=== PATIENT | male | born 1970 | race African-American/Black ===

== ENCOUNTER 2016-10-01 12:32 | Inpatient (IN) | payer OTHER ==
[~2016-10-01] VITALS: Ht 182.9 cm; Wt 88.8 kg
[~2016-10-01 12:32] MED LIST: ASPI81TA11 PO; ATOR10 PO; CLIN150 PO; EXTR500C PO; LANTUS2P SC; METO25 PO; NOVOLOGSS SQ; PRED1TAB PO; RIVA20 PO
[2016-10-01 12:34] VITALS: BP 122/84; PULSE 139; RESP 15; TEMP 99.1; O2SAT 99
--- NOTE | 2016-10-01 12:53 | PD ---
Physical Exam Time Seen by Provider: 12:51 Narrative 45 y/o male here with a painful "hole" in his L thigh for one week. Vital signs reviewed. Tachycardic. Hx Afib per chart review. Denies palpitations/cp/sob/dizziness. Seen at triage desk. Awaiting bed placement. Data Data Last Documented VS Vital Signs Date Time Temp Pulse Resp B/P Pulse Ox O2 Delivery O2 Flow Rate FiO2 10/01/16 12:34 99.1 139 15 122/84 99 MDM Medical Record Reviewed: Yes Supervised Visit with AMENA: Bolivar Mcdowell Oct 01, 2016 12:53
[2016-10-01] MEDS ORDERED: SODIUM CHLOR 0.9% 1000 ML INJ 1,000 ML IV SCH (13:40)
[2016-10-01 13:43] VITALS: O2SAT 98
[2016-10-01] MEDS ORDERED: ONDANSETRON HCL 4 MG/2 ML VIAL IVP ONE (13:45)
[2016-10-01] MEDS ORDERED: KETOROLAC TROMETHAMINE 30 MG/ML (IVP) VIAL IVP ONE (13:45)
[2016-10-01] MEDS ORDERED: VANCOMYCIN INJ 1,000 MG in SODIUM CHLOR 0.9% 250 ML INJ 250 ML IV ONE (13:45)
[2016-10-01] MEDS ORDERED: MORPHINE SULFATE 4 MG/ML INJ IV PUSH ONE (13:45)
[2016-10-01] MEDS ORDERED: DILTIAZEM HCL 25 MG/5 ML VIAL IV ONE (14:15)
--- NOTE | 2016-10-01 14:41 | PD ---
HPI Chief Complaint: Skin Problem Time Seen by Provider: 14:34 Travel History International Travel<30 days: No Contact w/Intl Traveler<30days: No Traveled to known affect area: No History of Present Illness HPI 45-year-old male that presents to the ED for evaluation of left inner tight skin lesions. Patient has a history of Hidradenitis suppurutiva, rheumatoid arthritis, diabetes. Per patient his lesions have been ongoing for some time before the past 2 weeks of progressively getting worse. Per patient he is also having pain in his knees especially his right knee. He also states having fevers and chills. Patient also states that he has a history of possible A. fib but when I ask him specifically if he takes anything for a history that he doesn't. Patient per medical records takes metoprolol but he states that he does not take it. He does take insulin for his diabetes. I examination patient is tachycardic. Per patient his pain is 10 out of 10 more on the right knee which has no lesions but also noted on the left inner tight. Per patient he has had purulence coming out of the wounds on the left inner tight for about 2-3 days that is worsening. Patient has foul smell noted. History of MRSA. Denies any IV drug abuse. No history of HIV. Patient has not seen his PCP for this. PFSH Past Medical History Arthritis: Yes (RA) Atrial Fibrillation: Yes Blood Disorders: No Heart Rhythm Problems: Yes (A FIB) Cancer: No Cardiac Catheterization: No Cardiovascular Problems: Yes High Cholesterol: Yes Congestive Heart Failure: No Coronary Artery Disease: Yes Diabetes: Yes Patient Takes Glucophage: No Diminished Hearing: No Endocrine: Yes Genitourinary: No Heparin Induced Thrombocytopen: No Hypertension: Yes Immune Disorder: Yes (RA) Implanted Vascular Access Dvce: No Musculoskeletal: Yes (RA) Neurologic: No Psychiatric: No Reproductive: No Respiratory: No Immunizations Current: Yes Thyroid Disease: Yes Past Surgical History Coronary Artery Bypass Graft: No Other Surgery: Yes (Nikos under arm r/t Boils ) Family History Family Myocardial Infarction: Yes (BROTHER) Social History Alcohol Use: Yes (rarely) Tobacco Use: No Substance Use: No (marijuana) Allergies-Medications (Allergen,Severity, Reaction): Coded Allergies: *MDRO Multi-Drug Resistant Organism (Verified Adverse Reaction, Unknown, ) 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/2015 Reported Meds & Prescriptions Reported Meds & Active Scripts Active Prednisone 1 Mg Tab 10 Mg PO DAILY Lantus (Insulin Glargine) 100 Units/Ml Inj 20 Unit SC HS 30 Days Xarelto 20 Mg Tab (Rivaroxaban) 20 Mg Tab 20 Mg PO DAILY 30 Days Metoprolol Tartrate 25 mg (Metoprolol Tartrate) 25 Mg Tab 25 Mg PO Q12HR 30 Days Lipitor 10 mg tab (Atorvastatin) 10 Mg Tab 10 Mg PO HS 30 Days Novolog Insulin Supplemental Scale (Insulin Aspart) 100 /Ml Inj 1 Units SQ ACHS SLIDING SCALE 30 Days Do not cover Fasting Sugar less than 200 while fasting Maximum Dose at Bedtime: 2 units Maximum Dose at 3am: 0 units Blood Sugar less than 70--No Insulin 150 - 199 --------- 1 Unit 200 - 249 --------- 3 Units 250 - 299 5 Units 300 - 349 7 Units Greater than 349 --9 Units Cleocin (Clindamycin HCl) 150 Mg Cap 450 Mg PO Q8H 28 Days Aspirin EC 81 mg (Aspirin) 81 Mg Tab 81 Mg PO DAILY 30 Days Reported Extra Strength Acetaminop (Acetaminophen) 500 Mg Cap 1,000 Mg PO BID PRN Review of Systems Except as stated in HPI: all other systems reviewed are Neg Physical Exam Narrative GENERAL: SKIN: Warm and dry. HEAD: Atraumatic. Normocephalic. Patient has old scars on his buttocks as well as his groin from old abscesses as well as in his axilla. EYES: Pupils equal and round. No scleral icterus. No injection or drainage. ENT: No nasal bleeding or discharge. Mucous membranes pink and moist. Tongue is midline. No uvula deviation. NECK: Trachea midline. No JVD. CARDIOVASCULAR: Regular rate and rhythm. No murmurs, S3, S4. RESPIRATORY: No accessory muscle use. Clear to auscultation. Breath sounds equal bilaterally. GASTROINTESTINAL: Abdomen soft, non-tender, nondistended. Hepatic and splenic margins not palpable. MUSCULOSKELETAL: Extremities without clubbing, cyanosis, or edema. No obvious deformities. Full range of motion of the upper and lower extremities bilaterally. Pupils pulses bilaterally. Patient has 2 open wounds on the left inner thigh. Largest one is about 2 cm in diameter with open purulence coming out of it. Smaller one is about 1 cm with some purulence coming out of it. Tender to touch especially the smaller one. Patient also has another pustule- like lesion on the left lower leg about 1 cm in diameter with erythema but no obvious purulence noted however. Tender to touch. Patient has pain with touch in the right knee but no obvious swelling or deformity. No erythema. Able to move it fully but has pain with flexion. Improves with extension. NEUROLOGICAL: Awake and alert. No obvious cranial nerve deficits. Motor grossly within normal limits. Five out of 5 muscle strength in the arms and legs. Normal speech. PSYCHIATRIC: Appropriate mood and affect; insight and judgment normal. Data Data Last Documented VS Vital Signs Date Time Temp Pulse Resp B/P Pulse Ox O2 Delivery O2 Flow Rate FiO2 10/01/16 13:43 98 Room Air 10/01/16 12:34 99.1 139 15 122/84 Orders Electrocardiogram (10/01/16 ) Electrocardiogram (10/01/16 13:31) Complete Blood Count With Diff (10/01/16 13:31) Basic Metabolic Panel (Bmp) (10/01/16 13:31) Prothrombin Time / Inr (Pt) (10/01/16 13:31) Act Partial Throm Time (Ptt) (10/01/16 13:31) Blood Culture (10/01/16 13:31) Magnesium (Mg) (10/01/16 13:31) Wound Culture And Gram Stain (10/01/16 13:31) Iv Access Insert/Monitor (10/01/16 13:31) Ecg Monitoring (10/01/16 13:31) Oximetry (10/01/16 13:31) Lactic Acid (10/01/16 13:31) C-Reactive Protein (Crp) (10/01/16 13:31) Vancomycin Inj (Vancomycin Inj) (10/01/16 13:45) Morphine Inj (Morphine Inj) (10/01/16 13:45) Ondansetron Inj (Zofran Inj) (10/01/16 13:45) Sodium Chlor 0.9% 1000 Ml Inj (Ns 1000 M (10/01/16 13:40) Ketorolac Inj (Toradol Inj) (10/01/16 13:45) Diltiazem Inj (Cardizem Inj) (10/01/16 14:15) Admit Order (Ed Use Only) (10/01/16 16:04) Labs Laboratory Tests Test 10/01/16 14:15 White Blood Count 16.3 TH/MM3 Red Blood Count 4.01 MIL/MM3 Hemoglobin 10.1 GM/DL Hematocrit 32.3 % Mean Corpuscular Volume 80.6 FL Mean Corpuscular Hemoglobin 25.3 PG Mean Corpuscular Hemoglobin 31.3 % Concent Red Cell Distribution Width 19.9 % Platelet Count 545 TH/MM3 Mean Platelet Volume 8.5 FL Neutrophils (%) (Auto) 79.3 % Lymphocytes (%) (Auto) 14.6 % Monocytes (%) (Auto) 4.6 % Eosinophils (%) (Auto) 1.0 % Basophils (%) (Auto) 0.5 % Neutrophils # (Auto) 12.9 TH/MM3 Lymphocytes # (Auto) 2.4 TH/MM3 Monocytes # (Auto) 0.8 TH/MM3 Eosinophils # (Auto) 0.2 TH/MM3 Basophils # (Auto) 0.1 TH/MM3 CBC Comment DIFF FINAL Differential Comment Prothrombin Time 12.7 SEC Prothromb Time International 1.1 RATIO Ratio Activated Partial 29.9 SEC Thromboplast Time Sodium Level 130 MEQ/L Potassium Level 4.4 MEQ/L Chloride Level 97 MEQ/L Carbon Dioxide Level 26.6 MEQ/L Anion Gap 6 MEQ/L Blood Urea Nitrogen 24 MG/DL Creatinine 1.25 MG/DL Estimat Glomerular Filtration 75 ML/MIN Rate Random Glucose 411 MG/DL Lactic Acid Level 1.8 mmol/L Calcium Level 9.9 MG/DL Magnesium Level 1.9 MG/DL C-Reactive Protein 15.50 MG/DL MDM Medical Decision Making Medical Screen Exam Complete: Yes Emergency Medical Condition: Yes Medical Record Reviewed: Yes Interpretation(s) CBC Diagram 10/01/16 14:15 lactic of 1.8 BMP Diagram 10/01/16 14:15 Differential Diagnosis Abscesses versus hidradenitis suppurativa versus diabetes mellitus versus rheumatoid arthritis versus leukocytosis versus cellulitis versus sepsis Narrative Course 45-year-old male that presents to the ED for evaluation of infection as well as knee pain. Patient was properly examined and was found to have signs and symptoms very consistent appears to be significant infection. Patient's wound appeared to be old but they're draining purulent material. Patient does appear to have severe tachycardia in the 120s 130s. EKG shows atrial flutter but not really atrial fibrillation. Questionable compliance. Patient is diabetic. Concern for sepsis. Labs ordered. Patient was started on IV medications as well as IV fluids. Patient was started on vancomycin as he has a history of MRSA. Labs showed leukocytosis with left shift. At this time I spoke with my attending Dr Myers who evaluated the patient with me and agrees to admission. Patient still tachycardic but improved at 108 from 130. SHON christensen and Dr. Castle agrees to admission. Sepsis Criteria SIRS Criteria (2 or more): Heart rate over 90, WBC > 44638, < 4000 or > 10% bands Sepsis Criteria (SIRS+source): Infect source susp/known Criteria Outcome: Meets sepsis criteria Diagnosis Primary Impression: Hidradenitis suppurativa Additional Impressions: Cellulitis Qualified Code: L03.116 - Cellulitis of left lower extremity Atrial flutter Qualified Code: I48.3 - Typical atrial flutter Sepsis Qualified Code: A41.9 - Sepsis, due to unspecified organism Admitting Information Admitting Physician Requests: Observation Zion Garrison Oct 01, 2016 14:41
[2016-10-01 15:00] LABS: AUTOMATED NEUTROPHIL # 12.9 TH/MM3 (1.8-7.7); BASOPHIL # 0.1 TH/MM3 (0-0.2); BASOPHIL % 0.5 % (0.0-2.0); EOSINOPHIL # 0.2 TH/MM3 (0-0.4); HEMATOCRIT 32.3 % (39.0-51.0); HEMO FLAGS DIFF FINAL; LYMPH % 14.6 % (9.0-44.0); LYMPHOCYTE # 2.4 TH/MM3 (1.0-4.8); MEAN CELL VOLUME 80.6 FL (80.0-100.0); MEAN CORPUSCULAR HEMOGLOBIN 25.3 PG (27.0-34.0); MEAN CORPUSCULAR HGB CONC 31.3 % (32.0-36.0); MONO % 4.6 % (0.0-8.0); NEUT % 79.3 % (16.0-70.0); PLATELET COUNT 545 TH/MM3 (150-450); RED BLOOD COUNT 4.01 MIL/MM3 (4.50-5.90); RED CELL DISTRIBUTION WIDTH 19.9 % (11.6-17.2); WHITE BLOOD COUNT 16.3 TH/MM3 (4.0-11.0)
[2016-10-01 15:12] LABS: APTT (PATIENT) 29.9 SEC (24.3-30.1); INTERNATIONAL NORMALIZED RATIO 1.1 RATIO; PROTHROMBIN TIME - PATIENT 12.7 SEC (9.8-11.6)
[2016-10-01 15:19] LABS: BICARBONATE 26.6 MEQ/L (21.0-32.0); MAGNESIUM 1.9 MG/DL (1.5-2.5); POTASSIUM 4.4 MEQ/L (3.5-5.1)
--- NOTE | 2016-10-01 16:12 | PD ---
Data Data Last Documented VS Vital Signs Date Time Temp Pulse Resp B/P Pulse Ox O2 Delivery O2 Flow Rate FiO2 10/01/16 13:43 98 Room Air 10/01/16 12:34 99.1 139 15 122/84 Orders Electrocardiogram (10/01/16 ) Electrocardiogram (10/01/16 13:31) Complete Blood Count With Diff (10/01/16 13:31) Basic Metabolic Panel (Bmp) (10/01/16 13:31) Prothrombin Time / Inr (Pt) (10/01/16 13:31) Act Partial Throm Time (Ptt) (10/01/16 13:31) Blood Culture (10/01/16 13:31) Magnesium (Mg) (10/01/16 13:31) Wound Culture And Gram Stain (10/01/16 13:31) Iv Access Insert/Monitor (10/01/16 13:31) Ecg Monitoring (10/01/16 13:31) Oximetry (10/01/16 13:31) Lactic Acid (10/01/16 13:31) C-Reactive Protein (Crp) (10/01/16 13:31) Vancomycin Inj (Vancomycin Inj) (10/01/16 13:45) Morphine Inj (Morphine Inj) (10/01/16 13:45) Ondansetron Inj (Zofran Inj) (10/01/16 13:45) Sodium Chlor 0.9% 1000 Ml Inj (Ns 1000 M (10/01/16 13:40) Ketorolac Inj (Toradol Inj) (10/01/16 13:45) Diltiazem Inj (Cardizem Inj) (10/01/16 14:15) Admit Order (Ed Use Only) (10/01/16 16:04) Labs Laboratory Tests Test 10/01/16 14:15 White Blood Count 16.3 TH/MM3 Red Blood Count 4.01 MIL/MM3 Hemoglobin 10.1 GM/DL Hematocrit 32.3 % Mean Corpuscular Volume 80.6 FL Mean Corpuscular Hemoglobin 25.3 PG Mean Corpuscular Hemoglobin 31.3 % Concent Red Cell Distribution Width 19.9 % Platelet Count 545 TH/MM3 Mean Platelet Volume 8.5 FL Neutrophils (%) (Auto) 79.3 % Lymphocytes (%) (Auto) 14.6 % Monocytes (%) (Auto) 4.6 % Eosinophils (%) (Auto) 1.0 % Basophils (%) (Auto) 0.5 % Neutrophils # (Auto) 12.9 TH/MM3 Lymphocytes # (Auto) 2.4 TH/MM3 Monocytes # (Auto) 0.8 TH/MM3 Eosinophils # (Auto) 0.2 TH/MM3 Basophils # (Auto) 0.1 TH/MM3 CBC Comment DIFF FINAL Differential Comment Prothrombin Time 12.7 SEC Prothromb Time International 1.1 RATIO Ratio Activated Partial 29.9 SEC Thromboplast Time Sodium Level 130 MEQ/L Potassium Level 4.4 MEQ/L Chloride Level 97 MEQ/L Carbon Dioxide Level 26.6 MEQ/L Anion Gap 6 MEQ/L Blood Urea Nitrogen 24 MG/DL Creatinine 1.25 MG/DL Estimat Glomerular Filtration 75 ML/MIN Rate Random Glucose 411 MG/DL Lactic Acid Level 1.8 mmol/L Calcium Level 9.9 MG/DL Magnesium Level 1.9 MG/DL C-Reactive Protein 15.50 MG/DL MDM Supervised Visit with AMENA: Yes Narrative Course The history, exam, and medical decision-making in the associated midlevel provider note were completed with my assistance. I reviewed and agree with the findings presented. I attest that I had a [id number] encounter with the patient on the same day, and personally performed and documented my assessment and findings in the medical record. *My assessment and Findings: This is a 45-year-old male who presents to the emergency department with increasing discharge from wounds on his left lower extremity. He has a history of hidradenitis suppurotiva and has grown MRSA in the past. He was tachycardic on arrival. He was given IV fluids and diltiazem in the setting of atrial fibrillation with rapid ventricular response. He is also given a dose of IV vancomycin. He has leukocytosis and his exam is fairly impressive. Think he requires admission for IV antibiotics and wound care. Diagnosis Primary Impression: Hidradenitis suppurativa Additional Impressions: Atrial flutter Qualified Code: I48.3 - Typical atrial flutter Cellulitis Qualified Code: L03.116 - Cellulitis of left lower extremity Taylor Myers MD Oct 01, 2016 16:12
[2016-10-01] MEDS ORDERED: INSULIN HUMAN REGULAR 1,000 UNITS/10 ML VIAL SQ ONE (16:30)
[2016-10-01] MEDS ORDERED: NALOXONE HCL 0.4 MG/ML AMP IV PRN (16:45)
[2016-10-01] MEDS ORDERED: ENALAPRILAT 1.25 MG/ML VIAL IV PUSH PRN (16:45)
[2016-10-01] MEDS ORDERED: MAGNESIUM HYDROXIDE SUSP 30 ML CUP PO PRN (16:45)
[2016-10-01] MEDS ORDERED: DEXTROSE 50% IN WATER 50 ML VIAL(D50) IV PRN (16:45)
[2016-10-01] MEDS ORDERED: RESP: ALBUTEROL 2.5 MG/IPRATROPIUM 0.5 MG NEB (PRN) NEB (16:45)
[2016-10-01] MEDS ORDERED: ACETAMINOPHEN 325 MG TAB PO PRN ×2 (16:45)
[2016-10-01] MEDS ORDERED: TEMAZEPAM 15 MG CAP PO PRN (16:45)
[2016-10-01] MEDS ORDERED: ONDANSETRON HCL 4 MG/2 ML VIAL IVP PRN (16:45)
[2016-10-01] MEDS ORDERED: ACETAMINOPHEN/HYDROcodone 325 MG/5 MG TAB PO PRN (16:45)
[2016-10-01] MEDS ORDERED: GLUCAGON 1 MG/ML VIAL OTHER PRN (16:45)
[2016-10-01 17:18] LABS: CREATINE KINASE 39 U/L (39-308)
--- NOTE | 2016-10-01 18:17 | HHI.HP ---
HPI Service [facility] Hospitalists Primary Care Physician No Primary Care Physician Admission Diagnosis cellulitis, hydradenitis suppurutiva, a. flutter, leukocytosis Diagnoses: Chief Complaint: Draining wounds left lower extremity elevated blood sugar bilateral knee pain Travel History International Travel<30 Days: No Contact w/Intl Traveler <30 Da: No Traveled to Known Affected Are: No Sepsis Criteria SIRS Criteria (2 or more): Heart rate over 90, WBC > 20602, < 4000 or > 10% bands Sepsis Criteria (SIRS+source): Infect source susp/known Criteria Outcome: Meets sepsis criteria History of Present Illness Written by Janice Stanford PA-C acting as scribe for Dr. Castle on 10/01/16 at 17:32. This is a 45-year-old male with past medical history significant for hypertension, diabetes mellitus, hidradenitis, rheumatoid arthritis, COPD and previous history of atrial fibrillation who presents to [facility] ED with complaints of two-week history of worsening lesions left inner thigh that have been increasing in size and starting to drain pus over the last 2-3 days. He reports 10 out of 10 pain that was unrelieved with Aleve taken at home. Patient denies any fever or chills at home. Also denies any nausea or vomiting. He has a history of MRSA infection. Patient was at [facility] a few weeks ago with similar complaints and was treated with oral clindamycin and steroids which the patient reports did not help. He admits to history of rheumatoid arthritis but states he's never seen a music arranger. He is having bilateral knee pain but worse on the right than the left. In regards to his diabetes, patient reports that he is compliant with his insulin medication and is unsure why his blood sugar is 441 in the ED today. When asked why he doesn' t take any medications for atrial fibrillation, patient states he was told by physician he no longer has it. He was last seen by his primary care physician one month ago. Presently, patient complains of 10 out of 10 pain. He denies any chest pain, palpitations, dizziness or shortness of breath. Review of Systems Except as stated in HPI: all other systems reviewed are Neg Past Family Social History Past Medical History Rheumatoid arthritis Diabetes mellitus Hidradenitis suppurative History of MRSA infection Hypertension COPD Dyslipidemia Past Surgical History History of surgery Luli the left axilla for hidradenitis History of skin graft left thigh Reported Medications Lantus NovoLog Aleve 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 Ordered Medications Current Medications Medications (Trade) Dose Ordered Sig/Mitzi Route Start Time Stop Time Status Last Admin (NS Flush) 2 ml UNSCH PRN IV FLUSH 10/01/16 16:45 (NS Flush) 2 ml BID IV FLUSH 10/01/16 21:00 (Tylenol) 650 mg Q4H PRN PO 10/01/16 16:45 (Zofran Inj) 4 mg Q6H PRN IVP 10/01/16 16:45 (Restoril) 15 mg HS PRN PO 10/01/16 16:45 (Tylenol) 650 mg Q6H PRN PO 10/01/16 16:45 ([place] 5-325 Mg) 1 tab Q4H PRN PO 10/01/16 16:45 (Narcan Inj) 0.4 mg UNSCH PRN IV 10/01/16 16:45 (Milk Of Magnesia Liq) 30 ml Q12H PRN PO 10/01/16 16:45 (D50w (Vial) Inj) 50 ml UNSCH PRN IV 10/01/16 16:45 (Glucagon Inj) 1 mg UNSCH PRN OTHER 10/01/16 16:45 (Vasotec Inj) 1.25 mg Q6H PRN IV PUSH 10/01/16 16:45 (Lactinex) 1 tab Q12HR PO 10/01/16 21:00 Family History Brother, coronary artery disease Mother, hypertension Social History Patient has a history of tobacco use of a pack per day but quit 6 months ago. He reports occasional alcohol use of 1 beer/week. He reports occasional marijuana use. Physical Exam Vital Signs Vital Signs Date Time Temp Pulse Resp B/P Pulse Ox O2 Delivery O2 Flow Rate FiO2 10/01/16 13:43 98 Room Air 10/01/16 12:34 99.1 139 15 122/84 99 Physical Exam GENERAL: This is a well-nourished, well-developed patient, in no apparent distress. Awake and alert. Cooperative and pleasant. SKIN: Left axilla has well-healed surgical scars from prior surgery. (+)Open wounds on the left inner thigh with active purulent drainage, the largest approximately 2x2cm. (+)tender to palpation. Healed shallow craters from sites of previous infection. HEAD: Atraumatic. Normocephalic. No temporal or scalp tenderness. EYES: Pupils equal round and reactive. Extraocular motions intact. No scleral icterus. No injection or drainage. ENT: Nose without bleeding, purulent drainage or septal hematoma. Throat without erythema, tonsillar hypertrophy or exudate. Uvula midline. Airway patent. NECK: Trachea midline. Supple, nontender, no meningeal signs. CARDIOVASCULAR: Regular rate and rhythm without murmurs, gallops, or rubs. RESPIRATORY: Clear to auscultation. Breath sounds equal bilaterally. No wheezes , rales, or rhonchi. GASTROINTESTINAL: Abdomen soft, non-tender, nondistended. No hepato-splenomegaly , or palpable masses. No guarding. MUSCULOSKELETAL: Extremities without clubbing, cyanosis, or edema. No joint tenderness, effusion, or edema noted. No calf tenderness. NEUROLOGICAL: Awake and alert. Able to move all extremes. No focal neurologic findings appreciated. Normal speech. Laboratory Laboratory Tests Test 10/01/16 14:15 White Blood Count 16.3 Red Blood Count 4.01 Hemoglobin 10.1 Hematocrit 32.3 Mean Corpuscular Volume 80.6 Mean Corpuscular Hemoglobin 25.3 Mean Corpuscular Hemoglobin 31.3 Concent Red Cell Distribution Width 19.9 Platelet Count 545 Mean Platelet Volume 8.5 Neutrophils (%) (Auto) 79.3 Lymphocytes (%) (Auto) 14.6 Monocytes (%) (Auto) 4.6 Eosinophils (%) (Auto) 1.0 Basophils (%) (Auto) 0.5 Neutrophils # (Auto) 12.9 Lymphocytes # (Auto) 2.4 Monocytes # (Auto) 0.8 Eosinophils # (Auto) 0.2 Basophils # (Auto) 0.1 CBC Comment DIFF FINAL Differential Comment Prothrombin Time 12.7 Prothromb Time International 1.1 Ratio Activated Partial 29.9 Thromboplast Time Sodium Level 130 Potassium Level 4.4 Chloride Level 97 Carbon Dioxide Level 26.6 Anion Gap 6 Blood Urea Nitrogen 24 Creatinine 1.25 Estimat Glomerular Filtration 75 Rate Random Glucose 411 Lactic Acid Level 1.8 Calcium Level 9.9 Magnesium Level 1.9 Total Creatine Kinase 39 Troponin I LESS THAN 0.02 C-Reactive Protein 15.50 Date/Time Procedure Status Source Growth 10/01/16 14:25 Aerobic Blood Culture Received Blood Peripheral Pending 10/01/16 14:25 Anaerobic Blood Culture Received Blood Peripheral Pending 10/01/16 14:05 Gram Stain - Final Resulted Wound Thigh 10/01/16 14:05 Wound Culture Resulted Wound Thigh Pending Result Diagram: 10/01/16 1415 10/01/16 1415 Assessment and Plan Assessment and Plan 45-year-old male with past medical history significant for hypertension, diabetes mellitus, hidradenitis, rheumatoid arthritis, COPD and previous history of atrial fibrillation who presents with enlarging open sores on the left thigh with pustulant drainage and uncontrolled hyperglycemia. Sepsis criteria met with tachycardia, leukocytosis with known source of infection - cellulitis with possible abscess left inner thigh Hidradenitis suppurativa with open lesions draining purulent fluid left inner thigh in patient with h/o MRSA infection Patient will be admitted CRP 15.50 Consult general surgery - appreciate their assistance IV antibiotic coverage with IV Vancomycin and Flagyl Follow up on wound culture and blood culture results and will adjust antibiotic treatment pending identification and susceptibility. Pain management Probiotics by mouth while on antibiotics Diabetes mellitus, uncontrolled Glucose level 411 Diabetic diet Insulin sliding scale Accu-Cheks Resume home long-acting insulin Obtain A1c Hypertension Blood pressure well controlled without medications Vasotec 1.25 mg when necessary SBP greater than 160 Continue to monitor BP and adjust treatment as indicated Dyslipidemia Not on any medications at home Obtain fasting lipid profile History of atrial fibrillation/tachycardia Patient not on any home medication Denies any complaints of chest pain, palpitations, shortness of breath or dizziness HR in the 130s, now improved to the 90s after receiving IV fluids and diltiazem EKG in the ED showed atrial flutter Repeat 12 lead EKG Initial troponin negative Continue to cycle cardiac enzymes Monitor History of COPD Not in exacerbation Monitor respiratory status Duonebs as needed Pseudohypernatremia Sodium level 130 Suspect secondary to uncontrolled diabetes with hyperglycemia Obtain follow-up BMP Rheumatoid arthritis with complaints of bilateral knee pain Possible flare Pain management Anemia, normocytic, chronic Stable on review of previous labs. Likely secondary to chronic disease such as rheumatoid arthritis iron studies reviewed 12/05/15 showed no evidence of KIET Am labs to monitor DVT prophylaxis SCD/JOSEPH hose bilaterally This note was transcribed by aparna Stanford. I, Dr. Adolfo Castle personally performed the history, physical exam, and medical decision making; and confirmed the accuracy of the information in the transcribed note. Authenticated by Dr. Adolfo Castle on 10/01/16 at 18:31. Code Status Full code Discussed Condition With Patient, ED physician Physician Certification 2 Midnight Certification Type: Admission for Inpatient Services Order for Inpatient Services The services are ordered in accordance with Medicare regulations or non- Medicare payer requirements, as applicable. In the case of services not specified as inpatient-only, they are appropriately provided as inpatient services in accordance with the 2-midnight benchmark. Estimated LOS (days): 3 3 days is the estimated time the patient will need to remain in the hospital, assuming treatment plan goals are met and no additional complications. Post-Hospital Plan: Not yet determined Janice Stanford Oct 01, 2016 18:17 Adolfo Castle MD Oct 01, 2016 18:31
[2016-10-01 18:31] VITALS: BP 131/75; PULSE 99; RESP 18; O2SAT 100
[2016-10-01 20:00] VITALS: BP 112/71; PULSE 92; RESP 18; TEMP 98.3; O2SAT 99
[2016-10-01] MEDS: SODIUM CHLORIDE 0.9% FLUSH 10 ML FLUSH IV FLUSH SCH (20:44)
[2016-10-01] MEDS: LACTOBACILLUS ACIDOPHILUS TAB PO SCH (20:44)
[2016-10-01] MEDS ORDERED: INSULIN ASPART SUPPLEMENTAL SCALE SQ SCH (21:00)
[2016-10-01 21:42] LABS: CREATINE KINASE 43 U/L (39-308)
[2016-10-01] MEDS: ACETAMINOPHEN/HYDROcodone 325 MG/10 MG TAB PO PRN (22:58)
[2016-10-01] MEDS: CLINDAMYCIN 150 MG CAP PO SCH (22:58)
[2016-10-01] MEDS: metroNIDAZOLE 500 MG TAB PO SCH (22:58)
[2016-10-01] MEDS ORDERED: CLINDAMYCIN INJ 300 MG in SODIUM CHLORIDE 0.9% INJ 100 ML IV SCH (23:00)
[2016-10-02] VITALS: BP 122/72; PULSE 92; RESP 18; TEMP 99.4; O2SAT 97
[2016-10-02] MEDS ORDERED: metroNIDAZOLE 500 MG INJ 100 ML IV SCH
[2016-10-02] MEDS: MORPHINE SULFATE 4 MG/ML INJ IV PUSH PRN ×6 (02:32→22:14)
[2016-10-02 04:00] VITALS: BP 117/72; PULSE 87; RESP 18; TEMP 99.5; O2SAT 95
[2016-10-02 05:28] LABS: AUTOMATED NEUTROPHIL # 13.8 TH/MM3 (1.8-7.7); BASOPHIL # 0.1 TH/MM3 (0-0.2); BASOPHIL % 0.8 % (0.0-2.0); EOSINOPHIL # 0.6 TH/MM3 (0-0.4); EOSINOPHIL % 3.2 % (0.0-4.0); HEMO FLAGS DIFF FINAL; LYMPHOCYTE # 3.4 TH/MM3 (1.0-4.8); MEAN CELL VOLUME 78.9 FL (80.0-100.0); MEAN CORPUSCULAR HEMOGLOBIN 24.7 PG (27.0-34.0); MEAN CORPUSCULAR HGB CONC 31.2 % (32.0-36.0); MONO % 4.9 % (0.0-8.0); NEUT % 73.1 % (16.0-70.0); PLATELET COUNT 522 TH/MM3 (150-450); RED BLOOD COUNT 3.42 MIL/MM3 (4.50-5.90); RED CELL DISTRIBUTION WIDTH 19.1 % (11.6-17.2); WHITE BLOOD COUNT 18.9 TH/MM3 (4.0-11.0)
[2016-10-02] MEDS: metroNIDAZOLE 500 MG TAB PO SCH (05:34)
[2016-10-02] MEDS: CLINDAMYCIN 150 MG CAP PO SCH ×4 (05:34→23:47)
[2016-10-02 06:06] LABS: ALKALINE PHOSPHATASE 84 U/L (45-117); ALT (GPT) 12 U/L (12-78); ANION GAP 9 MEQ/L (5-15); AST (GOT) 7 U/L (15-37); BICARBONATE 25.3 MEQ/L (21.0-32.0); BLOOD UREA NITROGEN 18 MG/DL (7-18); CHLORIDE 99 MEQ/L (98-107); GLOMERULAR FILTRATION RATE 116 ML/MIN (>89); HDL CHOLESTEROL 29.4 MG/DL (40.0-60.0); LDL CHOLESTEROL 103 MG/DL (0-99); POTASSIUM 3.6 MEQ/L (3.5-5.1); SODIUM (NA) 133 MEQ/L (136-145); TOTAL BILIRUBIN ADULT 0.5 MG/DL (0.2-1.0)
[2016-10-02] MEDS: INSULIN ASPART SUPPLEMENTAL SCALE SQ SCH ×4 (06:28→19:58)
[2016-10-02 08:00] VITALS: BP 118/70; PULSE 94; RESP 16; TEMP 99.4; O2SAT 96
[2016-10-02] MEDS: ACETAMINOPHEN/HYDROcodone 325 MG/10 MG TAB PO PRN ×2 (08:32→17:27)
[2016-10-02] MEDS: LACTOBACILLUS ACIDOPHILUS TAB PO SCH ×2 (08:32→19:57)
[2016-10-02] MEDS: SODIUM CHLORIDE 0.9% FLUSH 10 ML FLUSH IV FLUSH SCH ×2 (10:37→19:58)
[2016-10-02 12:00] VITALS: BP 111/75; PULSE 82; RESP 16; TEMP 99.2; O2SAT 97
--- NOTE | 2016-10-02 12:01 | HHI.PR ---
Subjective Remarks Follow-up cellulitis, abscess 10/02/16-patient seen and examined, complains of knee pain. Currently afebrile. Objective Vitals Vital Signs Date Time Temp Pulse Resp B/P Pulse Ox O2 Delivery O2 Flow Rate FiO2 10/02/16 08:00 99.4 94 16 118/70 96 10/02/16 06:33 18 10/02/16 04:00 99.5 87 18 117/72 95 10/02/16 00:00 99.4 92 18 122/72 97 10/01/16 23:58 18 10/01/16 20:00 98.3 92 18 112/71 99 10/01/16 19:37 18 10/01/16 18:31 99 18 131/75 100 Room Air 10/01/16 13:43 98 Room Air 10/01/16 12:34 99.1 139 15 122/84 99 I/O 10/01/16 10/01/16 10/01/16 10/02/16 10/02/16 10/02/16 07:00 15:00 23:00 07:00 15:00 23:00 Intake Total 480 ml 360 ml Output Total 600 ml 1000 ml Balance -120 ml -640 ml Intake Oral 480 ml 360 ml Output Urine Total 600 ml 1000 ml Result Diagram: 10/02/16 0449 10/02/16 0454 A/P Problem List: (1) Hidradenitis suppurativa ICD Code: L73.2 Status: Chronic (2) Sepsis ICD Code: A41.9 Status: Acute (3) Abscess or cellulitis of foot ICD Code: L03.119 Status: Acute Assessment and Plan 45-year-old man with Sepsis criteria met with tachycardia, leukocytosis with known source of infection - cellulitis with possible abscess left inner thigh Hidradenitis suppurativa with open lesions draining purulent fluid left inner thigh in patient with h/o MRSA infection CRP 15.50 Consult general surgery as well as infectious disease specialist IV antibiotic coverage with IV Vancomycin and Flagyl Follow up on wound culture and blood culture results results and will adjust antibiotic treatment pending identification and susceptibility. Pain management Probiotics by mouth while on antibiotics Diabetes mellitus, uncontrolled Glucose level 411 on admission Diabetic diet Insulin sliding scale Accu-Cheks Resume home long-acting insulin Check A1c Hypertension Blood pressure well controlled without medications Vasotec 1.25 mg when necessary SBP greater than 160 Continue to monitor BP and adjust treatment as indicated Dyslipidemia Resume statin History of atrial fibrillation/tachycardia ACS ruled out per protocol Will resume Lopressor as well as Xarelto okay with general surgery if no need for I&D History of COPD Not an exacerbation Duonebs as needed Pseudohypernatremia Sodium level 133 continue to monitor Rheumatoid arthritis with complaints of bilateral knee pain Possible flare Pain management and restart prednisone Anemia, normocytic, chronic Stable on review of previous labs. Likely secondary to chronic disease such as rheumatoid arthritis iron studies reviewed 12/05/15 showed no evidence of KIET Am labs to monitor DVT prophylaxis SCD/JOSEPH shae bilaterally Problem Qualifiers (1) Sepsis: Qualified Code: A41.9 - Sepsis, due to unspecified organism Adolfo Castle MD Oct 02, 2016 12:01
[2016-10-02] MEDS ORDERED: GENTAMICIN SULFATE 80 MG/2 ML VIAL ONE (12:39)
--- NOTE | 2016-10-02 12:43 | PD.ID.CON ---
History of Present Illness Service ID Consult Requested By Reason for Consult Evaluation and management left thigh abscess, hidradenitis suppurativa Primary Care Physician No Primary Care Physician Diagnoses: History of Present Illness is a 45 y/o AAM with medical history significant for hidradenitis suppurativa, recurrent skin infections, rheumatoid arthritis on prednisone, COPD , diabetes mellitus, hypertension, atrial fibrillation who is on Xarelto. With this background patient presents to [facility] emergency Department with complaints of two-week history of worsening lesions in the left inner thigh that are increasing in size and draining purulent looking stuff. He reports increasing pain, hardness as well as drainage over the last 2-3 days. Patient has a history of MRSA infection past. Patient was at [facility] a few weeks ago with similar complaints and was treated with oral clindamycin which patient reports did not help. Patient self reports a history of rheumatoid arthritis. Has never seen a scallop binder. He reports bilateral knee pain which is worse on the right than the left. ID consulted for evaluation and Mment of left thigh abscess and hidradenitis suppuritiva. Review of Systems ROS Limitations: Poor Historian Constitutional: DENIES: Diaphoretic episodes, Fatigue, Fever, Weight gain, Weight loss, Chills, Dizziness, Change in appetite, Night Sweats Endocrine: DENIES: Heat/cold intolerance, Polydipsia, Polyuria, Polyphagia Eyes: DENIES: Blurred vision, Diplopia, Eye inflammation, Eye pain, Vision loss , Photosensitivity, Double Vision Ears, nose, mouth, throat: DENIES: Tinnitus, Hearing loss, Vertigo, Nasal discharge, Oral lesions, Throat pain, Hoarseness, Ear Pain, Running Nose, Epistaxis, Sinus Pain, Toothache, Odynophagia Respiratory: DENIES: Apneas, Cough, Snoring, Wheezing, Hemoptysis, Sputum production, Shortness of breath Cardiovascular: DENIES: Chest pain, Palpitations, Syncope, Dyspnea on Exertion , PND, Lower Extremity Edema, Orthopnea, Claudication Gastrointestinal: DENIES: Abdominal pain, Black stools, Bloody stools, Constipation, Diarrhea, Nausea, Vomiting, Difficulty Swallowing, Anorexia Genitourinary: DENIES: Sexual dysfunction, Urinary frequency, Urinary incontinence, Urgency, Hematuria, Dysuria, Nocturia, Penile Discharge, Testicular Pain, Testicular Swelling Musculoskeletal: DENIES: Joint pain, Muscle aches, Stiffness, Joint Swelling, Back pain, Neck pain Integumentary: COMPLAINS OF: Abnormal pigmentation, Pruritus, DENIES: Nail changes, Rash Hematologic/lymphatic: DENIES: Bruising, Lymphadenopathy Immunologic/allergic: DENIES: Eczema, Urticaria Neurologic: DENIES: Abnormal gait, Headache, Localized weakness, Paresthesias, Seizures, Speech Problems, Tremor, Poor Balance Psychiatric: DENIES: Anxiety, Confusion, Mood changes, Depression, Hallucinations, Agitation, Suicidal Ideation, Homicidal Ideation, Delusions Except as stated in HPI: all other systems reviewed are Neg Past Family Social History 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 Past Medical History Rheumatoid arthritis Diabetes mellitus Hidradenitis suppurative History of MRSA infection Hypertension COPD Dyslipidemia Past Surgical History History of surgery Luli the left axilla for hidradenitis History of skin graft left thigh Reported Medications Reported Meds & Active Scripts Active Prednisone 1 Mg Tab 10 Mg PO DAILY Lantus (Insulin Glargine) 100 Units/Ml Inj 20 Unit SC HS 30 Days Xarelto 20 Mg Tab (Rivaroxaban) 20 Mg Tab 20 Mg PO DAILY 30 Days Metoprolol Tartrate 25 mg (Metoprolol Tartrate) 25 Mg Tab 25 Mg PO Q12HR 30 Days Lipitor 10 mg tab (Atorvastatin) 10 Mg Tab 10 Mg PO HS 30 Days Novolog Insulin Supplemental Scale (Insulin Aspart) 100 /Ml Inj 1 Units SQ ACHS SLIDING SCALE 30 Days Do not cover Fasting Sugar less than 200 while fasting Maximum Dose at Bedtime: 2 units Maximum Dose at 3am: 0 units Blood Sugar less than 70--No Insulin 150 - 199 --------- 1 Unit 200 - 249 --------- 3 Units 250 - 299 5 Units 300 - 349 7 Units Greater than 349 --9 Units Cleocin (Clindamycin HCl) 150 Mg Cap 450 Mg PO Q8H 28 Days Aspirin EC 81 mg (Aspirin) 81 Mg Tab 81 Mg PO DAILY 30 Days Reported Extra Strength Acetaminop (Acetaminophen) 500 Mg Cap 1,000 Mg PO BID PRN Active Ordered Medications Current Medications Medications (Trade) Dose Ordered Sig/Mitzi Route Start Time Stop Time Status Last Admin (NS Flush) 2 ml UNSCH PRN IV FLUSH 10/01/16 16:45 (NS Flush) 2 ml BID IV FLUSH 10/01/16 21:00 10/02/16 10:37 (Tylenol) 650 mg Q4H PRN PO 10/01/16 16:45 (Zofran Inj) 4 mg Q6H PRN IVP 10/01/16 16:45 (Restoril) 15 mg HS PRN PO 10/01/16 16:45 (Tylenol) 650 mg Q6H PRN PO 10/01/16 16:45 ([place] 5-325 Mg) 1 tab Q4H PRN PO 10/01/16 16:45 10/01/16 18:37 (Narcan Inj) 0.4 mg UNSCH PRN IV 10/01/16 16:45 (Milk Of Magnesia Liq) 30 ml Q12H PRN PO 10/01/16 16:45 (D50w (Vial) Inj) 50 ml UNSCH PRN IV 10/01/16 16:45 (Glucagon Inj) 1 mg UNSCH PRN OTHER 10/01/16 16:45 (Vasotec Inj) 1.25 mg Q6H PRN IV PUSH 10/01/16 16:45 (Lactinex) 1 tab Q12HR PO 10/01/16 21:00 10/02/16 08:32 ([place] 10-325 Mg) 1 tab Q4H PRN PO 10/01/16 21:15 10/02/16 08:32 (Morphine Inj) 2 mg Q4HR PRN IV PUSH 10/01/16 21:15 10/02/16 10:36 (Cleocin) 300 mg Q6HR PO 10/02/16 00:00 10/02/16 10:36 (Flagyl) 500 mg Q8H PO 10/01/16 23:00 10/02/16 05:34 Family History Brother, coronary artery disease Mother, hypertension Social History Patient has a history of tobacco use of a pack per day but quit 6 months ago. He reports occasional alcohol use of 1 beer/week. He reports occasional marijuana use. Physical Exam Vital Signs Vital Signs Date Time Temp Pulse Resp B/P Pulse Ox O2 Delivery O2 Flow Rate FiO2 10/02/16 12:00 99.2 82 16 111/75 97 10/02/16 08:00 99.4 94 16 118/70 96 10/02/16 06:33 18 10/02/16 04:00 99.5 87 18 117/72 95 10/02/16 00:00 99.4 92 18 122/72 97 10/01/16 23:58 18 10/01/16 20:00 98.3 92 18 112/71 99 10/01/16 19:37 18 10/01/16 18:31 99 18 131/75 100 Room Air 10/01/16 13:43 98 Room Air Physical Exam GENERAL: This is a well-nourished, well-developed patient, in no apparent distress. As soon as I walked into the room there was a very very foul smell emanating from the room. SKIN: No rashes, ecchymoses or lesions. Cool and dry. HEAD: Atraumatic. Normocephalic. No temporal or scalp tenderness. EYES: Pupils equal round and reactive. Extraocular motions intact. No scleral icterus. No injection or drainage. ENT: Nose without bleeding, purulent drainage or septal hematoma. Throat without erythema, tonsillar hypertrophy or exudate. Uvula midline. Airway patent. NECK: Trachea midline. Supple, nontender, no meningeal signs. CARDIOVASCULAR: RRR RESPIRATORY: Clear to auscultation. Breath sounds equal bilaterally. No wheezes , rales, or rhonchi. GASTROINTESTINAL: Abdomen soft, non-tender, nondistended. MUSCULOSKELETAL: Left thigh with areas of induration along medial aspect with chronic skin sinuses one of them with significant induration and draining purulent discharge. On the right buttock cheek there were areas of induration. On the suprapubic area there were areas of induration. Left axillary fold with skin contractures. Both axilla with no s/o active infection. Psych: cooperative IV line sites with no e.o infection. NEUROLOGICAL: Awake and alert. Grossly non focal Laboratory Laboratory Tests Test 10/01/16 10/01/16 10/02/16 10/02/16 14:15 20:28 04:49 04:54 White Blood Count 16.3 18.9 Red Blood Count 4.01 3.42 Hemoglobin 10.1 8.4 Hematocrit 32.3 27.0 Mean Corpuscular Volume 80.6 78.9 Mean Corpuscular Hemoglobin 25.3 24.7 Mean Corpuscular Hemoglobin 31.3 31.2 Concent Red Cell Distribution Width 19.9 19.1 Platelet Count 545 522 Mean Platelet Volume 8.5 8.1 Neutrophils (%) (Auto) 79.3 73.1 Lymphocytes (%) (Auto) 14.6 18.0 Monocytes (%) (Auto) 4.6 4.9 Eosinophils (%) (Auto) 1.0 3.2 Basophils (%) (Auto) 0.5 0.8 Neutrophils # (Auto) 12.9 13.8 Lymphocytes # (Auto) 2.4 3.4 Monocytes # (Auto) 0.8 0.9 Eosinophils # (Auto) 0.2 0.6 Basophils # (Auto) 0.1 0.1 CBC Comment DIFF FINAL DIFF FINAL Differential Comment Prothrombin Time 12.7 Prothromb Time International 1.1 Ratio Activated Partial 29.9 Thromboplast Time Sodium Level 130 133 Potassium Level 4.4 3.6 Chloride Level 97 99 Carbon Dioxide Level 26.6 25.3 Anion Gap 6 9 Blood Urea Nitrogen 24 18 Creatinine 1.25 0.86 Estimat Glomerular Filtration 75 116 Rate Random Glucose 411 146 Lactic Acid Level 1.8 Calcium Level 9.9 9.1 Magnesium Level 1.9 Total Creatine Kinase 39 43 Troponin I LESS THAN 0.02 LESS THAN 0.02 C-Reactive Protein 15.50 Total Bilirubin 0.5 Aspartate Amino Transf 7 (AST/SGOT) Alanine Aminotransferase 12 (ALT/SGPT) Alkaline Phosphatase 84 Total Protein 8.9 Albumin 2.0 Triglycerides Level 87 Cholesterol Level 150 LDL Cholesterol 103 HDL Cholesterol 29.4 Cholesterol/HDL Ratio 5.10 Date/Time Procedure Status Source Growth 10/01/16 14:25 Aerobic Blood Culture - Preliminary Resulted Blood Peripheral NO GROWTH IN 1 DAY 10/01/16 14:25 Anaerobic Blood Culture - Preliminary Resulted Blood Peripheral NO GROWTH IN 1 DAY 10/01/16 14:05 Gram Stain - Final Resulted Wound Thigh 10/01/16 14:05 Wound Culture - Preliminary Resulted Gram Negative Rolf Result Diagram: 10/02/16 0449 10/02/16 0454 Imaging None Assessment and Plan Assessment and Plan Possible Sepsis present on admission (leucocytosis, tachycardia, source of infection thigh and groin abscesses) Left thigh abscess/cellulitis Right buttock abscess Overall entire groin with areas of cellulitis and micro-abscesses. RA on steroids (? affecting healing) COPD DM2 uncontrolled. ? Compliance Afib not on Xarelto anymore ? compliance. Recs Start Zosyn IV (at risk for PSAE) Start Vanco IV (target 10-15 for SSTI) Recommend and d.w surgery PA CT A/P with IV contrast. d.w Surgery PA may need surgical evaluation. Follow cultures Follow clinically. Shower patient needs assistance. Anitha Hearn MD Oct 02, 2016 12:43
[2016-10-02] MEDS ORDERED: Vancomycin Consult Pharmacy 1 EA OTHER SCH (13:00)
--- NOTE | 2016-10-02 13:08 | PD.CONS ---
cc: Giuliano Castillo MD [facility] Service DAILY PROGRESS NOTE FOR SURGICAL ATTENDING, DR. GIULIANO CASTILLO General Surgery Consult Requested By Dr. Castle Reason for Consult Hidradenitis suppurativa Primary Care Physician No Primary Care Physician History of Present Illness This is a 45 year old male with a past medical history of atrial fibulation, diabetes, and Hidradenitis suppurativa. He has had a problem with chronically draining wounds in bilaterally axillary regions, bilateral groin, pelvis, bilateral gluteus, and bilateral thighs. He has had multiple incision and drainages on multiple lesions over the years. He is prescribed to take Xarlto but is not compliant and has not been taking it. He ate break and lunch day. A General Surgery consultation has been requested for evaluation of LEFT draining thigh wound r/t Hidradenitis suppurativa. Review of Systems Constitutional: DENIES: Fatigue, Fever Endocrine: DENIES: Polydipsia, Polyuria Eyes: DENIES: Blurred vision Ears, nose, mouth, throat: DENIES: Tinnitus, Hearing loss Respiratory: DENIES: Apneas, Snoring Cardiovascular: DENIES: Chest pain Gastrointestinal: DENIES: Abdominal pain, Bloody stools Genitourinary: DENIES: Urinary incontinence, Urgency Musculoskeletal: DENIES: Joint pain, Muscle aches Integumentary: COMPLAINS OF: Abnormal pigmentation (multiple scars in BILATERAL axillary; draining lesions on LEFT thigh, LEFT gluteus; multiple palpatable lesions in bilateral groin, bilateral thighs, pelvis and LEFT glut) Hematologic/lymphatic: DENIES: Bruising Immunologic/allergic: DENIES: Eczema Neurologic: DENIES: Headache, Localized weakness Psychiatric: DENIES: Mood changes, Depression, Hallucinations Past Family Social History Past Medical History Diabetes Rheumatoid arthritis Atrial fibrillation Hidradenitis suppurativa Past Surgical History Several incision and drainages related to hidradenitis in bilateral axillary and bilateral groin Reported Medications See chart--- of note patient has been noncompliant taking his Xarlton and is currently not on; he does take prednisone daily 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 Ordered Medications Current Medications Medications (Trade) Dose Ordered Sig/Mitzi Route Start Time Stop Time Status Last Admin (NS Flush) 2 ml UNSCH PRN IV FLUSH 10/01/16 16:45 (NS Flush) 2 ml BID IV FLUSH 10/01/16 21:00 10/02/16 10:37 (Tylenol) 650 mg Q4H PRN PO 10/01/16 16:45 (Zofran Inj) 4 mg Q6H PRN IVP 10/01/16 16:45 (Restoril) 15 mg HS PRN PO 10/01/16 16:45 (Tylenol) 650 mg Q6H PRN PO 10/01/16 16:45 ([place] 5-325 Mg) 1 tab Q4H PRN PO 10/01/16 16:45 10/01/16 18:37 (Narcan Inj) 0.4 mg UNSCH PRN IV 10/01/16 16:45 (Milk Of Magnesia Liq) 30 ml Q12H PRN PO 10/01/16 16:45 (D50w (Vial) Inj) 50 ml UNSCH PRN IV 10/01/16 16:45 (Glucagon Inj) 1 mg UNSCH PRN OTHER 10/01/16 16:45 (Vasotec Inj) 1.25 mg Q6H PRN IV PUSH 10/01/16 16:45 (Lactinex) 1 tab Q12HR PO 10/01/16 21:00 10/02/16 08:32 ([place] 10-325 Mg) 1 tab Q4H PRN PO 10/01/16 21:15 10/02/16 08:32 (Morphine Inj) 2 mg Q4HR PRN IV PUSH 10/01/16 21:15 10/02/16 10:36 (Cleocin) 300 mg Q6HR PO 10/02/16 00:00 10/02/16 10:36 (Flagyl) 500 mg Q8H PO 10/01/16 23:00 10/02/16 05:34 Family History Noncontributory Social History Positive tobacco use Occasional EtOH use Denies illicit drug use Physical Exam Vital Signs Vital Signs Date Time Temp Pulse Resp B/P Pulse Ox O2 Delivery O2 Flow Rate FiO2 10/02/16 12:00 99.2 82 16 111/75 97 10/02/16 08:00 99.4 94 16 118/70 96 10/02/16 06:33 18 10/02/16 04:00 99.5 87 18 117/72 95 10/02/16 00:00 99.4 92 18 122/72 97 10/01/16 23:58 18 10/01/16 20:00 98.3 92 18 112/71 99 10/01/16 19:37 18 10/01/16 18:31 99 18 131/75 100 Room Air 10/01/16 13:43 98 Room Air Physical Exam GENERAL: 45 year old male male resting in bed in no acute distress. SKIN: Bilateral axillary: scars from prior I&D; Pelvis: palpable fluid collections; none spontaneously draining; Bilateral groin: palpable fluid collections; none spontaneously draining. LEFT thigh: open area in the inner aspect of thigh; spontanously drainaing thin pus like fluid. RIGHT thigh: several palpable fluid collections; non spontaneously draining. LEFT gluteus: several open chronic appears wounds without copious drainage; several areas of palpable fluid collections. HEAD: Atraumatic. Normocephalic. EYES: Pupils equal and round. No scleral icterus. No injection or drainage. ENT: No nasal bleeding or discharge. Mucous membranes pink and moist. NECK: Trachea midline. CARDIOVASCULAR: Regular rate and rhythm. RESPIRATORY: No accessory muscle use. Clear to auscultation. Breath sounds equal bilaterally. GASTROINTESTINAL: Abdomen soft, non-tender, nondistended. MUSCULOSKELETAL: Extremities without clubbing, cyanosis, or edema. No obvious deformities. NEUROLOGICAL: Awake and alert. No obvious cranial nerve deficits. Motor grossly within normal limits. Five out of 5 muscle strength in the arms and legs. Normal speech. PSYCHIATRIC: Appropriate mood and affect; insight and judgment normal. Laboratory Laboratory Tests Test 10/01/16 10/01/16 10/02/16 10/02/16 14:15 20:28 04:49 04:54 White Blood Count 16.3 18.9 Red Blood Count 4.01 3.42 Hemoglobin 10.1 8.4 Hematocrit 32.3 27.0 Mean Corpuscular Volume 80.6 78.9 Mean Corpuscular Hemoglobin 25.3 24.7 Mean Corpuscular Hemoglobin 31.3 31.2 Concent Red Cell Distribution Width 19.9 19.1 Platelet Count 545 522 Mean Platelet Volume 8.5 8.1 Neutrophils (%) (Auto) 79.3 73.1 Lymphocytes (%) (Auto) 14.6 18.0 Monocytes (%) (Auto) 4.6 4.9 Eosinophils (%) (Auto) 1.0 3.2 Basophils (%) (Auto) 0.5 0.8 Neutrophils # (Auto) 12.9 13.8 Lymphocytes # (Auto) 2.4 3.4 Monocytes # (Auto) 0.8 0.9 Eosinophils # (Auto) 0.2 0.6 Basophils # (Auto) 0.1 0.1 CBC Comment DIFF FINAL DIFF FINAL Differential Comment Prothrombin Time 12.7 Prothromb Time International 1.1 Ratio Activated Partial 29.9 Thromboplast Time Sodium Level 130 133 Potassium Level 4.4 3.6 Chloride Level 97 99 Carbon Dioxide Level 26.6 25.3 Anion Gap 6 9 Blood Urea Nitrogen 24 18 Creatinine 1.25 0.86 Estimat Glomerular Filtration 75 116 Rate Random Glucose 411 146 Lactic Acid Level 1.8 Calcium Level 9.9 9.1 Magnesium Level 1.9 Total Creatine Kinase 39 43 Troponin I LESS THAN 0.02 LESS THAN 0.02 C-Reactive Protein 15.50 Total Bilirubin 0.5 Aspartate Amino Transf 7 (AST/SGOT) Alanine Aminotransferase 12 (ALT/SGPT) Alkaline Phosphatase 84 Total Protein 8.9 Albumin 2.0 Triglycerides Level 87 Cholesterol Level 150 LDL Cholesterol 103 HDL Cholesterol 29.4 Cholesterol/HDL Ratio 5.10 Date/Time Procedure Status Source Growth 10/01/16 14:25 Aerobic Blood Culture - Preliminary Resulted Blood Peripheral NO GROWTH IN 1 DAY 10/01/16 14:25 Anaerobic Blood Culture - Preliminary Resulted Blood Peripheral NO GROWTH IN 1 DAY 10/01/16 14:05 Gram Stain - Final Resulted Wound Thigh 10/01/16 14:05 Wound Culture - Preliminary Resulted Gram Negative Rolf Result Diagram: 10/02/16 0449 10/02/16 0454 Assessment and Plan Problem List: (1) Diabetes mellitus with hyperglycemia (2) COPD exacerbation (3) Anemia in chronic illness (4) Tobacco abuse (5) Afib (6) Diabetes mellitus (7) Cellulitis (8) Sepsis (9) Hidradenitis suppurativa Assessment and Plan 45 year old male with a past medical history of Hidradenitis suppurativa with several areas of concern for abscesses -Obtain CT abd/pelvis -Regular diet; NPO after MN -ID consult---started on Vancomycin and Zosyn -Hold anticoagulation -Shower BID -Discussed plan with Dr. Hearn -Discussed plan with Dr. Castillo Discussed Condition With Dr. Jonathan Clay Attending Statement NOTE FOR SURGICAL ATTENDING, DR. GIULIANO CASTILLO I agree with above assessment and plan. The exam, history, and the medical decision-making described in the above note were completed with the assistance of the mid-level provider. I reviewed and agree with the findings presented. I attest that I had a [id number] encounter with the patient on the same day, and personally performed and documented my assessment and findings in the medical record. Aged seen in the room Sister at bedside Discussed with Dr. Dr. Hearn infectious disease Nothing drainable at this point Will evaluate with imaging IV antibiotics at this point and local showering with soap and water The following services were provided during this hospital visit: Chart data review, vital sign assessments/reviewing monitor data Review of consultations notes if present. Medication orders/review and/or management Ordering and/or reviewing lab tests Ordering and/or interpreting/reviewing x-rays and/or diagnostic studies Care of the patient and discussion of the patient with the care team Documentation time To help prompt me to consider important information that might be impacting today's encounter and assessment, information from prior notes written by myself or my colleagues may have been "brought forward/copy and pasted" into today's note. Problem Qualifiers (1) Cellulitis: Qualified Code: L03.116 - Cellulitis of left lower extremity (2) Sepsis: Qualified Code: A41.9 - Sepsis, due to unspecified organism Maria Pineda Oct 02, 2016 13:08 Giuliano Castillo MD Oct 02, 2016 15:31
[2016-10-02] MEDS ORDERED: DIATRIZOATE MEGLUM/DIATRIZOATE SOD 9 ML CUP PO ONE (13:30)
[2016-10-02] MEDS: PIPERACIL-TAZO 4.5 GM PREMIX 100 ML IV SCH ×2 (14:00→22:13)
[2016-10-02 17:05] LABS: HEMOGLOBIN A1a 0.7 %; HEMOGLOBIN A1b 0.7 %; HEMOGLOBIN Ao 81.3 %; HEMOGLOBIN F 1.3 %; HEMOGLOBIN LA1C 1.7 %; HEMOGLOBIN P3 4.1 %
[2016-10-02] MEDS ORDERED: ASPI81TA11 PO (17:16)
[2016-10-02] MEDS ORDERED: METO-309 PO (17:16)
[2016-10-02] MEDS ORDERED: LANTUS2P SQ (17:16)
[2016-10-02] MEDS ORDERED: NOVOLOGP2 SQ (17:16)
[2016-10-02] MEDS ORDERED: MAPA500T PO (17:16)
[2016-10-02] MEDS ORDERED: CLIN1CAP5 PO (17:16)
[2016-10-02] MEDS ORDERED: XARE20TA PO (17:16)
[2016-10-02] MEDS ORDERED: LIPI10TA PO (17:16)
[2016-10-02] MEDS ORDERED: PRED10 PO (17:16)
[2016-10-02] MEDS: VANCOMYCIN INJ 1,500 MG in SODIUM CHLORID 0.9% 500 ML INJ 500 ML IV SCH (17:27)
[2016-10-02] MEDS ORDERED: IOHEXOL 350 MG/ML 10 ML VIAL (for RAD DIAG) IV ONE (19:46)
[2016-10-02] MEDS: ATORVASTATIN 20 MG TAB PO SCH (19:57)
[2016-10-02] MEDS: METOPROLOL TARTRATE 25 MG TAB PO SCH (19:58)
[2016-10-02 20:00] VITALS: BP 127/82; PULSE 88; RESP 17; TEMP 99.2; O2SAT 96
--- NOTE | 2016-10-02 20:02 | RADRPT ---
EXAM DATE/TIME: 10/02/2016 19:41 [facility] COMPARISON: No previous studies available for comparison. INDICATIONS : Patient complains of abdominal pain. IV CONTRAST: 95 cc Omnipaque 350 (iohexol) IV ORAL CONTRAST: Prescribed oral contrast ingested. RADIATION DOSE: 16.49 CTDIvol (mGy) MEDICAL HISTORY : Cardiovascular disease. Hypertension. Diabetes mellitus type 1. SURGICAL HISTORY : None. ENCOUNTER: Initial ACUITY: 1 day PAIN SCALE: 3/10 LOCATION: lower quadrant TECHNIQUE: Volumetric scanning of the abdomen and pelvis was performed. Using automated exposure control and ad justment of the mA and/or kV according to patient size, radiation dose was kept as low as reasonably achievable to obtain optimal diagnostic quality images. FINDINGS: LOWER LUNGS: The visualized lower lungs are clear. LIVER: Homogeneous density without lesion. There is no dilation of the biliary tree. No calcified gallston es. SPLEEN: Normal size without lesion. PANCREAS: Within normal limits. KIDNEYS: Normal in size and shape. There is no mass, stone or hydronephrosis. ADRENAL GLANDS: Within normal limits. VASCULAR: There is no aortic aneurysm. BOWEL/MESENTERY: The stomach, small bowel, and colon demonstrate no acute abnormality. There is no free intraperitone al air or fluid. ABDOMINAL WALL: Within normal limits. RETROPERITONEUM: There is no lymphadenopathy. BLADDER: No wall thickening or mass. REPRODUCTIVE: Within normal limits. INGUINAL: Borderline prominent lymph nodes in the groin bilaterally greater in the right. MUSCULOSKELETAL: Skin thickening of the lower abdominal wall. Similar changes are seen along the left buttock. CONCLUSION: 1. No acute inflammatory process. 2. Skin thickening along the lower anterior abdominal wall and left buttock. 3. Borderline prominent lymphadenopathy in the groin bilaterally but greater on the right. Adolfo Flores MD on October 02, 2016 at 19:56 Board Certified Radiologist. This report was verified electronically.
[2016-10-02] MEDS ORDERED: INSULIN DETEMIR 100 UNITS/ML VIAL SQ SCH (21:00)
--- NOTE | 2016-10-02 21:44 | EKG ---
Date Performed: 10/01/2016 Time Performed: 13:05:04 PTAGE: 45 years EKG: ATRIAL FLUTTER/TACHYCARDIA WITH RAPID VENTRICULAR RESPONSE NONSPECIFIC T-WAVE ABNORMALITY S james previous tracing, no significant change noted ABNORMAL RHYTHM ECG PREVIOUS TRACING : 01/08/2016 08.58 DOCTOR: Liya Garg Interpretating Date/Time 10/02/2016 21:43:36
--- NOTE | 2016-10-02 21:45 | EKG ---
Date Performed: 10/01/2016 Time Performed: 22:18:09 PTAGE: 45 years EKG: Sinus rhythm Since previous tracing, no significant change noted NORMAL ECG PREVIOUS TRACING : 10/01/2016 13.05 DOCTOR: Liya Garg Interpretating Date/Time 10/02/2016 21:43:47
[2016-10-03] VITALS (9 sets, daily range): BP systolic 95–188; BP diastolic 65–74; PULSE 87–118; RESP 16–22; TEMP 99–100.1; O2SAT 96–99
[2016-10-03] MEDS: VANCOMYCIN INJ 1,500 MG in SODIUM CHLORID 0.9% 500 ML INJ 500 ML IV SCH (02:33)
[2016-10-03] MEDS: MORPHINE SULFATE 4 MG/ML INJ IV PUSH PRN ×5 (02:33→21:21)
[2016-10-03] MEDS: PIPERACIL-TAZO 4.5 GM PREMIX 100 ML IV SCH ×3 (05:44→22:04)
[2016-10-03] MEDS: CLINDAMYCIN 150 MG CAP PO SCH ×2 (05:44→11:47)
[2016-10-03] MEDS: INSULIN ASPART SUPPLEMENTAL SCALE SQ SCH ×4 (05:51→22:02)
[2016-10-03 06:00] LABS: AUTOMATED NEUTROPHIL # 11.8 TH/MM3 (1.8-7.7); BASOPHIL # 0.1 TH/MM3 (0-0.2); BASOPHIL % 0.7 % (0.0-2.0); EOSINOPHIL # 0.4 TH/MM3 (0-0.4); EOSINOPHIL % 2.5 % (0.0-4.0); HEMATOCRIT 27.1 % (39.0-51.0); HEMO FLAGS DIFF FINAL; LYMPH % 16.2 % (9.0-44.0); LYMPHOCYTE # 2.6 TH/MM3 (1.0-4.8); MEAN CELL VOLUME 78.3 FL (80.0-100.0); MEAN CORPUSCULAR HEMOGLOBIN 24.4 PG (27.0-34.0); MEAN CORPUSCULAR HGB CONC 31.1 % (32.0-36.0); MONO % 6.6 % (0.0-8.0); PLATELET COUNT 494 TH/MM3 (150-450); RED BLOOD COUNT 3.46 MIL/MM3 (4.50-5.90); RED CELL DISTRIBUTION WIDTH 19.4 % (11.6-17.2)
[2016-10-03 06:24] LABS: BICARBONATE 27.8 MEQ/L (21.0-32.0); POTASSIUM 3.8 MEQ/L (3.5-5.1)
[2016-10-03] MEDS: METOPROLOL TARTRATE 25 MG TAB PO SCH ×2 (08:19→21:19)
[2016-10-03] MEDS: LACTOBACILLUS ACIDOPHILUS TAB PO SCH ×2 (08:22→21:19)
[2016-10-03] MEDS: SODIUM CHLORIDE 0.9% FLUSH 10 ML FLUSH IV FLUSH SCH ×2 (08:26→21:00)
--- NOTE | 2016-10-03 11:35 | HHI.PR ---
Subjective Remarks Follow-up cellulitis, abscess 10/02/16-patient seen and examined, complains of knee pain. Currently afebrile. 10/03/16-patient seen and examined, currently afebrile to complaint of bilateral knee pains and weakness. Soft BP. Sister by the bedside. Objective Vitals Vital Signs Date Time Temp Pulse Resp B/P Pulse Ox O2 Delivery O2 Flow Rate FiO2 10/03/16 08:15 88 10/03/16 08:00 99.2 87 16 95/69 97 10/03/16 04:00 99.2 89 20 110/65 97 10/03/16 02:38 18 10/03/16 00:30 118 10/03/16 00:00 99.2 116 20 188/72 99 10/02/16 20:00 99.2 88 17 127/82 96 10/02/16 12:00 99.2 82 16 111/75 97 I/O 10/02/16 10/02/16 10/02/16 10/03/16 10/03/16 10/03/16 07:00 15:00 23:00 07:00 15:00 23:00 Intake Total 360 ml 650 ml 980 ml 600 ml Output Total 1000 ml 750 ml 1500 ml 1100 ml Balance -640 ml -100 ml -520 ml -500 ml Intake Oral 360 ml 650 ml 480 ml 0 ml IV Total 500 ml 600 ml Output Urine Total 1000 ml 750 ml 1500 ml 1100 ml # Voids 2 Result Diagram: 10/03/16 0517 10/03/16 0517 Imaging Last Impressions Abdomen/Pelvis CT 10/02/16 0000 Signed Impressions: Service Date/Time: Sunday, October 02, 2016 19:41 - CONCLUSION: 1. No acute inflammatory process. 2. Skin thickening along the lower anterior abdominal wall and left buttock. 3. Borderline prominent lymphadenopathy in the groin bilaterally but greater on the right. Adolfo Flores MD Objective Remarks GENERAL: NAD SKIN: Warm and dry. HEAD: Normocephalic. EYES: No scleral icterus. No injection or drainage. NECK: Supple, trachea midline. No JVD or lymphadenopathy. CARDIOVASCULAR: Regular rate and rhythm without murmurs, gallops, or rubs. RESPIRATORY: Breath sounds equal bilaterally. No accessory muscle use. GASTROINTESTINAL: Abdomen soft, non-tender, nondistended. MUSCULOSKELETAL: No cyanosis, or edema. BACK: Nontender without obvious deformity. No CVA tenderness. A/P Problem List: (1) Hidradenitis suppurativa ICD Code: L73.2 Status: Chronic (2) Sepsis ICD Code: A41.9 Status: Acute (3) Abscess or cellulitis of foot ICD Code: L03.119 Status: Acute Assessment and Plan 45-year-old man with Sepsis criteria met with tachycardia, leukocytosis with known source of infection - cellulitis with possible abscess left inner thigh Hidradenitis suppurativa with open lesions draining purulent fluid left inner thigh in patient with h/o MRSA infection CRP 15.50 Appreciate input from general surgery IV antibiotic coverage with IV Vancomycin and Zosyn per infectious disease specialist Follow up on wound culture and blood culture results results and will adjust antibiotic treatment pending identification and susceptibility. Pain management Probiotics by mouth while on antibiotics Diabetes mellitus-labile blood glucose Insulin sliding scale Accu-Cheks Increase Levemir to 25 units at bedtime A1c 9.6 Hypertension-soft Blood pressure well controlled without medications Vasotec 1.25 mg when necessary SBP greater than 160 Continue to monitor BP and adjust treatment as indicated Dyslipidemia Resume statin History of atrial fibrillation/tachycardia ACS ruled out per protocol On Lopressor with holding parameters Xarelto on hold History of COPD Not an exacerbation Duonebs as needed Pseudohypernatremia Sodium level 133 continue to monitor Rheumatoid arthritis with complaints of bilateral knee pain Possible flare Pain management and restart prednisone Anemia, normocytic, chronic Stable on review of previous labs. Likely secondary to chronic disease such as rheumatoid arthritis iron studies reviewed 12/05/15 showed no evidence of KIET DVT prophylaxis SCD/JOSEPH hose bilaterally Problem Qualifiers (1) Sepsis: Qualified Code: A41.9 - Sepsis, due to unspecified organism Adolfo Castle MD Oct 03, 2016 11:35
--- NOTE | 2016-10-03 13:27 | HHI.IDPN ---
Subjective Subjective Remarks is a 45 y/o AAM with medical history significant for hidradenitis suppurativa, recurrent skin infections, rheumatoid arthritis on prednisone, COPD , diabetes mellitus, hypertension, atrial fibrillation who is on Xarelto. With this background patient presents to [facility] emergency Department with complaints of two-week history of worsening lesions in the left inner thigh that are increasing in size and draining purulent looking stuff. He reports increasing pain, hardness as well as drainage over the last 2-3 days. Patient has a history of MRSA infection past. Patient was at [facility] a few weeks ago with similar complaints and was treated with oral clindamycin which patient reports did not help. Patient self reports a history of rheumatoid arthritis. 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 He reports bilateral knee pain which is worse on the right than the left. ID consulted for evaluation and Mment of left thigh abscess and hidradenitis suppuritiva. Overnight events reviewed. No fever No rash No diarrhea Complains of pain in his right joint. Antibiotics Zosyn IV Vancomycin IV Clindamycin Lines Line sites with no evidence of infection. Past Medical History Reviewed. 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 Objective . Vital Signs Date Time Temp Pulse Resp B/P Pulse Ox O2 Delivery O2 Flow Rate FiO2 10/03/16 12:36 115/73 10/03/16 12:00 99.0 90 16 98/68 96 10/03/16 08:15 88 10/03/16 08:00 99.2 87 16 95/69 97 10/03/16 04:00 99.2 89 20 110/65 97 10/03/16 02:38 18 10/03/16 00:30 118 10/03/16 00:00 99.2 116 20 188/72 99 10/02/16 20:00 99.2 88 17 127/82 96 10/02/16 10/02/16 10/03/16 15:00 23:00 07:00 Intake Total 650 ml 980 ml 600 ml Output Total 750 ml 1500 ml 1100 ml Balance -100 ml -520 ml -500 ml Intake Oral 650 ml 480 ml 0 ml IV Total 500 ml 600 ml Output Urine Total 750 ml 1500 ml 1100 ml # Voids 2 . Laboratory Tests Test 10/01/16 10/02/16 10/03/16 14:15 04:49 05:17 White Blood Count 16.3 TH/MM3 18.9 TH/MM3 16.0 TH/MM3 Red Blood Count 4.01 MIL/MM3 3.42 MIL/MM3 3.46 MIL/MM3 Hemoglobin 10.1 GM/DL 8.4 GM/DL 8.4 GM/DL Hematocrit 32.3 % 27.0 % 27.1 % Mean Corpuscular Volume 80.6 FL 78.9 FL 78.3 FL Mean Corpuscular Hemoglobin 25.3 PG 24.7 PG 24.4 PG Mean Corpuscular Hemoglobin 31.3 % 31.2 % 31.1 % Concent Red Cell Distribution Width 19.9 % 19.1 % 19.4 % Platelet Count 545 TH/MM3 522 TH/MM3 494 TH/MM3 Mean Platelet Volume 8.5 FL 8.1 FL 7.8 FL Neutrophils (%) (Auto) 79.3 % 73.1 % 74.0 % Lymphocytes (%) (Auto) 14.6 % 18.0 % 16.2 % Monocytes (%) (Auto) 4.6 % 4.9 % 6.6 % Eosinophils (%) (Auto) 1.0 % 3.2 % 2.5 % Basophils (%) (Auto) 0.5 % 0.8 % 0.7 % Neutrophils # (Auto) 12.9 TH/MM3 13.8 TH/MM3 11.8 TH/MM3 Lymphocytes # (Auto) 2.4 TH/MM3 3.4 TH/MM3 2.6 TH/MM3 Monocytes # (Auto) 0.8 TH/MM3 0.9 TH/MM3 1.1 TH/MM3 Eosinophils # (Auto) 0.2 TH/MM3 0.6 TH/MM3 0.4 TH/MM3 Basophils # (Auto) 0.1 TH/MM3 0.1 TH/MM3 0.1 TH/MM3 CBC Comment DIFF FINAL DIFF FINAL DIFF FINAL Differential Comment Laboratory Tests Test 10/01/16 10/01/16 10/02/16 10/03/16 14:15 20:28 04:54 05:17 Sodium Level 130 MEQ/L 133 MEQ/L 132 MEQ/L Potassium Level 4.4 MEQ/L 3.6 MEQ/L 3.8 MEQ/L Chloride Level 97 MEQ/L 99 MEQ/L 96 MEQ/L Carbon Dioxide Level 26.6 MEQ/L 25.3 MEQ/L 27.8 MEQ/L Anion Gap 6 MEQ/L 9 MEQ/L 8 MEQ/L Blood Urea Nitrogen 24 MG/DL 18 MG/DL 11 MG/DL Creatinine 1.25 MG/DL 0.86 MG/DL 0.94 MG/DL Estimat Glomerular Filtration 75 ML/MIN 116 ML/MIN 104 ML/MIN Rate Random Glucose 411 MG/DL 146 MG/DL 207 MG/DL Lactic Acid Level 1.8 mmol/L Calcium Level 9.9 MG/DL 9.1 MG/DL 8.9 MG/DL Magnesium Level 1.9 MG/DL Total Creatine Kinase 39 U/L 43 U/L Troponin I LESS THAN 0.02 LESS THAN 0.02 NG/ML NG/ML C-Reactive Protein 15.50 MG/DL Hemoglobin A1c 9.6 % Total Bilirubin 0.5 MG/DL Aspartate Amino Transf 7 U/L (AST/SGOT) Alanine Aminotransferase 12 U/L (ALT/SGPT) Alkaline Phosphatase 84 U/L Total Protein 8.9 GM/DL Albumin 2.0 GM/DL Triglycerides Level 87 MG/DL Cholesterol Level 150 MG/DL LDL Cholesterol 103 MG/DL HDL Cholesterol 29.4 MG/DL Cholesterol/HDL Ratio 5.10 RATIO Microbiology Date/Time Procedure Status Source Growth 10/01/16 14:05 Gram Stain - Final Complete Wound Thigh 10/01/16 14:05 Wound Culture - Final Complete Escherichia Coli Group B Beta Strep Strep Not A,B D 10/01/16 14:15 Aerobic Blood Culture - Preliminary Resulted Blood Peripheral NO GROWTH IN 2 DAYS 10/01/16 14:15 Anaerobic Blood Culture - Preliminary Resulted Blood Peripheral NO GROWTH IN 2 DAYS 10/01/16 14:25 Aerobic Blood Culture - Preliminary Resulted Blood Peripheral NO GROWTH IN 2 DAYS 10/01/16 14:25 Anaerobic Blood Culture - Preliminary Resulted Blood Peripheral NO GROWTH IN 2 DAYS Imaging Last Impressions Abdomen/Pelvis CT 10/02/16 0000 Signed Impressions: Service Date/Time: Sunday, October 02, 2016 19:41 - CONCLUSION: 1. No acute inflammatory process. 2. Skin thickening along the lower anterior abdominal wall and left buttock. 3. Borderline prominent lymphadenopathy in the groin bilaterally but greater on the right. Adolfo Flores MD Physical Exam GENERAL: This is a well-nourished, well-developed patient, in no apparent distress. As soon as I walked into the room there was a very very foul smell emanating from the room. SKIN: No rashes, ecchymoses or lesions. Cool and dry. HEAD: Atraumatic. Normocephalic. No temporal or scalp tenderness. EYES: Pupils equal round and reactive. Extraocular motions intact. No scleral icterus. No injection or drainage. ENT: Nose without bleeding, purulent drainage or septal hematoma. Throat without erythema, tonsillar hypertrophy or exudate. Uvula midline. Airway patent. NECK: Trachea midline. Supple, nontender, no meningeal signs. CARDIOVASCULAR: RRR RESPIRATORY: Clear to auscultation. Breath sounds equal bilaterally. No wheezes , rales, or rhonchi. GASTROINTESTINAL: Abdomen soft, non-tender, nondistended. MUSCULOSKELETAL: Left thigh with areas of induration along medial aspect with chronic skin sinuses one of them with significant induration and draining purulent discharge. On the right buttock cheek there were areas of induration. On the suprapubic area there were areas of induration. Left axillary fold with skin contractures. Both axilla with no s/o active infection. Psych: cooperative IV line sites with no e.o infection. NEUROLOGICAL: Awake and alert. Grossly non focal Assessment & Plan Remarks Possible Sepsis present on admission (leucocytosis, tachycardia, source of infection thigh and groin abscesses) Left thigh abscess/cellulitis Right buttock abscess Overall entire groin with areas of cellulitis and micro-abscesses. RA on steroids (? affecting healing) COPD DM2 uncontrolled. ? Compliance Afib not on Xarelto anymore ? compliance. Recs Continue Zosyn IV (at risk for PSAE) At discharge may be transitioned to Augmentin if still not completed a 7 day treatment course. Would recommend Doxy oral 100 mg po bid suppression for 1 month. Frequent showers needed. d.w Pt. He says his pain in knees is limiting factor. D/w if need be ok to start low dose steroids for his RA since pain meds are causing hypotension. Discontinue vancomycin IV CT abdomen and pelvis reviewed no obvious drainable focus. d.w Surgery PA no plans for surgical intervention at the present time. Follow cultures Follow clinically. I will be out of town October 04, 2016 to October 07, 2016. Dr. Blackman ID covering for me. Will sign off please call back if any change in clinical condition. Anitha Hearn MD Oct 03, 2016 13:27
--- NOTE | 2016-10-03 16:28 | EKG ---
Date Performed: 10/03/2016 Time Performed: 00:37:54 PTAGE: 45 years EKG: Sinus tachycardia Poor R wave progression - probable normal variant Lateral T wave changes are nonspecific Low QRS voltages in precordial leads Borderline ECG Compared to the PREVIOUS TRACING , lateral ST/T wave changes are non-specific but a change DOCTOR: Raleigh Hummel Interpretating Date/Time 10/03/2016 16:26:24
[2016-10-03] MEDS: CHLORHEXIDINE GLUCONATE 4% SOLN 120 ML BTL TOPICAL SCH (16:45)
--- NOTE | 2016-10-03 16:45 | HHI.PR ---
Subjective Subjective Notes DAILY PROGRESS NOTE FOR SURGICAL ATTENDING, DR. GIULIANO CASTILLO Resting in bed C/o bilateral knee pain due to arthritis Objective Vitals/I&O Vital Signs Date Time Temp Pulse Resp B/P Pulse Ox O2 Delivery O2 Flow Rate FiO2 10/03/16 12:36 115/73 10/03/16 12:00 99.0 90 16 96 10/01/16 18:31 Room Air Labs Laboratory Tests Test 10/03/16 10/03/16 05:11 05:17 Anti-Nuclear Antibody Screen NEG White Blood Count 16.0 Red Blood Count 3.46 Hemoglobin 8.4 Hematocrit 27.1 Mean Corpuscular Volume 78.3 Mean Corpuscular Hemoglobin 24.4 Mean Corpuscular Hemoglobin 31.1 Concent Red Cell Distribution Width 19.4 Platelet Count 494 Mean Platelet Volume 7.8 Neutrophils (%) (Auto) 74.0 Lymphocytes (%) (Auto) 16.2 Monocytes (%) (Auto) 6.6 Eosinophils (%) (Auto) 2.5 Basophils (%) (Auto) 0.7 Neutrophils # (Auto) 11.8 Lymphocytes # (Auto) 2.6 Monocytes # (Auto) 1.1 Eosinophils # (Auto) 0.4 Basophils # (Auto) 0.1 CBC Comment DIFF FINAL Differential Comment Sodium Level 132 Potassium Level 3.8 Chloride Level 96 Carbon Dioxide Level 27.8 Anion Gap 8 Blood Urea Nitrogen 11 Creatinine 0.94 Estimat Glomerular Filtration 104 Rate Random Glucose 207 Calcium Level 8.9 Date/Time Procedure Status Source Growth 10/01/16 14:25 Aerobic Blood Culture - Preliminary Resulted Blood Peripheral NO GROWTH IN 2 DAYS 10/01/16 14:25 Anaerobic Blood Culture - Preliminary Resulted Blood Peripheral NO GROWTH IN 2 DAYS 10/01/16 14:05 Gram Stain - Final Complete Wound Thigh 10/01/16 14:05 Wound Culture - Final Complete Escherichia Coli Group B Beta Strep Strep Not A,B D Radiology Last Impressions Abdomen/Pelvis CT 10/02/16 0000 Signed Impressions: Service Date/Time: Sunday, October 02, 2016 19:41 - CONCLUSION: 1. No acute inflammatory process. 2. Skin thickening along the lower anterior abdominal wall and left buttock. 3. Borderline prominent lymphadenopathy in the groin bilaterally but greater on the right. Adolfo Flores MD Cardiovascular: Regular Lungs: Clear Abdomen: Non-distended, Non-tender Extremities: Other (see below ) Narrative Exam Skin: Bilateral axillary: scars from prior I&D; Pelvis: palpable fluid collections; none spontaneously draining; Bilateral groin: palpable fluid collections; none spontaneously draining. LEFT thigh: open area in the inner aspect of thigh; spontaneously draining thin pus like fluid. RIGHT thigh: several palpable fluid collections; non spontaneously draining. LEFT gluteus: several open chronic appears wounds without copious drainage; several areas of palpable fluid collections. A/P Problem List: (1) Diabetes mellitus with hyperglycemia (2) COPD exacerbation (3) Anemia in chronic illness (4) Tobacco abuse (5) Afib (6) Diabetes mellitus (7) Cellulitis (8) Sepsis (9) Hidradenitis suppurativa Assessment and Plan 45 year old male with Hidradenitis; multiple medical problems -CT abd/pelvis reviewed -Start diet -Continue antibiotics -Hibiclens shower daily -Pain control -No operative plans at this time -Discussed with SEGUNDO Ware Attending Statement NOTE FOR SURGICAL ATTENDING, DR. GIULIANO CASTILLO I agree with above assessment and plan. The exam, history, and the medical decision-making described in the above note were completed with the assistance of the mid-level provider. I reviewed and agree with the findings presented. I attest that I had a [id number] encounter with the patient on the same day, and personally performed and documented my assessment and findings in the medical record. Wounds appealed to be improving Recommend continue antibiotic therapy Hibiclens shower twice a day The following services were provided during this hospital visit: Chart data review, vital sign assessments/reviewing monitor data Review of consultations notes if present. Medication orders/review and/or management Ordering and/or reviewing lab tests Ordering and/or interpreting/reviewing x-rays and/or diagnostic studies Care of the patient and discussion of the patient with the care team Documentation time To help prompt me to consider important information that might be impacting today's encounter and assessment, information from prior notes written by myself or my colleagues may have been "brought forward/copy and pasted" into today's note. Problem Qualifiers (1) Cellulitis: Qualified Code: L03.116 - Cellulitis of left lower extremity (2) Sepsis: Qualified Code: A41.9 - Sepsis, due to unspecified organism Maria Pineda Oct 03, 2016 16:44 Giuliano Castillo MD Oct 03, 2016 16:54
[2016-10-03] MEDS: ATORVASTATIN 20 MG TAB PO SCH (21:19)
[2016-10-03] MEDS: INSULIN DETEMIR 100 UNITS/ML VIAL SQ SCH (22:01)
[2016-10-04] VITALS (7 sets, daily range): BP systolic 101–121; BP diastolic 63–77; PULSE 74–96; RESP 16–22; TEMP 97.8–99.4; O2SAT 96–97
[2016-10-04] MEDS: ACETAMINOPHEN/HYDROcodone 325 MG/10 MG TAB PO PRN ×2 (00:50→15:19)
[2016-10-04] MEDS ORDERED: PHARMACY ORDERED LAB ONE (02:45)
[2016-10-04] MEDS: MORPHINE SULFATE 4 MG/ML INJ IV PUSH PRN ×5 (03:02→23:35)
[2016-10-04] MEDS: INSULIN ASPART SUPPLEMENTAL SCALE SQ SCH ×4 (06:36→23:34)
[2016-10-04] MEDS: PIPERACIL-TAZO 4.5 GM PREMIX 100 ML IV SCH ×3 (06:36→23:34)
[2016-10-04] MEDS: LACTOBACILLUS ACIDOPHILUS TAB PO SCH ×2 (08:40→23:32)
[2016-10-04] MEDS: SODIUM CHLORIDE 0.9% FLUSH 10 ML FLUSH IV FLUSH SCH ×2 (09:00→21:00)
[2016-10-04] MEDS: METOPROLOL TARTRATE 25 MG TAB PO SCH ×2 (09:00→23:32)
[2016-10-04] MEDS: CHLORHEXIDINE GLUCONATE 4% SOLN 120 ML BTL TOPICAL SCH (09:40)
--- NOTE | 2016-10-04 10:38 | HHI.PR ---
Subjective Remarks Follow-up cellulitis, abscess 10/02/16-patient seen and examined, complains of knee pain. Currently afebrile. 10/03/16-patient seen and examined, currently afebrile to complaint of bilateral knee pains and weakness. Soft BP. Sister by the bedside. 10/04/16-patient seen and examined, still complains of bilateral knee pain and no plan for surgery at this time morning continued treatment with antibiotic Objective Vitals Vital Signs Date Time Temp Pulse Resp B/P Pulse Ox O2 Delivery O2 Flow Rate FiO2 10/04/16 08:00 98.3 74 16 107/69 97 10/04/16 04:00 97.9 75 22 110/69 97 10/04/16 03:23 18 10/04/16 02:58 18 10/04/16 00:00 99.4 83 20 101/63 97 10/03/16 20:00 100.1 98 22 115/74 96 10/03/16 15:00 100.0 93 16 102/68 96 10/03/16 12:36 115/73 10/03/16 12:00 99.0 90 16 98/68 96 I/O 10/03/16 10/03/16 10/03/16 10/04/16 10/04/16 10/04/16 07:00 15:00 23:00 07:00 15:00 23:00 Intake Total 600 ml 484 ml 480 ml 420 ml Output Total 1100 ml 900 ml 400 ml 450 ml Balance -500 ml -416 ml 80 ml -30 ml Intake Oral 0 ml 480 ml 480 ml 320 ml IV Total 600 ml 4 ml 0 ml 100 ml Output Urine Total 1100 ml 900 ml 400 ml 450 ml # Bowel Movements 0 0 0 Result Diagram: 10/03/1617 10/03/16 0517 Imaging Last Impressions Abdomen/Pelvis CT 10/02/16 0000 Signed Impressions: Service Date/Time: Sunday, October 02, 2016 19:41 - CONCLUSION: 1. No acute inflammatory process. 2. Skin thickening along the lower anterior abdominal wall and left buttock. 3. Borderline prominent lymphadenopathy in the groin bilaterally but greater on the right. Adolfo Flores MD Objective Remarks GENERAL: NAD SKIN: Warm and dry. HEAD: Normocephalic. EYES: No scleral icterus. No injection or drainage. NECK: Supple, trachea midline. No JVD or lymphadenopathy. CARDIOVASCULAR: Regular rate and rhythm without murmurs, gallops, or rubs. RESPIRATORY: Breath sounds equal bilaterally. No accessory muscle use. GASTROINTESTINAL: Abdomen soft, non-tender, nondistended. MUSCULOSKELETAL: No cyanosis, or edema. BACK: Nontender without obvious deformity. No CVA tenderness. A/P Problem List: (1) Hidradenitis suppurativa ICD Code: L73.2 Status: Chronic (2) Sepsis ICD Code: A41.9 Status: Acute (3) Abscess or cellulitis of foot ICD Code: L03.119 Status: Acute Assessment and Plan 45-year-old man with Sepsis criteria met with tachycardia, leukocytosis with known source of infection - cellulitis with possible abscess left inner thigh Hidradenitis suppurativa with open lesions draining purulent fluid left inner thigh in patient with h/o MRSA infection CRP 15.50 Appreciate input from general surgery and advise on current medical management continue the IV antibiotic and Hibiclens showers twice a day IV antibiotic coverage with IV Zosyn per infectious disease specialist. Likely will discharge home on doxycycline by mouth Follow up on wound culture and blood culture results results and will adjust antibiotic treatment pending identification and susceptibility. Pain management Probiotics by mouth while on antibiotics Diabetes mellitus-labile blood glucose Insulin sliding scale and Accu-Cheks Continue Levemir 25 units at bedtime A1c 9.6 Hypertension-soft Blood pressure well controlled without medications Vasotec 1.25 mg when necessary SBP greater than 160 Continue to monitor BP and adjust treatment as indicated Dyslipidemia Continue statin History of atrial fibrillation/tachycardia ACS ruled out per protocol On Lopressor with holding parameters Resume Xarelto History of COPD Not an exacerbation Duonebs as needed Pseudohypernatremia Sodium level 133 continue to monitor Rheumatoid arthritis with complaints of bilateral knee pain Possible flare Pain management and restart prednisone Anemia, normocytic, chronic Stable on review of previous labs. Likely secondary to chronic disease such as rheumatoid arthritis iron studies reviewed 12/05/15 showed no evidence of KIET DVT prophylaxis SCD/JOSEPH hose bilaterally Problem Qualifiers (1) Sepsis: Qualified Code: A41.9 - Sepsis, due to unspecified organism Adolfo Castle MD Oct 04, 2016 10:38
[2016-10-04] MEDS: RIVAROXABAN 20 MG TAB PO SCH (11:32)
[2016-10-04] MEDS: predniSONE 10 MG TAB PO SCH (11:32)
--- NOTE | 2016-10-04 14:19 | HHI.PR ---
Subjective Subjective Notes DAILY PROGRESS NOTE FOR SURGICAL ATTENDING, DR. GIULIANO CASTILLO Just out of the shower Case management at bedside Objective Vitals/I&O Vital Signs Date Time Temp Pulse Resp B/P Pulse Ox O2 Delivery O2 Flow Rate FiO2 10/04/16 12:00 98.6 86 17 115/72 96 10/01/16 18:31 Room Air Labs Date/Time Procedure Status Source Growth 10/01/16 14:25 Aerobic Blood Culture - Preliminary Resulted Blood Peripheral NO GROWTH IN 3 DAYS 10/01/16 14:25 Anaerobic Blood Culture - Preliminary Resulted Blood Peripheral NO GROWTH IN 3 DAYS 10/01/16 14:05 Gram Stain - Final Complete Wound Thigh 10/01/16 14:05 Wound Culture - Final Complete Escherichia Coli Group B Beta Strep Strep Not A,B D Radiology Last Impressions Abdomen/Pelvis CT 10/02/16 0000 Signed Impressions: Service Date/Time: Sunday, October 02, 2016 19:41 - CONCLUSION: 1. No acute inflammatory process. 2. Skin thickening along the lower anterior abdominal wall and left buttock. 3. Borderline prominent lymphadenopathy in the groin bilaterally but greater on the right. Adolfo Flores MD Cardiovascular: Regular Lungs: Clear Abdomen: Non-distended, Non-tender Extremities: Other (see below ) Narrative Exam Skin: Bilateral axillary: scars from prior I&D; Pelvis: palpable fluid collections; none spontaneously draining; Bilateral groin: palpable fluid collections; none spontaneously draining. LEFT thigh: open area in the inner aspect of thigh; spontaneously draining thin pus like fluid. RIGHT thigh: several palpable fluid collections; non spontaneously draining. LEFT gluteus: several open chronic appears wounds without copious drainage; several areas of palpable fluid collections. A/P Problem List: (1) Diabetes mellitus with hyperglycemia (2) COPD exacerbation (3) Anemia in chronic illness (4) Tobacco abuse (5) Afib (6) Diabetes mellitus (7) Cellulitis (8) Sepsis (9) Hidradenitis suppurativa Assessment and Plan 45 year old male with Hidradenitis; multiple medical problems -1800 ADA diet -Continue antibiotics -Hibiclens shower BID -Pain control -No operative plans at this time -Discussed with SEGUNDO Ware He may benefit from plastic surgery consultation for consideration of excision of the area Attending Statement NOTE FOR SURGICAL ATTENDING, DR. GIULIANO CASTILLO I agree with above assessment and plan. The exam, history, and the medical decision-making described in the above note were completed with the assistance of the mid-level provider. I reviewed and agree with the findings presented. I attest that I had a [id number] encounter with the patient on the same day, and personally performed and documented my assessment and findings in the medical record. Patient seen Wounds appear to be drying up and healing Continue antibiotic therapy He may benefit from plastic surgery consultation for consideration of excision of the area The following services were provided during this hospital visit: Chart data review, vital sign assessments/reviewing monitor data Review of consultations notes if present. Medication orders/review and/or management Ordering and/or reviewing lab tests Ordering and/or interpreting/reviewing x-rays and/or diagnostic studies Care of the patient and discussion of the patient with the care team Documentation time To help prompt me to consider important information that might be impacting today's encounter and assessment, information from prior notes written by myself or my colleagues may have been "brought forward/copy and pasted" into today's note. Problem Qualifiers (1) Cellulitis: Qualified Code: L03.116 - Cellulitis of left lower extremity (2) Sepsis: Qualified Code: A41.9 - Sepsis, due to unspecified organism Maria Pineda Oct 04, 2016 14:19 Giuliano Castillo MD Oct 04, 2016 16:05
[2016-10-04] MEDS: INSULIN DETEMIR 100 UNITS/ML VIAL SQ SCH (23:32)
[2016-10-04] MEDS: ATORVASTATIN 20 MG TAB PO SCH (23:32)
[2016-10-05] VITALS: BP 112/71; PULSE 85; RESP 20; TEMP 99.1; O2SAT 98
[2016-10-05] MEDS: ACETAMINOPHEN/HYDROcodone 325 MG/10 MG TAB PO PRN ×5 (01:14→22:06)
[2016-10-05] MEDS: MORPHINE SULFATE 4 MG/ML INJ IV PUSH PRN ×4 (03:55→20:01)
[2016-10-05 04:00] VITALS: BP 109/66; PULSE 78; RESP 20; TEMP 98; O2SAT 96
[2016-10-05] MEDS: INSULIN ASPART SUPPLEMENTAL SCALE SQ SCH ×4 (05:52→22:05)
[2016-10-05] MEDS: PIPERACIL-TAZO 4.5 GM PREMIX 100 ML IV SCH ×3 (05:52→22:05)
[2016-10-05 08:00] VITALS: BP 111/75; PULSE 68; RESP 17; TEMP 97.1; O2SAT 96
[2016-10-05] MEDS: predniSONE 10 MG TAB PO SCH (08:17)
[2016-10-05] MEDS: SODIUM CHLORIDE 0.9% FLUSH 10 ML FLUSH IV FLUSH SCH ×2 (08:17→19:58)
[2016-10-05] MEDS: LACTOBACILLUS ACIDOPHILUS TAB PO SCH ×2 (08:17→19:59)
[2016-10-05] MEDS: RIVAROXABAN 20 MG TAB PO SCH (08:18)
[2016-10-05] MEDS: METOPROLOL TARTRATE 25 MG TAB PO SCH ×2 (08:21→19:59)
[2016-10-05] MEDS: CHLORHEXIDINE GLUCONATE 4% SOLN 120 ML BTL TOPICAL SCH (08:26)
--- NOTE | 2016-10-05 10:19 | HHI.PR ---
Subjective Remarks Follow-up cellulitis, abscess 10/02/16-patient seen and examined, complains of knee pain. Currently afebrile. 10/03/16-patient seen and examined, currently afebrile to complaint of bilateral knee pains and weakness. Soft BP. Sister by the bedside. 10/04/16-patient seen and examined, still complains of bilateral knee pain and no plan for surgery at this time morning continued treatment with antibiotic 10/05/16-patient seen and examined, no complaint this morning and afebrile Objective Vitals Vital Signs Date Time Temp Pulse Resp B/P Pulse Ox O2 Delivery O2 Flow Rate FiO2 10/05/16 08:00 97.1 68 17 111/75 96 10/05/16 04:36 18 10/05/16 04:00 98.0 78 20 109/66 96 10/05/16 02:16 18 10/05/16 00:00 99.1 85 20 112/71 98 10/04/16 23:04 90 10/04/16 20:00 97.8 90 20 121/75 97 10/04/16 16:00 98.7 96 17 120/77 96 10/04/16 12:00 98.6 86 17 115/72 96 I/O 10/04/16 10/04/16 10/04/16 10/05/16 10/05/16 10/05/16 07:00 15:00 23:00 07:00 15:00 23:00 Intake Total 420 ml 240 ml 360 ml 450 ml Output Total 450 ml 800 ml 250 ml 950 ml Balance -30 ml -560 ml 110 ml -500 ml Intake Oral 320 ml 240 ml 360 ml 450 ml IV Total 100 ml 0 ml Output Urine Total 450 ml 800 ml 250 ml 950 ml # Bowel Movements 0 0 0 0 Result Diagram: 10/03/1651610/03/16516 Objective Remarks GENERAL: NAD SKIN: Warm and dry. HEAD: Normocephalic. EYES: No scleral icterus. No injection or drainage. NECK: Supple, trachea midline. No JVD or lymphadenopathy. CARDIOVASCULAR: Regular rate and rhythm without murmurs, gallops, or rubs. RESPIRATORY: Breath sounds equal bilaterally. No accessory muscle use. GASTROINTESTINAL: Abdomen soft, non-tender, nondistended. MUSCULOSKELETAL: No cyanosis, or edema. BACK: Nontender without obvious deformity. No CVA tenderness. A/P Problem List: (1) Hidradenitis suppurativa ICD Code: L73.2 Status: Chronic (2) Sepsis ICD Code: A41.9 Status: Acute (3) Abscess or cellulitis of foot ICD Code: L03.119 Status: Acute Assessment and Plan 45-year-old man with Sepsis criteria with known source of infection - cellulitis with possible abscess left inner thigh Hidradenitis suppurativa with open lesions draining purulent fluid left inner thigh in patient with h/o MRSA infection CRP 15.50 Appreciate input from general surgery and advise on current medical management continue the IV antibiotic and Hibiclens showers twice a day. May benefit from evaluation from plastic surgery IV antibiotic coverage with IV Zosyn per infectious disease specialist. Likely will discharge home on doxycycline by mouth Pain management Probiotics by mouth while on antibiotics Diabetes mellitus-labile blood glucose Insulin sliding scale and Accu-Cheks Increase Levemir to 30 units at bedtime A1c 9.6 Hypertension-soft Vasotec 1.25 mg when necessary SBP greater than 160 Continue to monitor BP and adjust treatment as indicated Dyslipidemia Continue statin History of atrial fibrillation/tachycardia ACS ruled out per protocol On Lopressor with holding parameters Continue Xarelto History of COPD Not an exacerbation Duonebs as needed Pseudohypernatremia Sodium level 133 continue to monitor Rheumatoid arthritis with complaints of bilateral knee pain Possible flare Pain management and restart prednisone Anemia, normocytic, chronic Stable on review of previous labs. Likely secondary to chronic disease such as rheumatoid arthritis iron studies reviewed 12/05/15 showed no evidence of KIET DVT prophylaxis Xarelto Problem Qualifiers (1) Sepsis: Qualified Code: A41.9 - Sepsis, due to unspecified organism Adolfo Castle MD Oct 05, 2016 10:19
[2016-10-05 12:00] VITALS: BP 106/70; PULSE 63; RESP 17; TEMP 97.9; O2SAT 95
--- NOTE | 2016-10-05 15:29 | HHI.PR ---
Subjective Subjective Notes DAILY PROGRESS NOTE FOR SURGICAL ATTENDING, DR. JUANY CASTILLO Resting in bed Recently showered Objective Vitals/I&O Vital Signs Date Time Temp Pulse Resp B/P Pulse Ox O2 Delivery O2 Flow Rate FiO2 10/05/16 12:00 97.9 63 17 106/70 95 10/01/16 18:31 Room Air Labs Date/Time Procedure Status Source Growth 10/01/16 14:25 Aerobic Blood Culture - Preliminary Resulted Blood Peripheral NO GROWTH IN 4 DAYS 10/01/16 14:25 Anaerobic Blood Culture - Preliminary Resulted Blood Peripheral NO GROWTH IN 4 DAYS 10/01/16 14:05 Gram Stain - Final Complete Wound Thigh 10/01/16 14:05 Wound Culture - Final Complete Escherichia Coli Group B Beta Strep Strep Not A,B D Radiology Last Impressions Abdomen/Pelvis CT 10/02/16 0000 Signed Impressions: Service Date/Time: Sunday, October 02, 2016 19:41 - CONCLUSION: 1. No acute inflammatory process. 2. Skin thickening along the lower anterior abdominal wall and left buttock. 3. Borderline prominent lymphadenopathy in the groin bilaterally but greater on the right. Adolfo Flores MD Cardiovascular: Regular Lungs: Clear Abdomen: Non-distended, Non-tender Extremities: Other (see below ) Narrative Exam Skin: Bilateral axillary: scars from prior I&D; Pelvis: palpable fluid collections; none spontaneously draining; Bilateral groin: palpable fluid collections; none spontaneously draining. LEFT thigh: open area in the inner aspect of thigh; spontaneously draining thin pus like fluid. RIGHT thigh: several palpable fluid collections; non spontaneously draining. LEFT gluteus: several open chronic appears wounds without copious drainage; several areas of palpable fluid collections; LEFT larry open area draining A/P Problem List: (1) Diabetes mellitus with hyperglycemia (2) COPD exacerbation (3) Anemia in chronic illness (4) Tobacco abuse (5) Afib (6) Diabetes mellitus (7) Cellulitis (8) Sepsis (9) Hidradenitis suppurativa Assessment and Plan 45 year old male with Hidradenitis; multiple medical problems -Consult to plastic surgery -1800 ADA diet -Continue antibiotics -Hibiclens shower BID -Pain control -No operative plans at this time -General Surgery will follow peripherally; please call with ??s Attending Statement NOTE FOR SURGICAL ATTENDING, DR. JUANY CASTILLO I agree with above assessment and plan. The exam, history, and the medical decision-making described in the above note were completed with the assistance of the mid-level provider. I reviewed and agree with the findings presented. I attest that I had a [id number] encounter with the patient on the same day, and personally performed and documented my assessment and findings in the medical record. doing well No drainable abscess May benefit from plastic surgery evaluation The following services were provided during this hospital visit: Chart data review, vital sign assessments/reviewing monitor data Review of consultations notes if present. Medication orders/review and/or management Ordering and/or reviewing lab tests Ordering and/or interpreting/reviewing x-rays and/or diagnostic studies Care of the patient and discussion of the patient with the care team Documentation time To help prompt me to consider important information that might be impacting today's encounter and assessment, information from prior notes written by myself or my colleagues may have been "brought forward/copy and pasted" into today's note. Problem Qualifiers (1) Cellulitis: Qualified Code: L03.116 - Cellulitis of left lower extremity (2) Sepsis: Qualified Code: A41.9 - Sepsis, due to unspecified organism Maria Pineda Oct 05, 2016 15:29 Juany Castillo MD Oct 08, 2016 19:28
[2016-10-05 16:00] VITALS: BP 108/70; PULSE 70; RESP 17; TEMP 96.9; O2SAT 97
[2016-10-05] MEDS: ATORVASTATIN 20 MG TAB PO SCH (19:59)
[2016-10-05] MEDS: INSULIN DETEMIR 100 UNITS/ML VIAL SQ SCH (22:04)
[2016-10-05 22:12] VITALS: BP 109/79; PULSE 73; RESP 16; TEMP 97.4; O2SAT 98
[2016-10-06] VITALS (7 sets, daily range): BP systolic 109–131; BP diastolic 59–79; PULSE 66–85; RESP 16–18; TEMP 96.6–98.8; O2SAT 95–98
[2016-10-06] MEDS: MORPHINE SULFATE 4 MG/ML INJ IV PUSH PRN ×7 (00:24→22:44)
[2016-10-06] MEDS: SODIUM CHLORIDE 0.9% FLUSH 10 ML FLUSH IV FLUSH PRN ×2 (00:24→04:41)
[2016-10-06] MEDS: ACETAMINOPHEN/HYDROcodone 325 MG/10 MG TAB PO PRN ×4 (02:43→15:19)
[2016-10-06] MEDS: PIPERACIL-TAZO 4.5 GM PREMIX 100 ML IV SCH ×3 (04:41→21:54)
[2016-10-06] MEDS: INSULIN ASPART SUPPLEMENTAL SCALE SQ SCH ×4 (05:48→22:43)
[2016-10-06 06:52] LABS: AUTOMATED NEUTROPHIL # 9.2 TH/MM3 (1.8-7.7); BASOPHIL # 0.1 TH/MM3 (0-0.2); EOSINOPHIL # 0.6 TH/MM3 (0-0.4); EOSINOPHIL % 3.8 % (0.0-4.0); HEMATOCRIT 25.2 % (39.0-51.0); HEMO FLAGS DIFF FINAL; LYMPH % 26.6 % (9.0-44.0); LYMPHOCYTE # 3.9 TH/MM3 (1.0-4.8); MEAN CELL VOLUME 78.5 FL (80.0-100.0); MEAN CORPUSCULAR HGB CONC 31.8 % (32.0-36.0); MONO % 5.7 % (0.0-8.0); NEUT % 62.9 % (16.0-70.0); PLATELET COUNT 588 TH/MM3 (150-450); RED BLOOD COUNT 3.21 MIL/MM3 (4.50-5.90); RED CELL DISTRIBUTION WIDTH 19.1 % (11.6-17.2); WHITE BLOOD COUNT 14.7 TH/MM3 (4.0-11.0)
[2016-10-06 07:05] LABS: BICARBONATE 31.4 MEQ/L (21.0-32.0); POTASSIUM 3.6 MEQ/L (3.5-5.1)
[2016-10-06] MEDS: CHLORHEXIDINE GLUCONATE 4% SOLN 120 ML BTL TOPICAL SCH (09:00)
[2016-10-06] MEDS: RIVAROXABAN 20 MG TAB PO SCH (09:26)
[2016-10-06] MEDS: predniSONE 10 MG TAB PO SCH (09:26)
[2016-10-06] MEDS: METOPROLOL TARTRATE 25 MG TAB PO SCH ×2 (09:26→21:00)
[2016-10-06] MEDS: SODIUM CHLORIDE 0.9% FLUSH 10 ML FLUSH IV FLUSH SCH ×2 (09:27→21:53)
[2016-10-06] MEDS: LACTOBACILLUS ACIDOPHILUS TAB PO SCH ×2 (09:27→21:53)
--- NOTE | 2016-10-06 11:00 | HHI.PR ---
Subjective Remarks Follow-up cellulitis, abscess 10/02/16-patient seen and examined, complains of knee pain. Currently afebrile. 10/03/16-patient seen and examined, currently afebrile to complaint of bilateral knee pains and weakness. Soft BP. Sister by the bedside. 10/04/16-patient seen and examined, still complains of bilateral knee pain and no plan for surgery at this time morning continued treatment with antibiotic 10/05/16-patient seen and examined, no complaint this morning and afebrile 10/06/16-patient seen and examined, afebrile, still complains of knee pain however stable Objective Vitals Vital Signs Date Time Temp Pulse Resp B/P Pulse Ox O2 Delivery O2 Flow Rate FiO2 10/06/16 08:00 97.3 71 18 114/68 96 10/06/16 04:00 97.5 85 18 120/79 95 10/06/16 00:00 98.8 72 16 115/72 96 10/05/16 22:12 97.4 73 16 109/79 98 10/05/16 16:00 96.9 70 17 108/70 97 10/05/16 12:00 97.9 63 17 106/70 95 I/O 10/05/16 10/05/16 10/05/16 10/06/16 10/06/16 10/06/16 07:00 15:00 23:00 07:00 15:00 23:00 Intake Total 450 ml 240 ml 240 ml 1280 ml Output Total 950 ml 600 ml 625 ml 300 ml Balance -500 ml -360 ml -385 ml 980 ml Intake Oral 450 ml 240 ml 240 ml 1080 ml IV Total 0 ml 200 ml Output Urine Total 950 ml 600 ml 625 ml 300 ml # Bowel Movements 0 0 1 0 Result Diagram: 10/06/16 0611 10/06/16 0611 Imaging Last Impressions Abdomen/Pelvis CT 10/02/16 0000 Signed Impressions: Service Date/Time: Sunday, October 02, 2016 19:41 - CONCLUSION: 1. No acute inflammatory process. 2. Skin thickening along the lower anterior abdominal wall and left buttock. 3. Borderline prominent lymphadenopathy in the groin bilaterally but greater on the right. Adolfo Flores MD Objective Remarks GENERAL: NAD SKIN: Warm and dry. HEAD: Normocephalic. EYES: No scleral icterus. No injection or drainage. NECK: Supple, trachea midline. No JVD or lymphadenopathy. CARDIOVASCULAR: Regular rate and rhythm without murmurs, gallops, or rubs. RESPIRATORY: Breath sounds equal bilaterally. No accessory muscle use. GASTROINTESTINAL: Abdomen soft, non-tender, nondistended. MUSCULOSKELETAL: No cyanosis, or edema. BACK: Nontender without obvious deformity. No CVA tenderness. A/P Problem List: (1) Hidradenitis suppurativa ICD Code: L73.2 Status: Chronic (2) Sepsis ICD Code: A41.9 Status: Acute (3) Abscess or cellulitis of foot ICD Code: L03.119 Status: Acute Assessment and Plan 45-year-old man with Sepsis criteria with known source of infection - cellulitis with possible abscess left inner thigh Hidradenitis suppurativa with open lesions draining purulent fluid left inner thigh in patient with h/o MRSA infection CRP 15.50 Appreciate input from general surgery and advise on current medical management continue the IV antibiotic and Hibiclens showers twice a day. IV antibiotic coverage with IV Zosyn 7 days total per infectious disease specialist. Likely will discharge home on doxycycline by mouth 30 days Pain management Probiotics by mouth while on antibiotics Diabetes mellitus-improving blood glucose Insulin sliding scale and Accu-Cheks Continue Levemir 30 units at bedtime A1c 9.6 Hypertension-soft Vasotec 1.25 mg when necessary SBP greater than 160 Continue to monitor BP and adjust treatment as indicated Dyslipidemia Continue statin History of atrial fibrillation/tachycardia ACS ruled out per protocol On Lopressor with holding parameters Continue Xarelto History of COPD Not an exacerbation Duonebs as needed Pseudohypernatremia Sodium level 133 continue to monitor Rheumatoid arthritis with complaints of bilateral knee pain Possible flare Pain management and restart prednisone Anemia, normocytic, chronic Stable on review of previous labs. Likely secondary to chronic disease such as rheumatoid arthritis iron studies reviewed 12/05/15 showed no evidence of KIET DVT prophylaxis Xarelto Problem Qualifiers (1) Sepsis: Qualified Code: A41.9 - Sepsis, due to unspecified organism Adolfo Castle MD Oct 06, 2016 11:00
[2016-10-06] MEDS: ATORVASTATIN 20 MG TAB PO SCH (21:54)
[2016-10-06] MEDS: INSULIN DETEMIR 100 UNITS/ML VIAL SQ SCH (22:42)
[2016-10-07] MEDS: ACETAMINOPHEN/HYDROcodone 325 MG/10 MG TAB PO PRN ×6 (01:51→23:17)
[2016-10-07] MEDS: MORPHINE SULFATE 4 MG/ML INJ IV PUSH PRN ×4 (03:00→17:03)
[2016-10-07] MEDS: SODIUM CHLORIDE 0.9% FLUSH 10 ML FLUSH IV FLUSH PRN (03:00)
[2016-10-07 04:33] VITALS: BP 127/72; PULSE 74; RESP 18; TEMP 98.3; O2SAT 96
[2016-10-07] MEDS: PIPERACIL-TAZO 4.5 GM PREMIX 100 ML IV SCH ×3 (05:54→23:17)
[2016-10-07] MEDS: INSULIN ASPART SUPPLEMENTAL SCALE SQ SCH ×4 (05:57→21:39)
[2016-10-07 08:00] VITALS: BP 103/55; PULSE 77; RESP 18; TEMP 98.1; O2SAT 96
[2016-10-07] MEDS: METOPROLOL TARTRATE 25 MG TAB PO SCH ×2 (08:23→21:28)
[2016-10-07] MEDS: predniSONE 10 MG TAB PO SCH (08:23)
[2016-10-07] MEDS: SODIUM CHLORIDE 0.9% FLUSH 10 ML FLUSH IV FLUSH SCH ×2 (08:23→21:28)
[2016-10-07] MEDS: LACTOBACILLUS ACIDOPHILUS TAB PO SCH ×2 (08:23→21:28)
[2016-10-07] MEDS: RIVAROXABAN 20 MG TAB PO SCH (08:23)
[2016-10-07] MEDS: CHLORHEXIDINE GLUCONATE 4% SOLN 120 ML BTL TOPICAL SCH (08:26)
--- NOTE | 2016-10-07 11:41 | HHI.PR ---
Subjective Remarks Follow-up cellulitis, abscess 10/02/16-patient seen and examined, complains of knee pain. Currently afebrile. 10/03/16-patient seen and examined, currently afebrile to complaint of bilateral knee pains and weakness. Soft BP. Sister by the bedside. 10/04/16-patient seen and examined, still complains of bilateral knee pain and no plan for surgery at this time morning continued treatment with antibiotic 10/05/16-patient seen and examined, no complaint this morning and afebrile 10/06/16-patient seen and examined, afebrile, still complains of knee pain however stable 10/07/16-patient seen and examined, no acute event overnight, afebrile and denies any chest pain or shortness of breath. Objective Vitals Vital Signs Date Time Temp Pulse Resp B/P Pulse Ox O2 Delivery O2 Flow Rate FiO2 10/07/16 08:00 98.1 77 18 103/55 96 10/07/16 04:33 98.3 74 18 127/72 96 10/06/16 23:55 96.8 69 18 131/75 95 10/06/16 20:00 73 10/06/16 20:00 97.0 66 18 109/69 97 10/06/16 16:00 96.6 69 17 120/59 96 10/06/16 12:00 98.0 72 17 114/77 98 I/O 10/06/16 10/06/16 10/06/16 10/07/16 10/07/16 10/07/16 07:00 15:00 23:00 07:00 15:00 23:00 Intake Total 1280 ml 500 ml 480 ml 480 ml Output Total 300 ml 725 ml 700 ml 1200 ml Balance 980 ml -225 ml -220 ml -720 ml Intake Oral 1080 ml 500 ml 480 ml 480 ml IV Total 200 ml Output Urine Total 300 ml 725 ml 700 ml 1200 ml # Bowel Movements 0 2 1 Result Diagram: 10/06/1661010/06/16610 Objective Remarks GENERAL: NAD SKIN: Warm and dry. HEAD: Normocephalic. EYES: No scleral icterus. No injection or drainage. NECK: Supple, trachea midline. No JVD or lymphadenopathy. CARDIOVASCULAR: Regular rate and rhythm without murmurs, gallops, or rubs. RESPIRATORY: Breath sounds equal bilaterally. No accessory muscle use. GASTROINTESTINAL: Abdomen soft, non-tender, nondistended. MUSCULOSKELETAL: No cyanosis, or edema. BACK: Nontender without obvious deformity. No CVA tenderness. Procedures None A/P Problem List: (1) Hidradenitis suppurativa ICD Code: L73.2 Status: Chronic (2) Sepsis ICD Code: A41.9 Status: Acute (3) Abscess or cellulitis of foot ICD Code: L03.119 Status: Acute Assessment and Plan 45-year-old man with Sepsis criteria with known source of infection - cellulitis with possible abscess left inner thigh Hidradenitis suppurativa with open lesions draining purulent fluid left inner thigh in patient with h/o MRSA infection Appreciate input from general surgery and advise on current medical management continue the IV antibiotic and Hibiclens showers twice a day. IV antibiotic coverage with IV Zosyn 7 days until 10/08/16. Likely will discharge home tomorrow 10/08/16 on doxycycline by mouth 30 days Appreciate input from infectious disease specialist Pain management Diabetes mellitus-improving blood glucose Insulin sliding scale and Accu-Cheks Continue Levemir 30 units at bedtime A1c 9.6 Hypertension-soft Vasotec 1.25 mg when necessary SBP greater than 160 Continue to monitor BP and adjust treatment as indicated Dyslipidemia Continue statin History of atrial fibrillation/tachycardia ACS ruled out per protocol On Lopressor with holding parameters Continue Xarelto History of COPD Not an exacerbation Duonebs as needed Pseudohypernatremia Sodium level 133 continue to monitor Rheumatoid arthritis with complaints of bilateral knee pain Possible flare Pain management and restart prednisone Anemia, normocytic, chronic Stable on review of previous labs. Likely secondary to chronic disease such as rheumatoid arthritis iron studies reviewed 12/05/15 showed no evidence of KIET DVT prophylaxis Xarelto Discharge Planning Discharge 10/08/16 Problem Qualifiers (1) Sepsis: Qualified Code: A41.9 - Sepsis, due to unspecified organism Adolfo Castle MD Oct 07, 2016 11:41
[2016-10-07 12:00] VITALS: BP 107/67; PULSE 63; RESP 17; TEMP 98; O2SAT 97
[2016-10-07 16:00] VITALS: BP 106/66; PULSE 70; RESP 19; TEMP 97.4; O2SAT 96
[2016-10-07 20:00] VITALS: BP 110/85; PULSE 69; RESP 20; TEMP 97.9; O2SAT 96
[2016-10-07] MEDS: ATORVASTATIN 20 MG TAB PO SCH (21:27)
[2016-10-07] MEDS: INSULIN DETEMIR 100 UNITS/ML VIAL SQ SCH (21:38)
[2016-10-08] VITALS: BP 122/88; PULSE 88; RESP 18; TEMP 98.8; O2SAT 98
[2016-10-08] MEDS: MORPHINE SULFATE 4 MG/ML INJ IV PUSH PRN ×2 (01:31→06:11)
[2016-10-08] MEDS: ACETAMINOPHEN/HYDROcodone 325 MG/10 MG TAB PO PRN ×2 (03:40→09:41)
[2016-10-08 04:32] VITALS: BP 116/73; PULSE 68; RESP 18; TEMP 97.8; O2SAT 96
[2016-10-08 05:33] LABS: BASOPHIL # 0.2 TH/MM3 (0-0.2); BASOPHIL % 0.9 % (0.0-2.0); EOSINOPHIL # 0.4 TH/MM3 (0-0.4); EOSINOPHIL % 2.5 % (0.0-4.0); HEMO FLAGS DIFF FINAL; LYMPH % 28.9 % (9.0-44.0); LYMPHOCYTE # 5.1 TH/MM3 (1.0-4.8); MEAN CELL VOLUME 79.1 FL (80.0-100.0); MEAN CORPUSCULAR HEMOGLOBIN 25.3 PG (27.0-34.0); MEAN CORPUSCULAR HGB CONC 31.9 % (32.0-36.0); MONO % 6.1 % (0.0-8.0); NEUT % 61.6 % (16.0-70.0); PLATELET COUNT 648 TH/MM3 (150-450); RED BLOOD COUNT 3.16 MIL/MM3 (4.50-5.90); RED CELL DISTRIBUTION WIDTH 19.5 % (11.6-17.2); WHITE BLOOD COUNT 17.8 TH/MM3 (4.0-11.0)
[2016-10-08 05:54] LABS: POTASSIUM 3.6 MEQ/L (3.5-5.1)
[2016-10-08] MEDS: PIPERACIL-TAZO 4.5 GM PREMIX 100 ML IV SCH (06:11)
[2016-10-08] MEDS: SODIUM CHLORIDE 0.9% FLUSH 10 ML FLUSH IV FLUSH SCH (06:12)
[2016-10-08] MEDS: INSULIN ASPART SUPPLEMENTAL SCALE SQ SCH ×2 (06:17→12:10)
[2016-10-08 08:00] VITALS: BP 102/57; PULSE 69; RESP 16; TEMP 97.6; O2SAT 97
[2016-10-08] MEDS: predniSONE 10 MG TAB PO SCH (08:32)
[2016-10-08] MEDS: RIVAROXABAN 20 MG TAB PO SCH (08:32)
[2016-10-08] MEDS: LACTOBACILLUS ACIDOPHILUS TAB PO SCH (08:32)
[2016-10-08] MEDS: METOPROLOL TARTRATE 25 MG TAB PO SCH (08:33)
[2016-10-08] MEDS: CHLORHEXIDINE GLUCONATE 4% SOLN 120 ML BTL TOPICAL SCH (08:33)
[2016-10-08] MEDS ORDERED: DOXY100C PO (08:44)
[2016-10-08] MEDS ORDERED: HIBI4LIQ TOPICAL (08:45)
--- NOTE | 2016-10-08 10:11 | HHI.PR ---
Subjective Remarks Follow-up cellulitis, abscess 10/02/16-patient seen and examined, complains of knee pain. Currently afebrile. 10/03/16-patient seen and examined, currently afebrile to complaint of bilateral knee pains and weakness. Soft BP. Sister by the bedside. 10/04/16-patient seen and examined, still complains of bilateral knee pain and no plan for surgery at this time morning continued treatment with antibiotic 10/05/16-patient seen and examined, no complaint this morning and afebrile 10/06/16-patient seen and examined, afebrile, still complains of knee pain however stable 10/07/16-patient seen and examined, no acute event overnight, afebrile and denies any chest pain or shortness of breath. 10/08/16-patient seen and examined, stable and no complaint. Ready for discharge Objective Vitals Vital Signs Date Time Temp Pulse Resp B/P Pulse Ox O2 Delivery O2 Flow Rate FiO2 10/08/16 08:00 97.6 69 16 102/57 97 10/08/16 04:32 97.8 68 18 116/73 96 10/08/16 00:00 98.8 88 18 122/88 98 10/07/16 20:00 97.9 69 20 110/85 96 10/07/16 16:00 97.4 70 19 106/66 96 10/07/16 12:00 98.0 63 17 107/67 97 I/O 10/07/16 10/07/16 10/07/16 10/08/16 10/08/16 10/08/16 07:00 15:00 23:00 07:00 15:00 23:00 Intake Total 480 ml 400 ml 480 ml 560 ml Output Total 1200 ml 925 ml 1000 ml 1200 ml Balance -720 ml -525 ml -520 ml -640 ml Intake Oral 480 ml 400 ml 480 ml 560 ml Output Urine Total 1200 ml 925 ml 1000 ml 1200 ml # Voids 1 # Bowel Movements 1 1 1 Result Diagram: 10/08/16 0500 10/08/16 0500 Imaging Last Impressions Abdomen/Pelvis CT 10/02/16 0000 Signed Impressions: Service Date/Time: Sunday, October 02, 2016 19:41 - CONCLUSION: 1. No acute inflammatory process. 2. Skin thickening along the lower anterior abdominal wall and left buttock. 3. Borderline prominent lymphadenopathy in the groin bilaterally but greater on the right. Adolfo Flores MD Objective Remarks GENERAL: NAD SKIN: Warm and dry. HEAD: Normocephalic. EYES: No scleral icterus. No injection or drainage. NECK: Supple, trachea midline. No JVD or lymphadenopathy. CARDIOVASCULAR: Regular rate and rhythm without murmurs, gallops, or rubs. RESPIRATORY: Breath sounds equal bilaterally. No accessory muscle use. GASTROINTESTINAL: Abdomen soft, non-tender, nondistended. MUSCULOSKELETAL: No cyanosis, or edema. BACK: Nontender without obvious deformity. No CVA tenderness. Procedures None A/P Problem List: (1) Hidradenitis suppurativa ICD Code: L73.2 Status: Chronic (2) Sepsis ICD Code: A41.9 Status: Acute (3) Abscess or cellulitis of foot ICD Code: L03.119 Status: Acute Assessment and Plan 45-year-old man with Sepsis criteria with known source of infection - cellulitis with possible abscess left inner thigh Hidradenitis suppurativa with open lesions draining purulent fluid left inner thigh in patient with h/o MRSA infection Appreciate input from general surgery and advise on current medical management continue the IV antibiotic and Hibiclens showers twice a day. IV antibiotic coverage with IV Zosyn 7 days until today 10/08/16. Will discharge home on doxycycline by mouth 30 days Appreciate input from infectious disease specialist Pain management Diabetes mellitus-improving blood glucose Insulin sliding scale and Accu-Cheks Continue Levemir 30 units at bedtime A1c 9.6 Hypertension-soft Vasotec 1.25 mg when necessary SBP greater than 160 Continue to monitor BP and adjust treatment as indicated Dyslipidemia Continue statin History of atrial fibrillation/tachycardia ACS ruled out per protocol On Lopressor with holding parameters Continue Xarelto History of COPD Not an exacerbation Duonebs as needed Pseudohypernatremia Sodium level 133 continue to monitor Rheumatoid arthritis with complaints of bilateral knee pain Possible flare Pain management and restart prednisone Anemia, normocytic, chronic Stable on review of previous labs. Likely secondary to chronic disease such as rheumatoid arthritis iron studies reviewed 12/05/15 showed no evidence of KIET DVT prophylaxis Xarelto Discharge Planning Discharge 10/08/16 Problem Qualifiers (1) Sepsis: Qualified Code: A41.9 - Sepsis, due to unspecified organism Adolfo Castle MD Oct 08, 2016 10:11
[2016-10-08] MEDS ORDERED: XARE20TA PO (10:15)
[2016-10-08] MEDS ORDERED: METO25TA3 PO (10:15)
[2016-10-08] MEDS ORDERED: HYDR-3516 PO (10:15)
[2016-10-08] MEDS ORDERED: ATOR20TA15 PO (10:15)
[2016-10-08] MEDS ORDERED: LACT PO (10:15)
[2016-10-08] MEDS ORDERED: PRED10 PO (10:15)
[2016-10-08] MEDS ORDERED: LEVEMIR SQ (10:15)
--- NOTE | 2016-10-08 10:18 | HHI.DS ---
Discharge Summary Admission Date Oct 01, 2016 at 16:35 Discharge Date: Oct 08, 2016 Admitting Diagnosis cellulitis, hydradenitis suppurutiva, a. flutter, leukocytosis (1) Hidradenitis suppurativa ICD Code: L73.2 (2) Sepsis ICD Code: A41.9 (3) Abscess or cellulitis of foot ICD Code: L03.119 Procedures None Brief History - From Admission Written by Janice Stanford PA-C acting as scribe for Dr. Castle on 10/01/16 at 17:32. This is a 45-year-old male with past medical history significant for hypertension, diabetes mellitus, hidradenitis, rheumatoid arthritis, COPD and previous history of atrial fibrillation who presents to [facility] ED with complaints of two-week history of worsening lesions left inner thigh that have been increasing in size and starting to drain pus over the last 2-3 days. He reports 10 out of 10 pain that was unrelieved with Aleve taken at home. Patient denies any fever or chills at home. Also denies any nausea or vomiting. He has a history of MRSA infection. Patient was at [facility] a few weeks ago with similar complaints and was treated with oral clindamycin and steroids which the patient reports did not help. 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 He is having bilateral knee pain but worse on the right than the left. In regards to his diabetes, patient reports that he is compliant with his insulin medication and is unsure why his blood sugar is 441 in the ED today. When asked why he doesn' t take any medications for atrial fibrillation, patient states he was told by physician he no longer has it. He was last seen by his primary care physician one month ago. Presently, patient complains of 10 out of 10 pain. He denies any chest pain, palpitations, dizziness or shortness of breath. CBC/BMP: 10/08/16 0500 10/08/16 0500 Significant Findings Laboratory Tests Test 10/06/16 10/08/16 06:11 05:00 White Blood Count 14.7 TH/MM3 17.8 TH/MM3 (4.0-11.0) (4.0-11.0) Red Blood Count 3.21 MIL/MM3 3.16 MIL/MM3 (4.50-5.90) (4.50-5.90) Hemoglobin 8.0 GM/DL 8.0 GM/DL (13.0-17.0) (13.0-17.0) Hematocrit 25.2 % 25.0 % (39.0-51.0) (39.0-51.0) Mean Corpuscular Volume 78.5 FL 79.1 FL (80.0-100.0) (80.0-100.0) Mean Corpuscular Hemoglobin 25.0 PG 25.3 PG (27.0-34.0) (27.0-34.0) Mean Corpuscular Hemoglobin 31.8 % 31.9 % Concent (32.0-36.0) (32.0-36.0) Red Cell Distribution Width 19.1 % 19.5 % (11.6-17.2) (11.6-17.2) Platelet Count 588 TH/MM3 648 TH/MM3 (150-450) (150-450) Neutrophils # (Auto) 9.2 TH/MM3 11.0 TH/MM3 (1.8-7.7) (1.8-7.7) Eosinophils # (Auto) 0.6 TH/MM3 (0-0.4) Sodium Level 135 MEQ/L 135 MEQ/L (136-145) (136-145) Random Glucose 128 MG/DL (74-106) Lymphocytes # (Auto) 5.1 TH/MM3 (1.0-4.8) Monocytes # (Auto) 1.1 TH/MM3 (0-0.9) Imaging Last Impressions Abdomen/Pelvis CT 10/02/16 0000 Signed Impressions: Service Date/Time: Sunday, October 02, 2016 19:41 - CONCLUSION: 1. No acute inflammatory process. 2. Skin thickening along the lower anterior abdominal wall and left buttock. 3. Borderline prominent lymphadenopathy in the groin bilaterally but greater on the right. Adolfo Flores MD PE at Discharge GENERAL: NAD SKIN: Warm and dry. HEAD: Normocephalic. EYES: No scleral icterus. No injection or drainage. NECK: Supple, trachea midline. No JVD or lymphadenopathy. CARDIOVASCULAR: Regular rate and rhythm without murmurs, gallops, or rubs. RESPIRATORY: Breath sounds equal bilaterally. No accessory muscle use. GASTROINTESTINAL: Abdomen soft, non-tender, nondistended. MUSCULOSKELETAL: No cyanosis, or edema. BACK: Nontender without obvious deformity. No CVA tenderness. Hospital Course Sepsis criteria with known source of infection - cellulitis with possible abscess left inner thigh Hidradenitis suppurativa with open lesions draining purulent fluid left inner thigh in patient with h/o MRSA infection Appreciate input from general surgery and advised on current medical management continue the IV antibiotic and Hibiclens showers twice a day. IV antibiotic coverage with IV Zosyn 7 days until 10/08/16. Will discharge home on doxycycline by mouth 30 days Appreciate input from infectious disease specialist Pain management Diabetes mellitus-improving blood glucose Insulin sliding scale and Accu-Cheks Treated with Levemir 30 units at bedtime A1c 9.6 Hypertension-soft Vasotec 1.25 mg when necessary SBP greater than 160 Continue to monitor BP and adjust treatment as indicated Dyslipidemia Treated with statin History of atrial fibrillation/tachycardia ACS ruled out per protocol Treated with Lopressor with holding parameters Continue Xarelto History of COPD Not an exacerbation Duonebs as needed Pseudohypernatremia Sodium level 133 continue to monitor Rheumatoid arthritis with complaints of bilateral knee pain Possible flare Pain management and restarted on prednisone Anemia, normocytic, chronic Stable on review of previous labs. Likely secondary to chronic disease such as rheumatoid arthritis iron studies reviewed 12/05/15 showed no evidence of KIET DVT prophylaxis Xarelto Pt Condition on Discharge: Stable Discharge Disposition: Discharge Home Discharge Time: <= 30 minutes Discharge Instructions DIET: Follow Instructions for: Diabetic Diet Activities you can perform: Regular-No Restrictions Follow up Referrals: PCP Follow-up - 1 Week New Medications: Chlorhexidine Gluconate Topical (Hibiclens Topical) 4% Liq 1 APPLIC TOPICAL ONCE Skin Cleanser #118 Ref 3 ML Doxycycline Hyclate (Doxycycline Hyclate) 100 Mg Cap 100 MG PO BID Infection #60 Ref 0 CAP Atorvastatin (Atorvastatin) 20 Mg Tab 20 MG PO HS Cholesterol Management #30 TAB Hydrocodone-Acetaminophen (Hydrocodone-Acetaminophen) 5-325 mg Tab 1 TAB PO Q4H PRN PAIN SCALE 3 TO 5 #10 TAB Insulin Detemir Inj (Levemir Inj) 1,000 unit/ 10 ML Vial 30 UNITS SQ HS Blood Sugar Management #1000 INJECTION Lactobacillus Acidophilus (Acidophilus/l-Sporogenes) 1 Tab Tab 1 TAB PO Q12HR Immunosuppression #30 TAB Metoprolol Tartrate (Metoprolol Tartrate) 25 Mg Tab 25 MG PO Q12HR Blood Pressure Management #60 TAB Prednisone (Prednisone) 10 Mg Tab 10 MG PO DAILY Immunosuppression #10 TAB Rivaroxaban (Xarelto) 20 Mg Tab 20 MG PO DAILY Prevent Blood Clot #30 TAB Continued Medications: Acetaminophen (Mapap) 500 Mg Tab 1000 MG PO BID PRN PAIN Ref [address] (Aspirin EC) 81 Mg Tabdr 81 MG PO DAILY Ref 0 TAB Insulin Aspart Inj (Novolog Inj) 1,000 Unit/10 Ml Vial 0 SQ DIRECTED Sliding Scale as directed. Blood Sugar Management #10 Ref 0 ML Discontinued Medications: Atorvastatin (Lipitor) 10 Mg Tab 10 MG PO HS Cholesterol Management #30 Ref 0 TAB Clindamycin (Clindamycin) 150 Mg Cap 450 MG PO Q8HR Infection Ref 0 CAP Insulin Glargine Inj (Lantus Inj) 1,000 Unit/10 Ml Vial 20 UNITS SQ HS Blood Sugar Management Ref 0 VIAL Metoprolol Tartrate (Lopressor) 50 Mg Tab 25 MG PO BID #30 Ref 0 TAB Prednisone (Prednisone) 10 Mg Tab 10 MG PO DAILY Ref 0 TAB Rivaroxaban (Xarelto) 20 Mg Tab 20 MG PO DAILY Blood Clot Prevention Ref 0 TAB Adolfo Castle MD Oct 08, 2016 10:18
== END 2016-10-08 13:42 | disposition home or self-care (01) | DRG 872 ==
LOC: NEPD 12:32 → NEDA 16:06 → OBSVTOIN 16:35 → N07A 18:48
PROVIDERS: ADMIT Hospitalist; ATTEND Hospitalist
DX: A41.9 Sepsis, unspecified organism (principal); E11.65 Type 2 diabetes mellitus with hyperglycemia; I10 Essential (primary) hypertension; I48.3 Typical atrial flutter; L03.116 Cellulitis of left lower limb; L02.416 Cutaneous abscess of left lower limb; L02.31 Cutaneous abscess of buttock; L03.314 Cellulitis of groin; J44.1 Chronic obstructive pulmonary disease with (acute) exacerbation; L73.2 Hidradenitis suppurativa; I48.91 Unspecified atrial fibrillation; Z86.14 Personal history of Methicillin resistant Staphylococcus aureus infection; M06.9 Rheumatoid arthritis, unspecified; I25.10 Atherosclerotic heart disease of native coronary artery without angina pectoris; E78.00 Pure hypercholesterolemia, unspecified; E78.5 Hyperlipidemia, unspecified; F12.90 Cannabis use, unspecified, uncomplicated; Z91.19 Patient's noncompliance with other medical treatment and regimen; Z72.0 Tobacco use; D63.8 Anemia in other chronic diseases classified elsewhere; M17.0 Bilateral primary osteoarthritis of knee; Z79.4 Long term (current) use of insulin
CPT/HCPCS: 74177; 76937; 80048; 80053; 80061; 82550; 82948; 83036; 83605; 83735; 84484; 85025; 85610; 85730; 86038; 86140; 87040; 87070; 87077; 87186; 93005; 99285; J1580; J1815; J1885; J2270; J2405; J2543; J3370; J7030; J7040; J7050; J7512; Q9963; Q9967

== ENCOUNTER 2016-10-13 21:42 | Observation (INO) | payer OTHER ==
[~2016-10-13] VITALS: Ht 182.9 cm; Wt 96.0 kg
[2016-10-13 21:42] VITALS: BP 122/71; PULSE 81; RESP 16; TEMP 98.8; O2SAT 99
[~2016-10-13 21:42] MED LIST changes: -ATOR10 PO; +ATOR20TA15 PO; -CLIN150 PO; +DOXY100C PO; -EXTR500C PO; +HIBI4LIQ TOPICAL; +HYDR-3516 PO; +LACT PO; -LANTUS2P SC; +LEVEMIR SQ; +MAPA500T PO; -METO25 PO; +METO25TA3 PO; +NOVOLOGP2 SQ; -NOVOLOGSS SQ; +PRED10 PO; -PRED1TAB PO; -RIVA20 PO; +XARE20TA PO
--- NOTE | 2016-10-13 21:44 | PD ---
HPI Chief Complaint: CHEST PAIN Time Seen by Provider: 21:44 Travel History International Travel<30 days: No Contact w/Intl Traveler<30days: No History of Present Illness HPI 45-year-old male with a history of hypertension, hyperlipidemia, diabetes, RA, COPD is brought to the emergency department by EMS for evaluation of left anterior chest pain that began this morning when he got up. He states that the pain has been constant and describes it as a pressure. States it is aggravated with movement and exertion. Denies any shortness of breath, difficulty breathing, lightheadedness, dizziness, nausea, vomiting, abdominal pain, swelling of the extremities, cough or cold symptoms, fever or chills. Denies any history of heart disease or NV, has never had any stents or heart catheterization. States he has a 15 year history of smoking cigarettes but does not smoke anymore. He was recently admitted here at the hospital for cellulitis secondary to his hydradenitis. No other complaints. PFSH Past Medical History Arthritis: Yes Atrial Fibrillation: Yes Autoimmune Disease: Yes (RA) Blood Disorders: No Heart Rhythm Problems: Yes (AFIB) Cancer: No Cardiac Catheterization: No High Cholesterol: Yes Chest Pain: Yes (BEFORE STENT ) Congestive Heart Failure: Yes Cerebrovascular Accident: No Coronary Artery Disease: Yes Diabetes: Yes Diminished Hearing: No Endocrine: Yes GERD: Yes Genitourinary: Yes (TANK) Hiatal Hernia: No Heparin Induced Thrombocytopen: No Hypertension: Yes Immune Disorder: No Implanted Vascular Access Dvce: No Kidney Stones: No Musculoskeletal: No Neurologic: Yes (TIA ) Psychiatric: No Reproductive: No Respiratory: No Immunizations Current: Yes Thyroid Disease: Yes Ulcer: No Past Surgical History Abdominal Surgery: No Body Medical Devices: PIG VALVE Cardiac Surgery: Yes (CATH Saturday, 2014, 2013 PIG VALVE 2015) Coronary Artery Bypass Graft: No Ear Surgery: No Endocrine Surgery: No Eye Surgery: No Genitourinary Surgery: No Gynecologic Surgery: No Oral Surgery: Yes (TEETH REMOVED 2014) Thoracic Surgery: No Other Surgery: Yes (Nikos under arm r/t Boils ) Social History Alcohol Use: Yes (rarely) Tobacco Use: No Substance Use: Yes (MARIJUANA) Allergies-Medications (Allergen,Severity, Reaction): Coded Allergies: *MDRO Multi-Drug Resistant Organism (Verified Adverse Reaction, Unknown, ) 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/2015 Reported Meds & Prescriptions Reported Meds & Active Scripts Active Prednisone 10 Mg Tab 10 Mg PO DAILY Metoprolol Tartrate 25 Mg Tab 25 Mg PO Q12HR Levemir Inj (Insulin Detemir) 1,000 unit/ 10 ML Vial 30 Units SQ HS Hydrocodone-Acetaminophen 5-325 mg Tab 1 Tab PO Q4H PRN Atorvastatin (Atorvastatin Calcium) 20 Mg Tab 20 Mg PO HS Doxycycline Hyclate 100 Mg Cap 100 Mg PO BID Reported Novolog Inj (Insulin Aspart) 1,000 Unit/10 Ml Vial 0 SQ DIRECTED Sliding Scale as directed. Aspirin EC (Aspirin) 81 Mg Tabdr 81 Mg PO DAILY Review of Systems Except as stated in HPI: all other systems reviewed are Neg Physical Exam Narrative GENERAL: Well-nourished and well-developed pleasant male patient in no acute distress who is nontoxic appearing. SKIN: Warm and dry. HEAD: Normocephalic and atraumatic. EYES: No injection, drainage, or hyphema noted. PERRLA. EOMI. ENT: No nasal drainage noted. Oropharynx is clear. NECK: Supple and the trachea is midline. CARDIOVASCULAR: Regular rate and rhythm. RESPIRATORY: Breath sounds are equal bilaterally with no accessory muscle use, wheezing, rhonchi, or crackles. GASTROINTESTINAL: Abdomen is soft, non-tender, and nondistended. MUSCULOSKELETAL: No obvious deformities, swelling, cyanosis, or ecchymosis is present throughout the upper and lower extremities. Patient has full range of motion without any signs of neurovascular compromise. NEUROLOGICAL: Awake, alert, and oriented. Normal speech and gait. Cranial nerves are grossly intact. Data Data Last Documented VS Vital Signs Date Time Temp Pulse Resp B/P Pulse Ox O2 Delivery O2 Flow Rate FiO2 10/13/16 23:01 72 16 96/54 100 Room Air 10/13/16 21:42 98.8 Orders Electrocardiogram (10/13/16 21:43) Ckmb (Isoenzyme) Profile (10/13/16 21:43) Complete Blood Count With Diff (10/13/16 21:43) Comprehensive Metabolic Panel (10/13/16 21:43) Prothrombin Time / Inr (Pt) (10/13/16 21:43) Act Partial Throm Time (Ptt) (10/13/16 21:43) Troponin I (10/13/16 21:43) Chest, Single Ap (10/13/16 21:43) Ecg Monitoring (10/13/16 21:43) Bilateral Bp Monitoring (10/13/16 21:43) Iv Access Insert/Monitor (10/13/16 21:43) Oximetry (10/13/16 21:43) Aspirin Chew (Aspirin Chew) (10/13/16 21:45) Sodium Chloride 0.9% Flush (Ns Flush) (10/13/16 21:45) Admit Order (Ed Use Only) (10/13/16 23:03) Activity Bed Rest With Brp (10/13/16 23:04) Vital Signs (Adult) Q4H (10/13/16 23:04) Cardiac Rhythm .As Directed (10/13/16 23:04) Notify Dr: Other .PRN (10/13/16 23:04) Notify DrRaheem Parameters (10/13/16 23:04) Resp Oxygen Nasal Cannula (10/13/16 ) Diet Npo (10/14/16 Breakfast) Ckmb (Isoenzyme) Profile (10/14/16 00:40) Ckmb (Isoenzyme) Profile (10/14/16 03:40) Troponin I (10/14/16 00:40) Troponin I (10/14/16 03:40) Electrocardiogram (10/14/16 00:40) Electrocardiogram (10/14/16 03:40) ^ Obtain (10/13/16 23:04) Sodium Chloride 0.9% Flush (Ns Flush) (10/13/16 23:15) Sodium Chloride 0.9% Flush (Ns Flush) (10/14/16 09:00) Data Entry Coordinator / Telemetry GEORGIE.[email or web address] (10/13/16 23:04) Labs Laboratory Tests Test 10/13/16 21:40 White Blood Count 19.9 TH/MM3 Red Blood Count 3.57 MIL/MM3 Hemoglobin 8.9 GM/DL Hematocrit 29.0 % Mean Corpuscular Volume 81.2 FL Mean Corpuscular Hemoglobin 25.1 PG Mean Corpuscular Hemoglobin 30.9 % Concent Red Cell Distribution Width 20.3 % Platelet Count 753 TH/MM3 Mean Platelet Volume 7.5 FL Neutrophils (%) (Auto) 78.0 % Lymphocytes (%) (Auto) 17.7 % Monocytes (%) (Auto) 3.2 % Eosinophils (%) (Auto) 0.2 % Basophils (%) (Auto) 0.9 % Neutrophils # (Auto) 15.6 TH/MM3 Lymphocytes # (Auto) 3.5 TH/MM3 Monocytes # (Auto) 0.6 TH/MM3 Eosinophils # (Auto) 0.0 TH/MM3 Basophils # (Auto) 0.2 TH/MM3 CBC Comment DIFF FINAL Differential Comment Prothrombin Time 11.4 SEC Prothromb Time International 1.0 RATIO Ratio Activated Partial 24.3 SEC Thromboplast Time Sodium Level 134 MEQ/L Potassium Level 3.9 MEQ/L Chloride Level 102 MEQ/L Carbon Dioxide Level 22.5 MEQ/L Anion Gap 10 MEQ/L Blood Urea Nitrogen 23 MG/DL Creatinine 0.93 MG/DL Estimat Glomerular Filtration 106 ML/MIN Rate Random Glucose 184 MG/DL Calcium Level 8.7 MG/DL Total Bilirubin 0.4 MG/DL Aspartate Amino Transf 11 U/L (AST/SGOT) Alanine Aminotransferase 14 U/L (ALT/SGPT) Alkaline Phosphatase 80 U/L Total Creatine Kinase 58 U/L Troponin I LESS THAN 0.02 NG/ML Total Protein 9.7 GM/DL Albumin 2.5 GM/DL Erythrocyte Sedimentation Rate 107 mm/hr [facility] Medical Decision Making Medical Screen Exam Complete: Yes Emergency Medical Condition: Yes Differential Diagnosis Pleurisy versus chest wall pain versus ACS versus pneumonia Narrative Course 45-year-old male is brought to the emergency department by EMS for evaluation of left-sided chest pain. Patient is afebrile, vital signs are stable. Physical examination is essentially unremarkable. IV access is obtained, labs of been drawn and sent. Patient is placed on cardiac telemetry and pulse oximetry monitoring. He was given 3 nitroglycerin sublingual tablets and 162 mg aspirin orally on route by EMS. Reports that it did improve his pain slightly. Patient is given another 162 mg of aspirin here in the ED. I reviewed the EMR which shows that his last stress test was October 2015. EKG shows normal sinus rhythm with no acute ST elevations or depressions. Chest x-ray is negative for any acute abnormalities. CBC shows a leukocytosis with a white blood cell count of 19.9, anemia with hemoglobin of 8.9, hematocrit 29.0. Platelets are elevated at 753. This is similar to all prior labs the patient has had. He is on chronic steroid use for rheumatoid arthritis. Coags are unremarkable. CMP shows elevated BUN of 23, otherwise unremarkable. Troponin is less than 0.02. The patient has remained stable without complaint. The emergency department. The patient will be admitted to chest pain center for repeat cardiac enzymes, EKGs and possible stress testing. I discussed the case with my attending physician Dr. Krueger who is aware of the patients history, physical examination findings, and treatment plan. Diagnosis Primary Impression: Chest pain Qualified Code: R07.9 - Chest pain, unspecified type Admitting Information Admitting Physician Requests: Observation Lalita Cherry Oct 13, 2016 21:44
[2016-10-13] MEDS ORDERED: SODIUM CHLORIDE 0.9% FLUSH 10 ML FLUSH IVF PRN (21:45)
[2016-10-13] MEDS ORDERED: ASPIRIN 81 MG CHEW TAB PO ONE (21:45)
--- NOTE | 2016-10-13 22:06 | RADRPT ---
EXAM DATE/TIME: 10/13/2016 21:37 [facility] COMPARISON: CHEST SINGLE AP, January 08, 2016, 2:48. INDICATIONS : Left sided chest pains x 1 day. MEDICAL HISTORY : Cardiovascular disease. Hypertension. Diabetes mellitus type 1. SURGICAL HISTORY : None. ENCOUNTER: Initial ACUITY: 1 day PAIN SCORE: 10/10 LOCATION: Bilateral chest FINDINGS: A single view of the chest demonstrates the lungs to be symmetrically aerated without evidence of mas s, infiltrate or effusion. The cardiomediastinal contours are unremarkable. Osseous structures are intact. CONCLUSION: No evidence of acute cardiopulmonary disease. Hubert Hicks MD on October 13, 2016 at 22:02 Board Certified Radiologist. This report was verified electronically.
[2016-10-13 22:30] LABS: AUTOMATED NEUTROPHIL # 15.6 TH/MM3 (1.8-7.7); BASOPHIL # 0.2 TH/MM3 (0-0.2); BASOPHIL % 0.9 % (0.0-2.0); EOSINOPHIL % 0.2 % (0.0-4.0); HEMO FLAGS DIFF FINAL; LYMPH % 17.7 % (9.0-44.0); LYMPHOCYTE # 3.5 TH/MM3 (1.0-4.8); MEAN CELL VOLUME 81.2 FL (80.0-100.0); MEAN CORPUSCULAR HEMOGLOBIN 25.1 PG (27.0-34.0); MEAN CORPUSCULAR HGB CONC 30.9 % (32.0-36.0); MONO % 3.2 % (0.0-8.0); PLATELET COUNT 753 TH/MM3 (150-450); RED BLOOD COUNT 3.57 MIL/MM3 (4.50-5.90); RED CELL DISTRIBUTION WIDTH 20.3 % (11.6-17.2); WHITE BLOOD COUNT 19.9 TH/MM3 (4.0-11.0)
[2016-10-13 22:40] LABS: APTT (PATIENT) 24.3 SEC (24.3-30.1); PROTHROMBIN TIME - PATIENT 11.4 SEC (9.8-11.6)
[2016-10-13 22:53] LABS: ANION GAP 10 MEQ/L (5-15); AST (GOT) 11 U/L (15-37); BICARBONATE 22.5 MEQ/L (21.0-32.0); BLOOD UREA NITROGEN 23 MG/DL (7-18); CHLORIDE 102 MEQ/L (98-107); GLOMERULAR FILTRATION RATE 106 ML/MIN (>89); POTASSIUM 3.9 MEQ/L (3.5-5.1); SODIUM (NA) 134 MEQ/L (136-145)
[2016-10-13 22:54] LABS: ALT (GPT) 14 U/L (12-78)
[2016-10-13 22:57] LABS: ALKALINE PHOSPHATASE 80 U/L (45-117); TOTAL BILIRUBIN ADULT 0.4 MG/DL (0.2-1.0)
--- NOTE | 2016-10-13 23:00 | PD ---
Data Data Last Documented VS Vital Signs Date Time Temp Pulse Resp B/P Pulse Ox O2 Delivery O2 Flow Rate FiO2 10/13/16 21:42 98.8 81 16 122/71 99 10/13/16 21:42 Room Air Orders Electrocardiogram (10/13/16 21:43) Ckmb (Isoenzyme) Profile (10/13/16 21:43) Complete Blood Count With Diff (10/13/16 21:43) Comprehensive Metabolic Panel (10/13/16 21:43) Prothrombin Time / Inr (Pt) (10/13/16 21:43) Act Partial Throm Time (Ptt) (10/13/16 21:43) Troponin I (10/13/16 21:43) Chest, Single Ap (10/13/16 21:43) Ecg Monitoring (10/13/16 21:43) Bilateral Bp Monitoring (10/13/16 21:43) Iv Access Insert/Monitor (10/13/16 21:43) Oximetry (10/13/16 21:43) Aspirin Chew (Aspirin Chew) (10/13/16 21:45) Sodium Chloride 0.9% Flush (Ns Flush) (10/13/16 21:45) Labs Laboratory Tests Test 10/13/16 21:40 White Blood Count 19.9 TH/MM3 Red Blood Count 3.57 MIL/MM3 Hemoglobin 8.9 GM/DL Hematocrit 29.0 % Mean Corpuscular Volume 81.2 FL Mean Corpuscular Hemoglobin 25.1 PG Mean Corpuscular Hemoglobin 30.9 % Concent Red Cell Distribution Width 20.3 % Platelet Count 753 TH/MM3 Mean Platelet Volume 7.5 FL Neutrophils (%) (Auto) 78.0 % Lymphocytes (%) (Auto) 17.7 % Monocytes (%) (Auto) 3.2 % Eosinophils (%) (Auto) 0.2 % Basophils (%) (Auto) 0.9 % Neutrophils # (Auto) 15.6 TH/MM3 Lymphocytes # (Auto) 3.5 TH/MM3 Monocytes # (Auto) 0.6 TH/MM3 Eosinophils # (Auto) 0.0 TH/MM3 Basophils # (Auto) 0.2 TH/MM3 CBC Comment DIFF FINAL Differential Comment Prothrombin Time 11.4 SEC Prothromb Time International 1.0 RATIO Ratio Activated Partial 24.3 SEC Thromboplast Time Sodium Level 134 MEQ/L Potassium Level 3.9 MEQ/L Chloride Level 102 MEQ/L Carbon Dioxide Level 22.5 MEQ/L Anion Gap 10 MEQ/L Blood Urea Nitrogen 23 MG/DL Creatinine 0.93 MG/DL Estimat Glomerular Filtration 106 ML/MIN Rate Random Glucose 184 MG/DL Calcium Level 8.7 MG/DL Aspartate Amino Transf 11 U/L (AST/SGOT) Alanine Aminotransferase 14 U/L (ALT/SGPT) Albumin 2.5 GM/DL MDM Supervised Visit with AMENA: Yes Narrative Course I, Dr. Krueger, have reviewed the advance practice practioner's documentation and am in agreement, met with the patient face to face, made the diagnosis, and the medical decision making was done by me. *My assessment and Findings: 45-year-old male with history of HTN, HLD, DM, COPD no longer smoking here with left anterior chest pain intermittent since he woke up this morning without any associated shortness of breath, lightheaded this, nausea. Pain is mild at this time. Patient does not have any reproducible tenderness to palpation of the chest wall on exam. Regular rate and rhythm, clear to auscultation. He last had provocative testing and October 2015. Given his risk factors concern for ACS versus atypical chest pain, less likely musculoskeletal, PE or dissection. EKG unremarkable. His cardiac enzymes are negative will admit to chest pain center for serial enzymes and provocative testing given his risk factors. Diagnosis Primary Impression: Chest pain Qualified Code: R07.9 - Chest pain, unspecified type Luisa Krueger MD Oct 13, 2016 23:00
[2016-10-13 23:01] VITALS: BP 96/54; PULSE 72; RESP 16; O2SAT 100
[2016-10-13 23:02] LABS: CREATINE KINASE 58 U/L (39-308)
[2016-10-13] MEDS ORDERED: SODIUM CHLORIDE 0.9% FLUSH 10 ML FLUSH IV FLUSH PRN (23:15)
[2016-10-14] VITALS (11 sets, daily range): BP systolic 101–116; BP diastolic 56–71; PULSE 62–78; RESP 14–20; TEMP 97.9–99; O2SAT 97–100
[2016-10-14 01:24] LABS: CREATINE KINASE 48 U/L (39-308)
[2016-10-14] MEDS ORDERED: DOXYCYCLINE HYCLATE 100 MG CAP PO SCH (01:50)
[2016-10-14] MEDS ORDERED: ATORVASTATIN 20 MG TAB PO SCH (01:50)
[2016-10-14] MEDS: ACETAMINOPHEN/HYDROcodone 325 MG/5 MG TAB PO PRN ×2 (01:57→11:18)
[2016-10-14] MEDS ORDERED: DEXTROSE 50% IN WATER 50 ML VIAL(D50) IV PUSH PRN (02:00)
[2016-10-14] MEDS ORDERED: GLUCAGON 1 MG/ML VIAL OTHER PRN (02:00)
[2016-10-14] MEDS: DOXYCYCLINE HYCLATE 100 MG CAP PO SCH ×2 (02:12→16:36)
[2016-10-14 03:54] LABS: CREATINE KINASE 45 U/L (39-308)
[2016-10-14] MEDS: MEDIUM DOSE INSULIN NOVOLOG SUPPLEMENTAL SCALE SQ SCH ×3 (06:14→16:00)
[2016-10-14] MEDS ORDERED: ASPIRIN 325 MG TAB PO SCH (09:00)
[2016-10-14] MEDS ORDERED: ONDANSETRON HCL 4 MG/2 ML VIAL IV PRN (09:00)
[2016-10-14] MEDS ORDERED: predniSONE 10 MG TAB PO SCH (09:00)
[2016-10-14] MEDS ORDERED: ASPIRIN 81 MG CHEW TAB PO SCH (09:00)
[2016-10-14] MEDS ORDERED: SODIUM CHLORIDE 0.9% FLUSH 10 ML FLUSH IV FLUSH PRN (09:00)
[2016-10-14] MEDS ORDERED: ACETAMINOPHEN 500 MG CPLT PO PRN (09:00)
[2016-10-14] MEDS ORDERED: SODIUM CHLORIDE 0.9% FLUSH 10 ML FLUSH IV FLUSH SCH ×2 (09:00)
[2016-10-14] MEDS ORDERED: NITROGLYCERIN 0.4 MG SL 25 TABS/BTL SL PRN (09:00)
[2016-10-14] MEDS ORDERED: METOPROLOL TARTRATE 25 MG TAB PO SCH (09:00)
--- NOTE | 2016-10-14 10:27 | HHI.HP ---
HPI Primary Care Physician No Primary Care Physician Chief Complaint Chest pain History of Present Illness 45-year-old male with significant history of hypertension, hyperlipidemia, uncontrolled insulin-dependent diabetes, A. fib, and COPD he reports the emergency room for further evaluation of chest pain. Onset this morning upon awakening. Location left anterior chest. Characterized as pressure. No radiation. Pain has been constant. Made worse with movement and deep breathing. Denied any associated symptoms. No personal history of coronary artery disease. Recently discharged Saturday from [facility] diagnoses hidradenitis suppurative. Upon discharge she was given doxycycline and Xarelto. Patient states he did not fill either medication due to financial restraints. Review of Systems General: No fatigue,weakness, fever, chills, or change in appetite. Recent hospitalization discharged Saturday 10/07. Did not fill prescriptions for doxycycline or Xarelto stating financial restrictions. Reports compliance with all other medications. HEENT: No LIMON, no dysphasia CV: As stated above. No current chest pain or pressure. No palpitations or dizziness RESP: No SOB, cough, wheeze, or recent URI. GI: No nausea, vomiting, bowel changes, diarrhea, constipation, pain, distention , melena, blood in the stool. : No dysuria, urgency, frequency EXT: No lower leg edema, no paraesthesias MS: No discomfort or change in ROM, ambulates with walker NEURO: No difficulty with balance, LOC, motor/sensory deficits PSYCH: No anxiety, depression, suicidal ideation SKIN: History of hidradenitis suppurativa. Left inner thigh lesion is much improved per his report despite not taking antibiotic as prescribed. This was culprit lesion for last admission per his report. Past Family Social History 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 Past Medical History Hypertension, insulin-dependent diabetes, rheumatoid arthritis, hyperlipidemia, COPD, cellulitis, paroxysmal A. fib, hidradenitis suppurativa Past Surgical History Never had valve replacement or cardiac catheterization is indicated and medical record. Reported Medications Active Prednisone 10 Mg Tab 10 Mg PO DAILY Metoprolol Tartrate 25 Mg Tab 25 Mg PO Q12HR Levemir Inj (Insulin Detemir) 1,000 unit/ 10 ML Vial 30 Units SQ HS Hydrocodone-Acetaminophen 5-325 mg Tab 1 Tab PO Q4H PRN Atorvastatin (Atorvastatin Calcium) 20 Mg Tab 20 Mg PO HS Doxycycline Hyclate 100 Mg Cap 100 Mg PO BID-did not fill after discharge 10/07 Novolog Inj (Insulin Aspart) 1,000 Unit/10 Ml Vial 0 SQ DIRECTED Sliding Scale as directed. Aspirin EC (Aspirin) 81 Mg Tabdr 81 Mg PO DAILY Xarelto QD Active Ordered Medications Current Medications Medications (Trade) Dose Ordered Sig/Mitzi Route Start Time Stop Time Status Last Admin (Lipitor) 20 mg HS PO 10/14/16 01:50 10/14/16 01:58 (Lopressor) 25 mg BID PO 10/14/16 09:00 (Deltasone) 10 mg DAILY PO 10/14/16 09:00 (Sedley 5-325 Mg) 1 tab Q6H PRN PO 10/14/16 02:00 10/14/16 01:57 (D50w (Vial) Inj) 25 ml UNSCH PRN IV PUSH 10/14/16 02:00 (Glucagon Inj) 1 mg UNSCH PRN OTHER 10/14/16 02:00 (Vibramycin) 100 mg BID PO 10/14/16 02:15 10/14/16 02:12 (NS Flush) 2 ml UNSCH PRN IV FLUSH 10/14/16 09:00 (NS Flush) 2 ml BID IV FLUSH 10/14/16 09:00 (Tylenol) 500 mg Q4H PRN PO 10/14/16 09:00 (Zofran Inj) 4 mg Q6H PRN IV 10/14/16 09:00 (Nitrostat Sl) 0.4 mg Q5M PRN SL 10/14/16 09:00 (Aspirin) 325 mg DAILY PO 10/14/16 09:00 Family History Brother myocardial infarction in his 50s Social History Known diabetes, hyperlipidemia, and hypertension. No personal coronary artery disease. Quit smoking 6 months ago. Prior to quitting smoking half pack cigarettes daily his adult life. Denies any alcohol. Endorses rare use of marijuana. Unemployed, ambulates with walker, lives with sister. Past cardiac testing 11/08/15 Kimberlee scan no fixed defects with ejection fraction 54%. Never require cardiac catheterization. Does not follow with cardiology. Physical Exam Vital Signs Vital Signs Date Time Temp Pulse Resp B/P Pulse Ox O2 Delivery O2 Flow Rate FiO2 10/14/16 08:18 99.0 75 16 116/71 99 10/14/16 06:44 21 10/14/16 04:00 76 10/14/16 03:13 98.6 71 20 110/65 97 10/14/16 01:00 62 10/14/16 00:32 98.5 65 20 110/67 99 10/14/16 00:22 76 14 102/56 100 Room Air 10/13/16 23:01 72 16 96/54 100 Room Air 10/13/16 21:42 98.8 81 16 122/71 99 10/13/16 21:42 16 99 Room Air Physical Exam GENERAL: Alert WN, WD, NAD, male HEAD: NC, AT EYES: Sclera clear, conjunctiva without injection, pupils equal and round ENT: Mucous membranes pink and moist NECK: Supple, no masses, trachea midline CV: RRR, without murmur, rub, gallop, no JVD, S1-S2 no S3-S4. RESP: Clear lungs throughout bilateral, no crackles, wheeze, rhonchi, symmetrical chest rise, nonlabored, able to speak in full sentences ABD: Soft, NT, ND, no masses, positive bowel tones EXT: Pulses +24, no dependent edema MS: Normal tone 4 extremities, nontender, no obvious deformities, full range of motion NEURO: CN II through CN XII grossly intact, motor strength 5/5, gait WNL PSYCH: A+O 3, pleasant affect, appropriate speech, appropriate mood and affect , insight and judgment SKIN: Normal turgor, normal texture, even hair distribution, multiple healed areas and axillary and bilateral groins. Left inner thigh open area approximately 2 cm in diameter. Edges well approximated. No drainage. Laboratory Laboratory Tests Test 10/13/16 10/14/16 10/14/16 21:40 00:45 03:04 White Blood Count 19.9 Red Blood Count 3.57 Hemoglobin 8.9 Hematocrit 29.0 Mean Corpuscular Volume 81.2 Mean Corpuscular Hemoglobin 25.1 Mean Corpuscular Hemoglobin 30.9 Concent Red Cell Distribution Width 20.3 Platelet Count 753 Mean Platelet Volume 7.5 Neutrophils (%) (Auto) 78.0 Lymphocytes (%) (Auto) 17.7 Monocytes (%) (Auto) 3.2 Eosinophils (%) (Auto) 0.2 Basophils (%) (Auto) 0.9 Neutrophils # (Auto) 15.6 Lymphocytes # (Auto) 3.5 Monocytes # (Auto) 0.6 Eosinophils # (Auto) 0.0 Basophils # (Auto) 0.2 CBC Comment DIFF FINAL Differential Comment Prothrombin Time 11.4 Prothromb Time International 1.0 Ratio Activated Partial 24.3 Thromboplast Time Sodium Level 134 Potassium Level 3.9 Chloride Level 102 Carbon Dioxide Level 22.5 Anion Gap 10 Blood Urea Nitrogen 23 Creatinine 0.93 Estimat Glomerular Filtration 106 Rate Random Glucose 184 Calcium Level 8.7 Total Bilirubin 0.4 Aspartate Amino Transf 11 (AST/SGOT) Alanine Aminotransferase 14 (ALT/SGPT) Alkaline Phosphatase 80 Total Creatine Kinase 58 48 45 Troponin I LESS THAN 0.02 LESS THAN 0.02 LESS THAN 0.02 Total Protein 9.7 Albumin 2.5 Erythrocyte Sedimentation Rate 107 Result Diagram: 10/13/16213910/13/162139 Imaging Last Impressions Myocardial Perfusion Scan Nuc Med 10/14/16 0000 Signed Impressions: Service Date/Time: Friday, October 14, 2016 14:36 - CONCLUSION: 1. No fixed or reversible perfusion defect is identified. 2. Global hypokinesia with reduced left ventricle ejection fraction calculated at 44%%. RISK CATEGORY: Intermediate (1-3%% Annual Mortality Rate) Hubert Horne MD Chest X-Ray 10/13/162142 Signed Impressions: Service Date/Time: Thursday, October 13, 2016 21:37 - CONCLUSION: No evidence of acute cardiopulmonary disease. Hubert Hicks MD Course EKGs First-degree AV block, Assessment and Plan Assessment and Plan #1 chest pain dyspnea chest pain center. Ruled out with 3 sets of EKGs and cardiac enzymes. Seen and evaluated by Dr. Ezequiel Marcos. Will complete chemical stress test, if unremarkable will discharge later this evening. #2 diabetessliding scale insulin coverage #3 cellulitiscontinue doxycycline, been strongly encouraged and stressed the importance of taking medications as ordered. Prior to discharge she was provided with prescription card wavers to fill, along with Xarelto. #4 dyslipidemiacontinue atorvastatin #5 rheumatoid arthritiscontinue prednisone #6 paroxysmal A. fibstress the importance and risk, including stroke, of not taking Xarelto. Madeline Rodriguez Oct 14, 2016 10:27
--- NOTE | 2016-10-14 12:11 | EKG ---
Date Performed: 10/13/2016 Time Performed: 21:30:17 PTAGE: 45 years EKG: Sinus rhythm POOR PRECORDIAL R-WAVE PROGRESSION BORDERLINE ECG NO PREVIOUS TRACING DOCTOR: Ezequiel Higginbotham Interpretating Date/Time 10/14/2016 12:09:53
--- NOTE | 2016-10-14 12:17 | EKG ---
Date Performed: 10/14/2016 Time Performed: 00:38:40 PTAGE: 45 years EKG: Sinus rhythm WITH FIRST DEGREE AV BLOCK ABNORMAL ECG PREVIOUS TRACING : 10/13/2016 21.30 DOCTOR: Ezequiel Higginbotham Interpretating Date/Time 10/14/2016 12:13:29
--- NOTE | 2016-10-14 12:21 | EKG ---
Date Performed: 10/14/2016 Time Performed: 03:19:56 PTAGE: 45 years EKG: Sinus rhythm WITH FIRST DEGREE AV BLOCK NONSPECIFIC T-WAVE ABNORMALITY ABNORMAL ECG PREVIOUS TRACING : 10/03/2016 00.37 DOCTOR: Ezequiel Higginbotham Interpretating Date/Time 10/14/2016 12:18:00
[2016-10-14] MEDS ORDERED: REGADENOSON INJ 0.4 MG/5 ML SYR ONE (15:32)
--- NOTE | 2016-10-14 17:15 | RADRPT ---
EXAM DATE/TIME: 10/14/2016 14:36 [facility] COMPARISON: MYOCARDIAL PERF PHARM SPECT, GATED W/EF, November 08, 2015, 11:20. INDICATIONS : Left sided chest pain. Angina. Atrial fibrillation. DOSE: 35.0 mCi Tc99m Myoview at stress. 11.0 mCi Tc99m Myoview at rest. 0.4 mg Lexiscan STRESS SYMPTOMS: Asymptomatic. EJECTION FRACTION: 44% MEDICAL HISTORY : Hypertension. Diabetes mellitus type 2. Chronic obstructive pulmonary disease. SURGICAL HISTORY : Valve repair. ENCOUNTER: Initial ACUITY: 1 day PAIN SCALE: 6/10 LOCATION: Left chest TECHNIQUE: The patient underwent pharmacologic stress with infusion of prescribed dose. Continuous ECG tracing was monitored during stress. Gated SPECT imaging was performed after stress and conventional SPECT i maging was performed at rest. The examination was performed on a SPECT/CT scanner, both attenuation and non-corrected datasets were reviewed. FINDINGS: DISTRIBUTION: The maximum perfused segment at stress is in the anterolateral wall. PERFUSION STUDY: The pattern of perfusion at stress is within normal limits. No fixed or reversible perfusion defect i s identified. GATED STUDY: There is global hypokinesia with akinetic segment in the inferoseptal wall near the apex. CONCLUSION: 1. No fixed or reversible perfusion defect is identified. 2. Global hypokinesia with reduced left ventricle ejection fraction calculated at 44%. RISK CATEGORY: Intermediate (1-3% Annual Mortality Rate) Hubert Horne MD on October 14, 2016 at 17:09 Board Certified Radiologist. This report was verified electronically.
--- NOTE | 2016-10-14 17:56 | TR ---
Date Performed: 10/14/2016 Time Performed: 15:13:36 DOCTOR: Ezequiel Higginbotham DRUG LIST: CLINICAL HISTORY: CHEST PAIN REASON FOR TEST: CHEST PAIN REASON FOR ENDING: OBSERVATION: CONCLUSION: Lexiscan stress test was performed under standard four minute protocol. Radionuclide was injected one minute prior to ending the test. The patient was asymptomatic. No electrocardiograp hic abnormalities were present to suggest ischemia. Recovery was quick and uneventful. Nuclear imagin g and interpretation are pending. COMMENTS:
--- NOTE | 2016-10-14 19:27 | HHI.DCPOC ---
Discharge Care Plan Diagnosis: (1) Atypical chest pain (2) DM (diabetes mellitus) (3) Hypertension (4) Rheumatoid arthritis (5) Hidradenitis suppurativa Goals to Promote Your Health * To prevent worsening of your condition and complications * To maintain your health at the optimal level Directions to Meet Your Goals Take your medications as prescribed Follow your dietary instruction Follow activity as directed Keep your appointments as scheduled Take your immunizations and boosters as scheduled If your symptoms worsen call your PCP, if no PCP go to Urgent Care Center or Emergency Room Smoking is Dangerous to Your Health. Avoid second hand smoke Call the 24-hour hour crisis hotline for domestic abuse at Madeline Rodriguez Oct 14, 2016 19:27
[2016-10-14] MEDS ORDERED: DOXY100C PO (19:49)
[2016-10-14] MEDS ORDERED: ASPI325T PO (19:49)
== END 2016-10-14 20:46 | disposition home or self-care (01) ==
LOC: NEPE 21:42 → NEDA 23:09 → NEPHCDU 10-14 00:27
PROVIDERS: ADMIT Family Medicine; ATTEND Family Medicine
DX: R07.9 Chest pain, unspecified (principal); I11.0 Hypertensive heart disease with heart failure; I50.9 Heart failure, unspecified; J44.9 Chronic obstructive pulmonary disease, unspecified; E11.9 Type 2 diabetes mellitus without complications; E78.5 Hyperlipidemia, unspecified; L73.2 Hidradenitis suppurativa; L03.90 Cellulitis, unspecified; E78.00 Pure hypercholesterolemia, unspecified; I25.10 Atherosclerotic heart disease of native coronary artery without angina pectoris; K21.9 Gastro-esophageal reflux disease without esophagitis; E07.9 Disorder of thyroid, unspecified; Z86.73 Personal history of transient ischemic attack (TIA), and cerebral infarction without residual deficits
CPT/HCPCS: 71010; 78452; 80053; 82550; 82948; 84484; 85025; 85610; 85652; 85730; 93005; 93017; 96374; 99285; A9502; G0378; J7512; J2785

== ENCOUNTER 2016-10-23 17:40 | Inpatient (IN) | payer OTHER ==
[~2016-10-23] VITALS: Ht 182.9 cm; Wt 83.9 kg
[~2016-10-23 17:40] MED LIST changes: +ASPI325T PO; -HIBI4LIQ TOPICAL; -LACT PO; -MAPA500T PO; -XARE20TA PO
[2016-10-23 17:53] VITALS: BP 133/80; PULSE 116; RESP 18; TEMP 99.9; O2SAT 98
[2016-10-23] MEDS ORDERED: NORC5TAB PO (18:26)
[2016-10-23] MEDS ORDERED: NORC5TAB G-TUBE (18:26)
[2016-10-23] MEDS ORDERED: IPRASOL NEB (18:26)
[2016-10-23] MEDS ORDERED: METO100T G-TUBE (18:26)
[2016-10-23] MEDS ORDERED: OXYGEN NAS.CANULA (18:26)
[2016-10-23] MEDS ORDERED: ATOR20TA15 PO (18:34)
[2016-10-23] MEDS ORDERED: ASPI325T PO (18:34)
[2016-10-23] MEDS ORDERED: NOVOLOGP2 SQ (18:34)
[2016-10-23] MEDS ORDERED: LEVEMIR SQ (18:35)
[2016-10-23] MEDS ORDERED: SODIUM CHLORIDE 0.9% FLUSH 10 ML FLUSH IVF PRN (18:45)
[2016-10-23 18:54] VITALS: PULSE 110; O2SAT 98
[2016-10-23 19:09] VITALS: BP 127/82; PULSE 121; RESP 18; O2SAT 98
[2016-10-23 19:11] LABS: BASOPHIL # 0.1 TH/MM3 (0-0.2); BASOPHIL % 0.6 % (0.0-2.0); EOSINOPHIL # 0.1 TH/MM3 (0-0.4); EOSINOPHIL % 0.7 % (0.0-4.0); HEMATOCRIT 30.3 % (39.0-51.0); HEMO FLAGS DIFF FINAL; LYMPHOCYTE # 2.9 TH/MM3 (1.0-4.8); MEAN CELL VOLUME 82.3 FL (80.0-100.0); MEAN CORPUSCULAR HEMOGLOBIN 25.9 PG (27.0-34.0); MEAN CORPUSCULAR HGB CONC 31.5 % (32.0-36.0); MONO % 6.9 % (0.0-8.0); NEUT % 77.8 % (16.0-70.0); PLATELET COUNT 536 TH/MM3 (150-450); RED BLOOD COUNT 3.69 MIL/MM3 (4.50-5.90); RED CELL DISTRIBUTION WIDTH 20.1 % (11.6-17.2); WHITE BLOOD COUNT 20.5 TH/MM3 (4.0-11.0)
[2016-10-23] MEDS ORDERED: SODIUM CHLOR 0.9% 1000 ML INJ 1,000 ML IV SCH ×2 (19:17→20:34)
[2016-10-23 19:19] LABS: APTT (PATIENT) 33.1 SEC (24.3-30.1); INTERNATIONAL NORMALIZED RATIO 1.1 RATIO
--- NOTE | 2016-10-23 19:19 | PD ---
HPI Chief Complaint: Chest Pain Time Seen by Provider: 19:18 Travel History International Travel<30 days: No Contact w/Intl Traveler<30days: No Traveled to known affect area: No History of Present Illness HPI 45-year-old male with a history of hypertension, hyperlipidemia, diabetes, COPD , paroxysmal atrial fibrillation, hydradenitis suppurativa presents to the emergency department by EMS for evaluation of generalized body aches and chest pain. The patient states that he had chest pain intermittently for for 5 days. States that today he started having pain all over. He states that he's had subjective fever and chills. States that he's had worsening swelling, pain, discharge and drainage from his hidradenitis at his groin. States that this is the site that became infected about a month ago and required admission for antibiotics. States he was discharged with a prescription for oral antibiotics but never got these filled due to financial difficulties. States he has taken [id number] Aleve with minimal improvement of symptoms. Denies any shortness of breath, difficulty breathing, lightheadedness, dizziness, nausea, vomiting, cough or cold symptoms, swelling of the extremities. No other complaints. PFSH Past Medical History Hx Anticoagulant Therapy: No Arthritis: Yes Atrial Fibrillation: Yes Autoimmune Disease: Yes (RA) Blood Disorders: No Heart Rhythm Problems: Yes (AFIB) Cancer: No Cardiac Catheterization: No Cardiovascular Problems: Yes High Cholesterol: Yes Chest Pain: Yes (BEFORE STENT ) Congestive Heart Failure: No Cerebrovascular Accident: No Coronary Artery Disease: Yes Diabetes: Yes (INSULIN) Patient Takes Glucophage: No Diminished Hearing: No Endocrine: Yes Gastrointestinal Disorders: No GERD: Yes Genitourinary: Yes (TANK) Hiatal Hernia: No Heparin Induced Thrombocytopen: No Hypertension: Yes Immune Disorder: No Implanted Vascular Access Dvce: No Kidney Stones: No Medical other: Yes (SKIN RASH) Musculoskeletal: No Neurologic: Yes (TIA ) Psychiatric: No Reproductive: No Respiratory: No Immunizations Current: Yes Thyroid Disease: Yes Ulcer: No Past Surgical History Abdominal Surgery: No Body Medical Devices: PIG VALVE Cardiac Surgery: Yes (CATH Saturday, 2014, 2013 PIG VALVE 2015) Coronary Artery Bypass Graft: No Ear Surgery: No Endocrine Surgery: No Eye Surgery: No Genitourinary Surgery: No Gynecologic Surgery: No Neurologic Surgery: No Oral Surgery: Yes (TEETH REMOVED 2014) Thoracic Surgery: No Other Surgery: Yes (Nikos under arm r/t Boils ) Family History Family Myocardial Infarction: Yes (BROTHER) Social History Alcohol Use: Yes (rarely) Tobacco Use: No (2015) Substance Use: Yes (MARIJUANA) Allergies-Medications (Allergen,Severity, Reaction): Coded Allergies: *MDRO Multi-Drug Resistant Organism (Verified Adverse Reaction, Unknown, ) 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/2015 Reported Meds & Prescriptions Reported Meds & Active Scripts Active Metoprolol Tartrate 25 Mg Tab 25 Mg PO Q12HR Reported Levemir Inj (Insulin Detemir) 1,000 unit/ 10 ML Vial 30 Units SQ HS Do not mix with any other Insulin. Novolog Inj (Insulin Aspart) 1,000 Unit/10 Ml Vial 0 SQ ACHS Sliding Scale as directed. Atorvastatin (Atorvastatin Calcium) 20 Mg Tab 20 Mg PO HS Aspirin 325 Mg Tab 325 Mg PO DAILY Review of Systems Except as stated in HPI: all other systems reviewed are Neg Physical Exam Narrative GENERAL: Well-nourished and well-developed male patient in no acute distress but moderate amount of pain. SKIN: Warm and dry. HEAD: Normocephalic and atraumatic. EYES: No injection, drainage, or hyphema noted. PERRLA. EOMI. ENT: No nasal drainage noted. Oropharynx is clear. NECK: Supple and the trachea is midline. CARDIOVASCULAR: Regular rate and rhythm. RESPIRATORY: Breath sounds are equal bilaterally with no accessory muscle use, wheezing, rhonchi, or crackles. GASTROINTESTINAL: Abdomen is soft, non-tender, and nondistended. GENITOURINARY: There are clusters of subcutaneous boils with discharge noted to the mons pubis, creases of groin, and perineum. Tender to palpation with malodorous drainage. Circumcised. Testes descended bilaterally without evidence of rotation. No urethral discharge. Performed in the presence of Fernando RAYMOND. MUSCULOSKELETAL: No obvious deformities, swelling, cyanosis, or ecchymosis is present throughout the upper and lower extremities. Patient has full range of motion without any signs of neurovascular compromise. NEUROLOGICAL: Awake, alert, and oriented. Normal speech and gait. Cranial nerves are grossly intact. Data Data Last Documented VS Vital Signs Date Time Temp Pulse Resp B/P Pulse Ox O2 Delivery O2 Flow Rate FiO2 10/23/16 19:14 113 10/23/16 19:09 18 127/82 98 Room Air 10/23/16 17:53 99.9 Orders Electrocardiogram (10/23/16 17:54) Electrocardiogram (10/23/16 18:45) Ckmb (Isoenzyme) Profile (10/23/16 18:45) Complete Blood Count With Diff (10/23/16 18:45) Comprehensive Metabolic Panel (10/23/16 18:45) Magnesium (Mg) (10/23/16 18:45) Prothrombin Time / Inr (Pt) (10/23/16 18:45) Act Partial Throm Time (Ptt) (10/23/16 18:45) Troponin I (10/23/16 18:45) Chest, Single Ap (10/23/16 18:45) Ecg Monitoring (10/23/16 18:45) Bilateral Bp Monitoring (10/23/16 18:45) Iv Access Insert/Monitor (10/23/16 18:45) Oximetry (10/23/16 18:45) Sodium Chloride 0.9% Flush (Ns Flush) (10/23/16 18:45) Westergren Sedimentation Rate (10/23/16 18:45) C-Reactive Protein (Crp) (10/23/16 18:45) Lactic Acid Sepsis Protocol (10/23/16 19:15) Blood Culture (10/23/16 19:15) Clindamycin Inj (Cleocin Inj) (10/23/16 19:30) Morphine Inj (Morphine Inj) (10/23/16 19:30) Ondansetron Inj (Zofran Inj) (10/23/16 19:30) Sodium Chlor 0.9% 1000 Ml Inj (Ns 1000 M (10/23/16 19:17) Sodium Chloride 0.9% Flush (Ns Flush) (10/23/16 19:30) Ketorolac Inj (Toradol Inj) (10/23/16 19:30) Sodium Chlor 0.9% 1000 Ml Inj (Ns 1000 M (10/23/16 20:34) Admit Order (Ed Use Only) (10/23/16 20:48) Admit To Inpatient (10/23/16 ) Vital Signs (Adult) Q4H (10/23/16 20:47) Activity Oob With Assistance (10/23/16 20:47) Process Safety Management Engineer / Telemetry .CONTINUOUS (10/23/16 20:47) Diet 1800 Ada Cons Carb (10/24/16 Breakfast) Diet Heart Healthy (10/24/16 Breakfast) Sodium Chloride 0.9% Flush (Ns Flush) (10/23/16 21:00) Sodium Chloride 0.9% Flush (Ns Flush) (10/23/16 21:00) Basic Metabolic Panel (Bmp) (10/24/16 06:00) Complete Blood Count With Diff (10/24/16 06:00) Case Management Consult (10/23/16 20:47) Naloxone Inj (Narcan Inj) (10/23/16 21:00) Inpatient Certification (10/23/16 ) Labs Laboratory Tests Test 10/23/16 10/23/16 18:30 19:25 White Blood Count 20.5 TH/MM3 Red Blood Count 3.69 MIL/MM3 Hemoglobin 9.6 GM/DL Hematocrit 30.3 % Mean Corpuscular Volume 82.3 FL Mean Corpuscular Hemoglobin 25.9 PG Mean Corpuscular Hemoglobin 31.5 % Concent Red Cell Distribution Width 20.1 % Platelet Count 536 TH/MM3 Mean Platelet Volume 8.1 FL Neutrophils (%) (Auto) 77.8 % Lymphocytes (%) (Auto) 14.0 % Monocytes (%) (Auto) 6.9 % Eosinophils (%) (Auto) 0.7 % Basophils (%) (Auto) 0.6 % Neutrophils # (Auto) 16.0 TH/MM3 Lymphocytes # (Auto) 2.9 TH/MM3 Monocytes # (Auto) 1.4 TH/MM3 Eosinophils # (Auto) 0.1 TH/MM3 Basophils # (Auto) 0.1 TH/MM3 CBC Comment DIFF FINAL Differential Comment Erythrocyte Sedimentation Rate 109 mm/hr Prothrombin Time 12.0 SEC Prothromb Time International 1.1 RATIO Ratio Activated Partial 33.1 SEC Thromboplast Time Sodium Level 132 MEQ/L Potassium Level 4.1 MEQ/L Chloride Level 99 MEQ/L Carbon Dioxide Level 25.0 MEQ/L Anion Gap 8 MEQ/L Blood Urea Nitrogen 24 MG/DL Creatinine 0.95 MG/DL Estimat Glomerular Filtration 103 ML/MIN Rate Random Glucose 161 MG/DL Calcium Level 9.1 MG/DL Magnesium Level 2.0 MG/DL Total Bilirubin 0.5 MG/DL Aspartate Amino Transf 13 U/L (AST/SGOT) Alanine Aminotransferase 12 U/L (ALT/SGPT) Alkaline Phosphatase 100 U/L Total Creatine Kinase 40 U/L Troponin I LESS THAN 0.02 NG/ML C-Reactive Protein 20.00 MG/DL Total Protein 10.0 GM/DL Albumin 2.6 GM/DL Lactic Acid Level 0.9 mmol/L MDM Medical Decision Making Medical Screen Exam Complete: Yes Emergency Medical Condition: Yes Differential Diagnosis Sepsis versus cellulitis versus abscesses versus rheumatoid arthritis flare Narrative Course 45-year-old male presents to the emergency department by EMS for evaluation of body aches and chest pain. Patient's temperature is 99.9F orally. He is tachycardic with a heart rate of 116 bpm. Otherwise vital signs within normal limits. On physical examination he has cellulitis and infection of hidradenitis of the groin. IV access is obtained, labs been drawn and sent. Patient is placed on cardiac telemetry and pulse oximetry monitoring. Patient is administered IV fluids, Toradol, morphine, Zofran and clindamycin. EKG shows sinus tachycardia with a ventricular rate of 112 bpm, no acute ST elevations or depressions. I reviewed the EMR which shows the patient was admitted last week for chest pain and had a nuclear stress test that was negative for any reversible perfusion defects and showed a global hypokinesia with reduced left ventricular ejection fraction around 44%. CBC shows leukocytosis with a white count of 20.5, anemia with hemoglobin of 9.6 , hematocrit 30.3. The white count is slightly above the patient in. Sedimentation rate is elevated at 109. CMP shows hyponatremia with a sodium of 132 and elevated BUN of 24. Cardiac enzymes are negative. CRP is elevated at 20. Lactic acid is within normal limits at 0.9. Coags are unremarkable. Patient has remained stable and without complaint while here in the emergency department. He'll be admitted to medicine service for sepsis secondary to cellulitis and hidradenitis suppurativa. Physician Communication Physician Communication I spoke with Dr. Templeton [facility] who agrees to admit the patient to his service. Diagnosis Primary Impression: Sepsis Qualified Code: A41.9 - Sepsis, due to unspecified organism Additional Impressions: Cellulitis Qualified Code: L03.818 - Cellulitis of other specified site Hidradenitis suppurativa Admitting Information Admitting Physician Requests: Admit Lalita Cherry Oct 23, 2016 19:18
[2016-10-23] MEDS ORDERED: ONDANSETRON HCL 4 MG/2 ML VIAL IVP ONE (19:30)
[2016-10-23] MEDS ORDERED: SODIUM CHLORIDE 0.9% FLUSH 10 ML FLUSH IV FLUSH PRN ×2 (19:30→21:00)
[2016-10-23] MEDS ORDERED: KETOROLAC TROMETHAMINE 30 MG/ML (IVP) VIAL IVP ONE (19:30)
[2016-10-23] MEDS ORDERED: CLINDAMYCIN INJ 600 MG in SODIUM CHLORIDE 0.9% INJ 100 ML IV ONE (19:30)
[2016-10-23] MEDS ORDERED: MORPHINE SULFATE 4 MG/ML INJ IV PUSH ONE ×2 (19:30→23:15)
[2016-10-23 19:38] LABS: ALT (GPT) 12 U/L (12-78); ANION GAP 8 MEQ/L (5-15); AST (GOT) 13 U/L (15-37); BLOOD UREA NITROGEN 24 MG/DL (7-18); CHLORIDE 99 MEQ/L (98-107); GLOMERULAR FILTRATION RATE 103 ML/MIN (>89); POTASSIUM 4.1 MEQ/L (3.5-5.1); SODIUM (NA) 132 MEQ/L (136-145)
--- NOTE | 2016-10-23 19:39 | RADRPT ---
EXAM DATE/TIME: 10/23/2016 19:11 [facility] COMPARISON: CHEST SINGLE AP, October 13, 2016, 21:37. INDICATIONS : Chest pain. MEDICAL HISTORY : None. SURGICAL HISTORY : None. ENCOUNTER: Initial ACUITY: 1 day PAIN SCORE: 0/10 LOCATION: Bilateral chest FINDINGS: A single view of the chest demonstrates the lungs to be symmetrically aerated without evidence of mas s, infiltrate or effusion. The cardiomediastinal contours are unremarkable. Osseous structures are intact. CONCLUSION: Normal examination. Hubert Soto MD on October 23, 2016 at 19:37 Board Certified Radiologist. This report was verified electronically.
[2016-10-23 19:45] LABS: ALKALINE PHOSPHATASE 100 U/L (45-117); TOTAL BILIRUBIN ADULT 0.5 MG/DL (0.2-1.0)
[2016-10-23 19:49] LABS: CREATINE KINASE 40 U/L (39-308)
[2016-10-23] MEDS ORDERED: NALOXONE HCL 0.4 MG/ML AMP IV PRN (21:00)
[2016-10-23] MEDS: SODIUM CHLORIDE 0.9% FLUSH 10 ML FLUSH IV FLUSH SCH (21:44)
[2016-10-23 21:57] VITALS: BP 108/67; PULSE 91; RESP 18; O2SAT 100
[2016-10-23 22:00] VITALS: BP 113/96; PULSE 92; RESP 18; TEMP 98.6; O2SAT 98
[2016-10-23 22:52] VITALS: PULSE 89
[2016-10-24] VITALS (7 sets, daily range): BP systolic 115–137; BP diastolic 72–85; PULSE 85–102; RESP 16–20; TEMP 98.1–102.5; O2SAT 96–98
[2016-10-24] MEDS ORDERED: CLINDAMYCIN INJ 900 MG in SODIUM CHLORIDE 0.9% INJ 100 ML IV SCH (02:00)
--- NOTE | 2016-10-24 03:14 | HHI.HP ---
HPI Service [facility] Primary Care Physician No Primary Care Physician Admission Diagnosis Sepsis, Cellulitis, Hidradenitis Suppurativa Diagnoses: Travel History International Travel<30 Days: No Contact w/Intl Traveler <30 Da: No Traveled to Known Affected Are: No History of Present Illness History from patient, ER PA communication, and review of medical records. Patient reported that he came to the hospital because his arthritis has been flaring up. He reports a pain in his bilateral knees, groin, actually. He states he usually takes Aleve at home to alleviate this but this time it was not helping. Denies fever. Reports that these pains have been going on for a few weeks. Also reports of some bleeding from around the wounds in his thighs and buttocks. I would of diabetes.. He reports of compliance with his insulin. Also reports of some chest pain which is coming on and off when he has joint pains. Apart from the above, patient denies any recent fever/nausea/vomiting/diarrhea/ urinary burning or pain on urination. Denies any hematemesis/hematochezia/melena/hematuria. Review of Systems Except as stated in HPI: all other systems reviewed are Neg Past Family Social History Past Medical History dm htn afib Past Surgical History sx under arms for bad boils 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 Family History mother- arthritis brother- cad with stents Social History quit smoking about 6 - 8 months ago one or 2 beers a day no drugs Physical Exam Vital Signs Vital Signs Date Time Temp Pulse Resp B/P Pulse Ox O2 Delivery O2 Flow Rate FiO2 10/24/16 00:00 99.0 89 18 115/72 98 10/23/16 23:33 Room Air 10/23/16 21:57 91 18 108/67 100 Room Air 10/23/16 19:14 113 10/23/16 19:09 121 18 127/82 98 Room Air 10/23/16 18:54 110 98 Room Air 10/23/16 17:53 99.9 116 18 133/80 98 Physical Exam GENERAL: This is a well-nourished, well-developed patient, in no apparent distress. SKIN: hydradenitis suppura of groin HEAD: Atraumatic. Normocephalic. No temporal or scalp tenderness. EYES: No scleral icterus. No injection or drainage. ENT: Nose without bleeding, purulent drainage or septal hematoma.Airway patent. NECK: Trachea midline. No JVD CARDIOVASCULAR: Regular rate and rhythm without murmurs, gallops, or rubs. RESPIRATORY: Clear to auscultation. Breath sounds equal bilaterally. No wheezes , rales, or rhonchi. GASTROINTESTINAL: Abdomen soft, non-tender, nondistended. No hepato-splenomegaly , or palpable masses. No guarding. ; bilateral upper thigh/ groin excoriated foul smelling skin lesions- hydradentitis supprative MUSCULOSKELETAL: Extremities without clubbing, cyanosis, or edemaNo calf tenderness right knee somewhat warm . RLE calf size bigger than left NEUROLOGICAL: Awake and alert. Motor and sensory grossly within normal limits. Normal speech. Laboratory Laboratory Tests Test 10/23/16 10/23/16 18:30 19:25 White Blood Count 20.5 Red Blood Count 3.69 Hemoglobin 9.6 Hematocrit 30.3 Mean Corpuscular Volume 82.3 Mean Corpuscular Hemoglobin 25.9 Mean Corpuscular Hemoglobin 31.5 Concent Red Cell Distribution Width 20.1 Platelet Count 536 Mean Platelet Volume 8.1 Neutrophils (%) (Auto) 77.8 Lymphocytes (%) (Auto) 14.0 Monocytes (%) (Auto) 6.9 Eosinophils (%) (Auto) 0.7 Basophils (%) (Auto) 0.6 Neutrophils # (Auto) 16.0 Lymphocytes # (Auto) 2.9 Monocytes # (Auto) 1.4 Eosinophils # (Auto) 0.1 Basophils # (Auto) 0.1 CBC Comment DIFF FINAL Differential Comment Erythrocyte Sedimentation Rate 109 Prothrombin Time 12.0 Prothromb Time International 1.1 Ratio Activated Partial 33.1 Thromboplast Time Sodium Level 132 Potassium Level 4.1 Chloride Level 99 Carbon Dioxide Level 25.0 Anion Gap 8 Blood Urea Nitrogen 24 Creatinine 0.95 Estimat Glomerular Filtration 103 Rate Random Glucose 161 Calcium Level 9.1 Magnesium Level 2.0 Total Bilirubin 0.5 Aspartate Amino Transf 13 (AST/SGOT) Alanine Aminotransferase 12 (ALT/SGPT) Alkaline Phosphatase 100 Total Creatine Kinase 40 Troponin I LESS THAN 0.02 C-Reactive Protein 20.00 Total Protein 10.0 Albumin 2.6 Lactic Acid Level 0.9 Date/Time Procedure Status Source Growth 10/23/16 19:25 Aerobic Blood Culture Received Blood Peripheral Pending 10/23/16 19:25 Anaerobic Blood Culture Received Blood Peripheral Pending Result Diagram: 10/23/16 1830 10/23/16 1830 Imaging Last 48 hours Impressions Chest X-Ray 10/23/16 1845 Signed Impressions: Service Date/Time: Sunday, October 23, 2016 19:11 - CONCLUSION: Normal examination. Hubert Soto MD Assessment and Plan Assessment and Plan Impression: Sepsiswith leukocytosis, tachycardia, so is being hidradenitis suppurativa Rheumatoid arthritis flareupwith elevated inflammatory markers levels Intractable pain Hidradenitis suppurativa of the groin Diabetes Hypertension Atrial fibrillation Plan: Vancomycin IV per creatinine clearance and levels. Zosyn 4.5 g IV every 6 hours. We'll follow-up clinically for improvement. Pain control. Infectious disease consult. We'll consider general surgery consult for possible need of debridement. At this point, I would obtain CT abdomen and pelvis to rule out abscess. Would monitor fingersticks and cover with sliding scale coverage. Resume home medications. DVT prophylaxiswith Lovenox. We'll start therapeutic Lovenox for anticoagulation for A. fib as well. Would obtain Doppler ultrasound of lower extremities to rule out DVT. GI prophylaxis on pantoprazole. Discussed Condition With Patient, ER physician, patient's nurse Physician Certification 2 Midnight Certification Type: Admission for Inpatient Services Order for Inpatient Services The services are ordered in accordance with Medicare regulations or non- Medicare payer requirements, as applicable. In the case of services not specified as inpatient-only, they are appropriately provided as inpatient services in accordance with the 2-midnight benchmark. Estimated LOS (days): 4 days is the estimated time the patient will need to remain in the hospital, assuming treatment plan goals are met and no additional complications. Post-Hospital Plan: Home Gerry Templeton MD Oct 24, 2016 03:14
[2016-10-24] MEDS ORDERED: ENOXAPARIN SODIUM 100 MG/ML SYRINGE SQ SCH (03:30)
[2016-10-24] MEDS ORDERED: Vancomycin Consult Pharmacy 1 EA OTHER SCH (03:45)
[2016-10-24] MEDS ORDERED: VANCOMYCIN INJ 1,900 MG in SODIUM CHLORID 0.9% 500 ML INJ 500 ML IV SCH (05:00)
[2016-10-24] MEDS: HYDROmorphone HCL PF 1 MG/ML VIAL IV PUSH PRN ×5 (05:01→23:01)
[2016-10-24] MEDS: PIPERACIL-TAZO 4.5 GM PREMIX 100 ML IV SCH ×2 (05:15→10:05)
[2016-10-24 07:12] LABS: AUTOMATED NEUTROPHIL # 11.1 TH/MM3 (1.8-7.7); BASOPHIL # 0.1 TH/MM3 (0-0.2); BASOPHIL % 0.6 % (0.0-2.0); EOSINOPHIL # 0.2 TH/MM3 (0-0.4); EOSINOPHIL % 1.3 % (0.0-4.0); HEMO FLAGS DIFF FINAL; LYMPH % 18.1 % (9.0-44.0); LYMPHOCYTE # 2.7 TH/MM3 (1.0-4.8); MEAN CELL VOLUME 82.1 FL (80.0-100.0); MEAN CORPUSCULAR HEMOGLOBIN 25.5 PG (27.0-34.0); MEAN CORPUSCULAR HGB CONC 31.1 % (32.0-36.0); MONO % 6.5 % (0.0-8.0); NEUT % 73.5 % (16.0-70.0); PLATELET COUNT 435 TH/MM3 (150-450); RED BLOOD COUNT 3.17 MIL/MM3 (4.50-5.90); WHITE BLOOD COUNT 15.1 TH/MM3 (4.0-11.0)
[2016-10-24 07:36] LABS: BICARBONATE 24.3 MEQ/L (21.0-32.0); POTASSIUM 3.8 MEQ/L (3.5-5.1)
[2016-10-24] MEDS ORDERED: DIATRIZOATE MEGLUM/DIATRIZOATE SOD 9 ML CUP PO ONE (07:45)
[2016-10-24] MEDS: PANTOPRAZOLE SOD 40 MG DELAYED RELEASE TAB PO SCH (08:07)
[2016-10-24] MEDS: LACTOBACILLUS ACIDOPHILUS TAB PO SCH ×3 (08:07→16:50)
[2016-10-24] MEDS: METOPROLOL TARTRATE 25 MG TAB PO SCH ×2 (08:07→20:17)
[2016-10-24] MEDS: ASPIRIN 325 MG TAB PO SCH (08:07)
[2016-10-24] MEDS: SODIUM CHLORIDE 0.9% FLUSH 10 ML FLUSH IV FLUSH SCH ×2 (08:08→20:17)
[2016-10-24] MEDS ORDERED: DEXTROSE 50% IN WATER 50 ML VIAL(D50) IV PRN (09:15)
[2016-10-24] MEDS ORDERED: GLUCAGON 1 MG/ML VIAL OTHER PRN (09:15)
--- NOTE | 2016-10-24 09:39 | RADRPT ---
EXAM DATE/TIME: 10/23/2016 16:29 [facility] COMPARISON: No previous studies available for comparison. INDICATIONS : Bilateral leg pain. MEDICAL HISTORY : Hypertension. Diabetes mellitus type 2. Chronic obstructive pulmonary disease. SURGICAL HISTORY : Valve repair. ENCOUNTER: Initial ACUITY: 1 day PAIN SCORE: 9/10 LOCATION: Bilateral leg. TECHNIQUE: Venous ultrasound of the left and right leg was performed from the inguinal ligament to the proximal calf. Real-time, color Doppler and spectral tracing, compression and augmentation techniques were us ed. FINDINGS: RIGHT LEG: There is normal compressibility of the deep venous system from the inguinal region to the proximal ca lf. No echogenic clot is seen in the lumen of the common femoral, femoral, popliteal, and posterior tibial veins. There is a normal response of the venous system to proximal and distal augmentation an d respiration. LEFT LEG: There is normal compressibility of the deep venous system from the inguinal region to the proximal ca lf. No echogenic clot is seen in the lumen of the common femoral, femoral, popliteal, and posterior tibial veins. There is a normal response of the venous system to proximal and distal augmentation an d respiration. CONCLUSION: Negative for DVT thrombosis Inguinal adenopathy more prominent on the right. Remi Valentino MD FACR on October 24, 2016 at 9:35 Board Certified Radiologist. This report was verified electronically.
--- NOTE | 2016-10-24 10:51 | HHI.PR ---
Subjective Remarks Follow up for sepsis with infected hidradenitis suppurativa. The patient reports continued pain, foul odor, and drainage from multiple open wounds worse throughout the right medial thigh and left distal/posterior buttocks. He does get some relief with the pain medication, specifically IV dilaudid. He reports subjective fevers overnight, however no documented fevers since Tmax 99.9 upon arrival. He is requesting surgical debridement. He reports a history of surgery for his hidradenitis at the lower abdomen and groin which he states resolved the infections in that area. He otherwise denies any other medical complaints including no chest pain, shortness of breath, abdominal pain, nausea/vomiting, or diarrhea. His last BM was yesterday 10/23, described as normal, nonbloody, formed stool. Objective Vitals Vital Signs Date Time Temp Pulse Resp B/P Pulse Ox O2 Delivery O2 Flow Rate FiO2 10/24/16 08:00 98.8 92 20 125/76 98 10/24/16 04:00 98.1 92 18 135/75 98 10/24/16 00:00 99.0 89 18 115/72 98 10/23/16 23:33 Room Air 10/23/16 22:52 89 10/23/16 22:00 98.6 92 18 113/96 98 10/23/16 21:57 91 18 108/67 100 Room Air 10/23/16 19:14 113 10/23/16 19:09 121 18 127/82 98 Room Air 10/23/16 18:54 110 98 Room Air 10/23/16 17:53 99.9 116 18 133/80 98 I/O 10/23/16 10/23/16 10/23/16 10/24/16 10/24/16 10/24/16 07:00 15:00 23:00 07:00 15:00 23:00 Intake Total 240 ml 240 ml Output Total 300 ml Balance 240 ml -60 ml Intake Oral 240 ml 240 ml Output Urine Total 300 ml # Voids 0 Result Diagram: 10/24/16 0633 10/24/16 0633 Imaging Last Impressions Lower Extremity Ultrasound 10/24/16 0000 Signed Impressions: Service Date/Time: Sunday, October 23, 2016 16:29 - CONCLUSION: Negative for DVT thrombosis Inguinal adenopathy more prominent on the right. Remi Valentino MD FACR Chest X-Ray 10/23/16 7921 Signed Impressions: Service Date/Time: Sunday, October 23, 2016 19:11 - CONCLUSION: Normal examination. Hubert Soto MD Objective Remarks GENERAL: Well-developed well-nourished middle aged male patient in [facility]. SKIN: Warm and dry. Bilateral proximal medial thighs, groin, and left distal posterior buttocks with multiple open draining skin lesions with foul odor and induration; consistent with hidradenitis suppurativa. HEENT: Atraumatic. Normocephalic. Pupils equal and round. Mucous membranes pink and moist. NECK: Trachea midline CARDIOVASCULAR: Regular rate and rhythm. No murmur appreciated. RESPIRATORY: No accessory muscle use. Clear to auscultation. Breath sounds equal bilaterally. GASTROINTESTINAL: Abdomen soft, non-tender, nondistended. Hepatic and splenic margins not palpable. MUSCULOSKELETAL: Extremities without clubbing, cyanosis, or edema. No obvious deformities. NEUROLOGICAL: Awake and alert. No obvious cranial nerve deficits. Motor grossly within normal limits. Normal speech. PSYCHIATRIC: Appropriate mood and affect; insight and judgment normal. Medications and IVs Current Medications Medications (Trade) Dose Ordered Sig/Mitzi Route Start Time Stop Time Status Last Admin (NS Flush) 2 ml UNSCH PRN IV FLUSH 10/23/16 21:00 (NS Flush) 2 ml BID IV FLUSH 10/23/16 21:00 10/24/16 08:08 (Narcan Inj) 0.4 mg UNSCH PRN IV 10/23/16 21:00 (Lactinex) 1 tab TID PO 10/24/16 09:00 10/24/16 08:07 (Dilaudid Pf Inj) 0.5 mg Q4H PRN IV PUSH 10/24/16 03:30 10/24/16 10:05 (Roxicodone) 10 mg Q4H PRN PO 10/24/16 03:30 10/24/16 08:07 (Lovenox Inj) 90 mg Q12H SQ 10/24/16 03:30 10/24/16 03:31 (Aspirin) 325 mg DAILY PO 10/24/16 09:00 10/24/16 08:07 (Lipitor) 20 mg HS PO 10/24/16 21:00 (Levemir Inj) 30 units HS SQ 10/24/16 21:00 Metoprolol Tartrate 25 mg 25 mg Q12HR PO 10/24/16 09:00 10/24/16 08:07 Pharmacy Profile Note 0 ml @ 0 mls/hr UNSCH OTHER 10/24/16 03:45 (Zosyn 4.5 Gm Premix) 100 ml @ 200 mls/hr Q6H IV 10/24/16 04:00 10/24/16 10:05 (Protonix) 40 mg DAILY PO 10/24/16 09:00 10/24/16 08:07 (D50w (Vial) Inj) 50 ml UNSCH PRN IV 10/24/16 09:15 (Glucagon Inj) 1 mg UNSCH PRN OTHER 10/24/16 09:15 A/P Problem List: (1) Sepsis ICD Code: A41.9 Status: Acute (2) Hidradenitis suppurativa ICD Code: L73.2 Status: Chronic (3) Rheumatoid arthritis ICD Code: M06.9 Status: Chronic (4) DM (diabetes mellitus) ICD Code: E11.9 Status: Acute (5) Hypertension ICD Code: I10 Status: Acute Assessment and Plan 45-year-old male with history of hidradenitis suppurativa, diabetes, hypertension, atrial fibrillation, rheumatoid arthritis presents with intractable pain, and sepsis with infected hidradenitis Sepsis secondary to infected Hidradenitis Suppurativa: +leukocytosis WBC 20K, tachycardia HR 116, low grade fever 99.9, source-infected hidradenitis suppurativa. Elevated ESR/CRP. Lactic acid 0.9. -Check CT abd/pelvis to rule out abscess -Consult infectious disease for assistance with antibiotics -Given antibiotics with IV Vanco/Zosyn; however now changed to po Doxycycline per ID -wash body 3x daily with Hibiclens -Monitor blood cultures -Consider surgical consult for debridement if no improvement -1430hrs: CT abd showed small 1.7cm abscess at right posterior medial gluteal region, consulted general surgery for possible I&D, keep NPO for now -1500hrs: discussed with Dr. Dawn, who will see the patient and possibly perform bedside I&D however patient needs plastic surgery evaluation/ management Rheumatoid Arthritis Exacerbation: with elevated inflammatory markers levels, ESR 109, CRP 20.0. Patient presented with intractable pain, unrelieved by ibuprofen at home. -continue pain control with oxycodone prn and IV dilaudid prn breakthrough pain -avoid steroids if possible with diabetes and active infection -outpatient f/up with rheumatology Diabetes: chronic, HgbA1c 9.6 on 10/02/16. -continue patient's Levemir 30u sq hs -monitor Accu-cheks, cover with SSI Hypertension: chronic, BP fairly well controlled -continue patient's metoprolol Hx of Atrial fibrillation: EKG reviewed, shows sinus tachycardia. Not on full anticoagulation. -continue patient's aspirin, metoprolol, statin RLE Edema: right leg larger than left leg, suspect secondary to infection worse at right upper thigh -Doppler U/S negative for DVT although did show diffuse adenopathy Normocytic Anemia: Hgb 9.6 to 8.1 overnight, consistent with previous. Patient does report some bloody drainage from wounds, otherwise no active bleeding. -check iron studies/ferritin DVT prophylaxis with Heparin sq GI prophylaxis with pantoprazole Problem Qualifiers (1) Sepsis: Qualified Code: A41.9 - Sepsis, due to unspecified organism Shagufta Day PA-C Oct 24, 2016 10:50
--- NOTE | 2016-10-24 10:56 | PD.CONS ---
History of Present Illness Service Infectious disease Consult Requested By Dr Izzy Templeton Reason for Consult Evaluate patient with hidradenitis, give recommendation on antibiotics Primary Care Physician No Primary Care Physician Diagnoses: History of Present Illness Patient seen and examined. Records reviewed. Patient is a 45-year-old male, presented to the hospital complaining of 3-4 day history of multiple joint pains. Length of pain in his knees, ankle, wrist, and his neck. Patient has a history of rheumatoid arthritis diagnosed in [place], but has not really established with a hotel lobby concierge in [facility]. From previous admission it states that he was on prednisone, but the list of medication he has currently on this admission does not include prednisone. Patient was recently hospitalized the first week of September and at that time he had exacerbation of his hydradenitis. There was a wound culture that had Klebsiella , and strep. He was discharge, and was supposed to be on doxycycline, but the patient did not filled his prescription, and has not been taking any antibiotics since he was discharge. There is really been no significant change in his hydradenitis which is mostly active in his medial thigh, and in the buttock region. He denies any fever or chills or sweats. For his arthritis, he has been taking Aleve which used to alleviate the pain but it has not been working recently. Patient has not been febrile since admission. His WBC was 20,000 and it's down to 15,000. On reviewing from previous admission patient always has some leukocytosis present. Infectious disease consultation has been requested to make recommendation on antibiotic for his hidradenitis. Past Family Social History 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 Past Medical History Hypertension Diabetes Atrial fibrillation Hydradenitis Rheumatoid arthritis History of MRSA infection Hyperlipidemia COPD Past Surgical History Previous surgery for his hidradenitis History of skin grafting Active Ordered Medications Aspirin Lipitor Lovenox Dilaudid Insulin Lactinex Lopressor Oxycodone Protonix Zosyn Vancomycin Family History History of CAD and hypertension Social History Patient smokes one pack per day of cigarettes, reportedly quit about 6 months ago Occasional alcohol, usually beer Occasional marijuana, denies IV drug use Physical Exam Vital Signs Vital Signs Date Time Temp Pulse Resp B/P Pulse Ox O2 Delivery O2 Flow Rate FiO2 10/24/16 08:00 98.8 92 20 125/76 98 10/24/16 04:00 98.1 92 18 135/75 98 10/24/16 00:00 99.0 89 18 115/72 98 10/23/16 23:33 Room Air 10/23/16 22:52 89 10/23/16 22:00 98.6 92 18 113/96 98 10/23/16 21:57 91 18 108/67 100 Room Air 10/23/16 19:14 113 10/23/16 19:09 121 18 127/82 98 Room Air 10/23/16 18:54 110 98 Room Air 10/23/16 17:53 99.9 116 18 133/80 98 Physical Exam GENERAL: Patient is a well-nourished, well-developed male, not in respiratory distress. SKIN: Warm and dry. Has scars in trunk, axilla, buttocks, groin, perineum from previous hidradenitis. Has areas of induration in medial thighs, perineum, and some on buttocks with purulent drainage that has foul odor. HEAD: Atraumatic. Normocephalic. No temporal wasting, or tenderness. EYES: [place] conjunctiva. No petechia or hemorrhage. Pupils equal, round and reactive to light. Extraocular movements full and intact. No scleral icterus. No injection or drainage. EARS, NOSE AND THROAT: Nose without bleeding or purulent nasal discharge. No sinus tenderness. Mucous membranes pink and moist. No oral lesions noted. No exudate. No oral thrush. NECK: Trachea midline. Supple and not tender, no meningeal signs CARDIOVASCULAR: Regular rate and rhythm. No murmurs, rubs or gallops heard RESPIRATORY: Clear to auscultation. Breath sounds equal bilaterally. No rales , wheezing or rhonchi ABDOMEN: Soft, non-tender, nondistended. Bowel sounds present and normoactive. No guarding. No rebound. No organomegaly. has evidence of multiple scars, sinus in groin areas EXTREMITIES: No clubbing, cyanosis. Has some swelling in his L wrist and some in his R knee, No calf tenderness. Well perfused and warm. NEUROLOGICAL: Awake and alert. Cranial nerves grossly intact. Motor grossly within normal limits. PSYCHIATRIC: Normal affect, calm and cooperative. LINE: No evidence of infection Laboratory Laboratory Tests Test 10/23/16 10/23/16 10/24/16 18:30 19:25 06:33 White Blood Count 20.5 15.1 Red Blood Count 3.69 3.17 Hemoglobin 9.6 8.1 Hematocrit 30.3 26.0 Mean Corpuscular Volume 82.3 82.1 Mean Corpuscular Hemoglobin 25.9 25.5 Mean Corpuscular Hemoglobin 31.5 31.1 Concent Red Cell Distribution Width 20.1 20.0 Platelet Count 536 435 Mean Platelet Volume 8.1 8.2 Neutrophils (%) (Auto) 77.8 73.5 Lymphocytes (%) (Auto) 14.0 18.1 Monocytes (%) (Auto) 6.9 6.5 Eosinophils (%) (Auto) 0.7 1.3 Basophils (%) (Auto) 0.6 0.6 Neutrophils # (Auto) 16.0 11.1 Lymphocytes # (Auto) 2.9 2.7 Monocytes # (Auto) 1.4 1.0 Eosinophils # (Auto) 0.1 0.2 Basophils # (Auto) 0.1 0.1 CBC Comment DIFF FINAL DIFF FINAL Differential Comment Erythrocyte Sedimentation Rate 109 Prothrombin Time 12.0 Prothromb Time International 1.1 Ratio Activated Partial 33.1 Thromboplast Time Sodium Level 132 132 Potassium Level 4.1 3.8 Chloride Level 99 100 Carbon Dioxide Level 25.0 24.3 Anion Gap 8 8 Blood Urea Nitrogen 24 19 Creatinine 0.95 0.82 Estimat Glomerular Filtration 103 122 Rate Random Glucose 161 184 Calcium Level 9.1 8.9 Magnesium Level 2.0 Total Bilirubin 0.5 Aspartate Amino Transf 13 (AST/SGOT) Alanine Aminotransferase 12 (ALT/SGPT) Alkaline Phosphatase 100 Total Creatine Kinase 40 Troponin I LESS THAN 0.02 C-Reactive Protein 20.00 Total Protein 10.0 Albumin 2.6 Lactic Acid Level 0.9 Date/Time Procedure Status Source Growth 10/23/16 19:25 Aerobic Blood Culture Received Blood Peripheral Pending 10/23/16 19:25 Anaerobic Blood Culture Received Blood Peripheral Pending Result Diagram: 10/24/16 0633 10/24/16 0633 Imaging RADIOLOGY STUDIES/FILMS REVIEWED Lower Extremity Ultrasound 10/24/16 0000 Signed Impressions: Service Date/Time: Sunday, October 23, 2016 16:29 - CONCLUSION: Negative for DVT thrombosis Inguinal adenopathy more prominent on the right. Remi Valentino MD FACR Chest X-Ray 10/23/16 [id number] Signed Impressions: Service Date/Time: Sunday, October 23, 2016 19:11 - CONCLUSION: Normal examination. Hubert Soto MD Assessment and Plan Assessment and Plan IMPRESSION Hx RA, with flare up? Hidradenitis suppurativa, active in medial thigh and perineum, did not fill his Rx after he was D/C from hospital - states some problem with his insurance RECOMMENDATION Rx RA flare up - previous admission states that he was on prednisone in past Will start Doxycyline 100 mg BID x 30 days as previously recommended Have patient take hibiclens shower to decrease bacterial load on his skin, and for hygiene Will ask CM to try and see if we can help in getting his Abx Thank you for this consultation Discussed Condition With Explained plan to the patient Ericka Nichols MD Oct 24, 2016 10:56
[2016-10-24] MEDS: DOXYCYCLINE HYCLATE 100 MG CAP PO SCH ×2 (11:33→20:17)
[2016-10-24] MEDS: INSULIN ASPART SUPPLEMENTAL SCALE SQ SCH ×3 (11:38→20:19)
[2016-10-24] MEDS: CHLORHEXIDINE GLUCONATE 4% SOLN 120 ML BTL TOPICAL SCH (12:25)
[2016-10-24] MEDS ORDERED: IOHEXOL 350 MG/ML 10 ML VIAL (for RAD DIAG) IV ONE (13:48)
--- NOTE | 2016-10-24 14:07 | RADRPT ---
EXAM DATE/TIME: 10/24/2016 13:35 [place] COMPARISON: CT ABDOMEN & PELVIS W CONTRAST, October 02, 2016, 19:41. INDICATIONS : Evaluate for abscess. IV CONTRAST: 95 cc Omnipaque 350 (iohexol) IV ORAL CONTRAST: Prescribed oral contrast ingested. RADIATION DOSE: 9.96 CTDIvol (mGy) MEDICAL HISTORY : Hypertension. Renal insufficiency. Diabetes mellitus type 2.AFIB, SURGICAL HISTORY : Coronary artery stent. Cardiac valve ENCOUNTER: Initial ACUITY: 2 days PAIN SCALE: 6/10 LOCATION: Bilateral lower quadrant TECHNIQUE: Volumetric scanning of the abdomen and pelvis was performed. Using automated exposure control and ad justment of the mA and/or kV according to patient size, radiation dose was kept as low as reasonably achievable to obtain optimal diagnostic quality images. DICOM format image data is available electro nically for review and comparison. FINDINGS: LOWER LUNGS: Right lung base atelectasis versus scarring. LIVER: Homogeneous density without lesion. There is no dilation of the biliary tree. No calcified gallston es. SPLEEN: Normal size without lesion. PANCREAS: Within normal limits. KIDNEYS: Kidneys demonstrate symmetrical enhancement without evidence for radiopaque renal calculi or hydronep hrosis. There are multiple small subcentimeter hypodense cystic lesions in the inferior renal poles w hich are too small to fully characterize. No significant renal mass. ADRENAL GLANDS: Within normal limits. VASCULAR: There is no aortic aneurysm. BOWEL/MESENTERY: Appendix is visualized and appears normal. Bowel is grossly unremarkable without evidence for obstruc tion or pneumatosis. There is no significant free fluid or dental fluid collection in the abdomen. ABDOMINAL WALL: Redemonstration of prominent skin thickening in the lower anterior abdominal wall and left posterior gluteal region. There is a very small peripherally enhancing subcutaneous fluid collection in the rig ht medial posterior gluteal region measuring 1.7 x 0.8 cm. Otherwise, no evidence for abscess. RETROPERITONEUM: There is no lymphadenopathy. BLADDER: No wall thickening or mass. REPRODUCTIVE: Within normal limits. INGUINAL: Redemonstration of bilateral mild prominent inguinal nodes with the largest measuring up to 1.4 cm in short axis diameter on the right side. MUSCULOSKELETAL: Within normal limits for patient age. CONCLUSION: 1. Stable prominent skin thickening in the lower anterior abdominal wall and left posterior gluteal r egion. 2. Very small 1.7 x 0.8 cm subcutaneous abscess in the right medial posterior gluteal region. 3. Stable bilateral inguinal adenopathy, likely reactive/infectious in etiology. 4. Normal appendix. Jose Maria Pardo MD on October 24, 2016 at 13:53 Board Certified Radiologist. This report was verified electronically.
[2016-10-24] MEDS: HEPARIN SODIUM - SQ 10,000 UNITS/ML VIAL SQ SCH (20:17)
[2016-10-24] MEDS: ATORVASTATIN 20 MG TAB PO SCH (20:17)
[2016-10-24] MEDS: INSULIN DETEMIR 100 UNITS/ML VIAL SQ SCH (20:19)
--- NOTE | 2016-10-24 23:30 | EKG ---
Date Performed: 10/23/2016 Time Performed: 17:54:31 PTAGE: 45 years EKG: SINUS TACHYCARDIA NONSPECIFIC ST & T-WAVE ABNORMALITY ABNORMAL RHYTHM Compared to the PREVIOUS TRACING RATE FASTER DOCTOR: Roman Rebollar Interpretating Date/Time 10/24/2016 23:29:16
[2016-10-25] VITALS (7 sets, daily range): BP systolic 108–127; BP diastolic 62–80; PULSE 78–90; RESP 16–18; TEMP 98.2–99.2; O2SAT 96–99
[2016-10-25] MEDS ORDERED: ACETAMINOPHEN 325 MG TAB PO PRN
[2016-10-25] MEDS: HYDROmorphone HCL PF 1 MG/ML VIAL IV PUSH PRN ×4 (03:21→20:59)
[2016-10-25] MEDS: INSULIN ASPART SUPPLEMENTAL SCALE SQ SCH ×4 (06:05→21:00)
[2016-10-25 07:56] LABS: HEMATOCRIT 26.7 % (39.0-51.0); MEAN CELL VOLUME 80.9 FL (80.0-100.0); MEAN CORPUSCULAR HEMOGLOBIN 25.6 PG (27.0-34.0); MEAN CORPUSCULAR HGB CONC 31.7 % (32.0-36.0); PLATELET COUNT 434 TH/MM3 (150-450); RED CELL DISTRIBUTION WIDTH 19.6 % (11.6-17.2); REVIEW FLAG FINAL; WHITE BLOOD COUNT 13.6 TH/MM3 (4.0-11.0)
[2016-10-25] MEDS: CHLORHEXIDINE GLUCONATE 4% SOLN 120 ML BTL TOPICAL SCH (08:06)
[2016-10-25] MEDS: DOXYCYCLINE HYCLATE 100 MG CAP PO SCH ×2 (08:06→20:57)
[2016-10-25] MEDS: METOPROLOL TARTRATE 25 MG TAB PO SCH ×2 (08:06→20:57)
[2016-10-25] MEDS: LACTOBACILLUS ACIDOPHILUS TAB PO SCH ×3 (08:06→16:39)
[2016-10-25] MEDS: PANTOPRAZOLE SOD 40 MG DELAYED RELEASE TAB PO SCH (08:06)
[2016-10-25] MEDS: ASPIRIN 325 MG TAB PO SCH (08:06)
[2016-10-25] MEDS: HEPARIN SODIUM - SQ 10,000 UNITS/ML VIAL SQ SCH ×2 (08:06→20:58)
[2016-10-25] MEDS: SODIUM CHLORIDE 0.9% FLUSH 10 ML FLUSH IV FLUSH SCH ×2 (08:07→21:02)
[2016-10-25 08:20] LABS: ANION GAP 5 MEQ/L (5-15); BICARBONATE 29.3 MEQ/L (21.0-32.0); BLOOD UREA NITROGEN 8 MG/DL (7-18); CHLORIDE 96 MEQ/L (98-107); FERRITIN 371 NG/ML (26-388); GLOMERULAR FILTRATION RATE 137 ML/MIN (>89); POTASSIUM 3.5 MEQ/L (3.5-5.1); SODIUM (NA) 130 MEQ/L (136-145); TRANSFERRIN IRON PROFILE 166 MG/DL (200-360)
--- NOTE | 2016-10-25 15:25 | PD.CONS ---
cc: Eduardo Dawn MD HPI Service General Surgery Consult Requested By Shagufta BONILLA Reason for Consult Evaluation of hidradenitis suppurativa Primary Care Physician No Primary Care Physician History of Present Illness This is a 45-year-old male with a past medical history of atrial fibrillation, diabetes otitis, and hidradenitis suppurativa. He has had a problem with chronically draining wounds in his bilateral axillary regions, bilateral groin, pelvis, bilateral gluteus, and bilateral thighs for some time period. A CT abdomen and pelvis was obtained which revealed a very small 1.70.8 cm subcutaneous abscess of the right medial posterior gluteal region. A General Surgery consultation has been requested for evaluation of right posterior gluteal region abscess for possible drainage. Review of Systems Constitutional: DENIES: Fatigue, Fever Endocrine: DENIES: Polydipsia, Polyuria, Polyphagia Eyes: DENIES: Diplopia Ears, nose, mouth, throat: DENIES: Tinnitus Respiratory: DENIES: Apneas Gastrointestinal: DENIES: Abdominal pain, Diarrhea, Nausea, Vomiting Genitourinary: DENIES: Urgency, Hematuria Musculoskeletal: DENIES: Joint pain Integumentary: COMPLAINS OF: Abnormal pigmentation (multiple scars in bilateral axillary; draining lesions of the left thigh, left gluteus; multiple palpable lesions in bilateral groin, bilateral thighs, pelvis and left gluteus) Hematologic/lymphatic: DENIES: Bruising Immunologic/allergic: DENIES: Eczema Neurologic: DENIES: Headache, Localized weakness Psychiatric: DENIES: Mood changes, Depression, Hallucinations Past Family Social History Past Medical History Diabetes Rheumatoid arthritis Atrial fibrillation Hidradenitis suppurativa Past Surgical History Several incision and drainages related to hidradenitis in bilateral axillary bilateral groin region Reported Medications Metoprolol Atorvastatin NovoLog Levemir Aspirin 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 Ordered Medications Current Medications Medications (Trade) Dose Ordered Sig/Mitzi Route Start Time Stop Time Status Last Admin (NS Flush) 2 ml UNSCH PRN IV FLUSH 10/23/16 21:00 (NS Flush) 2 ml BID IV FLUSH 10/23/16 21:00 10/25/16 08:07 (Narcan Inj) 0.4 mg UNSCH PRN IV 10/23/16 21:00 (Lactinex) 1 tab TID PO 10/24/16 09:00 10/25/16 12:55 (Dilaudid Pf Inj) 0.5 mg Q4H PRN IV PUSH 10/24/16 03:30 10/25/16 08:07 (Roxicodone) 10 mg Q4H PRN PO 10/24/16 03:30 10/25/16 14:41 (Aspirin) 325 mg DAILY PO 10/24/16 09:00 10/25/16 08:06 (Lipitor) 20 mg HS PO 10/24/16 21:00 10/24/16 20:17 (Levemir Inj) 30 units HS SQ 10/24/16 21:00 10/24/16 20:19 (Lopressor) 25 mg Q12HR PO 10/24/16 09:00 10/25/16 08:06 (Protonix) 40 mg DAILY PO 10/24/16 09:00 10/25/16 08:06 (D50w (Vial) Inj) 50 ml UNSCH PRN IV 10/24/16 09:15 (Glucagon Inj) 1 mg UNSCH PRN OTHER 10/24/16 09:15 (Hibiclens 4% Top Soln) 1 applic DAILY TOPICAL 10/24/16 12:00 10/26/16 09:01 10/25/16 08:06 (Vibramycin) 100 mg BID PO 10/24/16 11:00 11/23/16 10:59 10/25/16 08:06 (Heparin Inj) 5,000 units Q12HR SQ 10/24/16 21:00 10/24/16 20:17 (Tylenol) 650 mg Q4H PRN PO 10/25/16 00:00 10/25/16 00:09 Family History Noncontributory Social History Positive tobacco use Occasional EtOH use Denies illicit drug use Physical Exam Vital Signs Vital Signs Date Time Temp Pulse Resp B/P Pulse Ox O2 Delivery O2 Flow Rate FiO2 10/25/16 12:00 98.4 80 16 117/78 97 10/25/16 08:00 99.2 90 16 123/72 96 10/25/16 08:00 Room Air 10/25/16 04:10 98.2 86 16 113/62 98 10/24/16 23:25 102.5 95 16 120/74 96 10/24/16 19:55 100.3 102 16 128/72 98 10/24/16 16:00 Room Air 10/24/16 16:00 99.4 96 20 137/82 97 Physical Exam GENERAL: 45 year old male resting in bed in no acute distress. SKIN: Bilateral axillary: Scars from prior I&D; pelvis: Palpable fluid collections; none spontaneously draining; bilateral groin: Palpable fluid collections; none spontaneously draining. Left thigh: Open area in the inner aspect of thighs; spontaneously draining thin pus like fluid. Right thigh: Several palpable collections none spontaneously draining. Left gluteus: several open chronically appearing wounds without copious drainage; several areas of palpable fluid collections. HEAD: Atraumatic. Normocephalic. EYES: Pupils equal and round. No scleral icterus. No injection or drainage. ENT: No nasal bleeding or discharge. Mucous membranes pink and moist. NECK: Trachea midline. CARDIOVASCULAR: Regular rate and rhythm. RESPIRATORY: No accessory muscle use. Clear to auscultation. Breath sounds equal bilaterally. GASTROINTESTINAL: Abdomen soft, non-tender, nondistended. MUSCULOSKELETAL: Extremities without clubbing, cyanosis, or edema. No obvious deformities. NEUROLOGICAL: Awake and alert. No obvious cranial nerve deficits. Motor grossly within normal limits. Five out of 5 muscle strength in the arms and legs. Normal speech. PSYCHIATRIC: Appropriate mood and affect; insight and judgment normal. Laboratory Laboratory Tests Test 10/25/16 06:29 White Blood Count 13.6 Red Blood Count 3.30 Hemoglobin 8.5 Hematocrit 26.7 Mean Corpuscular Volume 80.9 Mean Corpuscular Hemoglobin 25.6 Mean Corpuscular Hemoglobin 31.7 Concent Red Cell Distribution Width 19.6 Platelet Count 434 Mean Platelet Volume 8.1 Sodium Level 130 Potassium Level 3.5 Chloride Level 96 Carbon Dioxide Level 29.3 Anion Gap 5 Blood Urea Nitrogen 8 Creatinine 0.74 Estimat Glomerular Filtration 137 Rate Random Glucose 126 Calcium Level 9.4 Iron Level 16 Total Iron Binding Capacity 232 Percent Iron Saturation 6.9 Ferritin 371 Date/Time Procedure Status Source Growth 10/23/16 19:25 Aerobic Blood Culture - Preliminary Resulted Blood Peripheral NO GROWTH IN 2 DAYS 10/23/16 19:25 Anaerobic Blood Culture - Preliminary Resulted Blood Peripheral NO GROWTH IN 2 DAYS Result Diagram: 10/25/16 0629 10/25/16 0629 Imaging Last 48 hours Impressions Lower Extremity Ultrasound 10/24/16 0000 Signed Impressions: Service Date/Time: Sunday, October 23, 2016 16:29 - CONCLUSION: Negative for DVT thrombosis Inguinal adenopathy more prominent on the right. Remi Valentino MD FACR Abdomen/Pelvis CT 10/24/16 0000 Signed Impressions: Service Date/Time: Monday, October 24, 2016 13:35 - CONCLUSION: 1. Stable prominent skin thickening in the lower anterior abdominal wall and left posterior gluteal region. 2. Very small 1.7 x 0.8 cm subcutaneous abscess in the right medial posterior gluteal region. 3. Stable bilateral inguinal adenopathy , likely reactive/infectious in etiology. 4. Normal appendix. Jose Maria Pardo MD Chest X-Ray 10/23/16 1845 Signed Impressions: Service Date/Time: Sunday, October 23, 2016 19:11 - CONCLUSION: Normal examination. Hubert Soto MD Assessment and Plan Assessment and Plan 45 year old male with a past medical history of Hidradenitis suppurativa with CT results concerning for small abscess -CT abdomen and pelvis reviewed -Restart diet -ID following patient--- on doxycycline -Continue to monitor for fever/WBC -Shower twice a day with Hibaclens -No operative plans at this time; we will sign off -Thank you for this consult Discussed Condition With Maria Cabrera Oct 25, 2016 15:25
[2016-10-25] MEDS ORDERED: methylPREDNISolone SOD SUCC 125 MG/2 ML VIAL IV PUSH ONE (17:00)
--- NOTE | 2016-10-25 17:09 | HHI.PR ---
Subjective Remarks Patient's primary complaint today is joint pains. He says that his posterior hydradenitis is improving and not hurting as much as before. He still has fever. Objective Vital Signs Date Time Temp Pulse Resp B/P Pulse Ox O2 Delivery O2 Flow Rate FiO2 10/25/16 12:00 98.4 80 16 117/78 97 10/25/16 08:00 99.2 90 16 123/72 96 10/25/16 08:00 Room Air 10/25/16 04:10 98.2 86 16 113/62 98 10/24/16 23:25 102.5 95 16 120/74 96 10/24/16 19:55 100.3 102 16 128/72 98 I/O 10/24/16 10/24/16 10/24/16 10/25/16 10/25/16 10/25/16 07:00 15:00 23:00 07:00 15:00 23:00 Intake Total 240 ml 720 ml 360 ml 240 ml Output Total 300 ml 1150 ml 1075 ml 1075 ml Balance -60 ml -430 ml -715 ml -835 ml Intake Oral 240 ml 720 ml 360 ml 240 ml Output Urine Total 300 ml 1150 ml 1075 ml 1075 ml # Bowel Movements 0 0 0 Result Diagram: 10/25/1662810/25/16628 Objective Remarks GENERAL: NAD, A&Ox3 HEAD: Normocephalic. NECK: Supple, trachea midline. No lymphadenopathy. EYES: No scleral icterus. No injection or drainage. CARDIOVASCULAR: Regular rate and rhythm without murmurs, gallops, or rubs. RESPIRATORY: Breath sounds equal bilaterally. No accessory muscle use. GASTROINTESTINAL: Abdomen soft, non-tender, nondistended. MUSCULOSKELETAL: No cyanosis, or edema. SKIN: Warm and dry. Left anterior groin scar. Bandage posterior sacral hydradenitis NEURO: No focal neurological deficitis. Medications and IVs Administered Medications Medications (Trade) Dose Ordered Sig/Mitzi Route PRN Reason Start Time Stop Time Status Last Admin Dose Admin Sodium Chloride (NS Flush) 2 ml BID IV FLUSH 10/23/16 21:00 10/25/16 08:07 Lactobacillus Acidophilus (Lactinex) 1 tab TID PO 10/24/16 09:00 10/25/16 16:39 Hydromorphone HCl (Dilaudid Pf Inj) 0.5 mg Q4H PRN IV PUSH breakthrough pain 10/24/16 03:30 10/25/16 16:39 Oxycodone HCl (Roxicodone) 10 mg Q4H PRN PO pain >5 10/24/16 03:30 10/25/16 14:41 Aspirin (Aspirin) 325 mg DAILY PO 10/24/16 09:00 10/25/16 08:06 Atorvastatin Calcium (Lipitor) 20 mg HS PO 10/24/16 21:00 10/24/16 20:17 Insulin Detemir (Levemir Inj) 30 units HS SQ 10/24/16 21:00 10/24/16 20:19 Metoprolol Tartrate (Lopressor) 25 mg Q12HR PO 10/24/16 09:00 10/25/16 08:06 Pantoprazole Sodium (Protonix) 40 mg DAILY PO 10/24/16 09:00 10/25/16 08:06 Chlorhexidine Gluconate (Hibiclens 4% Top Soln) 1 applic DAILY TOPICAL 10/24/16 12:00 10/26/16 09:01 10/25/16 08:06 Doxycycline Hyclate (Vibramycin) 100 mg BID PO 10/24/16 11:00 11/23/16 10:59 10/25/16 08:06 Heparin Sodium (Porcine) (Heparin Inj) 5,000 units Q12HR SQ 10/24/16 21:00 10/24/16 20:17 Acetaminophen (Tylenol) 650 mg Q4H PRN PO fever >101 10/25/16 00:00 10/25/16 00:09 A/P Problem List: (1) Hidradenitis suppurativa ICD Code: L73.2 (2) Sepsis ICD Code: A41.9 (3) Cellulitis ICD Code: L03.90 (4) Rheumatoid arthritis ICD Code: M06.9 Assessment and Plan Assessment and Plan 45-year-old male admitted with rheumatoid arthritis flare and infected hidradenitis Suppurativa with sepsis. Cellulitis Infected Hidradenitis Suppurativa Sepsis Continue doxycycline Continue wound care Rheumatoid arthritis flareup Start Steroids Monitor blood sugars for possible exacerbation Follow for improvement Diabetes mellitus type 2 Continue Levemir Insulin sliding scale Diabetic diet Follow blood sugars Anticipate exacerbation secondary to steroids Adjust insulins if needed Hypertension Controlled well Continue metoprolol Hx of Atrial fibrillation Follow on telemetry Continue aspirin Metoprolol Statin Normocytic Anemia Follow CBC DVT prophylaxis Heparin Problem Qualifiers (1) Sepsis: Qualified Code: A41.9 - Sepsis, due to unspecified organism (2) Cellulitis: Qualified Code: L03.818 - Cellulitis of other specified site Vijay Cherry MD Oct 25, 2016 17:09
[2016-10-25] MEDS: ATORVASTATIN 20 MG TAB PO SCH (20:58)
[2016-10-25] MEDS: INSULIN DETEMIR 100 UNITS/ML VIAL SQ SCH (20:59)
[2016-10-26] MEDS: HYDROmorphone HCL PF 1 MG/ML VIAL IV PUSH PRN ×5 (01:55→20:52)
[2016-10-26 04:22] VITALS: BP 111/64; PULSE 75; RESP 16; TEMP 98.4; O2SAT 96
[2016-10-26] MEDS: INSULIN ASPART SUPPLEMENTAL SCALE SQ SCH ×4 (06:12→20:59)
[2016-10-26 08:00] VITALS: BP 108/60; PULSE 64; PULSE 67; RESP 16; TEMP 97.9; O2SAT 99
[2016-10-26] MEDS: HEPARIN SODIUM - SQ 10,000 UNITS/ML VIAL SQ SCH ×2 (08:15→20:54)
[2016-10-26] MEDS: predniSONE 20 MG TAB PO SCH ×2 (08:15→20:50)
[2016-10-26] MEDS: METOPROLOL TARTRATE 25 MG TAB PO SCH ×2 (08:15→20:51)
[2016-10-26] MEDS: ASPIRIN 325 MG TAB PO SCH (08:15)
[2016-10-26] MEDS: LACTOBACILLUS ACIDOPHILUS TAB PO SCH ×3 (08:15→16:38)
[2016-10-26] MEDS: DOXYCYCLINE HYCLATE 100 MG CAP PO SCH ×2 (08:15→20:50)
[2016-10-26] MEDS: PANTOPRAZOLE SOD 40 MG DELAYED RELEASE TAB PO SCH (08:15)
[2016-10-26] MEDS: SODIUM CHLORIDE 0.9% FLUSH 10 ML FLUSH IV FLUSH SCH ×2 (08:16→21:00)
[2016-10-26] MEDS: CHLORHEXIDINE GLUCONATE 4% SOLN 120 ML BTL TOPICAL SCH (08:16)
[2016-10-26 09:27] LABS: AUTOMATED NEUTROPHIL # 14.6 TH/MM3 (1.8-7.7); BASOPHIL % 0.1 % (0.0-2.0); HEMATOCRIT 26.9 % (39.0-51.0); HEMO FLAGS DIFF FINAL; LYMPH % 8.1 % (9.0-44.0); LYMPHOCYTE # 1.3 TH/MM3 (1.0-4.8); MEAN CELL VOLUME 81.1 FL (80.0-100.0); MEAN CORPUSCULAR HEMOGLOBIN 25.5 PG (27.0-34.0); MEAN CORPUSCULAR HGB CONC 31.5 % (32.0-36.0); MONO % 3.1 % (0.0-8.0); NEUT % 88.7 % (16.0-70.0); PLATELET COUNT 461 TH/MM3 (150-450); RED BLOOD COUNT 3.31 MIL/MM3 (4.50-5.90); WHITE BLOOD COUNT 16.5 TH/MM3 (4.0-11.0)
[2016-10-26 09:53] LABS: ANION GAP 9 MEQ/L (5-15); AST (GOT) 14 U/L (15-37); BICARBONATE 25.8 MEQ/L (21.0-32.0); BLOOD UREA NITROGEN 14 MG/DL (7-18); CHLORIDE 94 MEQ/L (98-107); GLOMERULAR FILTRATION RATE 107 ML/MIN (>89); POTASSIUM 4.3 MEQ/L (3.5-5.1); SODIUM (NA) 129 MEQ/L (136-145)
[2016-10-26 09:56] LABS: ALKALINE PHOSPHATASE 125 U/L (45-117); ALT (GPT) 17 U/L (12-78); TOTAL BILIRUBIN ADULT 0.3 MG/DL (0.2-1.0)
--- NOTE | 2016-10-26 11:01 | HHI.PR ---
Subjective Remarks Joint pain slightly decreased with addition of steroids. Patient is starting to feel to ambulate. PT offered but patient declines. Sodium level has dropped since yesterday. White blood cell count increased, though patient has no complaints of worsened pain at site of infection, and cause of increased white blood cells is likely a steroid effect. Objective Vital Signs Date Time Temp Pulse Resp B/P Pulse Ox O2 Delivery O2 Flow Rate FiO2 10/26/16 08:00 97.9 64 16 108/60 99 10/26/16 08:00 Room Air 10/26/16 07:17 18 10/26/16 04:22 98.4 75 16 111/64 96 10/25/16 23:25 99.0 78 16 108/66 98 10/25/16 21:00 Room Air 10/25/16 20:16 88 10/25/16 20:05 98.4 87 16 127/80 98 10/25/16 16:00 98.8 86 18 124/80 99 10/25/16 12:00 98.4 80 16 117/78 97 I/O 10/25/16 10/25/16 10/25/16 10/26/16 10/26/16 10/26/16 07:00 15:00 23:00 07:00 15:00 23:00 Intake Total 240 ml 0 ml 720 ml 608 ml Output Total 1075 ml 800 ml 200 ml 1060 ml Balance -835 ml -800 ml 520 ml -452 ml Intake Oral 240 ml 0 ml 720 ml 600 ml IV Total 8 ml Output Urine Total 1075 ml 800 ml 200 ml 1060 ml # Bowel Movements 0 0 0 0 Result Diagram: 10/26/1642 10/26/1642 Objective Remarks GENERAL: NAD, A&Ox3 HEAD: Normocephalic. NECK: Supple, trachea midline. No lymphadenopathy. EYES: No scleral icterus. No injection or drainage. CARDIOVASCULAR: Regular rate and rhythm without murmurs, gallops, or rubs. RESPIRATORY: Breath sounds equal bilaterally. No accessory muscle use. GASTROINTESTINAL: Abdomen soft, non-tender, nondistended. MUSCULOSKELETAL: No cyanosis, or edema. SKIN: Warm and dry. Left anterior groin scar. Bandage posterior sacral hydradenitis NEURO: No focal neurological deficitis. A/P Problem List: (1) Hidradenitis suppurativa ICD Code: L73.2 (2) Sepsis ICD Code: A41.9 (3) Cellulitis ICD Code: L03.90 (4) Rheumatoid arthritis ICD Code: M06.9 Assessment and Plan Assessment and Plan 45-year-old male admitted with rheumatoid arthritis flare and infected hidradenitis Suppurativa with sepsis. Sepsis resolved. Continue treatment of infection. Steroids added as a treatment for the patient's rheumatoid arthritis flare. She is having benefit from the steroids thus far. She is encouraged to ambulate. Monitor hyponatremia for now consider treatment if it falls further. Cellulitis Infected Hidradenitis Suppurativa Sepsis Continue doxycycline Continue wound care Rheumatoid arthritis flareup Start Steroids Monitor blood sugars for possible exacerbation Follow for improvement Diabetes mellitus type 2 Continue Levemir Insulin sliding scale Diabetic diet Follow blood sugars Anticipate exacerbation secondary to steroids Adjust insulins if needed Hypertension Controlled well Continue metoprolol Hx of Atrial fibrillation Follow on telemetry Continue aspirin Metoprolol Statin Normocytic Anemia Follow CBC DVT prophylaxis Heparin Problem Qualifiers (1) Sepsis: Qualified Code: A41.9 - Sepsis, due to unspecified organism (2) Cellulitis: Qualified Code: L03.818 - Cellulitis of other specified site Vijay Cherry MD Oct 26, 2016 11:01
[2016-10-26 12:00] VITALS: BP 118/59; PULSE 71; RESP 18; TEMP 97.7; O2SAT 98
--- NOTE | 2016-10-26 13:02 | HHI.IDPN ---
Subjective Subjective Remarks Patient is a 45-year-old male, presented to the hospital complaining of 3-4 day history of multiple joint pains. Length of pain in his knees, ankle, wrist, and his neck. Patient has a history of rheumatoid arthritis diagnosed in [place], but has not really established with a burner machine operator in [facility]. From previous admission it states that he was on prednisone, but the list of medication he has currently on this admission does not include prednisone. Patient was recently hospitalized the first week of September and at that time he had exacerbation of his hydradenitis. There was a wound culture that had Klebsiella , and strep. He was discharge, and was supposed to be on doxycycline, but the patient did not filled his prescription, and has not been taking any antibiotics since he was discharge. There is really been no significant change in his hydradenitis which is mostly active in his medial thigh, and in the buttock region. He denies any fever or chills or sweats. For his arthritis, he has been taking Aleve which used to alleviate the pain but it has not been working recently. Patient has not been febrile since admission. His WBC was 20,000 and it's down to 15,000. On reviewing from previous admission patient always has some leukocytosis present. Notes reviewed Had fever 2 nights ago Joints feel a little better Received IV solumedrol yesterday, on prednisone po now Has one (+) BC with GPC, ?contaminant Hidradenitis better Surgery notes reviewed Antibiotics Doxycycline Lines PIV Past Medical History Hypertension Diabetes Atrial fibrillation Hydradenitis Rheumatoid arthritis History of MRSA infection Hyperlipidemia COPD Past Surgical History Previous surgery for his hidradenitis History of skin grafting 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 Objective . Vital Signs Date Time Temp Pulse Resp B/P Pulse Ox O2 Delivery O2 Flow Rate FiO2 10/26/16 12:00 97.7 71 18 118/59 98 10/26/16 08:00 97.9 64 16 108/60 99 10/26/16 08:00 Room Air 10/26/16 08:00 67 10/26/16 07:17 18 10/26/16 04:22 98.4 75 16 111/64 96 10/25/16 23:25 99.0 78 16 108/66 98 10/25/16 21:00 Room Air 10/25/16 20:16 88 10/25/16 20:05 98.4 87 16 127/80 98 10/25/16 16:00 98.8 86 18 124/80 99 10/25/16 10/25/16 10/26/16 15:00 23:00 07:00 Intake Total 0 ml 720 ml 608 ml Output Total 800 ml 200 ml 1060 ml Balance -800 ml 520 ml -452 ml Intake Oral 0 ml 720 ml 600 ml IV Total 8 ml Output Urine Total 800 ml 200 ml 1060 ml # Bowel Movements 0 0 0 . Laboratory Tests Test 10/25/16 10/26/16 06:29 08:42 White Blood Count 13.6 TH/MM3 16.5 TH/MM3 Red Blood Count 3.30 MIL/MM3 3.31 MIL/MM3 Hemoglobin 8.5 GM/DL 8.5 GM/DL Hematocrit 26.7 % 26.9 % Mean Corpuscular Volume 80.9 FL 81.1 FL Mean Corpuscular Hemoglobin 25.6 PG 25.5 PG Mean Corpuscular Hemoglobin 31.7 % 31.5 % Concent Red Cell Distribution Width 19.6 % 20.0 % Platelet Count 434 TH/MM3 461 TH/MM3 Mean Platelet Volume 8.1 FL 8.1 FL Neutrophils (%) (Auto) 88.7 % Lymphocytes (%) (Auto) 8.1 % Monocytes (%) (Auto) 3.1 % Eosinophils (%) (Auto) 0.0 % Basophils (%) (Auto) 0.1 % Neutrophils # (Auto) 14.6 TH/MM3 Lymphocytes # (Auto) 1.3 TH/MM3 Monocytes # (Auto) 0.5 TH/MM3 Eosinophils # (Auto) 0.0 TH/MM3 Basophils # (Auto) 0.0 TH/MM3 CBC Comment DIFF FINAL Differential Comment Laboratory Tests Test 10/25/16 10/26/16 06:29 08:42 Sodium Level 130 MEQ/L 129 MEQ/L Potassium Level 3.5 MEQ/L 4.3 MEQ/L Chloride Level 96 MEQ/L 94 MEQ/L Carbon Dioxide Level 29.3 MEQ/L 25.8 MEQ/L Anion Gap 5 MEQ/L 9 MEQ/L Blood Urea Nitrogen 8 MG/DL 14 MG/DL Creatinine 0.74 MG/DL 0.92 MG/DL Estimat Glomerular Filtration 137 ML/MIN 107 ML/MIN Rate Random Glucose 126 MG/DL 256 MG/DL Calcium Level 9.4 MG/DL 9.5 MG/DL Iron Level 16 MCG/DL Total Iron Binding Capacity 232 MCG/DL Percent Iron Saturation 6.9 % Ferritin 371 NG/ML Total Bilirubin 0.3 MG/DL Aspartate Amino Transf 14 U/L (AST/SGOT) Alanine Aminotransferase 17 U/L (ALT/SGPT) Alkaline Phosphatase 125 U/L Total Protein 9.4 GM/DL Albumin 2.0 GM/DL Microbiology Date/Time Procedure Status Source Growth 10/23/16 19:20 Aerobic Blood Culture - Preliminary Resulted Blood Peripheral NO GROWTH IN 3 DAYS 10/23/16 19:20 Anaerobic Blood Culture - Preliminary Resulted Blood Peripheral NO GROWTH IN 3 DAYS 10/23/16 19:25 Aerobic Blood Culture - Preliminary Resulted Blood Peripheral NO GROWTH IN 3 DAYS 10/23/16 19:25 Anaerobic Blood Culture - Preliminary Resulted Gram Positive Cocci Imaging Last Impressions Lower Extremity Ultrasound 10/24/16 0000 Signed Impressions: Service Date/Time: Sunday, October 23, 2016 16:29 - CONCLUSION: Negative for DVT thrombosis Inguinal adenopathy more prominent on the right. Remi Valentino MD FACR Abdomen/Pelvis CT 10/24/16 0000 Signed Impressions: Service Date/Time: Monday, October 24, 2016 13:35 - CONCLUSION: 1. Stable prominent skin thickening in the lower anterior abdominal wall and left posterior gluteal region. 2. Very small 1.7 x 0.8 cm subcutaneous abscess in the right medial posterior gluteal region. 3. Stable bilateral inguinal adenopathy , likely reactive/infectious in etiology. 4. Normal appendix. Jose Maria Pardo MD Chest X-Ray 10/23/16 1845 Signed Impressions: Service Date/Time: Sunday, October 23, 2016 19:11 - CONCLUSION: Normal examination. Hubert Soto MD Physical Exam GENERAL: Awake and alert, not in respiratory distress. SKIN: Warm and dry. Has scars in trunk, axilla, buttocks, groin, perineum from previous hidradenitis. Has improving areas of induration in medial thighs, perineum, and some on buttocks with purulent drainage that has foul odor. HEAD: Atraumatic. Normocephalic. No temporal wasting, or tenderness. EYES: [place] conjunctiva. No petechia or hemorrhage. Pupils equal, round and reactive to light. Extraocular movements full and intact. No scleral icterus. No injection or drainage. EARS, NOSE AND THROAT: Nose without bleeding or purulent nasal discharge. No sinus tenderness. Mucous membranes pink and moist. No oral lesions noted. No exudate. No oral thrush. NECK: Trachea midline. Supple and not tender, no meningeal signs CARDIOVASCULAR: Regular rate and rhythm. No murmurs, rubs or gallops heard RESPIRATORY: Clear to auscultation. Breath sounds equal bilaterally. No rales , wheezing or rhonchi ABDOMEN: Soft, non-tender, nondistended. Bowel sounds present and normoactive. No guarding. No rebound. No organomegaly. has evidence of multiple scars, sinus in groin areas EXTREMITIES: No clubbing, cyanosis. Has some swelling in his L wrist and some in his R knee, No calf tenderness. Well perfused and warm. NEUROLOGICAL: Awake and alert. Cranial nerves grossly intact. Motor grossly within normal limits. PSYCHIATRIC: Normal affect, calm and cooperative. LINE: No evidence of infection Assessment & Plan Remarks IMPRESSION Hx RA, with flare up? One episode of fever One (+) BC with GPC, possibly contaminant Hidradenitis suppurativa, active in medial thigh and perineum, did not fill his Rx after he was D/C from hospital - clinically looks better RECOMMENDATION Rx RA flare up - previous admission states that he was on prednisone in past Plan to complete 30 days Doxycyline 100 mg BID - evaluating for assistance on how to get his meds If BC with Coag Neg Staph, no issa for Rx If Staph aureus, will need further evaluation - please call ID if BC with Staph aureus I will sign off Please call if with ID issue or question I wll be OOT 10/27-11/04 Other ID covering in my absence Ericka Nichols MD Oct 26, 2016 13:02
[2016-10-26 16:00] VITALS: BP 102/60; PULSE 62; RESP 16; TEMP 97.8; O2SAT 97
[2016-10-26 20:00] VITALS: BP 104/66; PULSE 62; RESP 16; TEMP 97.4; O2SAT 100
[2016-10-26] MEDS: ATORVASTATIN 20 MG TAB PO SCH (20:50)
[2016-10-26] MEDS: INSULIN DETEMIR 100 UNITS/ML VIAL SQ SCH (20:58)
[2016-10-27] VITALS (8 sets, daily range): BP systolic 106–110; BP diastolic 61–69; PULSE 52–61; RESP 16–20; TEMP 97.4–98; O2SAT 97–100
[2016-10-27] MEDS: HYDROmorphone HCL PF 1 MG/ML VIAL IV PUSH PRN ×5 (01:23→22:17)
[2016-10-27] MEDS: INSULIN ASPART SUPPLEMENTAL SCALE SQ SCH ×4 (06:00→20:35)
[2016-10-27 06:25] LABS: BICARBONATE 26.2 MEQ/L (21.0-32.0); POTASSIUM 4.8 MEQ/L (3.5-5.1)
[2016-10-27 06:26] LABS: HEMATOCRIT 26.6 % (39.0-51.0); MEAN CELL VOLUME 80.2 FL (80.0-100.0); MEAN CORPUSCULAR HEMOGLOBIN 25.6 PG (27.0-34.0); PLATELET COUNT 484 TH/MM3 (150-450); RED BLOOD COUNT 3.32 MIL/MM3 (4.50-5.90); RED CELL DISTRIBUTION WIDTH 19.7 % (11.6-17.2); REVIEW FLAG FINAL; WHITE BLOOD COUNT 22.9 TH/MM3 (4.0-11.0)
[2016-10-27] MEDS: INSULIN HUMAN NPH 1,000 UNITS/10 ML VIAL SQ SCH ×2 (09:00→09:41)
[2016-10-27] MEDS: DOXYCYCLINE HYCLATE 100 MG CAP PO SCH ×2 (09:36→20:32)
[2016-10-27] MEDS: HEPARIN SODIUM - SQ 10,000 UNITS/ML VIAL SQ SCH ×2 (09:36→20:32)
[2016-10-27] MEDS: PANTOPRAZOLE SOD 40 MG DELAYED RELEASE TAB PO SCH (09:36)
[2016-10-27] MEDS: LACTOBACILLUS ACIDOPHILUS TAB PO SCH ×3 (09:36→16:14)
[2016-10-27] MEDS: SODIUM CHLORIDE 0.9% FLUSH 10 ML FLUSH IV FLUSH SCH ×2 (09:37→20:32)
[2016-10-27] MEDS: predniSONE 20 MG TAB PO SCH ×2 (09:37→20:32)
[2016-10-27] MEDS: ASPIRIN 325 MG TAB PO SCH (09:37)
[2016-10-27] MEDS: METOPROLOL TARTRATE 25 MG TAB PO SCH ×2 (09:37→20:32)
--- NOTE | 2016-10-27 11:47 | HHI.PR ---
Subjective Remarks Sugars not controlled secondary to steroid effect. Patient is benefiting from steroids as a treatment for his rheumatoid arthritis exacerbation. He is noticing more mobility and is starting failed to ambulate. He thinks he might be stable for discharge regarding his ambulation by tomorrow. Objective Vital Signs Date Time Temp Pulse Resp B/P Pulse Ox O2 Delivery O2 Flow Rate FiO2 10/27/16 09:00 Room Air 10/27/16 08:00 97.4 56 18 110/66 99 10/27/16 07:48 18 10/27/16 04:00 Room Air 10/27/16 04:00 98.0 57 18 110/61 98 10/27/16 03:17 61 10/27/16 00:00 Room Air 10/27/16 00:00 98.0 59 16 107/64 97 10/26/16 21:00 Room Air 10/26/16 20:00 97.4 62 16 104/66 100 10/26/16 16:00 97.8 62 16 102/60 97 10/26/16 16:00 Room Air 10/26/16 12:00 97.7 71 18 118/59 98 10/26/16 12:00 Room Air I/O 10/26/16 10/26/16 10/26/16 10/27/16 10/27/16 10/27/16 07:00 15:00 23:00 07:00 15:00 23:00 Intake Total 608 ml 720 ml 220 ml 508 ml Output Total 1060 ml 725 ml 925 ml 800 ml Balance -452 ml -5 ml -705 ml -292 ml Intake Oral 600 ml 720 ml 220 ml 500 ml IV Total 8 ml 8 ml Output Urine Total 1060 ml 725 ml 925 ml 800 ml # Bowel Movements 0 0 0 Result Diagram: 10/27/16 0540 10/27/16 0540 Objective Remarks GENERAL: NAD, A&Ox3 HEAD: Normocephalic. NECK: Supple, trachea midline. No lymphadenopathy. EYES: No scleral icterus. No injection or drainage. CARDIOVASCULAR: Regular rate and rhythm without murmurs, gallops, or rubs. RESPIRATORY: Breath sounds equal bilaterally. No accessory muscle use. GASTROINTESTINAL: Abdomen soft, non-tender, nondistended. MUSCULOSKELETAL: No cyanosis, or edema. SKIN: Warm and dry. Left anterior groin scar. Bandage posterior sacral hydradenitis NEURO: No focal neurological deficitis. A/P Problem List: (1) Hidradenitis suppurativa ICD Code: L73.2 (2) Sepsis ICD Code: A41.9 (3) Cellulitis ICD Code: L03.90 (4) Rheumatoid arthritis ICD Code: M06.9 Assessment and Plan Assessment and Plan 45-year-old male admitted with rheumatoid arthritis flare and infected hidradenitis Suppurativa with sepsis. Rheumatoid arthritis exacerbation improving on steroids. Adjust insulins to compensate for decompensated blood sugars from steroid effect. Continue doxycycline to treat cellulitis. Tentative discharge for tomorrow. Cellulitis Infected Hidradenitis Suppurativa Sepsis Continue doxycycline Continue wound care Rheumatoid arthritis flareup Start Steroids Monitor blood sugars for possible exacerbation Follow for improvement Diabetes mellitus type 2 Continue Levemir Insulin sliding scale Diabetic diet Follow blood sugars Anticipate exacerbation secondary to steroids Adjust insulins if needed Hypertension Controlled well Continue metoprolol Hx of Atrial fibrillation Follow on telemetry Continue aspirin Metoprolol Statin Normocytic Anemia Follow CBC DVT prophylaxis Heparin Discharge planning Expected discharge tomorrow Problem Qualifiers (1) Sepsis: Qualified Code: A41.9 - Sepsis, due to unspecified organism (2) Cellulitis: Qualified Code: L03.818 - Cellulitis of other specified site Vijay Cherry MD Oct 27, 2016 11:47
[2016-10-27] MEDS: ATORVASTATIN 20 MG TAB PO SCH (20:32)
[2016-10-27] MEDS: INSULIN DETEMIR 100 UNITS/ML VIAL SQ SCH (20:34)
[2016-10-28] VITALS (8 sets, daily range): BP systolic 99–124; BP diastolic 56–74; PULSE 51–67; RESP 16–18; TEMP 97.4–98.1; O2SAT 98–100
[2016-10-28] MEDS: HYDROmorphone HCL PF 1 MG/ML VIAL IV PUSH PRN ×3 (02:13→12:02)
[2016-10-28] MEDS: INSULIN ASPART SUPPLEMENTAL SCALE SQ SCH ×4 (06:43→21:04)
[2016-10-28 08:26] LABS: HEMATOCRIT 27.1 % (39.0-51.0); MEAN CELL VOLUME 80.6 FL (80.0-100.0); MEAN CORPUSCULAR HGB CONC 31.1 % (32.0-36.0); PLATELET COUNT 519 TH/MM3 (150-450); RED BLOOD COUNT 3.37 MIL/MM3 (4.50-5.90); RED CELL DISTRIBUTION WIDTH 19.6 % (11.6-17.2); REVIEW FLAG FINAL; WHITE BLOOD COUNT 17.1 TH/MM3 (4.0-11.0)
[2016-10-28] MEDS: METOPROLOL TARTRATE 25 MG TAB PO SCH ×3 (08:52→21:00)
[2016-10-28] MEDS: INSULIN HUMAN NPH 1,000 UNITS/10 ML VIAL SQ SCH (08:53)
[2016-10-28 09:02] LABS: BICARBONATE 30.5 MEQ/L (21.0-32.0); POTASSIUM 3.9 MEQ/L (3.5-5.1)
[2016-10-28] MEDS: LACTOBACILLUS ACIDOPHILUS TAB PO SCH ×3 (09:06→16:25)
[2016-10-28] MEDS: PANTOPRAZOLE SOD 40 MG DELAYED RELEASE TAB PO SCH (09:06)
[2016-10-28] MEDS: predniSONE 20 MG TAB PO SCH ×2 (09:06→21:02)
[2016-10-28] MEDS: DOXYCYCLINE HYCLATE 100 MG CAP PO SCH ×2 (09:06→21:00)
[2016-10-28] MEDS: HEPARIN SODIUM - SQ 10,000 UNITS/ML VIAL SQ SCH ×2 (09:06→21:03)
[2016-10-28] MEDS: ASPIRIN 325 MG TAB PO SCH (09:06)
[2016-10-28] MEDS: SODIUM CHLORIDE 0.9% FLUSH 10 ML FLUSH IV FLUSH SCH ×2 (09:07→21:02)
[2016-10-28] MEDS ORDERED: PILL SPLITTER OTHER PRN (09:15)
--- NOTE | 2016-10-28 11:45 | HHI.PR ---
Subjective Remarks Blood sugar is more stable today. Steroids are benefiting patient's rheumatoid or arthritis exacerbation. He feels that she may be able to discharge tomorrow. Objective Vital Signs Date Time Temp Pulse Resp B/P Pulse Ox O2 Delivery O2 Flow Rate FiO2 10/28/16 08:50 Room Air 10/28/16 08:00 97.7 51 18 99/56 100 10/28/16 04:00 Room Air 10/28/16 04:00 97.4 55 18 109/62 100 10/28/16 00:00 Room Air 10/28/16 00:00 97.9 55 18 107/64 99 10/27/16 20:00 Room Air 10/27/16 20:00 97.6 52 16 106/64 100 10/27/16 19:30 59 10/27/16 16:00 97.6 60 20 110/61 99 10/27/16 16:00 Room Air 10/27/16 12:00 97.4 53 20 109/69 100 10/27/16 12:00 Room Air I/O 10/27/16 10/27/16 10/27/16 10/28/16 10/28/16 10/28/16 07:00 15:00 23:00 07:00 15:00 23:00 Intake Total 508 ml 508 ml 720 ml 240 ml Output Total 800 ml 350 ml 450 ml 0 ml Balance -292 ml 158 ml 270 ml 240 ml Intake Oral 500 ml 500 ml 720 ml 240 ml IV Total 8 ml 8 ml Output Urine Total 800 ml 350 ml 450 ml Stool Total 0 ml # Voids 4 # Bowel Movements 0 0 0 Result Diagram: 10/28/16 0745 10/28/16 0745 Objective Remarks GENERAL: NAD, A&Ox3 HEAD: Normocephalic. NECK: Supple, trachea midline. No lymphadenopathy. EYES: No scleral icterus. No injection or drainage. CARDIOVASCULAR: Regular rate and rhythm without murmurs, gallops, or rubs. RESPIRATORY: Breath sounds equal bilaterally. No accessory muscle use. GASTROINTESTINAL: Abdomen soft, non-tender, nondistended. MUSCULOSKELETAL: No cyanosis, or edema. SKIN: Warm and dry. Left anterior groin scar. Bandage posterior sacral hydradenitis NEURO: No focal neurological deficitis. A/P Problem List: (1) Hidradenitis suppurativa ICD Code: L73.2 (2) Sepsis ICD Code: A41.9 (3) Cellulitis ICD Code: L03.90 (4) Rheumatoid arthritis ICD Code: M06.9 Assessment and Plan Assessment and Plan 45-year-old male admitted with rheumatoid arthritis flare and infected hidradenitis Suppurativa with sepsis. Rheumatoid arthritis exacerbation improving on steroids. Discharge planned for tomorrow. He will discharge on steroids long-term as methotrexate has not benefited him in the past and he does not have an option to see chute builder immediately. She also will be discharged on antibiotics. Cellulitis Infected Hidradenitis Suppurativa Sepsis Sepsis resolved Continue doxycycline Continue wound care Rheumatoid arthritis flareup Continue Steroids Monitor blood sugars for possible exacerbation Follow for improvement Diabetes mellitus type 2 Continue Levemir Insulin sliding scale Diabetic diet Follow blood sugars Anticipate exacerbation secondary to steroids Adjust insulins if needed Hypertension Controlled well Continue metoprolol Hx of Atrial fibrillation Follow on telemetry Continue aspirin Metoprolol Statin Normocytic Anemia Follow CBC DVT prophylaxis Heparin Discharge planning Expected discharge tomorrow Problem Qualifiers (1) Sepsis: Qualified Code: A41.9 - Sepsis, due to unspecified organism (2) Cellulitis: Qualified Code: L03.818 - Cellulitis of other specified site Vijay Cherry MD Oct 28, 2016 11:45
[2016-10-28] MEDS: ATORVASTATIN 20 MG TAB PO SCH (21:02)
[2016-10-28] MEDS: INSULIN DETEMIR 100 UNITS/ML VIAL SQ SCH (21:04)
[2016-10-29] VITALS: BP 130/76; PULSE 59; RESP 18; TEMP 97.9; O2SAT 100
[2016-10-29 04:00] VITALS: BP 115/59; PULSE 52; RESP 16; TEMP 98.1; O2SAT 99
[2016-10-29] MEDS: INSULIN ASPART SUPPLEMENTAL SCALE SQ SCH ×2 (06:42→10:37)
[2016-10-29 08:00] VITALS: BP 110/66; PULSE 63; RESP 18; TEMP 98; O2SAT 98
[2016-10-29] MEDS ORDERED: DOXY100C PO (10:01)
[2016-10-29] MEDS ORDERED: PRED20 PO (10:01)
[2016-10-29] MEDS ORDERED: NORC5TAB PO (10:01)
[2016-10-29] MEDS ORDERED: PRED10 PO (10:03)
[2016-10-29] MEDS: LACTOBACILLUS ACIDOPHILUS TAB PO SCH ×2 (10:19→13:00)
[2016-10-29] MEDS: DOXYCYCLINE HYCLATE 100 MG CAP PO SCH (10:19)
[2016-10-29] MEDS: PANTOPRAZOLE SOD 40 MG DELAYED RELEASE TAB PO SCH (10:19)
[2016-10-29] MEDS: METOPROLOL TARTRATE 25 MG TAB PO SCH (10:19)
[2016-10-29] MEDS: predniSONE 20 MG TAB PO SCH (10:19)
[2016-10-29] MEDS: ASPIRIN 325 MG TAB PO SCH (10:19)
[2016-10-29] MEDS: HEPARIN SODIUM - SQ 10,000 UNITS/ML VIAL SQ SCH (10:20)
[2016-10-29] MEDS: SODIUM CHLORIDE 0.9% FLUSH 10 ML FLUSH IV FLUSH SCH (10:20)
[2016-10-29] MEDS: INSULIN HUMAN NPH 1,000 UNITS/10 ML VIAL SQ SCH (10:24)
--- NOTE | 2016-10-29 10:27 | HHI.DS ---
Discharge Summary Admission Date Oct 23, 2016 at 8:49 pm Discharge Date: Oct 29, 2016 Admitting Diagnosis Sepsis, Cellulitis, Hidradenitis Suppurativa (1) Sepsis ICD Code: A41.9 (2) Hidradenitis suppurativa ICD Code: L73.2 Diagnosis: Principal (3) Rheumatoid arthritis ICD Code: M06.9 Diagnosis: Principal (4) DM (diabetes mellitus) ICD Code: E11.9 Diagnosis: Principal (5) Hypertension ICD Code: I10 Diagnosis: Principal Procedures None Brief History - From Admission History from patient, ER PA communication, and review of medical records. Patient reported that he came to the hospital because his arthritis has been flaring up. He reports a pain in his bilateral knees, groin, actually. He states he usually takes Aleve at home to alleviate this but this time it was not helping. Denies fever. Reports that these pains have been going on for a few weeks. Also reports of some bleeding from around the wounds in his thighs and buttocks. I would of diabetes.. He reports of compliance with his insulin. Also reports of some chest pain which is coming on and off when he has joint pains. Apart from the above, patient denies any recent fever/nausea/vomiting/diarrhea/ urinary burning or pain on urination. Denies any hematemesis/hematochezia/melena/hematuria. CBC/BMP: 10/28/16 0745 10/28/16 0745 Significant Findings Laboratory Tests Test 10/27/16 10/28/16 05:40 07:45 White Blood Count 22.9 TH/MM3 17.1 TH/MM3 (4.0-11.0) (4.0-11.0) Red Blood Count 3.32 MIL/MM3 3.37 MIL/MM3 (4.50-5.90) (4.50-5.90) Hemoglobin 8.5 GM/DL 8.4 GM/DL (13.0-17.0) (13.0-17.0) Hematocrit 26.6 % 27.1 % (39.0-51.0) (39.0-51.0) Mean Corpuscular Hemoglobin 25.6 PG 25.0 PG (27.0-34.0) (27.0-34.0) Red Cell Distribution Width 19.7 % 19.6 % (11.6-17.2) (11.6-17.2) Platelet Count 484 TH/MM3 519 TH/MM3 (150-450) (150-450) Sodium Level 130 MEQ/L 134 MEQ/L (136-145) (136-145) Chloride Level 97 MEQ/L (98-107) Random Glucose 336 MG/DL 241 MG/DL (74-106) (74-106) Mean Corpuscular Hemoglobin 31.1 % Concent (32.0-36.0) Anion Gap 4 MEQ/L (5-15) PE at Discharge GENERAL: NAD, A&Ox3 HEAD: Normocephalic. NECK: Supple, trachea midline. No lymphadenopathy. EYES: No scleral icterus. No injection or drainage. CARDIOVASCULAR: Regular rate and rhythm without murmurs, gallops, or rubs. RESPIRATORY: Breath sounds equal bilaterally. No accessory muscle use. GASTROINTESTINAL: Abdomen soft, non-tender, nondistended. MUSCULOSKELETAL: No cyanosis, or edema. SKIN: Warm and dry. NEURO: No focal neurological deficitis. Hospital Course Mr. Clay is a 45-year-old male. He was admitted secondary to cellulitis with his hidradenitis suppurativa. She was septic at time of admit. He responded well to antibiotics and is now on doxycycline for long-term (30 days). She also had a rheumatoid arthritis flare up and as an outpatient he has tried metformin and failed this treatment. He is seeking treatment for better control. He requests prednisone as he currently does not see a bag shop worker. Infection is well controlled now and patient has resolution of his rheumatoid arthritis flareup. Is medically stable for discharge to home today. Pt Condition on Discharge: Stable Discharge Disposition: Discharge Home Discharge Time: <= 30 minutes Discharge Instructions DIET: Follow Instructions for: As Tolerated, No Restrictions Activities you can perform: Regular-No Restrictions Follow up Referrals: PCP Follow-up - 1 Week New Medications: Hydrocodone-Acetaminophen ([place]) 5-325 mg Tab 1 TAB PO Q6H PRN PAIN #40 Ref 0 TAB Prednisone (Prednisone) 10 Mg Tab 10 MG PO DAILY Inflammation #30 Ref 1 TAB Doxycycline Hyclate (Doxycycline Hyclate) 100 Mg Cap 100 MG PO BID Infection #50 CAP Continued Medications: Aspirin (Aspirin) 325 Mg Tab 325 MG PO DAILY #30 Ref 0 TAB Atorvastatin (Atorvastatin) 20 Mg Tab 20 MG PO HS Cholesterol Management #30 Ref 0 TAB Insulin Aspart Inj (Novolog Inj) 1,000 Unit/10 Ml Vial 0 SQ ACHS Sliding Scale as directed. Blood Sugar Management #10 Ref 0 ML Insulin Detemir Inj (Levemir Inj) 1,000 unit/ 10 ML Vial 30 UNITS SQ HS Do not mix with any other Insulin. Blood Sugar Management Ref 0 VIAL Metoprolol Tartrate (Metoprolol Tartrate) 25 Mg Tab 25 MG PO Q12HR Blood Pressure Management #60 TAB Vijay Cherry MD Oct 29, 2016 10:27 am
== END 2016-10-29 14:41 | disposition home or self-care (01) | DRG 872 ==
LOC: NEPC 17:40 → NEDA 20:49 → N04A 22:10
PROVIDERS: ADMIT Hospitalist; ATTEND Hospitalist
DX: A41.9 Sepsis, unspecified organism (principal); L03.314 Cellulitis of groin; E87.1 Hypo-osmolality and hyponatremia; I10 Essential (primary) hypertension; I48.0 Paroxysmal atrial fibrillation; E11.9 Type 2 diabetes mellitus without complications; L02.31 Cutaneous abscess of buttock; L03.315 Cellulitis of perineum; L03.818 Cellulitis of other sites; D64.9 Anemia, unspecified; L73.2 Hidradenitis suppurativa; E78.5 Hyperlipidemia, unspecified; I25.10 Atherosclerotic heart disease of native coronary artery without angina pectoris; J44.9 Chronic obstructive pulmonary disease, unspecified; K21.9 Gastro-esophageal reflux disease without esophagitis; M06.9 Rheumatoid arthritis, unspecified; F12.90 Cannabis use, unspecified, uncomplicated; Z79.4 Long term (current) use of insulin; Z82.49 Family history of ischemic heart disease and other diseases of the circulatory system; Z86.14 Personal history of Methicillin resistant Staphylococcus aureus infection; Z86.73 Personal history of transient ischemic attack (TIA), and cerebral infarction without residual deficits; Z87.891 Personal history of nicotine dependence; Z95.3 Presence of xenogenic heart valve; Z95.5 Presence of coronary angioplasty implant and graft
CPT/HCPCS: 71010; 74177; 80048; 80053; 82550; 82728; 82948; 83540; 83550; 83605; 83735; 84484; 85025; 85027; 85610; 85652; 85730; 86140; 87040; 87205; 93005; 93970; 96365; 96375; J1170; J1644; J1650; J1815; J1885; J2270; J2405; J2543; J2930; J3370; J7030; J7040; J7512; Q9963; Q9967

== ENCOUNTER 2016-11-19 18:56 | Inpatient (IN) | payer OTHER ==
[~2016-11-19] VITALS: Ht 182.9 cm; Wt 43.3 kg
[~2016-11-19 18:56] MED LIST changes: -ASPI81TA11 PO; -HYDR-3516 PO; +NORC5TAB PO
[2016-11-19 18:57] VITALS: BP 129/85; PULSE 122; RESP 16; TEMP 99.5; O2SAT 98
[2016-11-19 20:46] VITALS: BP 109/69; PULSE 94; RESP 16; O2SAT 98
--- NOTE | 2016-11-19 21:21 | PD ---
HPI Chief Complaint: Back/ Neck Pain or Injury Time Seen by Provider: 20:52 Travel History International Travel<30 days: No Contact w/Intl Traveler<30days: No Traveled to known affect area: No History of Present Illness HPI 46-year-old male complains of headache, neck pain, groin pain. Patient states that the symptoms started 5 days ago. Patient states the pain started in the back of the head and neck with radiation to the upper back. Patient states that the pain is worse with head movement. Patient denies any visual change. Patient denies any chest pain or shortness of breath. Patient denies abdominal pain. Patient complains of increasing pain in the groin area. Patient has history of hydradenitis suppurativa. Patient was admitted on October 23 and discharge October 29, 2016 for sepsis, hydradenitis suppurativa, rheumatoid arthritis, diabetes, hypertension. Patient was discharged home with prescription for prednisone, doxycycline and continue with aspirin 325 Mg daily , atorvastatin, insulin and metoprolol. Patient denies any fever chills. Patient denies any recent head neck injury. PFSH Past Medical History Hx Anticoagulant Therapy: No Arthritis: Yes Atrial Fibrillation: Yes Autoimmune Disease: Yes (RA) Blood Disorders: No Anxiety: No Depression: Yes Heart Rhythm Problems: Yes (AFIB) Cancer: No Cardiac Catheterization: No Cardiovascular Problems: Yes High Cholesterol: Yes Chest Pain: Yes (BEFORE STENT ) Congestive Heart Failure: No Cerebrovascular Accident: No Coronary Artery Disease: Yes Diabetes: Yes Patient Takes Glucophage: No Diminished Hearing: No Endocrine: Yes Gastrointestinal Disorders: No GERD: Yes Genitourinary: Yes (TANK) Hiatal Hernia: No Heparin Induced Thrombocytopen: No Hypertension: Yes Immune Disorder: No Implanted Vascular Access Dvce: No Kidney Stones: No Musculoskeletal: No Neurologic: Yes (TIA ) Psychiatric: No Reproductive: No Respiratory: No Immunizations Current: Yes Thyroid Disease: Yes Ulcer: No Influenza Vaccination: Yes Past Surgical History Abdominal Surgery: No Body Medical Devices: PIG VALVE Cardiac Surgery: Yes (CATH 2015, 2014, 2013 PIG VALVE 2015) Coronary Artery Bypass Graft: No Ear Surgery: No Endocrine Surgery: No Eye Surgery: No Genitourinary Surgery: No Gynecologic Surgery: No Neurologic Surgery: No Oral Surgery: Yes (TEETH REMOVED 2014) Thoracic Surgery: No Other Surgery: Yes (Nikos under arm r/t Boils ) Family History Family Myocardial Infarction: Yes (BROTHER) Social History Alcohol Use: Yes (rarely) Tobacco Use: No (2016) Substance Use: Yes (MARIJUANA) Allergies-Medications (Allergen,Severity, Reaction): Coded Allergies: *MDRO Multi-Drug Resistant Organism (Verified Adverse Reaction, Unknown, ) 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 Novolog Inj (Insulin Aspart) 1,000 Unit/10 Ml Vial 0 SQ ACHS Sliding Scale as directed. Atorvastatin (Atorvastatin Calcium) 20 Mg Tab 20 Mg PO HS Aspirin 325 Mg Tab 325 Mg PO DAILY Review of Systems General / Constitutional: No: Fever Eyes: No: Visual changes HENT: Positive: Headaches, Neck Pain Cardiovascular: No: Chest Pain or Discomfort Respiratory: No: Shortness of Breath Gastrointestinal: No: Abdominal Pain Genitourinary: No: Dysuria Musculoskeletal: No: Pain Skin: No Rash Neurologic: No: Weakness Psychiatric: No: Depression Endocrine: No: Polydipsia Hematologic/Lymphatic: No: Easy Bruising Physical Exam Narrative GENERAL: Well-nourished, well-developed patient. SKIN: Focused skin assessment warm/dry. HEAD: Normocephalic. EYES: No scleral icterus. No injection or drainage. NECK: Supple, trachea midline. No JVD or lymphadenopathy. Moderate tenderness on palpation paraspinal areas cervical spine. No midline tenderness. CARDIOVASCULAR: Regular rate and rhythm without murmurs, gallops, or rubs. RESPIRATORY: Breath sounds equal bilaterally. No accessory muscle use. GASTROINTESTINAL: Abdomen soft, non-tender, nondistended. MUSCULOSKELETAL: No cyanosis, or edema. BACK: Nontender without obvious deformity. No CVA tenderness. exam: Patient has severe hydradenitis in the groin area and buttock area. Tenderness on palpation with mild discharge noted. Neurologic exam: Patient's awake and alert oriented 3. No obvious focal neurological deficit. Data Data Last Documented VS Vital Signs Date Time Temp Pulse Resp B/P Pulse Ox O2 Delivery O2 Flow Rate FiO2 11/19/16 23:55 98 Room Air 11/19/16 23:54 98.4 94 17 107/68 Orders Electrocardiogram (11/19/16 21:01) Complete Blood Count With Diff (11/19/16 21:01) Comprehensive Metabolic Panel (11/19/16 21:01) Prothrombin Time / Inr (Pt) (11/19/16 21:) Act Partial Throm Time (Ptt) (11/19/16 21:) Blood Culture (11/19/16 21:) C-Reactive Protein (Crp) (11/19/16 21:) Urinalysis - C+S If Indicated (11/19/16 21:01) Westergren Sedimentation Rate (11/19/16 21:01) Chest, Single Ap (11/19/16 21:01) Ct Brain W/O Iv Contrast(Rout) (11/19/16 21:01) Iv Access Insert/Monitor (11/19/16 21:01) Ecg Monitoring (11/19/16 21:) Oximetry (11/19/16 21:) Lactic Acid (11/19/16 21:01) Sodium Chlor 0.9% 1000 Ml Inj (Ns 1000 M (11/19/16 21:15) Ct Cerv Spine W/O Contrast (11/19/16 21:14) Morphine Inj (Morphine Inj) (11/19/16 22:30) Ondansetron Inj (Zofran Inj) (11/19/16 22:30) Ceftriaxone Inj (Rocephin Inj) (11/20/16 00:15) Vancomycin Inj (Vancomycin Inj) (11/20/16 00:15) Morphine Inj (Morphine Inj) (11/20/16 00:15) Place In Observation (11/20/16 ) Vital Signs (Adult) Q4H (11/20/16 00:19) Activity Oob With Assistance (11/20/16 00:19) Construction Skills Teacher / Telemetry .CONTINUOUS (11/20/16 00:19) Diet Heart Healthy (11/20/16 Breakfast) Sodium Chloride 0.9% Flush (Ns Flush) (11/20/16 00:30) Sodium Chloride 0.9% Flush (Ns Flush) (11/20/16 09:00) Basic Metabolic Panel (Bmp) (11/21/16 06:00) Complete Blood Count With Diff (11/21/16 06:00) Pt Request For Service (11/20/16 00:19) Case Management Consult (11/20/16 00:19) Naloxone Inj (Narcan Inj) (11/20/16 00:30) Admit Order (Ed Use Only) (11/20/16 00:18) Labs Laboratory Tests Test 11/19/16 11/19/16 11/19/16 22:00 23:15 23:20 White Blood Count 16.1 TH/MM3 Red Blood Count 3.53 MIL/MM3 Hemoglobin 9.5 GM/DL Hematocrit 29.3 % Mean Corpuscular Volume 83.2 FL Mean Corpuscular Hemoglobin 26.8 PG Mean Corpuscular Hemoglobin 32.2 % Concent Red Cell Distribution Width 21.6 % Platelet Count 367 TH/MM3 Mean Platelet Volume 7.8 FL Neutrophils (%) (Auto) 70.9 % Lymphocytes (%) (Auto) 20.7 % Monocytes (%) (Auto) 6.1 % Eosinophils (%) (Auto) 1.8 % Basophils (%) (Auto) 0.5 % Neutrophils # (Auto) 11.4 TH/MM3 Lymphocytes # (Auto) 3.4 TH/MM3 Monocytes # (Auto) 1.0 TH/MM3 Eosinophils # (Auto) 0.3 TH/MM3 Basophils # (Auto) 0.1 TH/MM3 CBC Comment DIFF FINAL Differential Comment Prothrombin Time 12.1 SEC Prothromb Time International 1.1 RATIO Ratio Activated Partial 21.4 SEC Thromboplast Time Sodium Level 140 MEQ/L Potassium Level 4.1 MEQ/L Chloride Level 106 MEQ/L Carbon Dioxide Level 25.8 MEQ/L Anion Gap 8 MEQ/L Blood Urea Nitrogen 21 MG/DL Creatinine 0.82 MG/DL Estimat Glomerular Filtration 122 ML/MIN Rate Random Glucose 128 MG/DL Lactic Acid Level 0.8 mmol/L Calcium Level 9.1 MG/DL Total Bilirubin 0.6 MG/DL Aspartate Amino Transf 15 U/L (AST/SGOT) Alanine Aminotransferase 14 U/L (ALT/SGPT) Alkaline Phosphatase 91 U/L C-Reactive Protein 13.00 MG/DL Total Protein 9.0 GM/DL Albumin 2.6 GM/DL Erythrocyte Sedimentation Rate GREATER THAN 140 mm/hr Urine Color YELLOW Urine Turbidity CLEAR Urine pH 6.0 Urine Specific [place] 1.034 Urine Protein 30 mg/dL Urine Glucose (UA) NEG mg/dL Urine Ketones NEG mg/dL Urine Occult Blood NEG Urine Nitrite NEG Urine Bilirubin NEG Urine Urobilinogen 2.0 MG/DL Urine Leukocyte Esterase NEG Urine RBC 1 /hpf Urine WBC 1 /hpf Urine Squamous Epithelial 1 /hpf Cells Urine Mucus FEW /lpf Microscopic Urinalysis Comment CULT NOT INDICATED MDM Medical Decision Making Medical Screen Exam Complete: Yes Emergency Medical Condition: Yes Interpretation(s) Last Impressions Cervical Spine CT 11/19/162113 Signed Impressions: Service Date/Time: Saturday, November 19, 2016 21:41 - CONCLUSION: 1. Moderate broad-based protrusion C5-6 with mild/moderate canal stenosis. 2. Mild broad-based protrusion C6-7 without canal stenosis. 3. Shallow broad-based protrusion C7-T1 without canal stenosis. Adolfo Flores MD Head CT 11/19/162100 Signed Impressions: Service Date/Time: Saturday, November 19, 2016 21:41 - CONCLUSION: No acute intracranial disease. Adolfo Flores MD Chest X-Ray 11/19/162100 Signed Impressions: Service Date/Time: Saturday, November 19, 2016 21:22 - CONCLUSION: No acute disease. Adolfo Flores MD 23:56 PM. CBC WBC 16.1. Hemoglobin 9.5 hematocrit 29.3. 70 neutrophil. BMP within normal limit. C-reactive protein 13. UA is negative Differential Diagnosis Differential diagnosis including sepsis, cellulitis hydradenitis suppurativa, arthralgia, meningitis. Narrative Course 46-year-old male with headache and neck pain and hydradenitis suppurativa. Vancomycin 1 g IV. Rocephin 2 g IV. Morphine 2 mg IV. Zofran 4 mg IV. Repeated morphine 2 mg IV. Patient has headache and neck pain. I'm not convincing patient has meningitis at this point. Lab work including CBC sedimentation rate C-reactive protein at baseline. I would defer lumbar puncture to morning reexamination. Diagnosis Primary Impression: Cellulitis Qualified Code: L03.317 - Cellulitis of buttock Additional Impressions: Hidradenitis suppurativa Cephalgia Qualified Code: R51 - Acute nonintractable headache, unspecified headache type Neck pain Admitting Information Admitting Physician Requests: Admit Rudi Dietrich MD Nov 19, 2016 21:21
--- NOTE | 2016-11-19 21:29 | RADRPT ---
EXAM DATE/TIME: 11/19/2016 21:22 [facility] COMPARISON: No previous studies available for comparison. INDICATIONS : Short of breath. MEDICAL HISTORY : A-fib. SURGICAL HISTORY : None. ENCOUNTER: Initial ACUITY: 4 - 6 days PAIN SCORE: 0/10 LOCATION: Bilateral chest FINDINGS: A single view of the chest demonstrates the lungs to be symmetrically aerated without evidence of mas s, infiltrate or effusion. The cardiomediastinal contours are unremarkable. Osseous structures are intact. CONCLUSION: No acute disease. Adolfo Flores MD on November 19, 2016 at 21:28 Board Certified Radiologist. This report was verified electronically.
--- NOTE | 2016-11-19 21:52 | RADRPT ---
EXAM DATE/TIME: 11/19/2016 21:41 [facility] COMPARISON: No previous studies available for comparison. INDICATIONS : Cephalgia. RADIATION DOSE: 39.49 CTDIvol (mGy) MEDICAL HISTORY : Cardiovascular disease. Gastroesophageal reflux disease. Rheumatoid arthritis.Diabetes. Hypertension. SURGICAL HISTORY : None. ENCOUNTER: Initial ACUITY: 4 - 6 days PAIN SCALE: 10/10 LOCATION: cranial TECHNIQUE: Multiple contiguous axial images were obtained of the head. Using automated exposure control and adj ustment of the mA and/or kV according to patient size, radiation dose was kept as low as reasonably a chievable to obtain optimal diagnostic quality images. DICOM format image data is available electro nically for review and comparison. FINDINGS: CEREBRUM: The ventricles are normal for age. No evidence of midline shift, mass lesion, hemorrhage or acute in farction. No extra-axial fluid collections are seen. POSTERIOR FOSSA: The cerebellum and brainstem are intact. The 4th ventricle is midline. The cerebellopontine angle i s unremarkable. EXTRACRANIAL: The visualized portion of the orbits is intact. SKULL: The calvaria is intact. No evidence of skull fracture. CONCLUSION: No acute intracranial disease. Adolfo Flores MD on November 19, 2016 at 21:50 Board Certified Radiologist. This report was verified electronically.
--- NOTE | 2016-11-19 22:05 | RADRPT ---
EXAM DATE/TIME: 11/19/2016 21:41 [facility] COMPARISON: No previous studies available for comparison. INDICATIONS : Neck pain x5 days. No known trauma. RADIATION DOSE: 21.60 CTDIvol (mGy) MEDICAL HISTORY : Gastroesophageal reflux disease. Rheumatoid arthritis. Cardiovascular diseaseHypertension. Diabetes. SURGICAL HISTORY : None. ENCOUNTER: Initial ACUITY: 4 - 6 days PAIN SCALE: 10/10 LOCATION: neck TECHNIQUE: Volumetric scanning of the cervical spine was performed. Multiplanar reconstructions in the sagittal, coronal and oblique axial planes were performed. Using automated exposure control and adjustment o f the mA and/or kV according to patient size, radiation dose was kept as low as reasonably achievable to obtain optimal diagnostic quality images. DICOM format image data is available electronically f or review and comparison. FINDINGS: VERTEBRAE: Normal vertebral body height. No fracture. ALIGNMENT: No evidence of subluxation. C2-C3: The bony spinal canal is normal in size. No evidence of disc bulge or herniation. The neural forami na are bilaterally patent. C3-C4: The bony spinal canal is normal in size. No evidence of disc bulge or herniation. The neural forami na are bilaterally patent. C4-C5: The bony spinal canal is normal in size. No evidence of disc bulge or herniation. The neural forami na are bilaterally patent. C5-C6: Moderate broad-based protrusion with extruded component abuts the ventral thecal sac and causes mild/ moderate canal stenosis. Mild neural foraminal narrowing bilaterally. C6-C7: Mild broad-based protrusion abuts ventral thecal sac without canal stenosis. The neural foramina are bilaterally patent. C7-T1: Shallow broad-based posterior disc osteophyte complex without canal stenosis. The neural foramina ar e bilaterally patent. CONCLUSION: 1. Moderate broad-based protrusion C5-6 with mild/moderate canal stenosis. 2. Mild broad-based protrusion C6-7 without canal stenosis. 3. Shallow broad-based protrusion C7-T1 without canal stenosis. Adolfo Flores MD on November 19, 2016 at 22:00 Board Certified Radiologist. This report was verified electronically.
[2016-11-19] MEDS: SODIUM CHLOR 0.9% 1000 ML INJ 1,000 ML IV SCH (22:13)
[2016-11-19] MEDS ORDERED: ONDANSETRON HCL 4 MG/2 ML VIAL IV PUSH ONE (22:30)
[2016-11-19] MEDS ORDERED: MORPHINE SULFATE 4 MG/ML INJ IV PUSH ONE (22:30)
[2016-11-19 23:14] LABS: ALKALINE PHOSPHATASE 91 U/L (45-117); TOTAL BILIRUBIN ADULT 0.6 MG/DL (0.2-1.0)
[2016-11-19 23:15] LABS: APTT (PATIENT) 21.4 SEC (24.3-30.1); INTERNATIONAL NORMALIZED RATIO 1.1 RATIO; PROTHROMBIN TIME - PATIENT 12.1 SEC (9.8-11.6)
[2016-11-19 23:27] LABS: ALT (GPT) 14 U/L (12-78); ANION GAP 8 MEQ/L (5-15); AST (GOT) 15 U/L (15-37); BICARBONATE 25.8 MEQ/L (21.0-32.0); BLOOD UREA NITROGEN 21 MG/DL (7-18); CHLORIDE 106 MEQ/L (98-107); GLOMERULAR FILTRATION RATE 122 ML/MIN (>89); POTASSIUM 4.1 MEQ/L (3.5-5.1); SODIUM (NA) 140 MEQ/L (136-145)
[2016-11-19 23:40] LABS: AUTOMATED NEUTROPHIL # 11.4 TH/MM3 (1.8-7.7); BASOPHIL # 0.1 TH/MM3 (0-0.2); BASOPHIL % 0.5 % (0.0-2.0); EOSINOPHIL # 0.3 TH/MM3 (0-0.4); EOSINOPHIL % 1.8 % (0.0-4.0); HEMATOCRIT 29.3 % (39.0-51.0); HEMO FLAGS DIFF FINAL; LYMPH % 20.7 % (9.0-44.0); LYMPHOCYTE # 3.4 TH/MM3 (1.0-4.8); MEAN CELL VOLUME 83.2 FL (80.0-100.0); MEAN CORPUSCULAR HEMOGLOBIN 26.8 PG (27.0-34.0); MEAN CORPUSCULAR HGB CONC 32.2 % (32.0-36.0); MONO % 6.1 % (0.0-8.0); NEUT % 70.9 % (16.0-70.0); PLATELET COUNT 367 TH/MM3 (150-450); RED BLOOD COUNT 3.53 MIL/MM3 (4.50-5.90); RED CELL DISTRIBUTION WIDTH 21.6 % (11.6-17.2); WHITE BLOOD COUNT 16.1 TH/MM3 (4.0-11.0)
[2016-11-19 23:46] LABS: BLOOD, URINE NEG (NEG); COMMENT (UR) CULT NOT INDICATED; CULTURE IF INDICATED CULT NOT INDICATED; GLUCOSE,URINE NEG (NEG); KETONE, URINE NEG (NEG); MUCUS URINE FEW /lpf (OCC); NITRITE,URINE NEG (NEG); SQUAMOUS EPITHELIAL CELL URINE 1 /hpf (0-5); URINE COLOR YELLOW (YELLW/STRAW)
[2016-11-19 23:54] VITALS: BP 107/68; PULSE 94; RESP 17; TEMP 98.4; O2SAT 98
[2016-11-19 23:55] VITALS: O2SAT 98
[2016-11-20] VITALS (7 sets, daily range): BP systolic 101–126; BP diastolic 57–77; PULSE 67–90; RESP 16–18; TEMP 98–98.4; O2SAT 97–100
[2016-11-20] MEDS ORDERED: VANCOMYCIN INJ 1,000 MG in SODIUM CHLOR 0.9% 250 ML INJ 250 ML IV ONE (00:15)
[2016-11-20] MEDS ORDERED: cefTRIAXone INJ 2,000 MG in SODIUM CHLORIDE 0.9% INJ 100 ML IV ONE (00:15)
[2016-11-20] MEDS ORDERED: MORPHINE SULFATE 4 MG/ML INJ IV PUSH ONE (00:15)
[2016-11-20] MEDS ORDERED: NALOXONE HCL 0.4 MG/ML AMP IV PRN (00:30)
[2016-11-20] MEDS: SODIUM CHLOR 0.9% 1000 ML INJ 1,000 ML IV SCH ×3 (00:37→21:14)
[2016-11-20] MEDS: MORPHINE SULFATE 4 MG/ML INJ IV PUSH PRN ×5 (03:33→21:52)
--- NOTE | 2016-11-20 05:03 | HHI.HP ---
[facility] No Primary Care Physician Admission Diagnosis cellulitis. Hydradenitis suppurativa. Cephalgia. Neck pain. Diagnoses: (1) Neck pain (2) Cephalgia Chief Complaint: neck and head pain Travel History International Travel<30 Days: No Contact w/Intl Traveler <30 Da: No Traveled to Known Affected Are: No History of Present Illness Written by Lashay Fontana, acting as scribe for Dr. Templeton on 11/20/16 at 05:03. The patient is reporting severe cervicalgia and cephalgia with photosensitivity unrelieved after three doses of morphine. He reports decreased ROM of neck and inability to sleep for 3 -4 days. He has had similar pain in the past; he states this is usually relieved by steroids. He reports a history of rheumatoid arthritis and believes pain may be related to this. Denies n/v or fever. He reports that he is on antibiotics - Doxycycline 100 mg BID for 25 days duration - confirmed upon review of hospitalization 10/23/16 - 10/29/16 for cellulitis. . Review of Systems Except as stated in HPI: all other systems reviewed are Neg Past Family Social History Past Medical History diabetes mellitus Hypertension Atrial fibrillation Hidradenitis suppurative . Past Surgical History Surgery underarms for severe boils . Reported Medications Reported Meds & Active Scripts Active Prednisone 10 Mg Tab 10 Mg PO DAILY Doxycycline Hyclate 100 Mg Cap 100 Mg PO BID Metoprolol Tartrate 25 Mg Tab 25 Mg PO Q12HR Reported Levemir Inj (Insulin Detemir) 1,000 unit/ 10 ML Vial 30 Units SQ HS Do not mix with any other Insulin. Novolog Inj (Insulin Aspart) 1,000 Unit/10 Ml Vial 0 SQ ACHS Sliding Scale as directed. Atorvastatin (Atorvastatin Calcium) 20 Mg Tab 20 Mg PO HS Aspirin 325 Mg Tab 325 Mg PO DAILY . 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 Ordered Medications Current Medications Sodium Chloride (NS 1000 ml Inj) 1,000 ml @ 125 mls/hr Q8H IV Last administered on 11/20/16 00:37; Start 11/19/16 at 21:15 Morphine Sulfate (Morphine Inj) 2 mg ONCE ONCE IV PUSH Last administered on 23:07; Start 11/19/16 at 22:30; Stop 11/19/16 at 22:31; Status DC Ondansetron HCl 4 mg 4 mg ONCE ONCE IV PUSH Last administered on 11/19/16 23: 07; Start 11/19/16 at 22:30; Stop 11/19/16 at 22:31; Status DC Ceftriaxone Sodium 2000 mg/ Sodium Chloride 100 ml @ 200 mls/hr ONCE ONCE IV Last administered on 11/20/16 02:20; Start 11/20/16 at 00:15; Stop 11/20/16 at 00:44; Status DC Vancomycin HCl/ Sodium Chloride (Vancomycin Inj/ NS 250 ml Inj) 250 ml @ 250 mls/hr ONCE ONCE IV Last administered on 11/20/16 00:38; Start 11/20/16 at 00 :15; Stop 11/20/16 at 01:14; Status DC Morphine Sulfate (Morphine Inj) 2 mg ONCE ONCE IV PUSH Last administered on 00:38; Start 11/20/16 at 00:15; Stop 11/20/16 at 00:16; Status DC Sodium Chloride (NS Flush) 2 ml UNSCH PRN IV FLUSH FLUSH AFTER USING IV ACCESS ; Start 11/20/16 at 00:30 Sodium Chloride (NS Flush) 2 ml BID IV FLUSH ; Start 11/20/16 at 09:00 Naloxone HCl (Narcan Inj) 0.4 mg UNSCH PRN IV SEE LABEL COMMENTS; Start at 00:30 Morphine Sulfate (Morphine Inj) 2 mg Q3H PRN IV PUSH pain >5 Last administered on 11/20/16 03:33; Start 11/20/16 at 03:00 . Family History Mother with arthritis Brother with coronary artery disease and stents . Social History Tobacco: Quit smoking about 7-9 months ago Alcohol: Drinks one or 2 beers per day Illicit drugs: Denies . Physical Exam Vital Signs Vital Signs Date Time Temp Pulse Resp B/P Pulse Ox O2 Delivery O2 Flow Rate FiO2 11/20/16 02:22 16 11/20/16 02:21 98.4 90 16 104/57 98 Room Air 11/19/16 23:55 98 Room Air 11/19/16 23:54 98.4 94 17 107/68 98 Room Air 11/19/16 20:46 94 16 109/69 98 Room Air 11/19/16 18:57 99.5 122 16 129/85 98 Room Air Physical Exam GENERAL: This is a middle-aged male patient who appears painful. SKIN: Cool and dry. Multiple skin lesions on upper thighs and left buttock cheek with some drainage noted. HEAD: Atraumatic. Normocephalic. EYES: No scleral icterus. No injection or drainage. Photo sensitive. ENT: Nose without bleeding, purulent drainage. NECK: Trachea midline. No JVD. neck rigidity present CARDIOVASCULAR: Regular rate and rhythm without murmurs, gallops, or rubs. RESPIRATORY: Clear to auscultation. Breath sounds equal bilaterally. No wheezes , rales, or rhonchi. GASTROINTESTINAL: Abdomen soft, non-tender, nondistended. No guarding. MUSCULOSKELETAL: Extremities without clubbing, cyanosis, or edema. No calf tenderness. NEUROLOGICAL: Awake and alert. Motor and sensory grossly within normal limits. Normal speech. . Laboratory Laboratory Tests Test 11/19/16 11/19/16 11/19/16 22:00 23:15 23:20 White Blood Count 16.1 Red Blood Count 3.53 Hemoglobin 9.5 Hematocrit 29.3 Mean Corpuscular Volume 83.2 Mean Corpuscular Hemoglobin 26.8 Mean Corpuscular Hemoglobin 32.2 Concent Red Cell Distribution Width 21.6 Platelet Count 367 Mean Platelet Volume 7.8 Neutrophils (%) (Auto) 70.9 Lymphocytes (%) (Auto) 20.7 Monocytes (%) (Auto) 6.1 Eosinophils (%) (Auto) 1.8 Basophils (%) (Auto) 0.5 Neutrophils # (Auto) 11.4 Lymphocytes # (Auto) 3.4 Monocytes # (Auto) 1.0 Eosinophils # (Auto) 0.3 Basophils # (Auto) 0.1 CBC Comment DIFF FINAL Differential Comment Prothrombin Time 12.1 Prothromb Time International 1.1 Ratio Activated Partial 21.4 Thromboplast Time Sodium Level 140 Potassium Level 4.1 Chloride Level 106 Carbon Dioxide Level 25.8 Anion Gap 8 Blood Urea Nitrogen 21 Creatinine 0.82 Estimat Glomerular Filtration 122 Rate Random Glucose 128 Lactic Acid Level 0.8 Calcium Level 9.1 Total Bilirubin 0.6 Aspartate Amino Transf 15 (AST/SGOT) Alanine Aminotransferase 14 (ALT/SGPT) Alkaline Phosphatase 91 C-Reactive Protein 13.00 Total Protein 9.0 Albumin 2.6 Erythrocyte Sedimentation Rate GREATER THAN 140 Urine Color YELLOW Urine Turbidity CLEAR Urine pH 6.0 Urine Specific [place] 1.034 Urine Protein 30 Urine Glucose (UA) NEG Urine Ketones NEG Urine Occult Blood NEG Urine Nitrite NEG Urine Bilirubin NEG Urine Urobilinogen 2.0 Urine Leukocyte Esterase NEG Urine RBC 1 Urine WBC 1 Urine Squamous Epithelial 1 Cells Urine Mucus FEW Microscopic Urinalysis Comment CULT NOT INDICATED Date/Time Procedure Status Source Growth 11/19/16 22:15 Aerobic Blood Culture Received Blood Peripheral Pending 11/19/16 22:15 Anaerobic Blood Culture Received Blood Peripheral Pending Result Diagram: 11/19/16219911/19/162199 Imaging Last Impressions Cervical Spine CT 11/19/162113 Signed Impressions: Service Date/Time: Saturday, November 19, 2016 21:41 - CONCLUSION: 1. Moderate broad-based protrusion C5-6 with mild/moderate canal stenosis. 2. Mild broad-based protrusion C6-7 without canal stenosis. 3. Shallow broad-based protrusion C7-T1 without canal stenosis. Adolfo Flores MD Head CT 11/19/162100 Signed Impressions: Service Date/Time: Saturday, November 19, 2016 21:41 - CONCLUSION: No acute intracranial disease. Adolfo Flores MD Chest X-Ray 11/19/162100 Signed Impressions: Service Date/Time: Saturday, November 19, 2016 21:22 - CONCLUSION: No acute disease. Adolfo Flores MD . Assessment and Plan Problem List: (1) Cephalgia ICD Code: R51 Status: Acute (2) Neck pain ICD Code: M54.2 Status: Acute Assessment and Plan 46 y/o male here for evaluation of cephalgia and cervicalgia. Cervicalgia and cephalgia - r/o meningitis - Lumbar puncture to be performed by invasive radiology - Morphine 2 mg IV q3h PRN pain > 5 Hidradenitis suppurative - Continue doxycycline 100 mg by mouth twice a day - Vancomycin with pharmacy consultation to assist with therapeutic monitoring and dosing - Ceftriaxone 2 mg IV every 12 hours Diabetes Mellitus - Continue home Levemir - Accu-Cheks before meals and at bedtime with low-dose NovoLog sliding scale coverage - Hypoglycemia protocol - Monitor trends and blood glucose readings and adjust treatments as indicated DVT prophylaxis - SCDs/TEDs; chemoprophylaxis contraindicated - lp pending This note was transcribed by sagariblalita [Lashay Fontana]. I, Dr. Gerry Templeton personally performed the history, physical exam, and medical decision making; and confirmed the accuracy of the information in the transcribed note. Authenticated by Dr. Gerry Templeton on 11/20/16 at 05:03. Discussed Condition With ER physician and patient . Problem Qualifiers (1) Cephalgia: Qualified Code: R51 - Acute nonintractable headache, unspecified headache type Lashay Fontana Nov 20, 2016 05:03 Gerry Templeton MD Nov 20, 2016 08:41
[2016-11-20] MEDS ORDERED: Vancomycin Consult Pharmacy 1 EA OTHER SCH (05:15)
[2016-11-20] MEDS ORDERED: predniSONE 50 MG TAB PO ONE (05:30)
[2016-11-20] MEDS ORDERED: DEXTROSE 50% IN WATER 50 ML VIAL(D50) IV PRN (06:30)
[2016-11-20] MEDS ORDERED: GLUCAGON 1 MG/ML VIAL OTHER PRN (06:30)
[2016-11-20] MEDS: INSULIN ASPART SUPPLEMENTAL SCALE SQ SCH ×4 (07:38→21:11)
[2016-11-20] MEDS: SODIUM CHLORIDE 0.9% FLUSH 10 ML FLUSH IV FLUSH SCH ×2 (08:47→21:00)
[2016-11-20] MEDS: predniSONE 10 MG TAB PO SCH ×2 (08:48→21:14)
[2016-11-20] MEDS: DOXYCYCLINE HYCLATE 100 MG CAP PO SCH ×2 (08:48→21:14)
[2016-11-20] MEDS: METOPROLOL TARTRATE 25 MG TAB PO SCH ×2 (08:48→21:14)
[2016-11-20] MEDS ORDERED: predniSONE 10 MG TAB PO SCH (09:00)
[2016-11-20] MEDS ORDERED: ASPIRIN 325 MG TAB PO SCH (09:00)
--- NOTE | 2016-11-20 11:22 | HHI.PR ---
Subjective Remarks Follow up for cephalgia/cervicalgia. The patient reports continued diffuse global headache, worse at the occipital area, described as constant throbbing overnight and today, associated with photophobia but no nausea/vomiting, temporarily relieved by IV morphine. He reports continued diffuse neck pain, states it feels tight, worsened by any neck movement especially flexion. The patient reports subjective fevers and diaphoresis, no documented fevers overnight. He also reports increasing drainage from his hydradenitis, worse at the left groin and buttocks. Objective Vitals Vital Signs Date Time Temp Pulse Resp B/P Pulse Ox O2 Delivery O2 Flow Rate FiO2 11/20/16 07:30 85 18 125/75 97 Room Air 11/20/16 06:04 16 11/20/16 05:37 18 11/20/16 05:06 98.0 84 17 124/59 97 Room Air 11/20/16 02:22 16 11/20/16 02:21 98.4 90 16 104/57 98 Room Air 11/19/16 23:55 98 Room Air 11/19/16 23:54 98.4 94 17 107/68 98 Room Air 11/19/16 20:46 94 16 109/69 98 Room Air 11/19/16 18:57 99.5 122 16 129/85 98 Room Air Result Diagram: 11/19/16 2200 11/19/16 2200 Other Results Laboratory Tests Test 11/19/16 11/19/16 11/19/16 22:00 23:15 23:20 White Blood Count 16.1 TH/MM3 Red Blood Count 3.53 MIL/MM3 Hemoglobin 9.5 GM/DL Hematocrit 29.3 % Mean Corpuscular Volume 83.2 FL Mean Corpuscular Hemoglobin 26.8 PG Mean Corpuscular Hemoglobin 32.2 % Concent Red Cell Distribution Width 21.6 % Platelet Count 367 TH/MM3 Mean Platelet Volume 7.8 FL Neutrophils (%) (Auto) 70.9 % Lymphocytes (%) (Auto) 20.7 % Monocytes (%) (Auto) 6.1 % Eosinophils (%) (Auto) 1.8 % Basophils (%) (Auto) 0.5 % Neutrophils # (Auto) 11.4 TH/MM3 Lymphocytes # (Auto) 3.4 TH/MM3 Monocytes # (Auto) 1.0 TH/MM3 Eosinophils # (Auto) 0.3 TH/MM3 Basophils # (Auto) 0.1 TH/MM3 CBC Comment DIFF FINAL Differential Comment Prothrombin Time 12.1 SEC Prothromb Time International 1.1 RATIO Ratio Activated Partial 21.4 SEC Thromboplast Time Sodium Level 140 MEQ/L Potassium Level 4.1 MEQ/L Chloride Level 106 MEQ/L Carbon Dioxide Level 25.8 MEQ/L Anion Gap 8 MEQ/L Blood Urea Nitrogen 21 MG/DL Creatinine 0.82 MG/DL Estimat Glomerular Filtration 122 ML/MIN Rate Random Glucose 128 MG/DL Lactic Acid Level 0.8 mmol/L Calcium Level 9.1 MG/DL Total Bilirubin 0.6 MG/DL Aspartate Amino Transf 15 U/L (AST/SGOT) Alanine Aminotransferase 14 U/L (ALT/SGPT) Alkaline Phosphatase 91 U/L C-Reactive Protein 13.00 MG/DL Total Protein 9.0 GM/DL Albumin 2.6 GM/DL Erythrocyte Sedimentation Rate GREATER THAN 140 mm/hr Urine Color YELLOW Urine Turbidity CLEAR Urine pH 6.0 Urine Specific [place] 1.034 Urine Protein 30 mg/dL Urine Glucose (UA) NEG mg/dL Urine Ketones NEG mg/dL Urine Occult Blood NEG Urine Nitrite NEG Urine Bilirubin NEG Urine Urobilinogen 2.0 MG/DL Urine Leukocyte Esterase NEG Urine RBC 1 /hpf Urine WBC 1 /hpf Urine Squamous Epithelial 1 /hpf Cells Urine Mucus FEW /lpf Microscopic Urinalysis Comment CULT NOT INDICATED Imaging Last Impressions Cervical Spine CT 11/19/162113 Signed Impressions: Service Date/Time: Saturday, November 19, 2016 21:41 - CONCLUSION: 1. Moderate broad-based protrusion C5-6 with mild/moderate canal stenosis. 2. Mild broad-based protrusion C6-7 without canal stenosis. 3. Shallow broad-based protrusion C7-T1 without canal stenosis. Adolfo Flores MD Head CT 11/19/162100 Signed Impressions: Service Date/Time: Saturday, November 19, 2016 21:41 - CONCLUSION: No acute intracranial disease. Adolfo Flores MD Chest X-Ray 11/19/162100 Signed Impressions: Service Date/Time: Saturday, November 19, 2016 21:22 - CONCLUSION: No acute disease. Adolfo Flores MD Objective Remarks GENERAL: Well-nourished, well-developed middle aged male patient in [place]. SKIN: Warm and dry. Bilateral medial thighs, groin, and buttocks with multiple open draining skin lesions with +foul odor and induration; consistent with hidradenitis suppurativa. HEENT: Normocephalic. Atraumatic.Pupils equal and round. Mucous membranes pink and moist. NECK: Supple. Trachea midline. +neck rigidity with pain upon flexion, cannot touch chin to chest. CARDIOVASCULAR: Regular rate and rhythm. S1, S2 noted. No murmur appreciated. RESPIRATORY: No accessory muscle use. Clear to auscultation. Breath sounds equal bilaterally. GASTROINTESTINAL: Abdomen soft, non-tender, nondistended. Normoactive bowel sounds x4. MUSCULOSKELETAL: No obvious deformities. Extremities without clubbing, cyanosis , or edema. NEUROLOGICAL: Awake and alert. No obvious cranial nerve deficits. Motor grossly within normal limits. Normal speech. PSYCHIATRIC: Appropriate mood and affect; insight and judgment normal. Procedures None Medications and IVs Current Medications Medications (Trade) Dose Ordered Sig/Mitzi Route Start Time Stop Time Status Last Admin (NS 1000 ml Inj) 1,000 ml @ 125 mls/hr Q8H IV 11/19/16 21:15 11/20/16 00:37 (NS Flush) 2 ml UNSCH PRN IV FLUSH 11/20/16 00:30 (NS Flush) 2 ml BID IV FLUSH 11/20/16 09:00 11/20/16 08:47 (Narcan Inj) 0.4 mg UNSCH PRN IV 11/20/16 00:30 Morphine Sulfate 2 mg 2 mg Q3H PRN IV PUSH 11/20/16 03:00 11/20/16 08:55 Ceftriaxone Sodium 2000 mg/ Sodium Chloride 100 ml @ 200 mls/hr Q12H IV 11/20/16 14:00 (Vancomycin Consult Pharmacy) 0 ml @ 0 mls/hr UNSCH OTHER 11/20/16 05:15 (Aspirin) 325 mg DAILY PO 11/20/16 09:00 11/20/16 08:48 (Lipitor) 20 mg HS PO 11/20/16 21:00 (Vibramycin) 100 mg BID PO 11/20/16 09:00 11/20/16 08:48 (Levemir Inj) 30 units HS SQ 11/20/16 21:00 (Lopressor) 25 mg Q12HR PO 11/20/16 09:00 11/20/16 08:48 (Deltasone) 10 mg BID PO 11/20/16 09:00 11/20/16 08:48 (D50w (Vial) Inj) 50 ml UNSCH PRN IV 11/20/16 06:30 Glucagon 1 mg 1 mg UNSCH PRN OTHER 11/20/16 06:30 (Vancomycin Inj/ NS 500 ml Inj) 517.5 ml @ 250 mls/hr Q12H IV 11/20/16 12:00 Miscellaneous Information SPECIFIC LAB TO BE DRAWN:VANCOMYCIN TROUGH DATE TO... ONCE ONCE .XX 11/22/16 11:45 11/22/16 11:46 Urinary Catheter: No Vascular Central Line Catheter: No A/P Problem List: (1) Cephalgia ICD Code: R51 Status: Acute (2) Neck pain ICD Code: M54.2 Status: Acute Assessment and Plan 46 y/o male with hx of RA, hidradenitis suppurativa, diabetes, presents with a 5 day history of cephalgia and cervicalgia. Cervicalgia and cephalgia - rule out meningitis with +nuchal rigidity/headache, however low suspicion with no fever and no change in mental status - Lumbar puncture ordered to be done by invasive radiology, hold patient's aspirin - CSF studies ordered - Continue pain control with IV Morphine 2 mg prn - Continue empiric antibiotics treatment with IV Rocephin/Vanco Neck Pain with Cervical Spine Stenosis: ruling out meningitis as above, however possible musculoskeletal - C-spine CT shows moderate broad-based protrusion C5-6 with mild/moderate canal stenosis; also protrusion C6-7 without stenosis - continue pain control with IV morphine - flexeril prn muscle spasms - heating pad - PT consulted - Neurosurgery consulted Hidradenitis suppurativa - Continue doxycycline 100 mg po bid (previous ID eval on 10/26 recommended to complete doxy 100mg bid [id number]) - On IV Vanco/Rocephin as above - Infectious disease consulted Diabetes Mellitus - Continue home Levemir - Accu-Cheks before meals and at bedtime with low-dose NovoLog sliding scale coverage - Hypoglycemia protocol - Monitor trends and blood glucose readings and adjust treatments as indicated Rheumatoid Arthritis: with possible flare - continue prednisone - continue pain control DVT prophylaxis - SCDs/TEDs; chemoprophylaxis contraindicated - LP pending Discharge Planning Discharge pending LP, ID eval, and further clinical improvement. Attending Statement The exam, history, and the medical decision-making described in the above note were completed with the assistance of the mid-level provider. I reviewed and agree with the findings presented. I attest that I had a [id number] encounter with the patient on the same day, and personally performed and documented my assessment and findings in the medical record. Problem Qualifiers (1) Cephalgia: Qualified Code: R51 - Acute nonintractable headache, unspecified headache type Shagufta Day PA-C Nov 20, 2016 11:22 Kiran Cates MD Nov 20, 2016 15:18
[2016-11-20] MEDS: VANCOMYCIN INJ 1,750 MG in SODIUM CHLORID 0.9% 500 ML INJ 500 ML IV SCH (12:13)
[2016-11-20] MEDS: cefTRIAXone INJ 2,000 MG in SODIUM CHLORIDE 0.9% INJ 100 ML IV SCH (14:40)
--- NOTE | 2016-11-20 16:03 | EKG ---
Date Performed: 11/19/2016 Time Performed: 22:22:30 PTAGE: 46 years EKG: Sinus rhythm NORMAL ECG Flattened T-waves no longer present compared to prior tracing. PREVIOUS TRACING : 10/23/2016 17.54 DOCTOR: Stu Chavez Interpretating Date/Time 11/20/2016 16:02:06
--- NOTE | 2016-11-20 16:53 | PD.ID.CON ---
History of Present Illness Service ID Consult Requested By Dr Templeton Reason for Consult suspected meningitis Primary Care Physician No Primary Care Physician Diagnoses: History of Present Illness 46 yo male with h/o hydradenitis suppurativa (HS) recently admitted to the hospital for sepsis (3 weeks ago) presenting now tih 5 days of headache and neck pain, groin pain. Patient was discharged home with prescription for prednisone, doxycycline and continue with aspirin 325 Mg daily, atorvastatin, insulin and metoprolol. He has no fever chills. Patient denies any recent head neck injury. He endorses photophobia He has high WBC CT head wo contrast and CXR were negative on adfmission, CT neck shoed DJD Review of Systems Eyes: COMPLAINS OF: Photosensitivity Musculoskeletal: COMPLAINS OF: Neck pain Integumentary: COMPLAINS OF: Abnormal pigmentation, Rash Neurologic: COMPLAINS OF: Headache Except as stated in HPI: all other systems reviewed are Neg Past Family Social History 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 Past Medical History Hypertension Diabetes Atrial fibrillation Hydradenitis Rheumatoid arthritis History of MRSA infection Hyperlipidemia COPD Past Surgical History skin surgery for his hidradenitis skin grafting Active Ordered Medications Medications where reviewed in EMR Antibiotics Include: cefepime vancomycin Family History History of CAD and hypertension Social History Patient smokes one pack per day of cigarettes, reportedly quit about 6 months ago Occasional alcohol, usually beer Occasional marijuana, denies IV drug use Physical Exam Vital Signs Vital Signs Date Time Temp Pulse Resp B/P Pulse Ox O2 Delivery O2 Flow Rate FiO2 11/20/16 16:21 98.0 75 18 124/66 100 11/20/16 13:00 72 18 101/58 98 Room Air 11/20/16 07:30 85 18 125/75 97 Room Air 11/20/16 06:04 16 11/20/16 05:37 18 11/20/16 05:06 98.0 84 17 124/59 97 Room Air 11/20/16 02:22 16 11/20/16 02:21 98.4 90 16 104/57 98 Room Air 11/19/16 23:55 98 Room Air 11/19/16 23:54 98.4 94 17 107/68 98 Room Air 11/19/16 20:46 94 16 109/69 98 Room Air 11/19/16 18:57 99.5 122 16 129/85 98 Room Air Physical Exam CONSTITUTIONAL/GENERAL: This is an adequately nourished patient, in no apparent distress. TUBES/LINES/DRAINS: SKIN: No jaundice, + Papular rash involving BLE and BUE severe and confluent cystic lesions draining foul smelling pus in the groins, buttocks, thighs, perineal area and to less extend underarms lesions. Skin temperature appropriate. Not diaphoretic. HEAD: Atraumatic. Normocephalic. EYES: Pupils equal and round and reactive. Extraocular motions intact. No scleral icterus. No injection or drainage. Fundi not examined. ENT: Hearing grossly normal. Nose without bleeding or purulent drainage. Oral mucosae without visible erythema, exudates, masses, or lesions. NECK: Trachea midline. Supple, + tender to palpation on the back CARDIOVASCULAR: Regular rate and rhythm without murmurs, gallops, or rubs. No JVD. Peripheral pulses symmetric. RESPIRATORY/CHEST: Symmetric, unlabored respirations. Clear to auscultation. Breath sounds equal bilaterally. No wheezes, rales, or rhonchi. GASTROINTESTINAL: Abdomen soft, non-tender, nondistended. No hepato-splenomegaly , or palpable masses. No guarding. Bowel sounds present. GENITOURINARY: Without palpable bladder distension. MUSCULOSKELETAL: Extremities without clubbing, cyanosis, or edema. No joint tenderness or effusion noted. No calf tenderness. No mottling or clubbing. LYMPHATICS: No palpable cervical or supraclavicular adenopathy. NEUROLOGICAL: Awake and alert. Motor and sensory grossly within normal limits. Follows commands. Clear speech Moves all extremities. PSYCHIATRIC: No obvious anxiety/depression. no apparent hallucinations or other psychotic thought process. Laboratory Laboratory Tests Test 11/19/16 11/19/16 11/19/16 22:00 23:15 23:20 White Blood Count 16.1 Red Blood Count 3.53 Hemoglobin 9.5 Hematocrit 29.3 Mean Corpuscular Volume 83.2 Mean Corpuscular Hemoglobin 26.8 Mean Corpuscular Hemoglobin 32.2 Concent Red Cell Distribution Width 21.6 Platelet Count 367 Mean Platelet Volume 7.8 Neutrophils (%) (Auto) 70.9 Lymphocytes (%) (Auto) 20.7 Monocytes (%) (Auto) 6.1 Eosinophils (%) (Auto) 1.8 Basophils (%) (Auto) 0.5 Neutrophils # (Auto) 11.4 Lymphocytes # (Auto) 3.4 Monocytes # (Auto) 1.0 Eosinophils # (Auto) 0.3 Basophils # (Auto) 0.1 CBC Comment DIFF FINAL Differential Comment Prothrombin Time 12.1 Prothromb Time International 1.1 Ratio Activated Partial 21.4 Thromboplast Time Sodium Level 140 Potassium Level 4.1 Chloride Level 106 Carbon Dioxide Level 25.8 Anion Gap 8 Blood Urea Nitrogen 21 Creatinine 0.82 Estimat Glomerular Filtration 122 Rate Random Glucose 128 Lactic Acid Level 0.8 Calcium Level 9.1 Total Bilirubin 0.6 Aspartate Amino Transf 15 (AST/SGOT) Alanine Aminotransferase 14 (ALT/SGPT) Alkaline Phosphatase 91 C-Reactive Protein 13.00 Total Protein 9.0 Albumin 2.6 Erythrocyte Sedimentation Rate GREATER THAN 140 Urine Color YELLOW Urine Turbidity CLEAR Urine pH 6.0 Urine Specific [place] 1.034 Urine Protein 30 Urine Glucose (UA) NEG Urine Ketones NEG Urine Occult Blood NEG Urine Nitrite NEG Urine Bilirubin NEG Urine Urobilinogen 2.0 Urine Leukocyte Esterase NEG Urine RBC 1 Urine WBC 1 Urine Squamous Epithelial 1 Cells Urine Mucus FEW Microscopic Urinalysis Comment CULT NOT INDICATED Date/Time Procedure Status Source Growth 11/19/16 22:15 Aerobic Blood Culture - Preliminary Resulted Blood Peripheral NO GROWTH IN 1 DAY 11/19/16 22:15 Anaerobic Blood Culture - Preliminary Resulted Blood Peripheral NO GROWTH IN 1 DAY Result Diagram: 11/19/16219911/19/162199 Imaging Last Impressions Cervical Spine CT 11/19/162113 Signed Impressions: Service Date/Time: Saturday, November 19, 2016 21:41 - CONCLUSION: 1. Moderate broad-based protrusion C5-6 with mild/moderate canal stenosis. 2. Mild broad-based protrusion C6-7 without canal stenosis. 3. Shallow broad-based protrusion C7-T1 without canal stenosis. Adolfo Flores MD Head CT 11/19/162100 Signed Impressions: Service Date/Time: Saturday, November 19, 2016 21:41 - CONCLUSION: No acute intracranial disease. Adolfo Flores MD Chest X-Ray 11/19/162100 Signed Impressions: Service Date/Time: Saturday, November 19, 2016 21:22 - CONCLUSION: No acute disease. Adolfo Flores MD Assessment and Plan Assessment and Plan Hydradenitis suppurativa, on doxycylince Acute cephalgia with photophobia - bacterial meningitis highly doubtful in this clinical scenario ( pt is well , no fever, clear sensorium) - can not exclude viral meningitis, w/o encephalitis, which is mostly self limited disease - also side effects to meds could be the reason for his cephalgia REC's: cont curret abx for now He has no LP done yet; if cephalgia resolves in the next 24 hrs will recommend to cancell LP futher rec's to follow Sneha Mendoza MD Nov 20, 2016 16:53
--- NOTE | 2016-11-20 16:54 | HHI.PR ---
Addendum to Inpatient Note Additional Information Pt seen and exameined records reviewed Full note to follow A/P Cephalgia, awaiting LP - cont current abx - will review LP results for further rec's Sneha Mendoza MD Nov 20, 2016 16:54
[2016-11-20] MEDS: INSULIN DETEMIR 100 UNITS/ML VIAL SQ SCH (21:12)
[2016-11-20] MEDS: ATORVASTATIN 20 MG TAB PO SCH (21:14)
[2016-11-21] VITALS (7 sets, daily range): BP systolic 106–133; BP diastolic 64–71; PULSE 68–81; RESP 18–19; TEMP 97.8–98.3; O2SAT 95–100
[2016-11-21] MEDS: VANCOMYCIN INJ 1,750 MG in SODIUM CHLORID 0.9% 500 ML INJ 500 ML IV SCH ×2 (00:24→13:51)
[2016-11-21] MEDS: cefTRIAXone INJ 2,000 MG in SODIUM CHLORIDE 0.9% INJ 100 ML IV SCH ×2 (02:55→17:25)
[2016-11-21] MEDS: MORPHINE SULFATE 4 MG/ML INJ IV PUSH PRN ×3 (03:40→13:50)
[2016-11-21] MEDS: INSULIN ASPART SUPPLEMENTAL SCALE SQ SCH ×4 (06:09→22:33)
[2016-11-21] MEDS: SODIUM CHLOR 0.9% 1000 ML INJ 1,000 ML IV SCH ×3 (06:09→21:15)
[2016-11-21] MEDS: METOPROLOL TARTRATE 25 MG TAB PO SCH ×2 (09:24→22:27)
[2016-11-21] MEDS: predniSONE 10 MG TAB PO SCH ×2 (09:25→22:28)
[2016-11-21] MEDS: DOXYCYCLINE HYCLATE 100 MG CAP PO SCH ×2 (09:25→22:27)
[2016-11-21] MEDS: SODIUM CHLORIDE 0.9% FLUSH 10 ML FLUSH IV FLUSH SCH ×2 (09:27→21:00)
[2016-11-21 09:42] LABS: AUTOMATED NEUTROPHIL # 11.7 TH/MM3 (1.8-7.7); BASOPHIL % 0.3 % (0.0-2.0); EOSINOPHIL # 0.1 TH/MM3 (0-0.4); HEMATOCRIT 29.3 % (39.0-51.0); HEMO FLAGS DIFF FINAL; LYMPH % 14.5 % (9.0-44.0); LYMPHOCYTE # 2.1 TH/MM3 (1.0-4.8); MEAN CELL VOLUME 84.3 FL (80.0-100.0); MEAN CORPUSCULAR HEMOGLOBIN 26.5 PG (27.0-34.0); MEAN CORPUSCULAR HGB CONC 31.4 % (32.0-36.0); NEUT % 79.2 % (16.0-70.0); PLATELET COUNT 394 TH/MM3 (150-450); RED BLOOD COUNT 3.47 MIL/MM3 (4.50-5.90); WHITE BLOOD COUNT 14.7 TH/MM3 (4.0-11.0)
[2016-11-21 10:11] LABS: BICARBONATE 24.5 MEQ/L (21.0-32.0); POTASSIUM 3.6 MEQ/L (3.5-5.1)
--- NOTE | 2016-11-21 15:10 | HHI.PR ---
Subjective Remarks Follow up for cephalgia/cervicalgia, r/out meningitis. The patient reports his headache and neck pain are improving. He has more range of motion of the neck, able to touch chin to chest today. Denies fevers/chills. He complains of pain at the right anterior thigh near site of hydradenitis. Also complains of right ankle pain. He is requesting oral pain medications instead of IV morphine. He has no other medical complaints at this time. Objective Vitals Vital Signs Date Time Temp Pulse Resp B/P Pulse Ox O2 Delivery O2 Flow Rate FiO2 11/21/16 11:52 98.3 70 19 109/69 97 11/21/16 07:20 97.8 69 18 133/71 99 11/21/16 04:00 18 11/21/16 03:53 68 11/21/16 03:28 98.1 81 18 129/71 98 11/21/16 00:24 72 18 109/71 95 11/21/16 00:05 72 11/20/16 21:26 77 11/20/16 20:49 98.1 67 18 126/77 97 11/20/16 16:21 98.0 75 18 124/66 100 I/O 11/20/16 11/20/16 11/20/16 11/21/16 11/21/16 11/21/16 07:00 15:00 23:00 07:00 15:00 23:00 Intake Total 1360 ml Output Total 1150 ml 800 ml Balance 210 ml -800 ml Intake Oral 360 ml IV Total 1000 ml Output Urine Total 1150 ml 800 ml # Voids 3 Result Diagram: 11/21/16 0811 11/21/16 0811 Imaging Last Impressions Cervical Spine CT 11/19/162113 Signed Impressions: Service Date/Time: Saturday, November 19, 2016 21:41 - CONCLUSION: 1. Moderate broad-based protrusion C5-6 with mild/moderate canal stenosis. 2. Mild broad-based protrusion C6-7 without canal stenosis. 3. Shallow broad-based protrusion C7-T1 without canal stenosis. Adolfo Flores MD Head CT 11/19/162100 Signed Impressions: Service Date/Time: Saturday, November 19, 2016 21:41 - CONCLUSION: No acute intracranial disease. Adolfo Flores MD Chest X-Ray 11/19/162100 Signed Impressions: Service Date/Time: Saturday, November 19, 2016 21:22 - CONCLUSION: No acute disease. Adolfo Flores MD Objective Remarks GENERAL: Well-nourished, well-developed middle aged male patient in [facility]. SKIN: Warm and dry. Bilateral medial thighs, groin, and buttocks with multiple open draining skin lesions with +foul odor and induration; consistent with hidradenitis suppurativa. HEENT: Normocephalic. Atraumatic.Pupils equal and round. Mucous membranes pink and moist. NECK: Supple. Trachea midline. No neck rigidity today, able to flex chin to chest. Neck nontender to palpation. CARDIOVASCULAR: Regular rate and rhythm. S1, S2 noted. No murmur appreciated. RESPIRATORY: No accessory muscle use. Clear to auscultation. Breath sounds equal bilaterally. GASTROINTESTINAL: Abdomen soft, non-tender, nondistended. Normoactive bowel sounds x4. MUSCULOSKELETAL: No obvious deformities. Extremities without clubbing, cyanosis , or edema. NEUROLOGICAL: Awake and alert. No obvious cranial nerve deficits. Motor grossly within normal limits. Normal speech. PSYCHIATRIC: Appropriate mood and affect; insight and judgment normal. Procedures None Medications and IVs Current Medications Medications (Trade) Dose Ordered Sig/Mitzi Route Start Time Stop Time Status Last Admin (NS 1000 ml Inj) 1,000 ml @ 125 mls/hr Q8H IV 11/19/16 21:15 11/21/16 13:51 (NS Flush) 2 ml UNSCH PRN IV FLUSH 11/20/16 00:30 (NS Flush) 2 ml BID IV FLUSH 11/20/16 09:00 11/21/16 09:27 (Narcan Inj) 0.4 mg UNSCH PRN IV 11/20/16 00:30 Morphine Sulfate 2 mg 2 mg Q3H PRN IV PUSH 11/20/16 03:00 11/21/16 13:50 Ceftriaxone Sodium 2000 mg/ Sodium Chloride 100 ml @ 200 mls/hr Q12H IV 11/20/16 14:00 11/21/16 02:55 (Vancomycin Consult Pharmacy) 0 ml @ 0 mls/hr UNSCH OTHER 11/20/16 05:15 (Aspirin) 325 mg DAILY PO 11/20/16 09:00 Hold 11/20/16 08:48 (Lipitor) 20 mg HS PO 11/20/16 21:00 11/20/16 21:14 (Vibramycin) 100 mg BID PO 11/20/16 09:00 11/21/16 09:25 (Levemir Inj) 30 units HS SQ 11/20/16 21:00 11/20/16 21:12 (Lopressor) 25 mg Q12HR PO 11/20/16 09:00 11/21/16 09:24 (Deltasone) 10 mg BID PO 11/20/16 09:00 11/21/16 09:25 (D50w (Vial) Inj) 50 ml UNSCH PRN IV 11/20/16 06:30 Glucagon 1 mg 1 mg UNSCH PRN OTHER 11/20/16 06:30 (Vancomycin Inj/ NS 500 ml Inj) 517.5 ml @ 250 mls/hr Q12H IV 11/20/16 12:00 11/21/16 13:51 Miscellaneous Information SPECIFIC LAB TO BE DRAWN:VANCOMYCIN TROUGH DATE TO... ONCE ONCE .XX 11/22/16 11:45 11/22/16 11:46 (Flexeril) 10 mg Q8H PRN PO 11/20/16 14:30 A/P Problem List: (1) Cephalgia ICD Code: R51 Status: Acute (2) Neck pain ICD Code: M54.2 Status: Acute Assessment and Plan 46 y/o male with hx of RA, hidradenitis suppurativa, diabetes, presents with a 5 day history of cephalgia and cervicalgia. Cervicalgia and cephalgia - rule out meningitis with +nuchal rigidity/headache, however low suspicion with no fever and no change in mental status - IR consulted for Lumbar puncture, however discussed with IR, LP unable to be done until Saturday, aspirin needs to be on hold x5days. - CSF studies ordered - Continue pain control with IV Morphine 2 mg prn - Continue empiric antibiotics treatment with IV Rocephin/Vanco - ID consulted, continue current treatment Neck Pain with Cervical Spine Stenosis: ruling out meningitis as above, however possible musculoskeletal - C-spine CT shows moderate broad-based protrusion C5-6 with mild/moderate canal stenosis; also protrusion C6-7 without stenosis - continue pain control with IV morphine - flexeril prn muscle spasms - heating pad - PT consulted - Neurosurgery consulted Hidradenitis suppurativa - Continue doxycycline 100 mg po bid (previous ID eval on 10/26 recommended to complete doxy 100mg bid [id number]) - On IV Vanco/Rocephin as above - Infectious disease consulted, appreciate recommendations Diabetes Mellitus - Continue home Levemir - Accu-Cheks before meals and at bedtime with low-dose NovoLog sliding scale coverage - Hypoglycemia protocol - Monitor trends and blood glucose readings and adjust treatments as indicated Rheumatoid Arthritis: with possible flare - continue prednisone - continue pain control with oxycodone prn, IV morphine prn breakthrough pain DVT prophylaxis - SCDs/TEDs; chemoprophylaxis contraindicated - LP pending Discharge Planning Admit to inpatient. Receiving treatment for suspected meningitis. Unable to have LP until Sunday 11/26. Problem Qualifiers (1) Cephalgia: Qualified Code: R51 - Acute nonintractable headache, unspecified headache type Shagufta Day PA-C Nov 21, 2016 3:09 pm
--- NOTE | 2016-11-21 18:20 | HHI.IDPN ---
Subjective Subjective Remarks [place] improved LP posponed 2/2 high dose aspirin no fever Antibiotics CFTX vanco 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 Objective . Vital Signs Date Time Temp Pulse Resp B/P Pulse Ox O2 Delivery O2 Flow Rate FiO2 11/21/16 16:00 98.2 75 18 106/64 100 11/21/16 11:52 98.3 70 19 109/69 97 11/21/16 07:20 97.8 69 18 133/71 99 11/21/16 04:00 18 11/21/16 03:53 68 11/21/16 03:28 98.1 81 18 129/71 98 11/21/16 00:24 72 18 109/71 95 11/21/16 00:05 72 11/20/16 21:26 77 11/20/16 20:49 98.1 67 18 126/77 97 11/20/16 11/20/16 11/21/16 15:00 23:00 07:00 Intake Total 1360 ml Output Total 1150 ml Balance 210 ml Intake Oral 360 ml IV Total 1000 ml Output Urine Total 1150 ml # Voids 3 . Laboratory Tests Test 11/19/16 11/19/16 11/21/16 22:00 23:15 08:11 White Blood Count 16.1 TH/MM3 14.7 TH/MM3 Red Blood Count 3.53 MIL/MM3 3.47 MIL/MM3 Hemoglobin 9.5 GM/DL 9.2 GM/DL Hematocrit 29.3 % 29.3 % Mean Corpuscular Volume 83.2 FL 84.3 FL Mean Corpuscular Hemoglobin 26.8 PG 26.5 PG Mean Corpuscular Hemoglobin 32.2 % 31.4 % Concent Red Cell Distribution Width 21.6 % 21.0 % Platelet Count 367 TH/MM3 394 TH/MM3 Mean Platelet Volume 7.8 FL 8.1 FL Neutrophils (%) (Auto) 70.9 % 79.2 % Lymphocytes (%) (Auto) 20.7 % 14.5 % Monocytes (%) (Auto) 6.1 % 5.0 % Eosinophils (%) (Auto) 1.8 % 1.0 % Basophils (%) (Auto) 0.5 % 0.3 % Neutrophils # (Auto) 11.4 TH/MM3 11.7 TH/MM3 Lymphocytes # (Auto) 3.4 TH/MM3 2.1 TH/MM3 Monocytes # (Auto) 1.0 TH/MM3 0.7 TH/MM3 Eosinophils # (Auto) 0.3 TH/MM3 0.1 TH/MM3 Basophils # (Auto) 0.1 TH/MM3 0.0 TH/MM3 CBC Comment DIFF FINAL DIFF FINAL Differential Comment Erythrocyte Sedimentation Rate GREATER THAN 140 mm/hr Laboratory Tests Test 11/19/16 11/21/16 22:00 08:11 Sodium Level 140 MEQ/L 135 MEQ/L Potassium Level 4.1 MEQ/L 3.6 MEQ/L Chloride Level 106 MEQ/L 103 MEQ/L Carbon Dioxide Level 25.8 MEQ/L 24.5 MEQ/L Anion Gap 8 MEQ/L 8 MEQ/L Blood Urea Nitrogen 21 MG/DL 10 MG/DL Creatinine 0.82 MG/DL 0.69 MG/DL Estimat Glomerular Filtration 122 ML/MIN 148 ML/MIN Rate Random Glucose 128 MG/DL 282 MG/DL Lactic Acid Level 0.8 mmol/L Calcium Level 9.1 MG/DL 8.8 MG/DL Total Bilirubin 0.6 MG/DL Aspartate Amino Transf 15 U/L (AST/SGOT) Alanine Aminotransferase 14 U/L (ALT/SGPT) Alkaline Phosphatase 91 U/L C-Reactive Protein 13.00 MG/DL Total Protein 9.0 GM/DL Albumin 2.6 GM/DL Microbiology Date/Time Procedure Status Source Growth 11/19/16 22:00 Aerobic Blood Culture - Preliminary Resulted Blood Peripheral NO GROWTH IN 2 DAYS 11/19/16 22:00 Anaerobic Blood Culture - Preliminary Resulted Blood Peripheral NO GROWTH IN 2 DAYS 11/19/16 22:15 Aerobic Blood Culture - Preliminary Resulted Blood Peripheral NO GROWTH IN 2 DAYS 11/19/16 22:15 Anaerobic Blood Culture - Preliminary Resulted Blood Peripheral NO GROWTH IN 2 DAYS Imaging Last Impressions Cervical Spine CT 11/19/162113 Signed Impressions: Service Date/Time: Saturday, November 19, 2016 21:41 - CONCLUSION: 1. Moderate broad-based protrusion C5-6 with mild/moderate canal stenosis. 2. Mild broad-based protrusion C6-7 without canal stenosis. 3. Shallow broad-based protrusion C7-T1 without canal stenosis. Adolfo Flores MD Head CT 11/19/162100 Signed Impressions: Service Date/Time: Saturday, November 19, 2016 21:41 - CONCLUSION: No acute intracranial disease. Adolfo Flores MD Chest X-Ray 11/19/162100 Signed Impressions: Service Date/Time: Saturday, November 19, 2016 21:22 - CONCLUSION: No acute disease. Adolfo Flores MD Physical Exam CONSTITUTIONAL/GENERAL: This is an adequately nourished patient, in no apparent distress. TUBES/LINES/DRAINS: SKIN: No jaundice, + hyperpigmented rash involving BLE and BUE severe and confluent cystic lesions draining foul smelling pus in the groins, buttocks, thighs, perineal area and to less extend underarms lesions. R buttock lesion is with foul smelling drainage + indurated and very tender to palpation Skin temperature appropriate. Not diaphoretic. HEAD: Atraumatic. Normocephalic. EYES: Pupils equal and round and reactive. Extraocular motions intact. No scleral icterus. No injection or drainage. Fundi not examined. ENT: Hearing grossly normal. Oral mucosae without visible erythema, exudates, masses, or lesions. NECK: Trachea midline. Supple, + tender to palpation on the back CARDIOVASCULAR: Regular rate and rhythm without murmurs, gallops, or rubs. RESPIRATORY/CHEST: Symmetric, unlabored respirations. Clear to auscultation. GASTROINTESTINAL: Abdomen soft, non-tender, nondistended. No hepato-splenomegaly , or palpable masses. No guarding. Bowel sounds present. MUSCULOSKELETAL: Extremities without clubbing, cyanosis, or edema. NEUROLOGICAL: Awake and alert. Motor and sensory grossly within normal limits. Follows commands. Clear speech Moves all extremities. PSYCHIATRIC: No obvious anxiety/depression. no apparent hallucinations or other psychotic thought process. Assessment & Plan Remarks Hydradenitis suppurativa, on doxycylince Multiple lesions but the worst is on the R buttock Acute cephalgia with photophobia - bacterial meningitis highly doubtful in this clinical scenario ( pt is well , no fever, clear sensorium) - can not exclude viral meningitis, w/o encephalitis, which is mostly self limited disease - also side effects to meds could be the reason for his cephalgia REC's: cont curret abx for now I recommend to cancell LP all together add oral clindamycin Sneha Mendoza MD Nov 21, 2016 18:20
--- NOTE | 2016-11-21 18:56 | HHI.PR ---
Subjective Remarks Follow up for neck pain, headache. Patient is doing well. Ambulating in the room. No fever, chills. Objective Vitals Vital Signs Date Time Temp Pulse Resp B/P Pulse Ox O2 Delivery O2 Flow Rate FiO2 11/21/16 16:00 98.2 75 18 106/64 100 11/21/16 11:52 98.3 70 19 109/69 97 11/21/16 07:20 97.8 69 18 133/71 99 11/21/16 04:00 18 11/21/16 03:53 68 11/21/16 03:28 98.1 81 18 129/71 98 11/21/16 00:24 72 18 109/71 95 11/21/16 00:05 72 11/20/16 21:26 77 11/20/16 20:49 98.1 67 18 126/77 97 I/O 11/20/16 11/20/16 11/20/16 11/21/16 11/21/16 11/21/16 06:59 14:59 22:59 06:59 14:59 22:59 Intake Total 1360 ml Output Total 1150 ml 800 ml Balance 210 ml -800 ml Intake Oral 360 ml IV Total 1000 ml Output Urine Total 1150 ml 800 ml # Voids 3 Result Diagram: 11/21/16 0811 11/21/16 0811 Imaging Last Impressions Cervical Spine CT 11/19/162113 Signed Impressions: Service Date/Time: Saturday, November 19, 2016 21:41 - CONCLUSION: 1. Moderate broad-based protrusion C5-6 with mild/moderate canal stenosis. 2. Mild broad-based protrusion C6-7 without canal stenosis. 3. Shallow broad-based protrusion C7-T1 without canal stenosis. Adolfo Flores MD Head CT 11/19/162100 Signed Impressions: Service Date/Time: Saturday, November 19, 2016 21:41 - CONCLUSION: No acute intracranial disease. Adolfo Flores MD Chest X-Ray 11/19/162100 Signed Impressions: Service Date/Time: Saturday, November 19, 2016 21:22 - CONCLUSION: No acute disease. Adolfo Flores MD Objective Remarks GENERAL: Alert, oriented x 3, NAD SKIN: Warm and dry. Diffuse hydradenitis suppurativa in the groin area. s/p surgery for Hydradenitis Suppurativa in bilateral axila. HEAD: Normocephalic. EYES: No scleral icterus. No injection or drainage. NECK: trachea midline. No JVD or lymphadenopathy. Pain on movement of neck to the left. Mild pain on chin to chest touch. CARDIOVASCULAR: Regular rate and rhythm without murmurs, gallops, or rubs. RESPIRATORY: Breath sounds equal bilaterally. No accessory muscle use. GASTROINTESTINAL: Abdomen soft, non-tender, nondistended. MUSCULOSKELETAL: No cyanosis, or edema. Neuro: No focal neurological deficits. Kernig's sign negative. BACK: Nontender without obvious deformity. No CVA tenderness. Procedures None A/P Problem List: (1) Cephalgia ICD Code: R51 Status: Acute (2) Neck pain ICD Code: M54.2 Status: Acute Assessment and Plan Mr. Clay is a 46 y/o male with hx of RA, hidradenitis suppurativa, diabetes, presents with a 5 day history of headache, neck pain. His pain started in the back of his head with radiation to the upper back. Patient also complained of groin pain associated with hydradenitis suppurativa. Due to suspicion over bacterial meningitis, patient was started on Ceftriaxone and Vancomycin. - Neck pain, headache - C5-C6 moderate stenosis - Bacterial meningitis is unlikely. Patient's neck pain, headache likely due to C5-C6 stenosis. - Will discontinue LP order. Discussed with Dr. Mendoza (ID) who will adjust abx as well. - Continue pain control with IV Morphine 2 mg prn. Continue Flexeril. - Neurosurgery consulted for recommendations. - Hidradenitis suppurativa - Continue doxycycline 100 mg po bid (previous ID eval on 10/26 recommended to complete doxy 100mg bid [id number]) - ID added Clindamycin. - Diabetes Mellitus - Continue home Levemir 30 units QHS. - Accu-Cheks before meals and at bedtime with low-dose NovoLog sliding scale coverage - Hypoglycemia protocol - Monitor trends and blood glucose readings and adjust treatments as indicated - Atrial fibrillation - [id number] score 1 (DM). - Patient will likely benefit from Aspirin only. - Continue Metoprolol 25mg BID for rate control. Rheumatoid Arthritis: with possible flare - continue prednisone 10mg BID. - continue pain control with oxycodone prn, IV morphine prn breakthrough pain - Outpatient rheumatology evaluation would be beneficial. Full code. Ambulation. Discharge plan: If no surgical intervention recommended by neurosurgery, we will likely discharge patient home tomorrow. Problem Qualifiers (1) Cephalgia: Qualified Code: R51 - Acute nonintractable headache, unspecified headache type Kerri Parnell DO Nov 21, 2016 6:56 pm
--- NOTE | 2016-11-21 21:57 | PD.CONS ---
History of Present Illness Service Neurosurgery Consult Requested By Medicine service Reason for Consult Cervical stenosis, neck pain Primary Care Physician No Primary Care Physician Diagnoses: History of Present Illness 46-year-old male who was previously admitted to the hospital approximately 3 weeks ago for sepsis. He now presents back to the emergency room on the evening of 11/19/16 with approximately 3 days of neck pain, headaches. No definite fever. No significant new onset pain and weakness numbness in the extremities or loss of bowel or bladder function. Positive photophobia. Positive history of suppurative hidradenitis Review of Systems Constitutional: DENIES: Fever, Night Sweats Eyes: DENIES: Blurred vision Ears, nose, mouth, throat: DENIES: Vertigo Respiratory: DENIES: Shortness of breath Cardiovascular: DENIES: Chest pain, Palpitations Gastrointestinal: DENIES: Diarrhea, Nausea Musculoskeletal: COMPLAINS OF: Joint pain, Muscle aches, Neck pain Hematologic/lymphatic: DENIES: Bruising Neurologic: COMPLAINS OF: Abnormal gait, DENIES: Speech Problems Psychiatric: DENIES: Anxiety Past Family Social History 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 Past Medical History Atrial fibrillation Hypertension Suppurative hidradenitis Diabetes Diabetic neuropathy Reported Medications Reported Meds & Active Scripts Active Prednisone 10 Mg Tab 10 Mg PO DAILY Doxycycline Hyclate 100 Mg Cap 100 Mg PO BID Metoprolol Tartrate 25 Mg Tab 25 Mg PO Q12HR Reported Levemir Inj (Insulin Detemir) 1,000 unit/ 10 ML Vial 30 Units SQ HS Do not mix with any other Insulin. Novolog Inj (Insulin Aspart) 1,000 Unit/10 Ml Vial 0 SQ ACHS Sliding Scale as directed. Atorvastatin (Atorvastatin Calcium) 20 Mg Tab 20 Mg PO HS Aspirin 325 Mg Tab 325 Mg PO DAILY Family History Coronary artery disease in his brother. Social History Stop smoking a few months ago. Drinks alcohol once or twice a day. Physical Exam Vital Signs Vital Signs Date Time Temp Pulse Resp B/P Pulse Ox O2 Delivery O2 Flow Rate FiO2 11/21/16 20:30 18 11/21/16 16:00 98.2 75 18 106/64 100 11/21/16 11:52 98.3 70 19 109/69 97 11/21/16 07:20 97.8 69 18 133/71 99 11/21/16 03:53 68 11/21/16 03:28 98.1 81 18 129/71 98 11/21/16 00:24 72 18 109/71 95 11/21/16 00:05 72 Physical Exam GENERAL: This is a well-nourished, well-developed patient, in no apparent distress. SKIN: No rashes, ecchymoses or lesions. Cool and dry. HEAD: Atraumatic. Normocephalic. No temporal or scalp tenderness. EYES: Sclerae are clear and nonicteric NECK: No significant neck tenderness. No nuchal rigidity. CARDIOVASCULAR: Regular rate and rhythm without murmurs, gallops, or rubs. RESPIRATORY: Clear to auscultation. Breath sounds equal bilaterally. No wheezes , rales, or rhonchi. GASTROINTESTINAL: Abdomen soft, non-tender, nondistended. MUSCULOSKELETAL: No significant joint pain or deformity all extremities. NEUROLOGIC: Awake and alert Oriented X 3 Speech is clear Conversant and appropriate Follow simple commands well Answers questions appropriately Reasonable judgment and insight Recent and remote memory are intact No evidence of anxiety or depression Sensation is mildly diminished in the distal upper and lower extremities with complaint of numbness and paresthesias. Strength is diminished in bilateral hand intrinsics, flexor and extensor digitorum, abductor digit minimi, which appears at least partially due to arthritic changes in the hands. Tyree's absent bilaterally No ankle clonus Plantar responses absent bilateral Fine motor movements mildly impaired upper extremities which may be partly due to arthritic changes in the hands. His gait is steady Laboratory Laboratory Tests Test 11/21/16 08:11 White Blood Count 14.7 Red Blood Count 3.47 Hemoglobin 9.2 Hematocrit 29.3 Mean Corpuscular Volume 84.3 Mean Corpuscular Hemoglobin 26.5 Mean Corpuscular Hemoglobin 31.4 Concent Red Cell Distribution Width 21.0 Platelet Count 394 Mean Platelet Volume 8.1 Neutrophils (%) (Auto) 79.2 Lymphocytes (%) (Auto) 14.5 Monocytes (%) (Auto) 5.0 Eosinophils (%) (Auto) 1.0 Basophils (%) (Auto) 0.3 Neutrophils # (Auto) 11.7 Lymphocytes # (Auto) 2.1 Monocytes # (Auto) 0.7 Eosinophils # (Auto) 0.1 Basophils # (Auto) 0.0 CBC Comment DIFF FINAL Differential Comment Sodium Level 135 Potassium Level 3.6 Chloride Level 103 Carbon Dioxide Level 24.5 Anion Gap 8 Blood Urea Nitrogen 10 Creatinine 0.69 Estimat Glomerular Filtration 148 Rate Random Glucose 282 Calcium Level 8.8 Date/Time Procedure Status Source Growth 11/19/16 22:15 Aerobic Blood Culture - Preliminary Resulted Blood Peripheral NO GROWTH IN 2 DAYS 11/19/16 22:15 Anaerobic Blood Culture - Preliminary Resulted Blood Peripheral NO GROWTH IN 2 DAYS Result Diagram: 11/21/16 0811 11/21/16 0811 Imaging 11/19/16 CT scan head and cervical spine images reviewed by the undersigned. The patient has at least moderate C5 6 canal stenosis due to a broad posterior osteophyte disc complex. Cervical Spine CT 11/19/162113 Signed Impressions: Service Date/Time: Saturday, November 19, 2016 21:41 - CONCLUSION: 1. Moderate broad-based protrusion C5-6 with mild/moderate canal stenosis. 2. Mild broad-based protrusion C6-7 without canal stenosis. 3. Shallow broad-based protrusion C7-T1 without canal stenosis. Adolfo Flores MD Head CT 11/19/162100 Signed Impressions: Service Date/Time: Saturday, November 19, 2016 21:41 - CONCLUSION: No acute intracranial disease. Adolfo Flores MD Chest X-Ray 11/19/162100 Signed Impressions: Service Date/Time: Saturday, November 19, 2016 21:22 - CONCLUSION: No acute disease. Adolfo Flores MD Assessment and Plan Assessment and Plan Impression: 1. Cervical stenosis at least moderate severity at C5-6 level 2. History of suppurative hidradenitis 3. History of atrial fibrillation on aspirin 4. Hypertension 5. Diabetes Recommendations: Proceed with MRI cervical spine to assess degree of spinal cord compression and a signal intensity changes within the cord. Due to the initial CT scan imaging with significant C5 6 canal stenosis,it is anticipated that the patient will require C5 6 ACDF. However due to his recent infectious disease and stable overall neurologic function, surgical intervention will need to be postponed until infectious risk diminishes. Garcia Denis MD Nov 21, 2016 21:57
[2016-11-21] MEDS: ATORVASTATIN 20 MG TAB PO SCH (22:26)
[2016-11-21] MEDS: CLINDAMYCIN 150 MG CAP PO SCH (22:28)
[2016-11-21] MEDS: INSULIN DETEMIR 100 UNITS/ML VIAL SQ SCH (22:33)
[2016-11-22] VITALS (10 sets, daily range): BP systolic 99–133; BP diastolic 55–76; PULSE 57–74; RESP 18; TEMP 97.8–98.7; O2SAT 97–99
[2016-11-22] MEDS: VANCOMYCIN INJ 1,750 MG in SODIUM CHLORID 0.9% 500 ML INJ 500 ML IV SCH ×2 (01:26→12:51)
[2016-11-22] MEDS: CLINDAMYCIN 150 MG CAP PO SCH ×2 (03:12→09:26)
[2016-11-22] MEDS: cefTRIAXone INJ 2,000 MG in SODIUM CHLORIDE 0.9% INJ 100 ML IV SCH (04:24)
[2016-11-22] MEDS: SODIUM CHLOR 0.9% 1000 ML INJ 1,000 ML IV SCH ×3 (05:15→21:15)
[2016-11-22] MEDS: INSULIN ASPART SUPPLEMENTAL SCALE SQ SCH ×4 (07:00→21:00)
[2016-11-22 07:25] LABS: BASOPHIL # 0.1 TH/MM3 (0-0.2); BASOPHIL % 0.5 % (0.0-2.0); EOSINOPHIL # 0.1 TH/MM3 (0-0.4); EOSINOPHIL % 0.9 % (0.0-4.0); HEMATOCRIT 32.2 % (39.0-51.0); HEMO FLAGS DIFF FINAL; LYMPH % 20.3 % (9.0-44.0); LYMPHOCYTE # 2.8 TH/MM3 (1.0-4.8); MEAN CELL VOLUME 83.8 FL (80.0-100.0); MEAN CORPUSCULAR HEMOGLOBIN 26.5 PG (27.0-34.0); MEAN CORPUSCULAR HGB CONC 31.6 % (32.0-36.0); MONO % 5.8 % (0.0-8.0); NEUT % 72.5 % (16.0-70.0); PLATELET COUNT 415 TH/MM3 (150-450); RED BLOOD COUNT 3.84 MIL/MM3 (4.50-5.90); RED CELL DISTRIBUTION WIDTH 21.3 % (11.6-17.2); WHITE BLOOD COUNT 13.8 TH/MM3 (4.0-11.0)
[2016-11-22 08:24] LABS: BICARBONATE 25.6 MEQ/L (21.0-32.0); POTASSIUM 3.8 MEQ/L (3.5-5.1)
[2016-11-22] MEDS: SODIUM CHLORIDE 0.9% FLUSH 10 ML FLUSH IV FLUSH SCH ×2 (09:26→21:00)
[2016-11-22] MEDS: predniSONE 10 MG TAB PO SCH ×2 (09:26→21:48)
--- NOTE | 2016-11-22 09:26 | HHI.PR ---
Addendum to Inpatient Note Additional Information Case dw Dr Parnell and Dr Deins input appreciated Pt has severe neck stenosis and will need surgery However his active skin infection needs to be under controll Rec's: cancell LP dc rocephin and clinda start zosyn consult surgery Sneha Mendoza MD Nov 22, 2016 09:26
[2016-11-22] MEDS: ASPIRIN EC 81 MG TABEC PO SCH (09:27)
[2016-11-22] MEDS: METOPROLOL TARTRATE 25 MG TAB PO SCH ×2 (09:27→21:48)
--- NOTE | 2016-11-22 10:02 | PD.CONS ---
cc: Rodríguez Barrera MD [facility] Service General Surgery Consult Requested By Dr. Mendoza Reason for Consult Evaluation of hidradenitis suppurativa Primary Care Physician No Primary Care Physician History of Present Illness This is a 46-year-old male with a past medical history of atrial fibrillation, diabetes mellitus, and hidradenitis suppurativa. He comes to the emergency department for with complaints of headache and neck pain. He has had a problem with chronically draining wounds in his bilateral axillary regions, bilateral groin, pelvis, bilateral gluteus and bilateral thighs for some time. He has been evaluated by plastic surgeon for his bilateral axillary draining wounds in the past. A General Surgery consultation has been requested for evaluation of chronically draining wounds. Review of Systems Constitutional: DENIES: Fatigue, Change in appetite Endocrine: DENIES: Polydipsia, Polyuria, Polyphagia Eyes: DENIES: Diplopia Ears, nose, mouth, throat: DENIES: Hearing loss Respiratory: DENIES: Cough Cardiovascular: DENIES: Chest pain, Palpitations Gastrointestinal: DENIES: Abdominal pain Genitourinary: DENIES: Urinary frequency Musculoskeletal: COMPLAINS OF: Neck pain, DENIES: Joint pain Integumentary: COMPLAINS OF: Abnormal pigmentation Hematologic/lymphatic: DENIES: Bruising Immunologic/allergic: DENIES: Eczema Neurologic: DENIES: Seizures Psychiatric: DENIES: Mood changes, Depression Past Family Social History Past Medical History Diabetes Rheumatoid arthritis Atrial fibrillation Hidradenitis suppurativa Past Surgical History Several incision and drainages related to hidradenitis in bilateral axillary and bilateral groin region Reported Medications Metoprolol NovoLog Levemir Aspirin Atorvastatin 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 Ordered Medications Current Medications Medications (Trade) Dose Ordered Sig/Mitzi Route Start Time Stop Time Status Last Admin (NS 1000 ml Inj) 1,000 ml @ 125 mls/hr Q8H IV 11/19/16 21:15 11/21/16 13:51 (NS Flush) 2 ml UNSCH PRN IV FLUSH 11/20/16 00:30 (NS Flush) 2 ml BID IV FLUSH 11/20/16 09:00 11/21/16 09:27 (Narcan Inj) 0.4 mg UNSCH PRN IV 11/20/16 00:30 Morphine Sulfate 2 mg 2 mg Q3H PRN IV PUSH 11/20/16 03:00 11/21/16 13:50 (Vancomycin Consult Pharmacy) 0 ml @ 0 mls/hr UNSCH OTHER 11/20/16 05:15 (Lipitor) 20 mg HS PO 11/20/16 21:00 11/21/16 22:26 (Levemir Inj) 30 units HS SQ 11/20/16 21:00 11/21/16 22:33 (Lopressor) 25 mg Q12HR PO 11/20/16 09:00 11/22/16 09:27 (Deltasone) 10 mg BID PO 11/20/16 09:00 11/22/16 09:26 (D50w (Vial) Inj) 50 ml UNSCH PRN IV 11/20/16 06:30 Glucagon 1 mg 1 mg UNSCH PRN OTHER 11/20/16 06:30 (Vancomycin Inj/ NS 500 ml Inj) 517.5 ml @ 250 mls/hr Q12H IV 11/20/16 12:00 11/22/16 01:26 Miscellaneous Information SPECIFIC LAB TO BE DRAWN:VANCOMYCIN TROUGH DATE TO... ONCE ONCE .XX 11/22/16 11:45 11/22/16 11:46 (Flexeril) 10 mg Q8H PRN PO 11/20/16 14:30 (Roxicodone) 10 mg Q6H PRN PO 11/21/16 16:00 11/22/16 03:14 (Roxicodone) 5 mg Q6H PRN PO 11/21/16 16:00 Aspirin 81 mg 81 mg DAILY PO 11/22/16 09:00 11/22/16 09:27 (Zosyn 3.375 Gm Premix) 50 ml @ 100 mls/hr Q6H IV 11/22/16 09:30 UNV Family History Noncontributory Social History Positive tobacco use Occasional EtOH use Denies illicit drug use Physical Exam Vital Signs Vital Signs Date Time Temp Pulse Resp B/P Pulse Ox O2 Delivery O2 Flow Rate FiO2 11/22/16 08:11 97.9 68 18 99/55 98 11/22/16 06:25 61 11/22/16 05:41 98.7 67 18 118/76 97 11/22/16 04:00 57 11/22/16 02:15 99/61 11/22/16 00:03 97.8 74 18 100/61 97 11/21/16 20:30 18 11/21/16 16:00 98.2 75 18 106/64 100 11/21/16 11:52 98.3 70 19 109/69 97 Physical Exam GENERAL: A 46-year-old male resting in bed in no acute distress SKIN: Bilateral axillary: Scars from prior I&D; pelvis: non-palpable fluid collections; bilateral groin: Palpable fluid collections; non-spontaneously draining. Left thigh: Open area in the inner aspect thigh; Spontaneously draining purulent fluid. Left gluteus: Several open chronically appearing wounds without copious drainage; several areas of palpable fluid collections. HEAD: Atraumatic. Normocephalic. EYES: Pupils equal and round. No scleral icterus. No injection or drainage. ENT: No nasal bleeding or discharge. Mucous membranes pink and moist. NECK: Trachea midline. CARDIOVASCULAR: Regular rate and rhythm. RESPIRATORY: No accessory muscle use. Clear to auscultation. Breath sounds equal bilaterally. GASTROINTESTINAL: Abdomen soft, non-tender, nondistended. MUSCULOSKELETAL: Extremities without clubbing, cyanosis, or edema. No obvious deformities. NEUROLOGICAL: Awake and alert. No obvious cranial nerve deficits. Motor grossly within normal limits. Five out of 5 muscle strength in the arms and legs. Normal speech. PSYCHIATRIC: Appropriate mood and affect; insight and judgment normal. Laboratory Laboratory Tests Test 11/22/16 06:25 White Blood Count 13.8 Red Blood Count 3.84 Hemoglobin 10.2 Hematocrit 32.2 Mean Corpuscular Volume 83.8 Mean Corpuscular Hemoglobin 26.5 Mean Corpuscular Hemoglobin 31.6 Concent Red Cell Distribution Width 21.3 Platelet Count 415 Mean Platelet Volume 8.1 Neutrophils (%) (Auto) 72.5 Lymphocytes (%) (Auto) 20.3 Monocytes (%) (Auto) 5.8 Eosinophils (%) (Auto) 0.9 Basophils (%) (Auto) 0.5 Neutrophils # (Auto) 10.0 Lymphocytes # (Auto) 2.8 Monocytes # (Auto) 0.8 Eosinophils # (Auto) 0.1 Basophils # (Auto) 0.1 CBC Comment DIFF FINAL Differential Comment Sodium Level 134 Potassium Level 3.8 Chloride Level 102 Carbon Dioxide Level 25.6 Anion Gap 6 Blood Urea Nitrogen 10 Creatinine 0.63 Estimat Glomerular Filtration 165 Rate Random Glucose 163 Calcium Level 9.1 Date/Time Procedure Status Source Growth 11/19/16 22:15 Aerobic Blood Culture - Preliminary Resulted Blood Peripheral NO GROWTH IN 2 DAYS 11/19/16 22:15 Anaerobic Blood Culture - Preliminary Resulted Blood Peripheral NO GROWTH IN 2 DAYS Result Diagram: 11/22/16 0625 11/22/1625 Assessment and Plan Assessment and Plan 46 -year-old male with neck pain and past medical history of hidradenitis suppurativa -Recommend Plastic surgery consultation -Diet as tolerated -Dr. Denis following for cervical stenosis--- per notes will require surgery -ID following -Shower twice daily with Hibiclens -No operative planes this time; we will sign off -Discussed with Dr. Livia BONILLA --- if no Plastic Surgery coverage is available at this facility would recommend transfer to another facility with Plastic Surgery coverage -Thank you for this consult Attending Note - Dr. Barrera Very complex patient with multiple areas of hidradenitis This cannot be treated with simple excision; will require wide excision multiple areas and likely staged procedure requiring flaps and/or multiple skin grafts This is beyond the scope of general surgery at this institution The exam, history, and the medical decision-making described in the above note were completed with the assistance of the mid-level provider. I reviewed and agree with the findings presented. I attest that I had a [id number] encounter with the patient on the same day, and personally performed and documented my assessment and findings in the medical record. Discussed Condition With Dr. Bruce BONILLA Mr. Clay EdwinMaria Nov 22, 2016 10:02 Rodríguez Barrera MD Nov 22, 2016 17:13
[2016-11-22] MEDS ORDERED: PIPERACIL-TAZO 3.375 GM PREMIX 50 ML IV SCH (11:00)
[2016-11-22] MEDS ORDERED: PHARMACY ORDERED LAB ONE (11:45)
--- NOTE | 2016-11-22 16:00 | HHI.NSPN ---
(Brandyn Reesndez) History Chief Complaint: Neck pain (Brandyn Resendez) Interval History 11/21: 46-year-old male who was previously admitted to the hospital approximately 3 weeks ago for sepsis. He now presents back to the emergency room on the evening of 11/19/16 with approximately 3 days of neck pain, headaches. No definite fever. No significant new onset pain and weakness numbness in the extremities or loss of bowel or bladder function. Positive photophobia. Positive history of suppurative hidradenitis 11/22: The patient is doing well this afternoon when seen. He does endorse having neck pain still. He also has numbness to the hands and feet as well which is chronic. (Brandyn Resendez) System Review Comments CONSTITUTIONAL: The patient denies any fever or chills. INTEGUMENTARY: The patient states he has a rash. HEENT: The patient denies any visual or hearing difficulties. NECK: The patient has pain to the neck. CARDIOVASCULAR: The patient denies any chest pain, palpitations or irregular heartbeat. RESPIRATORY: The patient denies any shortness of breath or productive cough. GASTROINTESTINAL: The patient denies any abdominal pain, nausea, vomiting or incontinence of stool. GENITOURINARY: The patient denies any incontinence of urine. MUSCULOSKELETAL: The patient has weakness to the left arm and has had prior surgery to it. He has numbness to the hand and feet which is chronic. NEUROLOGICAL: The patient has chronic numbness to the hands and feet. He denies any headache, dizziness or tingling. (Brandyn Resendez) Exam Results Vital Signs Date Time Temp Pulse Resp B/P Pulse Ox O2 Delivery O2 Flow Rate FiO2 11/22/16 11:58 98.2 65 18 110/67 98 11/20/16 13:00 Room Air Intake and Output 11/21/16 11/21/16 11/21/16 07:59 15:59 23:59 Intake Total 480 ml Output Total 800 ml 600 ml Balance -800 ml -120 ml (Brandyn Resendez) Physical Examination GENERAL: Patient is awake & alert w/o any apparent distress, affect normal. SKIN: Multiple lesions to the groins, thighs, buttocks & perineal area. HEENT: Normocephalic, atraumatic. PERRLA, EOMI. NECK: Midline cervical spine TTP, no JVD, trachea midline. CARDIOVASCULAR: S1S2 w/RRR w/o M/G/R, radial & pedal pulses 2+ bilaterally, cap refill < 2 sec, no pedal edema. RESPIRATORY: CTAB w/o W/R/R, equal excursion, nonlaboured, on RA. GASTROINTESTINAL: Abdomen soft, nontender, positive bowel sounds. MUSCULOSKELETAL: OBRIEN w/o difficulty, no evident deformity or clubbing. NEUROLOGICAL: AAOx3. Speech clear & appropriate. Follows simple commands w/o difficulty. Sensation intact to light touch to all extremities except for the hands and feet which have decreased sensation. Motor strength 5/5 to RUE & BLE, 3 to 4/5 to LUE. (Brandyn Resendez) Lab, Micro, Other Results Allergies Coded Allergies Type Severity Reaction Last Updated Verified *MDRO Multi-Drug Resistant Organism Adverse Reaction Unknown 10/23/16 Yes Recent Impressions Cervical Spine CT 11/19/162113 Signed Impressions: Service Date/Time: Saturday, November 19, 2016 21:41 - CONCLUSION: 1. Moderate broad-based protrusion C5-6 with mild/moderate canal stenosis. 2. Mild broad-based protrusion C6-7 without canal stenosis. 3. Shallow broad-based protrusion C7-T1 without canal stenosis. Adolfo Flores MD Head CT 11/19/162100 Signed Impressions: Service Date/Time: Saturday, November 19, 2016 21:41 - CONCLUSION: No acute intracranial disease. Adolfo Flores MD Chest X-Ray 11/19/162100 Signed Impressions: Service Date/Time: Saturday, November 19, 2016 21:22 - CONCLUSION: No acute disease. Adolfo Flores MD //// 05:59 17:59 05:59 17:59 05:59 17:59 Intake Total 1360 ml 840 ml Output Total 1150 ml 800 ml 600 ml Balance 210 ml -800 ml 240 ml Intake Oral 360 ml 840 ml IV Total 1000 ml Output Urine Total 1150 ml 800 ml 600 ml # Voids 3 Laboratory Tests Test 11/19/16 11/19/16 11/19/16 11/21/16 22:00 23:15 23:20 08:11 White Blood Count 16.1 TH/MM3 14.7 TH/MM3 Red Blood Count 3.53 MIL/MM3 3.47 MIL/MM3 Hemoglobin 9.5 GM/DL 9.2 GM/DL Hematocrit 29.3 % 29.3 % Mean Corpuscular Volume 83.2 FL 84.3 FL Mean Corpuscular Hemoglobin 26.8 PG 26.5 PG Mean Corpuscular Hemoglobin 32.2 % 31.4 % Concent Red Cell Distribution Width 21.6 % 21.0 % Platelet Count 367 TH/MM3 394 TH/MM3 Mean Platelet Volume 7.8 FL 8.1 FL Neutrophils (%) (Auto) 70.9 % 79.2 % Lymphocytes (%) (Auto) 20.7 % 14.5 % Monocytes (%) (Auto) 6.1 % 5.0 % Eosinophils (%) (Auto) 1.8 % 1.0 % Basophils (%) (Auto) 0.5 % 0.3 % Neutrophils # (Auto) 11.4 TH/MM3 11.7 TH/MM3 Lymphocytes # (Auto) 3.4 TH/MM3 2.1 TH/MM3 Monocytes # (Auto) 1.0 TH/MM3 0.7 TH/MM3 Eosinophils # (Auto) 0.3 TH/MM3 0.1 TH/MM3 Basophils # (Auto) 0.1 TH/MM3 0.0 TH/MM3 CBC Comment DIFF FINAL DIFF FINAL Differential Comment Prothrombin Time 12.1 SEC Prothromb Time International 1.1 RATIO Ratio Activated Partial 21.4 SEC Thromboplast Time Sodium Level 140 MEQ/L 135 MEQ/L Potassium Level 4.1 MEQ/L 3.6 MEQ/L Chloride Level 106 MEQ/L 103 MEQ/L Carbon Dioxide Level 25.8 MEQ/L 24.5 MEQ/L Anion Gap 8 MEQ/L 8 MEQ/L Blood Urea Nitrogen 21 MG/DL 10 MG/DL Creatinine 0.82 MG/DL 0.69 MG/DL Estimat Glomerular Filtration 122 ML/MIN 148 ML/MIN Rate Random Glucose 128 MG/DL 282 MG/DL Lactic Acid Level 0.8 mmol/L Calcium Level 9.1 MG/DL 8.8 MG/DL Total Bilirubin 0.6 MG/DL Aspartate Amino Transf 15 U/L (AST/SGOT) Alanine Aminotransferase 14 U/L (ALT/SGPT) Alkaline Phosphatase 91 U/L C-Reactive Protein 13.00 MG/DL Total Protein 9.0 GM/DL Albumin 2.6 GM/DL Erythrocyte Sedimentation Rate GREATER THAN 140 mm/hr Urine Color YELLOW Urine Turbidity CLEAR Urine pH 6.0 Urine Specific [place] 1.034 Urine Protein 30 mg/dL Urine Glucose (UA) NEG mg/dL Urine Ketones NEG mg/dL Urine Occult Blood NEG Urine Nitrite NEG Urine Bilirubin NEG Urine Urobilinogen 2.0 MG/DL Urine Leukocyte Esterase NEG Urine RBC 1 /hpf Urine WBC 1 /hpf Urine Squamous Epithelial 1 /hpf Cells Urine Mucus FEW /lpf Microscopic Urinalysis Comment CULT NOT INDICATED Test 11/22/16 11/22/16 06:25 10:22 White Blood Count 13.8 TH/MM3 Red Blood Count 3.84 MIL/MM3 Hemoglobin 10.2 GM/DL Hematocrit 32.2 % Mean Corpuscular Volume 83.8 FL Mean Corpuscular Hemoglobin 26.5 PG Mean Corpuscular Hemoglobin 31.6 % Concent Red Cell Distribution Width 21.3 % Platelet Count 415 TH/MM3 Mean Platelet Volume 8.1 FL Neutrophils (%) (Auto) 72.5 % Lymphocytes (%) (Auto) 20.3 % Monocytes (%) (Auto) 5.8 % Eosinophils (%) (Auto) 0.9 % Basophils (%) (Auto) 0.5 % Neutrophils # (Auto) 10.0 TH/MM3 Lymphocytes # (Auto) 2.8 TH/MM3 Monocytes # (Auto) 0.8 TH/MM3 Eosinophils # (Auto) 0.1 TH/MM3 Basophils # (Auto) 0.1 TH/MM3 CBC Comment DIFF FINAL Differential Comment Sodium Level 134 MEQ/L Potassium Level 3.8 MEQ/L Chloride Level 102 MEQ/L Carbon Dioxide Level 25.6 MEQ/L Anion Gap 6 MEQ/L Blood Urea Nitrogen 10 MG/DL Creatinine 0.63 MG/DL Estimat Glomerular Filtration 165 ML/MIN Rate Random Glucose 163 MG/DL Calcium Level 9.1 MG/DL Vancomycin Level Trough 13.4 MCG/ML Vital Signs Date Time Temp Pulse Resp B/P Pulse Ox O2 Delivery O2 Flow Rate FiO2 11/22/16 11:58 98.2 65 18 110/67 98 11/22/16 08:11 97.9 68 18 99/55 98 11/22/16 06:25 61 11/22/16 05:41 98.7 67 18 118/76 97 11/22/16 04:00 57 11/22/16 02:15 99/61 11/22/16 00:03 97.8 74 18 100/61 97 11/21/16 20:30 18 11/21/16 16:00 98.2 75 18 106/64 100 11/21/16 11:52 98.3 70 19 109/69 97 11/21/16 07:20 97.8 69 18 133/71 99 11/21/16 03:53 68 11/21/16 03:28 98.1 81 18 129/71 98 11/21/16 00:24 72 18 109/71 95 11/21/16 00:05 72 11/20/16 21:26 77 11/20/16 20:49 98.1 67 18 126/77 97 11/20/16 16:21 98.0 75 18 124/66 100 11/20/16 13:00 72 18 101/58 98 Room Air 11/20/16 07:30 85 18 125/75 97 Room Air 11/20/16 06:04 16 11/20/16 05:06 98.0 84 17 124/59 97 Room Air 11/20/16 02:22 16 11/20/16 02:21 98.4 90 16 104/57 98 Room Air 11/19/16 23:55 98 Room Air 11/19/16 23:54 98.4 94 17 107/68 98 Room Air 11/19/16 20:46 94 16 109/69 98 Room Air 11/19/16 18:57 99.5 122 16 129/85 98 Room Air (Brandyn Resendez) Medical Decision Making Impression and Plan Impression: 1. Cervical stenosis at least moderate severity at C5-6 level 2. History of suppurative hidradenitis 3. History of atrial fibrillation on aspirin 4. Hypertension 5. Diabetes Patient doing well, neck pain continues. Stable neurological examination - patient w/weakness to LUE which he says is chronic since having surgery to the proximal arm. Plan: MRI cervical spine w/o & w/contrast to assess degree of spinal cord compression and any signal intensity changes within the cord. Due to the significant C5-6 canal stenosis,it is anticipated that the patient will require a C5-6 ACDF. Will defer surgery at present due to recent infectious disease until infectious risk diminishes since neurological function is stable. (Brandyn Resendez) Attending Statement I have personally seen and examined the patient on 11/22/16 pertinent documentation and study results have been reviewed by the undersigned. I have personally developed the treatment plan and performed medical decision making. Agree with findings, exam, and treatment plan as noted above. MRI pending at time of visit today. No overall change in neurologic exam. No definite myelopathic findings, however may be masked by diabetic neuropathy We will discuss further with patient once MRI available. (Garcia Denis MD) Brandyn Resendez Nov 22, 2016 16:00 Garcia Denis MD Nov 23, 2016 23:35
[2016-11-22] MEDS: PIPERACIL-TAZO 3.375 GM PREMIX 50 ML IV SCH (16:23)
--- NOTE | 2016-11-22 16:49 | PD.CAR.PN ---
CVT Progress Note Subjective/Hospital Course: Patient with about 20 years history of hydradenitis suppurativa of axillae, both groins, inner thighs and gluteal areas Had surgery [place] Now has additional areas of low-grade infections with the drainage in both groins both inner thighs and some over the gluteal areas with semi-open wounds Patient will need elective resection of the skin bearing sweat glands and then skin grafting after that. This is not within the scope of practice of general surgery and is well within the scope breaths of plastic surgery Patient will need to be referred to plastic surgery. From my point patient can be discharged from the hospital Thanks J Objective: Vital Signs Date Time Temp Pulse Resp B/P Pulse Ox O2 Delivery O2 Flow Rate FiO2 11/22/16 11:58 98.2 65 18 110/67 98 11/22/16 08:11 97.9 68 18 99/55 98 11/22/16 06:25 61 11/22/16 05:41 98.7 67 18 118/76 97 11/22/16 04:00 57 11/22/16 02:15 99/61 11/22/16 00:03 97.8 74 18 100/61 97 11/21/16 20:30 18 Labs: Laboratory Tests Test 11/22/16 11/22/16 06:25 10:22 White Blood Count 13.8 TH/MM3 (4.0-11.0) Red Blood Count 3.84 MIL/MM3 (4.50-5.90) Hemoglobin 10.2 GM/DL (13.0-17.0) Hematocrit 32.2 % (39.0-51.0) Mean Corpuscular Volume 83.8 FL (80.0-100.0) Mean Corpuscular Hemoglobin 26.5 PG (27.0-34.0) Mean Corpuscular Hemoglobin 31.6 % Concent (32.0-36.0) Red Cell Distribution Width 21.3 % (11.6-17.2) Platelet Count 415 TH/MM3 (150-450) Mean Platelet Volume 8.1 FL (7.0-11.0) Neutrophils (%) (Auto) 72.5 % (16.0-70.0) Lymphocytes (%) (Auto) 20.3 % (9.0-44.0) Monocytes (%) (Auto) 5.8 % (0.0-8.0) Eosinophils (%) (Auto) 0.9 % (0.0-4.0) Basophils (%) (Auto) 0.5 % (0.0-2.0) Neutrophils # (Auto) 10.0 TH/MM3 (1.8-7.7) Lymphocytes # (Auto) 2.8 TH/MM3 (1.0-4.8) Monocytes # (Auto) 0.8 TH/MM3 (0-0.9) Eosinophils # (Auto) 0.1 TH/MM3 (0-0.4) Basophils # (Auto) 0.1 TH/MM3 (0-0.2) CBC Comment DIFF FINAL Differential Comment Sodium Level 134 MEQ/L (136-145) Potassium Level 3.8 MEQ/L (3.5-5.1) Chloride Level 102 MEQ/L (98-107) Carbon Dioxide Level 25.6 MEQ/L (21.0-32.0) Anion Gap 6 MEQ/L (5-15) Blood Urea Nitrogen 10 MG/DL (7-18) Creatinine 0.63 MG/DL (0.60-1.30) Estimat Glomerular Filtration 165 ML/MIN Rate (>89) Random Glucose 163 MG/DL (74-106) Calcium Level 9.1 MG/DL (8.5-10.1) Vancomycin Level Trough 13.4 MCG/ML (5.0-10.0) Result Diagram: 11/22/16 0625 11/22/16 0625 Jeferson Cronin MD Nov 22, 2016 16:49
--- NOTE | 2016-11-22 17:30 | HHI.PR ---
Subjective Remarks Follow up for neck pain, headache and chronic hidradenitis suppurativa. Patient is currently doing well. No fever, chills. Objective Vitals Vital Signs Date Time Temp Pulse Resp B/P Pulse Ox O2 Delivery O2 Flow Rate FiO2 11/22/16 16:21 98.1 65 18 114/72 98 11/22/16 11:58 98.2 65 18 110/67 98 11/22/16 08:11 97.9 68 18 99/55 98 11/22/16 06:25 61 11/22/16 05:41 98.7 67 18 118/76 97 11/22/16 04:00 57 11/22/16 02:15 99/61 11/22/16 00:03 97.8 74 18 100/61 97 11/21/16 20:30 18 I/O 11/21/16 11/21/16 11/21/16 11/22/16 11/22/16 11/22/16 07:00 15:00 23:00 07:00 15:00 23:00 Intake Total 480 ml 360 ml Output Total 800 ml 600 ml Balance -800 ml -120 ml 360 ml Intake Oral 480 ml 360 ml Output Urine Total 800 ml 600 ml Result Diagram: 11/22/1625 11/22/16624 Imaging Last Impressions Cervical Spine CT 11/19/162113 Signed Impressions: Service Date/Time: Saturday, November 19, 2016 21:41 - CONCLUSION: 1. Moderate broad-based protrusion C5-6 with mild/moderate canal stenosis. 2. Mild broad-based protrusion C6-7 without canal stenosis. 3. Shallow broad-based protrusion C7-T1 without canal stenosis. Adolfo Flores MD Head CT 11/19/162100 Signed Impressions: Service Date/Time: Saturday, November 19, 2016 21:41 - CONCLUSION: No acute intracranial disease. Adolfo Flores MD Chest X-Ray 11/19/162100 Signed Impressions: Service Date/Time: Saturday, November 19, 2016 21:22 - CONCLUSION: No acute disease. Adolfo Flores MD Objective Remarks GENERAL: Alert, oriented x 3, NAD SKIN: Warm and dry. Diffuse hydradenitis suppurativa in the groin area. s/p surgery for Hydradenitis Suppurativa in bilateral axila. HEAD: Normocephalic. EYES: No scleral icterus. No injection or drainage. NECK: trachea midline. No JVD or lymphadenopathy. Pain on movement of neck to the left. Mild pain on chin to chest touch. CARDIOVASCULAR: Regular rate and rhythm without murmurs, gallops, or rubs. RESPIRATORY: Breath sounds equal bilaterally. No accessory muscle use. GASTROINTESTINAL: Abdomen soft, non-tender, nondistended. MUSCULOSKELETAL: No cyanosis, or edema. Neuro: No focal neurological deficits. Kernig's sign negative. BACK: Nontender without obvious deformity. No CVA tenderness. Procedures None A/P Problem List: (1) Cephalgia ICD Code: R51 Status: Acute (2) Neck pain ICD Code: M54.2 Status: Acute Assessment and Plan Mr. Clay is a 46 y/o male with hx of RA, hidradenitis suppurativa, diabetes, presents with a 5 day history of headache, neck pain. His pain started in the back of his head with radiation to the upper back. Patient also complained of groin pain associated with hydradenitis suppurativa. Due to suspicion over bacterial meningitis, patient was started on Ceftriaxone and Vancomycin. - Neck pain, headache - C5-C6 moderate stenosis - Bacterial meningitis is unlikely. Patient's neck pain, headache likely due to C5-C6 stenosis. - discontinued LP order. Discussed with Dr. Mendoza (ID) switched abx from Ceftriaxone and Vancomycin to Zosyn. - Continue pain control with IV Morphine 2 mg prn. Continue Flexeril. - Neurosurgery consulted for recommendations. - At this point, I feel that patient's skin condition is chronic and thus it should not be a prohibitive factor to proceed with C5-C6 ACDF. - Will discuss with Neurosurgery. - Hidradenitis suppurativa - Continue doxycycline 100 mg po bid (previous ID eval on 10/26 recommended to complete doxy 100mg bid [id number]) - ID added Clindamycin. - General surgery recommends plastic surgery consultation which can be done outpatient as well. - Diabetes Mellitus - Continue home Levemir 30 units QHS. - Accu-Cheks before meals and at bedtime with low-dose NovoLog sliding scale coverage - Hypoglycemia protocol - Monitor trends and blood glucose readings and adjust treatments as indicated - Atrial fibrillation - [id number] score 1 (DM). - Continue Aspirin 81mg Qday. - Continue Metoprolol 25mg BID for rate control. Rheumatoid Arthritis: with possible flare - continue prednisone 10mg BID. - continue pain control with oxycodone prn, IV morphine prn breakthrough pain - Outpatient rheumatology evaluation would be beneficial. Full code. Ambulation. Problem Qualifiers (1) Cephalgia: Qualified Code: R51 - Acute nonintractable headache, unspecified headache type Kerri Parnell DO Nov 22, 2016 17:30
[2016-11-22] MEDS: MORPHINE SULFATE 4 MG/ML INJ IV PUSH PRN (17:50)
[2016-11-22] MEDS: INSULIN DETEMIR 100 UNITS/ML VIAL SQ SCH (21:00)
[2016-11-22] MEDS: VANCOMYCIN INJ 2,000 MG in SODIUM CHLORID 0.9% 500 ML INJ 500 ML IV SCH (21:46)
[2016-11-22] MEDS: ATORVASTATIN 20 MG TAB PO SCH (21:47)
[2016-11-23] VITALS (7 sets, daily range): BP systolic 117–138; BP diastolic 61–76; PULSE 60–76; RESP 16–20; TEMP 97.4–98.1; O2SAT 94–99
[2016-11-23] MEDS: PIPERACIL-TAZO 3.375 GM PREMIX 50 ML IV SCH ×4 (03:09→20:31)
[2016-11-23] MEDS: SODIUM CHLOR 0.9% 1000 ML INJ 1,000 ML IV SCH ×3 (05:15→21:15)
[2016-11-23] MEDS: INSULIN ASPART SUPPLEMENTAL SCALE SQ SCH ×4 (05:26→20:23)
[2016-11-23] MEDS: MORPHINE SULFATE 4 MG/ML INJ IV PUSH PRN ×5 (05:31→20:24)
[2016-11-23] MEDS: SODIUM CHLORIDE 0.9% FLUSH 10 ML FLUSH IV FLUSH SCH ×2 (09:03→20:37)
[2016-11-23] MEDS: METOPROLOL TARTRATE 25 MG TAB PO SCH ×2 (09:03→20:24)
[2016-11-23] MEDS: ASPIRIN EC 81 MG TABEC PO SCH (09:03)
[2016-11-23] MEDS: predniSONE 10 MG TAB PO SCH ×2 (09:03→20:24)
[2016-11-23] MEDS: CHLORHEXIDINE GLUCONATE 4% SOLN 120 ML BTL TOPICAL SCH ×2 (09:21→21:00)
[2016-11-23] MEDS: VANCOMYCIN INJ 2,000 MG in SODIUM CHLORID 0.9% 500 ML INJ 500 ML IV SCH ×2 (09:55→20:31)
--- NOTE | 2016-11-23 11:01 | HHI.PR ---
Addendum to Inpatient Note Additional Information dw Dr Cronin Essentially pt will need an elective neurosurgical procedure onhis neck which is a high risk for infection given the amount of draining wounds Ideally, if his neck surgery can be postponed from neurosurgical perspective without a risk of develpping iminent neurological deficits, pt will need to undergo plastic surgery to excise his sweat bearing skin aresas with subsequent grafting then complete the Cspine surgery. Otherwise he can be discharged on clindamycin x 2 weeks He is clearly clinically failing doxcycycline treatment and will need prompt follow up after discharge with plastic surgeon Sneha Mendoza MD Nov 23, 2016 11:01
[2016-11-23] MEDS ORDERED: GADODIAMIDE PF 287 MG/ML 20 ML VIAL (for RAD MRI) IV ONE (11:59)
--- NOTE | 2016-11-23 12:59 | RADRPT ---
EXAM DATE/TIME: 11/23/2016 11:40 [facility] COMPARISON: CT CERVICAL SPINE W/O CONTRAST, November 19, 2016, 21:41. INDICATIONS : Neck pain with no known injury. CONTRAST: 19 cc Omniscan (gadodiamide) IV MEDICAL HISTORY : Hypertension. Diabetes mellitus type 2. SURGICAL HISTORY : None. ENCOUNTER: Subsequent ACUITY: 1 week PAIN SCORE: 3/10 LOCATION: NECK TECHNIQUE: Multiplanar, multisequence MRI examination of the cervical spine was performed. FINDINGS: POST-CONTRAST: No abnormal areas of enhancement are seen. C2-C3: There is no evidence for any significant compromise to the thecal sac, or the exiting nerve roots. N o appreciable thecal sac stenosis is seen. The neural foramina and lateral recess appear patent bila terally. C3-C4: There is no evidence for any significant compromise to the thecal sac, or the exiting nerve roots. N o appreciable thecal sac stenosis is seen. The neural foramina and lateral recess appear patent bila terally. C4-C5: Slight degenerative changes are seen within the disc space and facets. There is slight neural foramin a compromise on the right due to asymmetrical bulging disc and hypertrophic changes. Slight bulging d isc and hypertrophic changes are seen with indentation on the thecal sac and no significant compromis e to the thecal sac. C5-C6: There is slight neural foramina compromise bilaterally due to bulging disc and hypertrophic changes. Significant overall thecal sac stenosis is seen due to bulging disc and hypertrophic changes causing slight flattening of the spinal cord.Moderate degenerative changes are seen within the disc space and facets. C6-C7: Moderate degenerative changes are seen within the disc space and facets. Significant overall thecal s ac stenosis is seen due to central disc/osteophyte complex and hypertrophic changes flattening the sp inal cord. C7-T1: There is no evidence for any significant compromise to the thecal sac, or the exiting nerve roots. N o appreciable thecal sac stenosis is seen. The neural foramina and lateral recess appear patent bila terally. CONCLUSION: 1. Significant thecal sac stenosis C5-6 and C6-7 with flattening of the spinal cord. 2. Neural foramina compromise right C4-5, bilateral C5-C6. K. Jamey Kiser MD on November 23, 2016 at 12:45 Board Certified Radiologist. This report was verified electronically.
--- NOTE | 2016-11-23 16:02 | HHI.NSPN ---
(Brandyn Resendez) History Chief Complaint: Pain to the back of the head and neck. (Brandyn Resendez) Interval History 11/21: 46-year-old male who was previously admitted to the hospital approximately 3 weeks ago for sepsis. He now presents back to the emergency room on the evening of 11/19/16 with approximately 3 days of neck pain, headaches. No definite fever. No significant new onset pain and weakness numbness in the extremities or loss of bowel or bladder function. Positive photophobia. Positive history of suppurative hidradenitis 11/22: The patient is doing well this afternoon when seen. He does endorse having neck pain still. He also has numbness to the hands and feet as well which is chronic. 11/23: The patient states he is doing okay this afternoon. He complains of pain to the occipital region and the posterior neck. (Brandyn Resendez) System Review Comments CONSTITUTIONAL: The patient denies any fever or chills. HEENT: The patient has pain to the back of the head. NECK: The patient has pain to the neck. CARDIOVASCULAR: The patient denies any chest pain, palpitations or irregular heartbeat. RESPIRATORY: The patient denies any shortness of breath or productive cough. GASTROINTESTINAL: The patient denies any abdominal pain, nausea, vomiting or incontinence of stool. GENITOURINARY: The patient denies any incontinence of urine. MUSCULOSKELETAL: The patient has weakness to the left arm secondary to prior surgery. He has numbness to the hands and feet which is chronic. NEUROLOGICAL: The patient has chronic numbness to the hands and feet. He denies any headache, dizziness or tingling. (Brandyn Resendez) Exam Results Vital Signs Date Time Temp Pulse Resp B/P Pulse Ox O2 Delivery O2 Flow Rate FiO2 11/23/16 08:00 97.4 60 16 119/71 96 11/20/16 13:00 Room Air Intake and Output 11/22/16 11/22/16 11/23/16 08:00 16:00 00:00 Intake Total 360 ml Balance 360 ml (Brandyn Resendez) Physical Examination GENERAL: Patient is asleep but awakens to verbal stimuli, alert after that, NAD , affect normal. HEENT: Normocephalic, atraumatic, occipital scalp TTP. NECK: Midline cervical spine TTP, no JVD, trachea midline. CARDIOVASCULAR: S1S2 w/RRR w/o M/G/R, radial pulses 2+ bilaterally, cap refill < 2 sec. RESPIRATORY: CTAB w/o W/R/R, equal excursion, nonlaboured, on RA. GASTROINTESTINAL: Abdomen soft, nontender, positive bowel sounds. MUSCULOSKELETAL: OBRIEN w/o difficulty, no evident deformity or clubbing. NEUROLOGICAL: AAOx3. Speech clear & appropriate. Follows simple commands w/o difficulty. Sensation intact to light touch to upper extremities except for the hands which have decreased sensation. Motor strength 5/5 to RUE & 3 to 4/5 to LUE. (Brandyn Resendez) Lab, Micro, Other Results Allergies Coded Allergies Type Severity Reaction Last Updated Verified *MDRO Multi-Drug Resistant Organism Adverse Reaction Unknown 10/23/16 Yes Recent Impressions Cervical Spine MRI 11/23/16 0000 Signed Impressions: Service Date/Time: Wednesday, November 23, 2016 11:40 - CONCLUSION: 1. Significant thecal sac stenosis C5-6 and C6-7 with flattening of the spinal cord. 2. Neural foramina compromise right C4-5, bilateral C5-C6. KRaheem Kiser MD /// 06:00 18:00 06:00 18:00 06:00 18:00 Intake Total 480 ml 360 ml 1450 ml Output Total 1400 ml 1900 ml Balance -920 ml 360 ml -1900 ml 1450 ml Intake Oral 480 ml 360 ml IV Total 1450 ml Output Urine Total 1400 ml 1900 ml # Bowel Movements 0 Laboratory Tests Test 11/21/16 11/22/16 11/22/16 08:11 06:25 10:22 White Blood Count 14.7 TH/MM3 13.8 TH/MM3 Red Blood Count 3.47 MIL/MM3 3.84 MIL/MM3 Hemoglobin 9.2 GM/DL 10.2 GM/DL Hematocrit 29.3 % 32.2 % Mean Corpuscular Volume 84.3 FL 83.8 FL Mean Corpuscular Hemoglobin 26.5 PG 26.5 PG Mean Corpuscular Hemoglobin 31.4 % 31.6 % Concent Red Cell Distribution Width 21.0 % 21.3 % Platelet Count 394 TH/MM3 415 TH/MM3 Mean Platelet Volume 8.1 FL 8.1 FL Neutrophils (%) (Auto) 79.2 % 72.5 % Lymphocytes (%) (Auto) 14.5 % 20.3 % Monocytes (%) (Auto) 5.0 % 5.8 % Eosinophils (%) (Auto) 1.0 % 0.9 % Basophils (%) (Auto) 0.3 % 0.5 % Neutrophils # (Auto) 11.7 TH/MM3 10.0 TH/MM3 Lymphocytes # (Auto) 2.1 TH/MM3 2.8 TH/MM3 Monocytes # (Auto) 0.7 TH/MM3 0.8 TH/MM3 Eosinophils # (Auto) 0.1 TH/MM3 0.1 TH/MM3 Basophils # (Auto) 0.0 TH/MM3 0.1 TH/MM3 CBC Comment DIFF FINAL DIFF FINAL Differential Comment Sodium Level 135 MEQ/L 134 MEQ/L Potassium Level 3.6 MEQ/L 3.8 MEQ/L Chloride Level 103 MEQ/L 102 MEQ/L Carbon Dioxide Level 24.5 MEQ/L 25.6 MEQ/L Anion Gap 8 MEQ/L 6 MEQ/L Blood Urea Nitrogen 10 MG/DL 10 MG/DL Creatinine 0.69 MG/DL 0.63 MG/DL Estimat Glomerular Filtration 148 ML/MIN 165 ML/MIN Rate Random Glucose 282 MG/DL 163 MG/DL Calcium Level 8.8 MG/DL 9.1 MG/DL Vancomycin Level Trough 13.4 MCG/ML Vital Signs Date Time Temp Pulse Resp B/P Pulse Ox O2 Delivery O2 Flow Rate FiO2 11/23/16 08:00 97.4 60 16 119/71 96 11/23/16 07:00 60 11/23/16 04:00 97.9 65 18 117/61 97 11/23/16 00:02 97.7 65 18 138/76 94 11/22/16 21:45 72 11/22/16 21:25 98.1 70 18 133/72 99 11/22/16 16:21 98.1 65 18 114/72 98 11/22/16 11:58 98.2 65 18 110/67 98 11/22/16 08:11 97.9 68 18 99/55 98 11/22/16 06:25 61 11/22/16 05:41 98.7 67 18 118/76 97 11/22/16 04:00 57 11/22/16 02:15 99/61 11/22/16 00:03 97.8 74 18 100/61 97 11/21/16 20:30 18 11/21/16 16:00 98.2 75 18 106/64 100 11/21/16 11:52 98.3 70 19 109/69 97 11/21/16 07:20 97.8 69 18 133/71 99 11/21/16 03:53 68 11/21/16 03:28 98.1 81 18 129/71 98 11/21/16 00:24 72 18 109/71 95 11/21/16 00:05 72 11/20/16 21:26 77 11/20/16 20:49 98.1 67 18 126/77 97 11/20/16 16:21 98.0 75 18 124/66 100 (Brandyn Resendez) Medical Decision Making Impression and Plan Impression: 1. Cervical stenosis at least moderate severity at C5-6 level 2. History of suppurative hidradenitis 3. History of atrial fibrillation on aspirin 4. Hypertension 5. Diabetes MRI cervical spine demonstrates significant thecal sac stenosis at C5 -6 and C6-7 w/flattening of the spinal cord as well as neural foraminal compromise to right C4-5 and bilateral C5-6. Patient continues to do good, his neck pain persists. Stable neurological examination - patient w/weakness to LUE which he says is chronic since having surgery to the proximal arm. Plan: Plan for C5-6 ACDF, will defer to the future due to recent infectious disease in order for the infectious risk to diminish since neurological function is stable. (Brandyn Resendez) Attending Statement I have personally seen and examined the patient on the date of this note. Pertinent documentation and study results have been reviewed by the undersigned. I have personally developed the treatment plan and performed medical decision making. Agree with findings, exam, and treatment plan as noted above. No new complaints. Sensation moderately diminished light touch distal upper and lower extremities was complaining of paresthesia. Diminished strength in bilateral hand intrinsics, abductor digiti quinti minimi , extensor digitorum which appears related to moderate arthritic changes. His gait is steady Tyree's response has bilateral No ankle clonus Plantar responses are neutral 11/23/16 MRI images reviewed and discussed with the patient. The study reveals severe C5 6 greater than C45 and C6 7 posterior osteophytic disc complexes with severe C6 7 level stenosis and cord compression with mild abnormal signal intensity changes within the cord. Advised patient regarding options of conservative treatment versus surgical intervention. Given the severity of stenosis is a definite risk of progressive myelopathy and neurologic deficit particularly in the event of any neck trauma. He wishes to proceed with surgery during this hospitalization if possible. Increased risk of infection was discussed with him. This will be reviewed further with infectious disease before making a final decision regarding surgical intervention at this time. Signs and symptoms to watch were discussed with the patient. (Garcia Denis MD ) Brandyn Resendez Nov 23, 2016 16:02 Garcia Denis MD Nov 23, 2016 23:37
--- NOTE | 2016-11-23 17:37 | HHI.PR ---
Subjective Remarks Follow up for neck pain, headache and chronic hidradenitis suppurativa. Patient is doing well. No acute concerns. Denies any fever or chills. Objective Vitals Vital Signs Date Time Temp Pulse Resp B/P Pulse Ox O2 Delivery O2 Flow Rate FiO2 11/23/16 16:00 98.1 60 18 128/62 98 11/23/16 08:00 97.4 60 16 119/71 96 11/23/16 07:00 60 11/23/16 04:00 97.9 65 18 117/61 97 11/23/16 00:02 97.7 65 18 138/76 94 11/22/16 21:45 72 11/22/16 21:25 98.1 70 18 133/72 99 I/O 11/22/16 11/22/16 11/22/16 11/23/16 11/23/16 11/23/16 07:00 15:00 23:00 07:00 15:00 23:00 Intake Total 360 ml 1450 ml Output Total 1900 ml Balance 360 ml -1900 ml 1450 ml Intake Oral 360 ml IV Total 1450 ml Output Urine Total 1900 ml # Bowel Movements 0 Result Diagram: 11/22/16 0625 11/22/16 0625 Imaging Last Impressions Cervical Spine MRI 11/23/16 0000 Signed Impressions: Service Date/Time: Wednesday, November 23, 2016 11:40 - CONCLUSION: 1. Significant thecal sac stenosis C5-6 and C6-7 with flattening of the spinal cord. 2. Neural foramina compromise right C4-5, bilateral C5-C6. K. Jamey Kiser MD Cervical Spine CT 11/19/162113 Signed Impressions: Service Date/Time: Saturday, November 19, 2016 21:41 - CONCLUSION: 1. Moderate broad-based protrusion C5-6 with mild/moderate canal stenosis. 2. Mild broad-based protrusion C6-7 without canal stenosis. 3. Shallow broad-based protrusion C7-T1 without canal stenosis. Adolfo Flores MD Head CT 11/19/162100 Signed Impressions: Service Date/Time: Saturday, November 19, 2016 21:41 - CONCLUSION: No acute intracranial disease. Adolfo Flores MD Chest X-Ray 11/19/162100 Signed Impressions: Service Date/Time: Saturday, November 19, 2016 21:22 - CONCLUSION: No acute disease. Adolfo Flores MD Objective Remarks GENERAL: Alert, oriented x 3, NAD SKIN: Warm and dry. Diffuse hydradenitis suppurativa in the groin area. s/p surgery for Hydradenitis Suppurativa in bilateral axila. HEAD: Normocephalic. EYES: No scleral icterus. No injection or drainage. NECK: trachea midline. No JVD or lymphadenopathy. Pain on movement of neck to the left. Mild pain on chin to chest touch. CARDIOVASCULAR: Regular rate and rhythm without murmurs, gallops, or rubs. RESPIRATORY: Breath sounds equal bilaterally. No accessory muscle use. GASTROINTESTINAL: Abdomen soft, non-tender, nondistended. MUSCULOSKELETAL: No cyanosis, or edema. Neuro: No focal neurological deficits. Kernig's sign negative. BACK: Nontender without obvious deformity. No CVA tenderness. Procedures None A/P Problem List: (1) Cephalgia ICD Code: R51 Status: Acute (2) Neck pain ICD Code: M54.2 Status: Acute Assessment and Plan Mr. Clay is a 46 y/o male with hx of RA, hidradenitis suppurativa, diabetes, presents with a 5 day history of headache, neck pain. His pain started in the back of his head with radiation to the upper back. Patient also complained of groin pain associated with hydradenitis suppurativa. Due to suspicion over bacterial meningitis, patient was started on Ceftriaxone and Vancomycin. - Neck pain, headache - C5-C6 moderate stenosis - Bacterial meningitis is unlikely. Patient's neck pain, headache likely due to C5-C6 stenosis. - discontinued LP order. Discussed with Dr. Mendoza (ID) switched abx from Ceftriaxone and Vancomycin to Zosyn. - Continue pain control with IV Morphine 2 mg prn. Continue Flexeril. - Neurosurgery consulted for recommendations. - At this point, I feel that patient's skin condition is chronic and thus it should not be a prohibitive factor to proceed with C5-C6 ACDF. - Discussed at length with Neurosurgery - Dr. Denis will discuss further with ID about possible surgical intervention during this admission despite higher risk of infection. - Hidradenitis suppurativa - Continue doxycycline 100 mg po bid (previous ID eval on 10/26 recommended to complete doxy 100mg bid [id number]) - ID added Clindamycin. - General surgery recommends plastic surgery consultation which can be done outpatient as well. - Diabetes Mellitus - Continue home Levemir 30 units QHS. - Accu-Cheks before meals and at bedtime with low-dose NovoLog sliding scale coverage - Hypoglycemia protocol - Monitor trends and blood glucose readings and adjust treatments as indicated - Atrial fibrillation - [id number] score 1 (DM). - Continue Aspirin 81mg Qday. - Continue Metoprolol 25mg BID for rate control. Rheumatoid Arthritis: with possible flare - continue prednisone 10mg BID. - continue pain control with oxycodone prn, IV morphine prn breakthrough pain - Outpatient rheumatology evaluation would be beneficial. Full code. Ambulation. Problem Qualifiers (1) Cephalgia: Qualified Code: R51 - Acute nonintractable headache, unspecified headache type Kerri Parnell DO Nov 23, 2016 5:37 pm
[2016-11-23] MEDS: INSULIN DETEMIR 100 UNITS/ML VIAL SQ SCH (20:23)
[2016-11-23] MEDS: ATORVASTATIN 20 MG TAB PO SCH (20:24)
[2016-11-24] VITALS (7 sets, daily range): BP systolic 117–130; BP diastolic 65–78; PULSE 53–62; RESP 16–20; TEMP 97.7–98.5; O2SAT 96–99
[2016-11-24] MEDS: MORPHINE SULFATE 4 MG/ML INJ IV PUSH PRN ×4 (02:54→21:07)
[2016-11-24] MEDS: PIPERACIL-TAZO 3.375 GM PREMIX 50 ML IV SCH ×4 (02:54→21:05)
[2016-11-24] MEDS: INSULIN ASPART SUPPLEMENTAL SCALE SQ SCH ×4 (06:38→21:02)
[2016-11-24] MEDS ORDERED: PHARMACY ORDERED LAB ONE (08:45)
[2016-11-24] MEDS: CHLORHEXIDINE GLUCONATE 4% SOLN 120 ML BTL TOPICAL SCH ×2 (09:00→21:00)
[2016-11-24] MEDS: predniSONE 10 MG TAB PO SCH ×2 (09:15→21:08)
[2016-11-24] MEDS: METOPROLOL TARTRATE 25 MG TAB PO SCH ×2 (09:15→21:06)
[2016-11-24] MEDS: ASPIRIN EC 81 MG TABEC PO SCH (09:16)
[2016-11-24] MEDS: SODIUM CHLORIDE 0.9% FLUSH 10 ML FLUSH IV FLUSH SCH ×2 (09:17→21:07)
[2016-11-24] MEDS: SODIUM CHLOR 0.9% 1000 ML INJ 1,000 ML IV SCH ×2 (09:24→13:15)
[2016-11-24] MEDS: VANCOMYCIN INJ 2,000 MG in SODIUM CHLORID 0.9% 500 ML INJ 500 ML IV SCH ×2 (11:02→21:05)
--- NOTE | 2016-11-24 17:52 | HHI.IDPN ---
Subjective Subjective Remarks MRI results noted no fe alice co neck pain Antibiotics zosyn vanco 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 Objective . Vital Signs Date Time Temp Pulse Resp B/P Pulse Ox O2 Delivery O2 Flow Rate FiO2 11/24/16 17:23 98.0 61 16 128/76 99 11/24/16 12:01 98.5 55 16 123/71 99 11/24/16 08:57 97.7 53 16 117/78 99 11/24/16 04:00 97.9 53 20 120/65 96 11/24/16 00:00 97.9 59 20 127/71 96 11/23/16 20:31 76 11/23/16 20:00 98.1 61 20 119/67 99 11/23/16 11/23/16 11/24/16 15:00 23:00 07:00 Intake Total 1450 ml 240 ml Output Total 1925 ml Balance 1450 ml 240 ml -1925 ml Intake Oral 240 ml IV Total 1450 ml Output Urine Total 1925 ml # Voids 1 Imaging Last Impressions Cervical Spine MRI 11/23/16 0000 Signed Impressions: Service Date/Time: Wednesday, November 23, 2016 11:40 - CONCLUSION: 1. Significant thecal sac stenosis C5-6 and C6-7 with flattening of the spinal cord. 2. Neural foramina compromise right C4-5, bilateral C5-C6. Radu Kiser MD Cervical Spine CT 11/19/162113 Signed Impressions: Service Date/Time: Saturday, November 19, 2016 21:41 - CONCLUSION: 1. Moderate broad-based protrusion C5-6 with mild/moderate canal stenosis. 2. Mild broad-based protrusion C6-7 without canal stenosis. 3. Shallow broad-based protrusion C7-T1 without canal stenosis. Adolfo Flores MD Head CT 11/19/162100 Signed Impressions: Service Date/Time: Saturday, November 19, 2016 21:41 - CONCLUSION: No acute intracranial disease. Adolfo Flores MD Chest X-Ray 11/19/162100 Signed Impressions: Service Date/Time: Saturday, November 19, 2016 21:22 - CONCLUSION: No acute disease. Adolfo Flores MD Physical Exam CONSTITUTIONAL/GENERAL: This is an adequately nourished patient, in no apparent distress. TUBES/LINES/DRAINS: SKIN: No jaundice, + hyperpigmented rash involving BLE and BUE severe and confluent cystic lesions less draining odor no longer present less indurated and much less tender to palpation Skin temperature appropriate. Not diaphoretic. CARDIOVASCULAR: Regular rate and rhythm without murmurs, gallops, or rubs. RESPIRATORY/CHEST: Symmetric, unlabored respirations. Clear to auscultation. GASTROINTESTINAL: Abdomen soft, non-tender, nondistended. No hepato-splenomegaly , or palpable masses. No guarding. Bowel sounds present. MUSCULOSKELETAL: Extremities without clubbing, cyanosis, or edema. NEUROLOGICAL: Awake and alert. Motor and sensory grossly within normal limits. Follows commands. PSYCHIATRIC: No obvious anxiety/depression. no apparent hallucinations or other psychotic thought process. 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 REC's: cont curret abx for now, will change to PO (augmentin, clindamcyin) closer to d/ c no need for LP A neurosurgical procedure on his neck is a high risk for infection given the amount of draining wounds Ideally, his neck surgery should be postponed untill after pt undergoes plastic surgery to excise his sweat bearing skin aresas with subsequent grafting , but given his neurological compromise and risk of develpping iminent neurological deficits, the timing of the surgery is much more proirity over the risk of infection Otherwise he can be discharged on clindamycin x 2 weeks He is clearly clinically failing doxcycycline treatment and will need prompt follow up after discharge with plastic surgeon case dw Sneha Donis MD Nov 24, 2016 17:52
--- NOTE | 2016-11-24 18:59 | HHI.PR ---
Subjective Remarks Follow up for Cervical stenosis and chronic hidradenitis suppurativa. Patient is currently doing well. No fever, chills. Family members at bedside. Objective Vitals Vital Signs Date Time Temp Pulse Resp B/P Pulse Ox O2 Delivery O2 Flow Rate FiO2 11/24/16 17:23 98.0 61 16 128/76 99 11/24/16 12:01 98.5 55 16 123/71 99 11/24/16 08:57 97.7 53 16 117/78 99 11/24/16 04:00 97.9 53 20 120/65 96 11/24/16 00:00 97.9 59 20 127/71 96 11/23/16 20:31 76 11/23/16 20:00 98.1 61 20 119/67 99 I/O 11/23/16 11/23/16 11/23/16 11/24/16 11/24/16 11/24/16 06:59 14:59 22:59 06:59 14:59 22:59 Intake Total 1450 ml 240 ml Output Total 1900 ml 1925 ml 175 ml Balance -1900 ml 1450 ml 240 ml -1925 ml -175 ml Intake Oral 240 ml IV Total 1450 ml Output Urine Total 1900 ml 1925 ml 175 ml # Voids 1 4 # Bowel Movements 0 0 Result Diagram: 11/22/1625 11/22/1625 Imaging Last Impressions Cervical Spine MRI 11/23/16 0000 Signed Impressions: Service Date/Time: Wednesday, November 23, 2016 11:40 - CONCLUSION: 1. Significant thecal sac stenosis C5-6 and C6-7 with flattening of the spinal cord. 2. Neural foramina compromise right C4-5, bilateral C5-C6. K. Jamey Kiser MD Cervical Spine CT 11/19/162113 Signed Impressions: Service Date/Time: Saturday, November 19, 2016 21:41 - CONCLUSION: 1. Moderate broad-based protrusion C5-6 with mild/moderate canal stenosis. 2. Mild broad-based protrusion C6-7 without canal stenosis. 3. Shallow broad-based protrusion C7-T1 without canal stenosis. Adolfo Flores MD Head CT 11/19/162100 Signed Impressions: Service Date/Time: Saturday, November 19, 2016 21:41 - CONCLUSION: No acute intracranial disease. Adolfo Flores MD Chest X-Ray 11/19/162100 Signed Impressions: Service Date/Time: Saturday, November 19, 2016 21:22 - CONCLUSION: No acute disease. Adolfo Flores MD Objective Remarks GENERAL: Alert, oriented x 3, NAD SKIN: Warm and dry. Diffuse hydradenitis suppurativa in the groin area. s/p surgery for Hydradenitis Suppurativa in bilateral axila. HEAD: Normocephalic. EYES: No scleral icterus. No injection or drainage. NECK: trachea midline. No JVD or lymphadenopathy. Pain on movement of neck to the left. CARDIOVASCULAR: Regular rate and rhythm without murmurs, gallops, or rubs. RESPIRATORY: Breath sounds equal bilaterally. No accessory muscle use. GASTROINTESTINAL: Abdomen soft, non-tender, nondistended. MUSCULOSKELETAL: No cyanosis, or edema. BACK: Nontender without obvious deformity. No CVA tenderness. Procedures None A/P Problem List: (1) Cephalgia ICD Code: R51 Status: Acute (2) Neck pain ICD Code: M54.2 Status: Acute Assessment and Plan Mr. Clay is a 46 y/o male with hx of RA, hidradenitis suppurativa, diabetes, presents with a 5 day history of headache, neck pain. His pain started in the back of his head with radiation to the upper back. Patient also complained of groin pain associated with hydradenitis suppurativa. Due to suspicion over bacterial meningitis, patient was started on Ceftriaxone and Vancomycin. - Neck pain, headache - C5-C6 moderate stenosis - Bacterial meningitis is unlikely. Patient's neck pain, headache likely due to C5-C6 stenosis. - discontinued LP order. Discussed with Dr. Mendoza (ID) switched abx from Ceftriaxone and Vancomycin to Zosyn. - Continue pain control with IV Morphine, Oxycodone PO PRN Continue Flexeril. - Neurosurgery consulted for recommendations. - Discussed with Neurosurgery and ID on 11/23/2016. Possible surgical intervention with close coordination with ID. - Hidradenitis suppurativa - Continue Vancomycin and Zosyn per ID. - Diabetes Mellitus - increase home Levemir 30 --> 32 units QHS. - Accu-Cheks before meals and at bedtime with low-dose NovoLog sliding scale coverage - Start pre-meal insulin (Aspart) 5 units TIDAC - Atrial fibrillation - [id number] score 1 (Diabetes). - Continue Aspirin 81mg Qday. - Continue Metoprolol 25mg BID for rate control. Rheumatoid Arthritis: with possible flare - continue prednisone 10mg BID. - continue pain control with oxycodone prn, IV morphine prn breakthrough pain - Outpatient rheumatology evaluation would be beneficial. Full code. Ambulation. Problem Qualifiers (1) Cephalgia: Qualified Code: R51 - Acute nonintractable headache, unspecified headache type Kerri Parnell DO Nov 24, 2016 18:59
[2016-11-24] MEDS: INSULIN DETEMIR 100 UNITS/ML VIAL SQ SCH (21:01)
[2016-11-24] MEDS: ATORVASTATIN 20 MG TAB PO SCH (21:08)
[2016-11-25] VITALS (7 sets, daily range): BP systolic 117–141; BP diastolic 66–75; PULSE 56–67; RESP 17–20; TEMP 97.8–98.9; O2SAT 97–100
[2016-11-25] MEDS: PIPERACIL-TAZO 3.375 GM PREMIX 50 ML IV SCH ×4 (02:50→22:24)
[2016-11-25] MEDS: SODIUM CHLORIDE 0.9% FLUSH 10 ML FLUSH IV FLUSH PRN ×2 (02:51→03:34)
[2016-11-25] MEDS: MORPHINE SULFATE 4 MG/ML INJ IV PUSH PRN (03:34)
[2016-11-25] MEDS: INSULIN ASPART SUPPLEMENTAL SCALE SQ SCH ×4 (06:41→22:19)
[2016-11-25] MEDS: INSULIN ASPART 1,000 UNITS/10 ML VIAL SQ SCH ×3 (08:00→17:06)
[2016-11-25] MEDS: predniSONE 10 MG TAB PO SCH ×2 (08:21→22:23)
[2016-11-25] MEDS: ASPIRIN EC 81 MG TABEC PO SCH (08:21)
[2016-11-25] MEDS: METOPROLOL TARTRATE 25 MG TAB PO SCH ×2 (08:21→22:23)
[2016-11-25] MEDS: CYCLOBENZAPRINE HCL 10 MG TAB PO PRN (08:21)
[2016-11-25] MEDS: VANCOMYCIN INJ 2,000 MG in SODIUM CHLORID 0.9% 500 ML INJ 500 ML IV SCH ×2 (08:25→22:24)
[2016-11-25] MEDS: SODIUM CHLORIDE 0.9% FLUSH 10 ML FLUSH IV FLUSH SCH ×2 (08:29→22:23)
[2016-11-25] MEDS: CHLORHEXIDINE GLUCONATE 4% SOLN 120 ML BTL TOPICAL SCH ×2 (08:30→21:00)
[2016-11-25] MEDS: MORPHINE SULFATE 8 MG/ML INJ IV PUSH PRN ×3 (11:21→22:23)
--- NOTE | 2016-11-25 13:48 | HHI.PR ---
Subjective Remarks Follow up for Cervical stenosis and chronic hidradenitis suppurativa. Patient is currently doing well. No new concerns. He requests something for sleep at night. Objective Vitals Vital Signs Date Time Temp Pulse Resp B/P Pulse Ox O2 Delivery O2 Flow Rate FiO2 11/25/16 12:00 98.1 58 18 130/75 97 11/25/16 08:00 98.9 67 18 141/75 100 11/25/16 06:31 98.1 58 17 118/66 98 11/25/16 00:00 98.0 56 20 131/73 99 11/24/16 20:00 97.7 59 20 130/75 98 11/24/16 18:00 62 11/24/16 17:23 98.0 61 16 128/76 99 I/O 11/24/16 11/24/16 11/24/16 11/25/16 11/25/16 11/25/16 06:59 14:59 22:59 06:59 14:59 22:59 Intake Total 480 ml Output Total 1925 ml 175 ml 750 ml Balance -1925 ml -175 ml 480 ml -750 ml Intake Oral 480 ml Output Urine Total 1925 ml 175 ml 750 ml # Voids 6 # Bowel Movements 1 0 Result Diagram: 11/22/16 0625 11/22/1625 Imaging Last Impressions Cervical Spine MRI 11/23/16 0000 Signed Impressions: Service Date/Time: Wednesday, November 23, 2016 11:40 - CONCLUSION: 1. Significant thecal sac stenosis C5-6 and C6-7 with flattening of the spinal cord. 2. Neural foramina compromise right C4-5, bilateral C5-C6. K. Jamey Kiser MD Cervical Spine CT 11/19/162113 Signed Impressions: Service Date/Time: Saturday, November 19, 2016 21:41 - CONCLUSION: 1. Moderate broad-based protrusion C5-6 with mild/moderate canal stenosis. 2. Mild broad-based protrusion C6-7 without canal stenosis. 3. Shallow broad-based protrusion C7-T1 without canal stenosis. Adolfo Flores MD Head CT 11/19/162100 Signed Impressions: Service Date/Time: Saturday, November 19, 2016 21:41 - CONCLUSION: No acute intracranial disease. Adolfo Flores MD Chest X-Ray 11/19/162100 Signed Impressions: Service Date/Time: Saturday, November 19, 2016 21:22 - CONCLUSION: No acute disease. Adolfo Flores MD Objective Remarks GENERAL: Alert, oriented x 3, NAD SKIN: Warm and dry. Diffuse hydradenitis suppurativa in the groin area. s/p surgery for Hydradenitis Suppurativa in bilateral axila. HEAD: Normocephalic. EYES: No scleral icterus. No injection or drainage. NECK: trachea midline. No JVD or lymphadenopathy. Pain on movement of neck to the left. CARDIOVASCULAR: Regular rate and rhythm without murmurs, gallops, or rubs. RESPIRATORY: Breath sounds equal bilaterally. No accessory muscle use. GASTROINTESTINAL: Abdomen soft, non-tender, nondistended. MUSCULOSKELETAL: No cyanosis, or edema. BACK: Nontender without obvious deformity. No CVA tenderness. Procedures None A/P Problem List: (1) Cephalgia ICD Code: R51 Status: Acute (2) Neck pain ICD Code: M54.2 Status: Acute Assessment and Plan Mr. Clay is a 46 y/o male with hx of RA, hidradenitis suppurativa, diabetes, presents with a 5 day history of headache, neck pain. His pain started in the back of his head with radiation to the upper back. Patient also complained of groin pain associated with hydradenitis suppurativa. Due to suspicion over bacterial meningitis, patient was started on Ceftriaxone and Vancomycin. - Neck pain, headache - C5-C6 moderate stenosis - Bacterial meningitis is unlikely. Patient's neck pain, headache likely due to C5-C6 stenosis. - discontinued LP order. Discussed with Dr. Mendoza (ID) switched abx from Ceftriaxone and Vancomycin to Zosyn. - Continue pain control with IV Morphine, Oxycodone PO PRN Continue Flexeril. Increase morphine from 2mg to 5mg - Neurosurgery consulted for recommendations. - Discussed with Neurosurgery and ID on 11/23/2016. Possible surgical intervention with close coordination with ID. - Hidradenitis suppurativa - Continue Vancomycin and Zosyn per ID. - Diabetes Mellitus - increase home Levemir 30 --> 32 units QHS. - Accu-Cheks before meals and at bedtime with low-dose NovoLog sliding scale coverage - increase pre-meal insulin (Aspart) 8 units TIDAC - Atrial fibrillation - [id number] score 1 (Diabetes). - Continue Aspirin 81mg Qday. - Continue Metoprolol 25mg BID for rate control. Rheumatoid Arthritis: with possible flare - continue prednisone 10mg BID. - continue pain control with oxycodone prn, IV morphine prn breakthrough pain - Outpatient rheumatology evaluation would be beneficial. Full code. Ambulation. Problem Qualifiers (1) Cephalgia: Qualified Code: R51 - Acute nonintractable headache, unspecified headache type Kerri Parnell DO Nov 25, 2016 1:48 pm
[2016-11-25] MEDS: INSULIN DETEMIR 100 UNITS/ML VIAL SQ SCH (22:18)
[2016-11-25] MEDS: ATORVASTATIN 20 MG TAB PO SCH (22:23)
[2016-11-25] MEDS: TEMAZEPAM 15 MG CAP PO PRN (22:35)
[2016-11-26] VITALS (9 sets, daily range): BP systolic 112–124; BP diastolic 56–77; PULSE 55–81; RESP 17–20; TEMP 97.6–98.3; O2SAT 97–98
[2016-11-26] MEDS: PIPERACIL-TAZO 3.375 GM PREMIX 50 ML IV SCH ×4 (03:12→21:39)
[2016-11-26] MEDS: INSULIN ASPART SUPPLEMENTAL SCALE SQ SCH ×4 (06:41→21:47)
[2016-11-26] MEDS: MORPHINE SULFATE 8 MG/ML INJ IV PUSH PRN ×3 (06:43→21:39)
[2016-11-26] MEDS: SODIUM CHLORIDE 0.9% FLUSH 10 ML FLUSH IV FLUSH PRN (06:43)
[2016-11-26] MEDS: predniSONE 10 MG TAB PO SCH ×2 (08:24→21:38)
[2016-11-26] MEDS: ASPIRIN EC 81 MG TABEC PO SCH (08:25)
[2016-11-26] MEDS: METOPROLOL TARTRATE 25 MG TAB PO SCH ×2 (08:25→21:38)
[2016-11-26] MEDS: CYCLOBENZAPRINE HCL 10 MG TAB PO PRN ×2 (08:33→16:38)
[2016-11-26] MEDS: SODIUM CHLORIDE 0.9% FLUSH 10 ML FLUSH IV FLUSH SCH ×2 (08:34→21:39)
[2016-11-26] MEDS: INSULIN ASPART 1,000 UNITS/10 ML VIAL SQ SCH ×3 (08:40→16:34)
[2016-11-26] MEDS: VANCOMYCIN INJ 2,000 MG in SODIUM CHLORID 0.9% 500 ML INJ 500 ML IV SCH ×2 (09:25→21:52)
[2016-11-26] MEDS: CHLORHEXIDINE GLUCONATE 4% SOLN 120 ML BTL TOPICAL SCH ×2 (09:55→21:51)
--- NOTE | 2016-11-26 11:04 | HHI.NSPN ---
(Brandyn Resendez) History Chief Complaint: Neck pain (Brandyn Resendez) Interval History 11/21: 46-year-old male who was previously admitted to the hospital approximately 3 weeks ago for sepsis. He now presents back to the emergency room on the evening of 11/19/16 with approximately 3 days of neck pain, headaches. No definite fever. No significant new onset pain and weakness numbness in the extremities or loss of bowel or bladder function. Positive photophobia. Positive history of suppurative hidradenitis 11/22: The patient is doing well this afternoon when seen. He does endorse having neck pain still. He also has numbness to the hands and feet as well which is chronic. 11/23: The patient states he is doing okay this afternoon. He complains of pain to the occipital region and the posterior neck. 11/26: The patient is asleep when seen but awakens to verbal stimuli. After that he is alert. He complains of pain to the neck and back of the head. He states the pain is giving him a headache. (Brandyn Resendez) System Review Comments CONSTITUTIONAL: The patient denies any fever or chills. HEENT: The patient complains of pain to the back of the head. NECK: The patient complains of neck pain. CARDIOVASCULAR: The patient denies any chest pain, palpitations or irregular heartbeat. RESPIRATORY: The patient denies any shortness of breath or productive cough. GASTROINTESTINAL: The patient denies any abdominal pain, nausea, vomiting or incontinence of stool. GENITOURINARY: The patient denies any incontinence of urine. MUSCULOSKELETAL: The patient has weakness to the left arm secondary to prior surgery. He has numbness to the hands and feet which is chronic. NEUROLOGICAL: The patient has chronic numbness to the hands and feet. He states the neck & head pain are giving him a headache. He denies any dizziness or tingling. (Brandyn Resendez) Exam Results Vital Signs Date Time Temp Pulse Resp B/P Pulse Ox O2 Delivery O2 Flow Rate FiO2 11/26/16 08:00 98.3 61 17 124/77 97 Intake and Output 11/25/16 11/25/16 11/26/16 08:00 16:00 00:00 Intake Total 960 ml Output Total 750 ml 1100 ml 450 ml Balance -750 ml -140 ml -450 ml (Brandyn Resendez) Physical Examination GENERAL: Patient is asleep but awakens to verbal stimuli, alert after that, NAD , affect normal. HEENT: Normocephalic, atraumatic, occipital scalp TTP. NECK: Midline cervical spine TTP, no JVD, trachea midline. CARDIOVASCULAR: S1S2 w/RRR w/o M/G/R, radial & pedal pulses 2+ bilaterally, cap refill < 2 sec, no pedal edema. RESPIRATORY: CTAB w/o W/R/R, equal excursion, nonlaboured, on RA. GASTROINTESTINAL: Abdomen soft, nontender, positive bowel sounds. MUSCULOSKELETAL: OBRIEN w/o difficulty, no evident deformity or clubbing. NEUROLOGICAL: AAOx3. Speech clear & appropriate. Follows simple commands w/o difficulty. Sensation intact to light touch to all extremities except for the hands & feet which have decreased sensation. Motor strength 5/5 to RUE & BLE and 3+ to 4/5 to LUE. (Brandyn Resendez) Medical Decision Making Impression and Plan Impression: 1. Cervical stenosis at least moderate severity at C5-6 level 2. History of suppurative hidradenitis 3. History of atrial fibrillation on aspirin 4. Hypertension 5. Diabetes MRI cervical spine demonstrates significant thecal sac stenosis at C5 -6 and C6-7 w/flattening of the spinal cord as well as neural foraminal compromise to right C4-5 and bilateral C5-6. Patient still is doing well w/persistent neck & head pain. Stable neurological examination. Plan: Primary management per Hospital. Plan for C5-6 ACDF, prefer to defer to the future due to recent infectious disease in order for the infectious risk to diminish since neurological function is stable. Patient wants to have surgery during this hospitalisation. (Brandyn Resendez) Attending Statement I have personally seen and examined the patient on the date of this note. Pertinent documentation and study results have been reviewed by the undersigned. I have personally developed the treatment plan and performed medical decision making. Agree with findings, exam, and treatment plan as noted above. On examination today, patient has minimal paresthesias in the hands. He has chronic flexion contractures in the right greater than left hand which he attributes to arthritis. Strength is decreased to mostly 3/5 right and 3-/5 left hand intrinsics, with deficit likely at least partially related to joint deformity. Tyree's response absent bilaterally Mild to moderate decreased sensation diffuse to light touch distal extremities nondermatomal distribution No ankle clonus Plantar responses are neutral Patient's white count remains mildly elevated. Discussed findings with the patient. The severity of the stenosis at this point is moderate, without definite myelopathic findings on examination. The surgical procedure is not urgent at this point, but could be done during this hospitalization if felt to be low risk for complications per infectious disease. Otherwise, it would be best to wait until the infection is under better control before proceeding with a cervical fusion with bone graft and instrumentation. ( Garcia Denis MD) Brandyn Resendez Nov 26, 2016 11:04 Garcia Denis MD Nov 26, 2016 19:58
--- NOTE | 2016-11-26 14:32 | HHI.PR ---
Subjective Remarks Follow up for Cervical stenosis and chronic hidradenitis suppurativa. Patient is currently doing well. He does complain of neck pain. No fever, chills. Objective Vitals Vital Signs Date Time Temp Pulse Resp B/P Pulse Ox O2 Delivery O2 Flow Rate FiO2 11/26/16 12:00 98.1 55 17 121/74 98 11/26/16 08:00 98.3 61 17 124/77 97 11/26/16 05:46 64 11/26/16 04:00 98.1 61 18 112/72 97 11/26/16 00:00 98.0 68 20 115/56 97 11/25/16 20:00 98.2 66 20 117/75 99 11/25/16 18:00 66 11/25/16 17:10 97.8 61 18 121/66 100 I/O 11/25/16 11/25/16 11/25/16 11/26/16 11/26/16 11/26/16 06:59 14:59 22:59 06:59 14:59 22:59 Intake Total 960 ml 572 ml Output Total 750 ml 1100 ml 450 ml 650 ml Balance -750 ml -140 ml -450 ml -78 ml Intake Oral 960 ml IV Total 572 ml Output Urine Total 750 ml 1100 ml 450 ml 650 ml # Bowel Movements 0 0 Result Diagram: 11/22/16 0625 11/26/16 0832 Imaging Last Impressions Cervical Spine MRI 11/23/16 0000 Signed Impressions: Service Date/Time: Wednesday, November 23, 2016 11:40 - CONCLUSION: 1. Significant thecal sac stenosis C5-6 and C6-7 with flattening of the spinal cord. 2. Neural foramina compromise right C4-5, bilateral C5-C6. KRaheem Kiser MD Cervical Spine CT 11/19/162113 Signed Impressions: Service Date/Time: Saturday, November 19, 2016 21:41 - CONCLUSION: 1. Moderate broad-based protrusion C5-6 with mild/moderate canal stenosis. 2. Mild broad-based protrusion C6-7 without canal stenosis. 3. Shallow broad-based protrusion C7-T1 without canal stenosis. Adolfo Flores MD Head CT 11/19/162100 Signed Impressions: Service Date/Time: Saturday, November 19, 2016 21:41 - CONCLUSION: No acute intracranial disease. Adolfo Flores MD Chest X-Ray 11/19/162100 Signed Impressions: Service Date/Time: Saturday, November 19, 2016 21:22 - CONCLUSION: No acute disease. Adolfo Flores MD Objective Remarks GENERAL: Alert, oriented x 3, NAD SKIN: Warm and dry. Diffuse hydradenitis suppurativa in the groin area. s/p surgery for Hydradenitis Suppurativa in bilateral axila. HEAD: Normocephalic. EYES: No scleral icterus. No injection or drainage. NECK: trachea midline. No JVD or lymphadenopathy. Pain on movement of neck to the left. CARDIOVASCULAR: Regular rate and rhythm without murmurs, gallops, or rubs. RESPIRATORY: Breath sounds equal bilaterally. No accessory muscle use. GASTROINTESTINAL: Abdomen soft, non-tender, nondistended. MUSCULOSKELETAL: No cyanosis, or edema. BACK: Nontender without obvious deformity. No CVA tenderness. Procedures None A/P Problem List: (1) Cephalgia ICD Code: R51 Status: Acute (2) Neck pain ICD Code: M54.2 Status: Acute Assessment and Plan Mr. Clay is a 46 y/o male with hx of RA, hidradenitis suppurativa, diabetes, presents with a 5 day history of headache, neck pain. His pain started in the back of his head with radiation to the upper back. Patient also complained of groin pain associated with hydradenitis suppurativa. Due to suspicion over bacterial meningitis, patient was started on Ceftriaxone and Vancomycin. - Neck pain, headache - C5-C6 moderate stenosis - Bacterial meningitis is unlikely. Patient's neck pain, headache likely due to C5-C6 stenosis. - discontinued LP order. Discussed with Dr. Mendoza (ID) switched abx from Ceftriaxone and Vancomycin to Zosyn. - Continue pain control with IV Morphine, Oxycodone PO PRN Continue Flexeril. Increase morphine from 2mg to 5mg - Neurosurgery prefers to wait for the infection to be better controlled before surgical intervention is considered. - Will consider discharging patient with two weeks of Clindamycin PO. - Outpatient plastic surgery evaluation would be very beneficial. - Hidradenitis suppurativa - Continue Zosyn while in the hospital. We will continue Clindamycin on discharge. - Diabetes Mellitus - increase home Levemir 30 --> 32 units QHS. - Accu-Cheks before meals and at bedtime with low-dose NovoLog sliding scale coverage - increase pre-meal insulin (Aspart) 8 units TIDAC - Atrial fibrillation - [id number] score 1 (Diabetes). - Continue Aspirin 81mg Qday. - Continue Metoprolol 25mg BID for rate control. Rheumatoid Arthritis: with possible flare - continue prednisone 10mg BID. - continue pain control with oxycodone prn, IV morphine prn breakthrough pain - Outpatient rheumatology evaluation would be beneficial. Full code. Ambulation. Problem Qualifiers (1) Cephalgia: Qualified Code: R51 - Acute nonintractable headache, unspecified headache type Kerri Parnell DO Nov 26, 2016 14:32
[2016-11-26] MEDS: ATORVASTATIN 20 MG TAB PO SCH (21:38)
[2016-11-26] MEDS: INSULIN DETEMIR 100 UNITS/ML VIAL SQ SCH (21:48)
[2016-11-26] MEDS: TEMAZEPAM 15 MG CAP PO PRN (23:16)
[2016-11-27] VITALS: BP 129/74; PULSE 62; RESP 18; TEMP 98.4; O2SAT 97
[2016-11-27 04:00] VITALS: BP 117/71; PULSE 58; RESP 18; TEMP 97.7; O2SAT 98
[2016-11-27] MEDS: CYCLOBENZAPRINE HCL 10 MG TAB PO PRN (04:01)
[2016-11-27] MEDS: PIPERACIL-TAZO 3.375 GM PREMIX 50 ML IV SCH ×2 (04:01→09:05)
[2016-11-27] MEDS: INSULIN ASPART SUPPLEMENTAL SCALE SQ SCH ×2 (06:24→11:00)
[2016-11-27 07:44] VITALS: PULSE 65
[2016-11-27] MEDS: INSULIN ASPART 1,000 UNITS/10 ML VIAL SQ SCH ×2 (08:00→11:42)
[2016-11-27 08:07] VITALS: BP 118/71; PULSE 64; RESP 20; TEMP 97.1; O2SAT 97
[2016-11-27] MEDS ORDERED: PHARMACY ORDERED LAB ONE (08:45)
[2016-11-27] MEDS: CHLORHEXIDINE GLUCONATE 4% SOLN 120 ML BTL TOPICAL SCH (09:00)
[2016-11-27] MEDS: METOPROLOL TARTRATE 25 MG TAB PO SCH (09:05)
[2016-11-27] MEDS: ASPIRIN EC 81 MG TABEC PO SCH (09:05)
[2016-11-27] MEDS: predniSONE 10 MG TAB PO SCH (09:05)
[2016-11-27] MEDS: SODIUM CHLORIDE 0.9% FLUSH 10 ML FLUSH IV FLUSH SCH (09:06)
[2016-11-27] MEDS: VANCOMYCIN INJ 2,000 MG in SODIUM CHLORID 0.9% 500 ML INJ 500 ML IV SCH (10:14)
[2016-11-27] MEDS: MORPHINE SULFATE 8 MG/ML INJ IV PUSH PRN (10:15)
[2016-11-27] MEDS ORDERED: CYCL1TAB29 PO (11:27)
[2016-11-27] MEDS ORDERED: PERC7.5T13 PO (11:27)
[2016-11-27] MEDS ORDERED: ASPI-99 PO (11:27)
[2016-11-27] MEDS ORDERED: LEVEMIR SQ (11:27)
[2016-11-27] MEDS ORDERED: CLIN1CAP6 PO (11:27)
[2016-11-27] MEDS ORDERED: METO25TA3 PO (11:27)
[2016-11-27] MEDS ORDERED: ATOR20TA15 PO (11:27)
[2016-11-27] MEDS ORDERED: NOVOLOGP2 SQ (11:28)
[2016-11-27] MEDS ORDERED: MEDR4PAK PO (11:30)
[2016-11-27 12:19] VITALS: BP 113/72; PULSE 78; RESP 20; TEMP 99.4; O2SAT 98
[2016-11-27 16:13] VITALS: BP 124/58; PULSE 66; RESP 20; TEMP 98; O2SAT 97
--- NOTE | 2016-11-27 23:08 | HHI.DS ---
Discharge Summary Admission Date Nov 21, 2016 at 14:12 Discharge Date: Nov 27, 2016 Admitting Diagnosis cellulitis. Hydradenitis suppurativa. Cephalgia. Neck pain. (1) Cephalgia ICD Code: R51 (2) Neck pain ICD Code: M54.2 (3) Hidradenitis suppurativa ICD Code: L73.2 Diagnosis: Principal (4) Cervical stenosis of spine ICD Code: M48.02 Diagnosis: Principal Procedures None Brief History - From Admission Written by Lashay Fontana, acting as scribe for Dr. Templeton on 11/20/16 at 05:03. The patient is reporting severe cervicalgia and cephalgia with photosensitivity unrelieved after three doses of morphine. He reports decreased ROM of neck and inability to sleep for 3 -4 days. He has had similar pain in the past; he states this is usually relieved by steroids. He reports a history of rheumatoid arthritis and believes pain may be related to this. Denies n/v or fever. He reports that he is on antibiotics - Doxycycline 100 mg BID for 25 days duration - confirmed upon review of hospitalization 10/23/16 - 10/29/16 for cellulitis. . CBC/BMP: 11/26/16 0832 Significant Findings Laboratory Tests Test 11/27/16 08:50 Vancomycin Level Trough 16.8 MCG/ML (5.0-10.0) Imaging Last Impressions Cervical Spine MRI 11/23/16 0000 Signed Impressions: Service Date/Time: Wednesday, November 23, 2016 11:40 - CONCLUSION: 1. Significant thecal sac stenosis C5-6 and C6-7 with flattening of the spinal cord. 2. Neural foramina compromise right C4-5, bilateral C5-C6. K. Jamey Kiser MD Cervical Spine CT 11/19/163 Signed Impressions: Service Date/Time: Saturday, November 19, 2016 21:41 - CONCLUSION: 1. Moderate broad-based protrusion C5-6 with mild/moderate canal stenosis. 2. Mild broad-based protrusion C6-7 without canal stenosis. 3. Shallow broad-based protrusion C7-T1 without canal stenosis. Adolfo Flores MD Head CT 11/19/162100 Signed Impressions: Service Date/Time: Saturday, November 19, 2016 21:41 - CONCLUSION: No acute intracranial disease. Adolfo Flores MD Chest X-Ray 11/19/162100 Signed Impressions: Service Date/Time: Saturday, November 19, 2016 21:22 - CONCLUSION: No acute disease. Adolfo Flores MD PE at Discharge GENERAL: Alert, oriented x 3, NAD SKIN: Warm and dry. Diffuse hydradenitis suppurativa in the groin area. s/p surgery for Hydradenitis Suppurativa in bilateral axila. HEAD: Normocephalic. EYES: No scleral icterus. No injection or drainage. NECK: trachea midline. No JVD or lymphadenopathy. Pain on movement of neck to the left. CARDIOVASCULAR: Regular rate and rhythm without murmurs, gallops, or rubs. RESPIRATORY: Breath sounds equal bilaterally. No accessory muscle use. GASTROINTESTINAL: Abdomen soft, non-tender, nondistended. MUSCULOSKELETAL: No cyanosis, or edema. BACK: Nontender without obvious deformity. No CVA tenderness. Pt update on day of discharge Mr. Clay is doing well. He is going to stay with his sister. No fever, chills. We discussed at length about following up with Dr. Menon (through patient's assistance). Hospital Course Mr. Clay is a 46 y/o male with hx of RA, hidradenitis suppurativa, diabetes, presents with a 5 day history of headache, neck pain. His pain started in the back of his head with radiation to the upper back. Patient also complained of groin pain associated with hydradenitis suppurativa. Due to suspicion over bacterial meningitis, patient was started on Ceftriaxone and Vancomycin. - Neck pain, headache - C5-C6 moderate stenosis - Bacterial meningitis is unlikely. Patient's neck pain, headache likely due to C5-C6 stenosis. - discontinued LP order. Discussed with Dr. Mendoza (ID) switched abx from Ceftriaxone and Vancomycin to Zosyn. - Continue pain control with IV Morphine, Oxycodone PO PRN Continue Flexeril. Increase morphine from 2mg to 5mg - Neurosurgery prefers to wait for the infection to be better controlled before surgical intervention is considered. - Will discharge patient with two weeks of Clindamycin PO. - Outpatient plastic surgery evaluation would be very beneficial. - Patient is given blue card (Patient's assistance) and CM called PCP's office to make an appointment. - Patient states that he will go and live with this sister for now. - Hidradenitis suppurativa - Continue Zosyn while in the hospital. We will continue Clindamycin on discharge. - Diabetes Mellitus - increase home Levemir 30 --> 32 units QHS. - Accu-Cheks before meals and at bedtime with low-dose NovoLog sliding scale coverage - increase pre-meal insulin (Aspart) 8 units TIDAC - Atrial fibrillation - [id number] score 1 (Diabetes). - Continue Aspirin 81mg Qday. - Continue Metoprolol 25mg BID for rate control. Rheumatoid Arthritis: with possible flare - continue prednisone 10mg BID. - continue pain control with oxycodone prn, IV morphine prn breakthrough pain - Outpatient rheumatology evaluation would be beneficial. Full code. Ambulation. Pt Condition on Discharge: Good Discharge Disposition: Discharge Home Discharge Time: > 30 minutes Discharge Instructions DIET: Follow Instructions for: Heart Healthy Diet Activities you can perform: Regular-No Restrictions Follow up Referrals: Neurosurgery - 2 Weeks with Garcia Denis MD PCP Follow-up - 2 Weeks Plastic Surgery - 1 Week New Medications: Clindamycin (Clindamycin) 300 Mg Cap 300 MG PO TID Infection #42 Ref 0 CAP Insulin Aspart Inj (Novolog Inj) 1,000 Unit/10 Ml Vial 1-9 UNITS SQ ACHS Max dose at bedtime:( )units; sugars less than 70,(0)units; sugars 150-199,(1) unit; sugars 200-249,(3) units; sugars 250-299,(5) units; sugars 300-349,(7) units; sugars greater than 349,(9) units Blood Sugar Management #10 Ref 0 ML Methylprednisolone Dosepak (Medrol Dosepak) 4 Mg Dspk 4 MG PO DIRECTED Per Pharmacist direction #1 Ref 0 DSPK Oxycodone-Acetaminophen (Percocet) 7.5-325 mg Tab 1 TAB PO Q6H PRN PAIN #[address] Ref [address] (Adult Aspirin EC Low Strength) 81 Mg Tabec 81 MG PO DAILY Blood Clot Prevention #90 TAB Atorvastatin (Atorvastatin) 20 Mg Tab 20 MG PO HS Cholesterol Management #90 TAB Cyclobenzaprine (Flexeril) 10 Mg Tab 10 MG PO Q8H PRN muscle spasms #30 TAB Insulin Detemir Inj (Levemir Inj) 1,000 unit/ 10 ML Vial 32 UNITS SQ HS Blood Sugar Management #30 INJECTION Metoprolol Tartrate (Metoprolol Tartrate) 25 Mg Tab 12.5 MG PO Q12HR Heart #60 TAB Discontinued Medications: Aspirin (Aspirin) 325 Mg Tab 325 MG PO DAILY #30 Ref 0 TAB Atorvastatin (Atorvastatin) 20 Mg Tab 20 MG PO HS Cholesterol Management #30 Ref 0 TAB Doxycycline Hyclate (Doxycycline Hyclate) 100 Mg Cap 100 MG PO BID Infection #50 CAP Insulin Aspart Inj (Novolog Inj) 1,000 Unit/10 Ml Vial 0 SQ ACHS Sliding Scale as directed. Blood Sugar Management #10 Ref 0 ML Insulin Detemir Inj (Levemir Inj) 1,000 unit/ 10 ML Vial 30 UNITS SQ HS Do not mix with any other Insulin. Blood Sugar Management Ref 0 VIAL Metoprolol Tartrate (Metoprolol Tartrate) 25 Mg Tab 25 MG PO Q12HR Blood Pressure Management #60 TAB Prednisone (Prednisone) 10 Mg Tab 10 MG PO DAILY Inflammation #30 Ref 1 TAB Kerri Parnell DO Nov 27, 2016 23:08
[2016-11-29] MEDS ORDERED: PRED10 PO (10:20)
[2016-11-29] MEDS ORDERED: METO25TA3 PO (10:26)
[2016-11-29] MEDS ORDERED: LEVEMIR SQ (10:26)
[2016-11-29] MEDS ORDERED: ATOR20TA15 PO (10:26)
[2016-11-29] MEDS ORDERED: NOVOLOGP2 SQ (10:26)
[2016-11-29] MEDS ORDERED: CYCL1TAB29 PO (10:26)
== END 2016-11-27 17:16 | disposition home or self-care (01) | DRG 552 ==
LOC: NEPD 18:56 → INTOOBSV 11-20 00:20 → NEDA 11-20 00:20 → NEDH 11-20 04:20 → NEPHCDU 11-20 16:17 → OBSVTOIN 11-21 14:12 → N05A 11-22 18:13
PROVIDERS: ADMIT Hospitalist; ATTEND Hospitalist
DX: M48.02 Spinal stenosis, cervical region (principal); E11.40 Type 2 diabetes mellitus with diabetic neuropathy, unspecified; M50.20 Other cervical disc displacement, unspecified cervical region; L73.2 Hidradenitis suppurativa; M50.30 Other cervical disc degeneration, unspecified cervical region; I48.91 Unspecified atrial fibrillation; M25.78 Osteophyte, vertebrae; I10 Essential (primary) hypertension; M06.9 Rheumatoid arthritis, unspecified; F32.9 Major depressive disorder, single episode, unspecified; I25.10 Atherosclerotic heart disease of native coronary artery without angina pectoris; E78.00 Pure hypercholesterolemia, unspecified; K21.9 Gastro-esophageal reflux disease without esophagitis; E78.5 Hyperlipidemia, unspecified; J44.9 Chronic obstructive pulmonary disease, unspecified; F12.90 Cannabis use, unspecified, uncomplicated; M25.571 Pain in right ankle and joints of right foot; R20.0 Anesthesia of skin; Z86.73 Personal history of transient ischemic attack (TIA), and cerebral infarction without residual deficits; Z87.891 Personal history of nicotine dependence; Z79.4 Long term (current) use of insulin; Z86.14 Personal history of Methicillin resistant Staphylococcus aureus infection; Z82.49 Family history of ischemic heart disease and other diseases of the circulatory system; Z79.82 Long term (current) use of aspirin; Z95.4 Presence of other heart-valve replacement
CPT/HCPCS: 70450; 71010; 72125; 72156; 76937; 80048; 80053; 80202; 81001; 82565; 82948; 83605; 85025; 85610; 85652; 85730; 86140; 87040; 93005; 96361; 96365; 96366; 96367; 96372; 96375; 96376; A9579; G0378; G8987-GP; G8988-GP; J0696; J1815; J2270; J2405; J2543; J3370; J7030; J7040; J7050; J7512

== ENCOUNTER 2016-12-08 19:26 | Inpatient (IN) | payer SELFPAY ==
[~2016-12-08] VITALS: Ht 182.9 cm; Wt 89.6 kg
[~2016-12-08 19:26] MED LIST changes: +ASPI-99 PO; -ASPI325T PO; +CLIN1CAP6 PO; +CYCL1TAB29 PO; -DOXY100C PO; +MEDR4PAK PO; -NORC5TAB PO; +PERC7.5T13 PO
[2016-12-08 19:28] VITALS: BP 129/82; PULSE 126; RESP 18; TEMP 98.2; O2SAT 98
[2016-12-08] MEDS ORDERED: DIAZEPAM 10 MG TAB PO ONE (20:00)
[2016-12-08] MEDS ORDERED: KETOROLAC TROMETHAMINE 30 MG/ML (IVP) VIAL IV PUSH ONE (20:00)
[2016-12-08] MEDS ORDERED: SODIUM CHLORID 0.9% 500 ML INJ 500 ML IV ONE (20:00)
[2016-12-08 21:06] LABS: AUTOMATED NEUTROPHIL # 13.9 TH/MM3 (1.8-7.7); BASOPHIL # 0.1 TH/MM3 (0-0.2); BASOPHIL % 0.6 % (0.0-2.0); EOSINOPHIL # 0.1 TH/MM3 (0-0.4); EOSINOPHIL % 0.6 % (0.0-4.0); HEMATOCRIT 36.5 % (39.0-51.0); HEMO FLAGS DIFF FINAL; LYMPHOCYTE # 3.3 TH/MM3 (1.0-4.8); MEAN CELL VOLUME 85.4 FL (80.0-100.0); MEAN CORPUSCULAR HGB CONC 31.7 % (32.0-36.0); MONO % 5.7 % (0.0-8.0); NEUT % 75.1 % (16.0-70.0); PLATELET COUNT 423 TH/MM3 (150-450); RED BLOOD COUNT 4.27 MIL/MM3 (4.50-5.90); RED CELL DISTRIBUTION WIDTH 20.1 % (11.6-17.2); WHITE BLOOD COUNT 18.4 TH/MM3 (4.0-11.0)
[2016-12-08 21:34] LABS: ALT (GPT) 20 U/L (12-78)
[2016-12-08 21:36] LABS: ALKALINE PHOSPHATASE 104 U/L (45-117); TOTAL BILIRUBIN ADULT 0.3 MG/DL (0.2-1.0)
[2016-12-08 21:48] LABS: ANION GAP 6 MEQ/L (5-15); AST (GOT) 14 U/L (15-37); BICARBONATE 26.8 MEQ/L (21.0-32.0); BLOOD UREA NITROGEN 27 MG/DL (7-18); CHLORIDE 100 MEQ/L (98-107); GLOMERULAR FILTRATION RATE 87 ML/MIN (>89); SODIUM (NA) 133 MEQ/L (136-145)
[2016-12-08] MEDS ORDERED: CLINDAMYCIN INJ 600 MG in SODIUM CHLORIDE 0.9% INJ 100 ML IV ONE (22:30)
[2016-12-09] VITALS (7 sets, daily range): BP systolic 117–128; BP diastolic 60–79; PULSE 62–101; RESP 17–20; TEMP 96.8–99.6; O2SAT 95–100
[2016-12-09] MEDS ORDERED: IOHEXOL 350 MG/ML 10 ML VIAL (for RAD DIAG) IV ONE (00:50)
--- NOTE | 2016-12-09 01:15 | RADRPT ---
EXAM DATE/TIME: 12/09/2016 00:49 [facility] COMPARISON: No previous studies available for comparison. INDICATIONS : Skin infection on buttock. IV CONTRAST: 85 cc Omnipaque 350 (iohexol) IV ORAL CONTRAST: No oral contrast ingested. RADIATION DOSE: 14.26 CTDIvol (mGy) MEDICAL HISTORY : Hypertension. Gastroesophageal reflux disease. Cardiovascular diseaseCoronary artery disease. SURGICAL HISTORY : Cardiac catherization. Cardiac valve replacement. ENCOUNTER: Initial ACUITY: 4 - 6 days PAIN SCALE: 10/10 LOCATION: buttock TECHNIQUE: Volumetric scanning of the pelvis was performed. Using automated exposure control and adjustment of t he mA and/or kV according to patient size, radiation dose was kept as low as reasonably achievable to obtain optimal diagnostic quality images. DICOM format image data is available electronically for review and comparison. FINDINGS: BOWEL/MESENTERY: The visualized small and large bowel demonstrate no acute abnormality. There is no free fluid. BLADDER: There is no wall thickening or mass. RETROPERITONEUM: There is no aneurysm or lymphadenopathy. REPRODUCTIVE: Within normal limits. INGUINAL: There is no lymphadenopathy or hernia. MUSCULOSKELETAL: There is extensive skin thickening of the lower buttock and perineum bilaterally. There is a small ti ny abscess in the upper inner right thigh measuring 1.9 cm.. CONCLUSION: 1. Extensive skin thickening of the lower buttock and perineum bilaterally consistent with cellulitis . 2. Tiny abscess along the right upper inner thigh measuring 1.9 cm. Adolfo Flores MD on December 09, 2016 at 1:10 Board Certified Radiologist. This report was verified electronically.
[2016-12-09] MEDS ORDERED: MORPHINE SULFATE 4 MG/ML INJ IV PUSH ONE (02:15)
[2016-12-09] MEDS ORDERED: GLUCAGON 1 MG/ML VIAL OTHER PRN (02:15)
[2016-12-09] MEDS ORDERED: DEXTROSE 50% IN WATER 50 ML VIAL(D50) IV PRN (02:15)
--- NOTE | 2016-12-09 02:41 | HHI.HP ---
[facility] No Primary Care Physician Admission Diagnosis Cellulitis Diagnoses: (1) Cellulitis Diagnosis: Principal (2) Abscess of groin, right Diagnosis: Principal (3) Cephalgia Diagnosis: Principal (4) Dehydration Diagnosis: Principal (5) HTN (hypertension) Diagnosis: Principal (6) DM (diabetes mellitus) Diagnosis: Principal Travel History International Travel<30 Days: No Contact w/Intl Traveler <30 Da: No Traveled to Known Affected Are: No History of Present Illness This is a 46-year-old male with a PMH of HTN, Hyperlipidemia, Hidradenitis Suppurativa, Rheumatoid Arthritis, A. fib, CAD, DM, Chronic Cephalgia, Cervical Stenosis and Tobacco Abuse who presented to the ER with complaints of headache/ neck ache in addition to infection of the buttocks and groin. Recent admit 11/21 -11/27/16 for similar presentation, s/p MRI C-Spine 11/23/16 w/ significant thecal sac stenosis C5-6, C6-7 and neuroforaminal stenosis, referred to Dr. Denis as outpatient for likely ACDF, pending appt. Also w/ Hidradenitis, failed outpatient tx on Doxycycline, s/p eval by ID, s/p IV Abx, and d/c'd on Clinda x2 wks w/ plans for outpatient follow up w/ Plastic Surgery. Returns now w/ ongoing infection. Denies fever/chills. On arrival, BP 129/82, HR 126, O2 sat 98% on RA, Afebrile. WBC 18.4. GFR 87, BUN 27. CT Pelvis with extensive skin thickening of lower buttock and perineum bilaterally consistent with cellulitis and tiny abscess along right upper inner thigh measuring 1.9 cm. S/p Clinda in ER. Review of Systems Except as stated in HPI: all other systems reviewed are Neg ROS: 14 point review of systems otherwise negative. Past Family Social History Past Medical History PMH: HTN, Hyperlipidemia, Hidradenitis Suppurativa, Rheumatoid Arthritis, A. fib, CAD, DM, Chronic Cephalgia, Cervical Stenosis and Tobacco Abuse Past Surgical History PAST SURGICAL HISTORY: Dental Extraction, Hidradenitis Axillary/Groin Resection 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 Family History PAST FAMILY HISTORY: Reviewed, positive for DM. Social History PAST SOCIAL HISTORY: Negative for alcohol. Positive for tobacco. Negative for drugs. Physical Exam Vital Signs Vital Signs Date Time Temp Pulse Resp B/P Pulse Ox O2 Delivery O2 Flow Rate FiO2 12/08/16 19:28 98.2 126 18 129/82 98 Room Air Physical Exam PE: GENERAL: Middle-aged black male in no acute distress. HEENT: PERRLA, EOMI. No scleral icterus or conjunctival pallor. No lid lag or facial droop. CARDIOVASCULAR: Regular rate and rhythm. No obvious murmurs to auscultation. No chest tenderness to palpation. RESPIRATORY: No obvious rhonchi or wheezing. Clear to auscultation. Breath sounds equal bilaterally. GASTROINTESTINAL: Abdomen soft, non-tender, nondistended. BS normal. MUSCULOSKELETAL: Extremities without clubbing, cyanosis, or edema. No obvious deformities. Diffuse hidradenitis bilateral groin/thigh, +draining right abscess , cellulitis buttocks NEUROLOGICAL: Awake, alert and oriented x4. No focal neurologic deficits. Moving both upper and lower extremities spontaneously. Laboratory Laboratory Tests Test 12/08/16 20:40 White Blood Count 18.4 Red Blood Count 4.27 Hemoglobin 11.5 Hematocrit 36.5 Mean Corpuscular Volume 85.4 Mean Corpuscular Hemoglobin 27.0 Mean Corpuscular Hemoglobin 31.7 Concent Red Cell Distribution Width 20.1 Platelet Count 423 Mean Platelet Volume 8.1 Neutrophils (%) (Auto) 75.1 Lymphocytes (%) (Auto) 18.0 Monocytes (%) (Auto) 5.7 Eosinophils (%) (Auto) 0.6 Basophils (%) (Auto) 0.6 Neutrophils # (Auto) 13.9 Lymphocytes # (Auto) 3.3 Monocytes # (Auto) 1.0 Eosinophils # (Auto) 0.1 Basophils # (Auto) 0.1 CBC Comment DIFF FINAL Differential Comment Sodium Level 133 Potassium Level 4.0 Chloride Level 100 Carbon Dioxide Level 26.8 Anion Gap 6 Blood Urea Nitrogen 27 Creatinine 1.10 Estimat Glomerular Filtration 87 Rate Random Glucose 313 Calcium Level 8.8 Total Bilirubin 0.3 Aspartate Amino Transf 14 (AST/SGOT) Alanine Aminotransferase 20 (ALT/SGPT) Alkaline Phosphatase 104 Total Protein 8.8 Albumin 2.9 Result Diagram: 12/08/16203912/08/162039 Assessment and Plan Problem List: (1) Cellulitis ICD Code: L03.90 Status: Chronic (2) Abscess of groin, right ICD Code: L02.214 Status: Acute (3) Cephalgia ICD Code: R51 Status: Acute (4) Dehydration ICD Code: E86.0 Status: Acute (5) HTN (hypertension) ICD Code: I10 Status: Acute (6) DM (diabetes mellitus) ICD Code: E11.9 Status: Acute Assessment and Plan A/P: 1. Cellulitis: h/o Hidradenitis Suppurativa w/ extensive involvement of groin , CT Pelvis w/ skin thickening of buttock and perineum bilaterally consistent w / cellulitis, images reviewed by me. Recent admit 11/21-11/27/16 for same, d/c'd home on Clinda PO, s/p Clinda IV in ER, obtain Blood Cultures, continue IV Abx, Consult ID as needed, will ultimately need eval by Plastic Sx for likely intervention. Wound Consult 2. Right Groin Abscess: 1.9cm abscess noted on CT Pelvis, images reviewed, continue IV Abx as above, consult Gen Sx as needed. 3. Cephalgia: Chronic. H/o Cervical Stenosis, following w/ Dr. Koehler, will likely require ACDF, however pending resolution of active infection. Continue analgesics, muscle relaxants. 4. HTN: Controlled. Resume home medications. 5. DM: Sliding scale w/ Accu-Cheks. Continue home Insulin. 6. DVT Prophylaxis: SCD/Teds. 7. Social work for d/c planning as needed. 8. Case discussed w/ ER physician at length. Physician Certification 2 Midnight Certification Type: Admission for Inpatient Services Order for Inpatient Services The services are ordered in accordance with Medicare regulations or non- Medicare payer requirements, as applicable. In the case of services not specified as inpatient-only, they are appropriately provided as inpatient services in accordance with the 2-midnight benchmark. Estimated LOS (days): 2 days is the estimated time the patient will need to remain in the hospital, assuming treatment plan goals are met and no additional complications. Post-Hospital Plan: Not yet determined Rachael Allison MD Dec 09, 2016 02:41
[2016-12-09] MEDS ORDERED: MORPHINE SULFATE 8 MG/ML INJ ONE (02:46)
[2016-12-09] MEDS: CEFEPIME INJ 1,000 MG in SODIUM CHLORIDE 0.9% INJ 100 ML IV SCH ×3 (02:59→23:51)
[2016-12-09] MEDS: CYCLOBENZAPRINE HCL 10 MG TAB PO PRN ×2 (04:21→19:38)
[2016-12-09] MEDS: INSULIN ASPART SUPPLEMENTAL SCALE SQ SCH ×4 (07:22→21:26)
--- NOTE | 2016-12-09 07:54 | PD ---
HPI Chief Complaint: Back/ Neck Pain or Injury Time Seen by Provider: 19:54 Travel History International Travel<30 days: No Contact w/Intl Traveler<30days: No Traveled to known affect area: No History of Present Illness HPI Patient is a 46-year-old male with history of diabetes and several episodes of abscesses and cellulitis, who comes in complaining of neck pain and abscesses to his buttocks. Each time he comes in, he has a same complaints of neck pain and abscesses. He denies any fever. He says he has not been checking his blood sugar. He has noticed some oozing from the abscesses on his legs and buttocks. He says his neck is stiff and he cannot turn his head due to the pain. PFSH Past Medical History Hx Anticoagulant Therapy: Yes Arthritis: Yes Atrial Fibrillation: Yes Autoimmune Disease: Yes (Rheumatoid Arthritis) Blood Disorders: No Anxiety: No Depression: Yes Heart Rhythm Problems: Yes Cancer: No Cardiac Catheterization: No Cardiovascular Problems: Yes (A-fib, HTN) High Cholesterol: Yes Chemotherapy: No Chest Pain: Yes Congestive Heart Failure: No Cerebrovascular Accident: No Coronary Artery Disease: Yes Diabetes: Yes Patient Takes Glucophage: No Diminished Hearing: No Endocrine: Yes Gastrointestinal Disorders: No GERD: Yes Genitourinary: Yes (TANK) Hiatal Hernia: No Heparin Induced Thrombocytopen: No Hypertension: Yes Immune Disorder: Yes Implanted Vascular Access Dvce: No Kidney Stones: No Musculoskeletal: Yes Neurologic: Yes Psychiatric: Yes Reproductive: No Respiratory: No Immunizations Current: Yes Radiation Therapy: No Thyroid Disease: No Ulcer: No Past Surgical History Abdominal Surgery: No Body Medical Devices: PIG VALVE Cardiac Surgery: Yes (CATH 2015, 2014, 2013 PIG VALVE 2015) Coronary Artery Bypass Graft: No Ear Surgery: No Endocrine Surgery: No Eye Surgery: No Genitourinary Surgery: No Gynecologic Surgery: No Neurologic Surgery: No Oral Surgery: Yes (TEETH REMOVED 2014) Thoracic Surgery: No Other Surgery: Yes (Nikos under arm r/t Boils ) Family History Family Myocardial Infarction: Yes Social History Alcohol Use: Yes (rarely) Tobacco Use: No Substance Use: No Allergies-Medications (Allergen,Severity, Reaction): Coded Allergies: *MDRO Multi-Drug Resistant Organism (Verified Adverse Reaction, Unknown, ) 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/2015 Reported Meds & Prescriptions Reported Meds & Active Scripts Active Novolog Inj (Insulin Aspart) 1,000 Unit/10 Ml Vial 1-9 Units SQ ACHS Max dose at bedtime:( )units; sugars less than 70,(0)units; sugars 150-199,(1) unit; sugars 200-249,(3) units; sugars 250-299,(5) units; sugars 300-349,(7) units; sugars greater than 349,(9) units Metoprolol Tartrate 25 Mg Tab 12.5 Mg PO Q12HR Levemir Inj (Insulin Detemir) 1,000 unit/ 10 ML Vial 32 Units SQ HS Flexeril (Cyclobenzaprine HCl) 10 Mg Tab 10 Mg PO Q8H PRN Atorvastatin (Atorvastatin Calcium) 20 Mg Tab 20 Mg PO HS Prednisone 10 Mg Tab 10 Mg PO DAILY Medrol Dosepak (Methylprednisolone) 4 Mg Dspk 4 Mg PO DIRECTED Per Pharmacist direction Clindamycin (Clindamycin HCl) 300 Mg Cap 300 Mg PO TID Percocet (Oxycodone-Acetaminophen) 7.5-325 mg Tab 1 Tab PO Q6H PRN Adult Aspirin EC Low Strength (Aspirin) 81 Mg Tabec 81 Mg PO DAILY Review of Systems Except as stated in HPI: all other systems reviewed are Neg General / Constitutional: No: Fever, Chills HENT: No: Headaches, Lightheadedness Cardiovascular: No: Chest Pain or Discomfort Respiratory: No: Shortness of Breath Gastrointestinal: No: Nausea, Vomiting, Abdominal Pain Musculoskeletal: No: Edema Skin: Positive Lesions Neurologic: No: Weakness, Dizziness Physical Exam Narrative GENERAL: Awake and alert, in no acute distress. SKIN: Large area of induration covering most of the buttocks. Old areas that have been incised and drained present. Opening draining abscess to the right groin. HEAD: Atraumatic. Normocephalic. EYES: Pupils equal and round. No scleral icterus. ENT: Mucous membranes pink and moist. NECK: Trachea midline. No JVD. Tender to palpation of the paraspinal muscles of the neck. No meningeal signs. CARDIOVASCULAR: Regular rate and rhythm. No murmur appreciated. RESPIRATORY: No accessory muscle use. Clear to auscultation. Breath sounds equal bilaterally. GASTROINTESTINAL: Abdomen soft, non-tender, nondistended. MUSCULOSKELETAL: No obvious deformities. No clubbing. No cyanosis. No edema. NEUROLOGICAL: Awake and alert. No obvious cranial nerve deficits. Motor grossly within normal limits. Normal speech. PSYCHIATRIC: Appropriate mood and affect; insight and judgment normal. Data Data Last Documented VS Vital Signs Date Time Temp Pulse Resp B/P Pulse Ox O2 Delivery O2 Flow Rate FiO2 12/08/16 19:28 98.2 126 18 129/82 98 Room Air Orders Complete Blood Count With Diff (12/08/16 20:00) Comprehensive Metabolic Panel (12/08/16 20:00) Iv Access Insert/Monitor (12/08/16 20:00) Ct Pelvis W Iv Contrast(Rout) (12/08/16 ) Sodium Chlorid 0.9% 500 Ml Inj (Ns 500 M (12/08/16 20:00) Ketorolac Inj (Toradol Inj) (12/08/16 20:00) Diazepam (Valium) (12/08/16 20:00) Clindamycin Inj (Cleocin Inj) (12/08/16 22:30) Iohexol 350 Inj (Omnipaque 350 Inj) (12/09/16 00:50) Admit Order (Ed Use Only) (12/09/16 ) Morphine Inj (Morphine Inj) (12/09/16 02:15) Labs Laboratory Tests Test 12/08/16 20:40 White Blood Count 18.4 TH/MM3 Red Blood Count 4.27 MIL/MM3 Hemoglobin 11.5 GM/DL Hematocrit 36.5 % Mean Corpuscular Volume 85.4 FL Mean Corpuscular Hemoglobin 27.0 PG Mean Corpuscular Hemoglobin 31.7 % Concent Red Cell Distribution Width 20.1 % Platelet Count 423 TH/MM3 Mean Platelet Volume 8.1 FL Neutrophils (%) (Auto) 75.1 % Lymphocytes (%) (Auto) 18.0 % Monocytes (%) (Auto) 5.7 % Eosinophils (%) (Auto) 0.6 % Basophils (%) (Auto) 0.6 % Neutrophils # (Auto) 13.9 TH/MM3 Lymphocytes # (Auto) 3.3 TH/MM3 Monocytes # (Auto) 1.0 TH/MM3 Eosinophils # (Auto) 0.1 TH/MM3 Basophils # (Auto) 0.1 TH/MM3 CBC Comment DIFF FINAL Differential Comment Sodium Level 133 MEQ/L Potassium Level 4.0 MEQ/L Chloride Level 100 MEQ/L Carbon Dioxide Level 26.8 MEQ/L Anion Gap 6 MEQ/L Blood Urea Nitrogen 27 MG/DL Creatinine 1.10 MG/DL Estimat Glomerular Filtration 87 ML/MIN Rate Random Glucose 313 MG/DL Calcium Level 8.8 MG/DL Total Bilirubin 0.3 MG/DL Aspartate Amino Transf 14 U/L (AST/SGOT) Alanine Aminotransferase 20 U/L (ALT/SGPT) Alkaline Phosphatase 104 U/L Total Protein 8.8 GM/DL Albumin 2.9 GM/DL [facility] Medical Decision Making Medical Screen Exam Complete: Yes Emergency Medical Condition: Yes Medical Record Reviewed: Yes Differential Diagnosis Cellulitis versus abscess versus muscle strain versus hyperglycemia Narrative Course Patient is a 46-year-old male who comes in complaining of abscesses as well as neck pain. Exam shows large area of induration to his buttocks as well as a draining abscess to his right groin. IV established, labs sent. Labs show an elevated white blood cell count. Patient given a dose of clindamycin. Given Toradol and Valium for his neck pain. CT of the pelvis shows a large area of cellulitis to his buttocks. Patient continues to complain of pain to his neck. Given a dose of morphine. Patient will be admitted for further management. Diagnosis Primary Impression: Abscess of groin, right Additional Impressions: Cellulitis Qualified Code: L03.317 - Cellulitis of buttock DM (diabetes mellitus) Qualified Code: E11.622 - Type 2 diabetes mellitus with other skin ulcer, without long-term current use of insulin Admitting Information Admitting Physician Requests: Admit Condition: Stable Pratima Dorman MD Dec 09, 2016 07:54
[2016-12-09] MEDS: oxyCODONE/ACETAMINOPHEN 7.5 MG/325 MG TAB PO PRN ×3 (07:59→21:17)
[2016-12-09] MEDS: METOPROLOL TARTRATE 25 MG TAB PO SCH ×2 (09:22→21:17)
[2016-12-09] MEDS: ASPIRIN EC 81 MG TABEC PO SCH (09:24)
[2016-12-09] MEDS: CLINDAMYCIN INJ 900 MG in SODIUM CHLORIDE 0.9% INJ 100 ML IV SCH ×3 (09:24→23:51)
--- NOTE | 2016-12-09 11:25 | PD.CAR.PN ---
CVT Progress Note Subjective/Hospital Course: Patient with chronic hidradenitis suppurativa, involving both buttocks, inner thighs and groins. Patient had previous admissions to this institution and at that time I recommended that patient follow up with plastic surgery for the only appropriate therapy for this is removal of all the inflamed and infected sweat gland bearing skin followed by grafting. There are no drainable abscesses at this time. Area should be kept clean and washed at least twice a day with soap and water and patient should continue antibiotics. Again it is imperative that patient is seen by plastic surgery as an outpatient and be scheduled for appropriate procedures This is not within the realm of general surgery. Thanks J Objective: Vital Signs Date Time Temp Pulse Resp B/P Pulse Ox O2 Delivery O2 Flow Rate FiO2 12/09/16 09:07 98.4 12/09/16 08:27 96.8 62 20 128/68 95 12/09/16 04:27 18 12/09/16 04:25 98.5 89 17 124/79 100 12/09/16 02:53 95 18 117/70 98 12/08/16 19:28 98.2 126 18 129/82 98 Room Air Result Diagram: 12/08/16203912/08/162039 Jeferson Cronin MD Dec 09, 2016 11:25
[2016-12-09] MEDS: MORPHINE SULFATE 4 MG/ML INJ IV PUSH PRN ×3 (11:51→23:56)
--- NOTE | 2016-12-09 11:55 | HHI.PR ---
Subjective Remarks Follow-up for groin cellulitis and chronic cephalgia. The patient states he came to hospital both for groin infection and continued headache. He states he' s been having more pain and drainage from his groin abscesses for the past few days. He states the infection seemed to get worse while he was still taking the clindamycin, which she has now finished. He denies any fevers or chills. He has not followed up with a plastic surgeon. He continues to complain of chronic head and neck pain, unchanged. He isn't able to ambulate with no difficulties. Denies any bowel or bladder incontinence. He does feel that he has numbness in his toes which is new. Denies any extremity weakness. Objective Vitals Vital Signs Date Time Temp Pulse Resp B/P Pulse Ox O2 Delivery O2 Flow Rate FiO2 12/09/16 09:07 98.4 12/09/16 08:27 96.8 62 20 128/68 95 12/09/16 04:27 18 12/09/16 04:25 98.5 89 17 124/79 100 12/09/16 02:53 95 18 117/70 98 12/08/16 19:28 98.2 126 18 129/82 98 Room Air I/O 12/08/16 12/08/16 12/08/16 12/09/16 12/09/16 12/09/16 07:00 15:00 23:00 07:00 15:00 23:00 Output Total 500 ml Balance -500 ml Output Urine Total 500 ml Result Diagram: 12/08/16203912/08/162039 Imaging Last Impressions Pelvis CT 12/08/16 0000 Signed Impressions: Service Date/Time: Friday, December 09, 2016 00:49 - CONCLUSION: 1. Extensive skin thickening of the lower buttock and perineum bilaterally consistent with cellulitis. 2. Tiny abscess along the right upper inner thigh measuring 1.9 cm. Adolfo Flores MD Objective Remarks GENERAL: Well-developed well-nourished. In no acute distress. SKIN: Warm and dry. Bilateral groin with areas of induration and serosanguineous drainage on the right. HEENT: Normocephalic. Pupils equal and round. Mucous membranes pink and moist. CARDIOVASCULAR: Regular rate and rhythm. No murmur appreciated. RESPIRATORY: No accessory muscle use. Clear to auscultation. Breath sounds equal bilaterally. GASTROINTESTINAL: Abdomen soft, non-tender, nondistended. Bowel sounds x4. MUSCULOSKELETAL: No obvious deformities. No clubbing or cyanosis. No edema. NEUROLOGICAL: Awake and alert. No focal neurological deficits. Moves upper and lower extremities spontaneously. Normal speech. Strength 5/5 in all extremities. PSYCHIATRIC: Appropriate mood and affect; insight and judgment normal. A/P Problem List: (1) Cellulitis ICD Code: L03.90 Status: Chronic (2) Abscess of groin, right ICD Code: L02.214 Status: Acute (3) Cephalgia ICD Code: R51 Status: Chronic (4) Dehydration ICD Code: E86.0 Status: Acute (5) HTN (hypertension) ICD Code: I10 Status: Chronic (6) DM (diabetes mellitus) ICD Code: E11.9 Status: Chronic Assessment and Plan 46-year-old male with a PMH of HTN, Hyperlipidemia, Hidradenitis Suppurativa, Rheumatoid Arthritis, A. fib, CAD, DM, Chronic Cephalgia, Cervical Stenosis and Tobacco Abuse who had recent admission for cervical stenosis and buttocks/groin infection, presents again with headache/neck pain and buttock/groin infection Right groin/buttock cellulitis with hidradenitis: Recent admission for the same , discharged on clindamycin. Symptoms worsened on clindamycin. Review: CT Pelvis w/ skin thickening of buttock and perineum bilaterally consistent w/ cellulitis, tiny abscess. WBC 18.4, previously 13.8 on 11/22/16. -Consulted general surgery for abscess, no drainable abscess, needs plastic surgery for definitive treatment as outpatient -On IV clindamycin and cefepime. ID consulted. -livestock producer consulted -Follow up labs today Cephalgia: Chronic head and neck pain, no acute changes in symptoms and neurologically intact on exam. Recent admission for the same, evaluated by Dr. Denis, symptoms seem secondary to moderate cervical stenosis seen on cervical MRI. The plan was for likely require ACDF after resolution of active infection. Continue analgesics, muscle relaxants. Continue clinical to follow- up with neurosurgery after infection is resolved unless new neurologic symptoms occur. HTN: Chronic, controlled. Continue home medications. DM: Sliding scale w/ Accu-Cheks. Continue home Insulin. GABRIELA: Mild. Likely secondary to infection. Creatinine 1.1, previously 0.87 on . Status post IVF in the ED. Follow-up BMP today. DVT Prophylaxis: SCD/Teds. Discharge Planning Follow-up ID recommendations. Monitor for clinical improvement. Discussed with general surgery, recommends plastic surgery follow-up as outpatient. Discussed with ID, needs plastic surgery intervention for definitive treatment, consider transfer, continue current antibiotics. Problem Qualifiers (1) Cellulitis: Qualified Code: L03.317 - Cellulitis of buttock (2) Cephalgia: Qualified Code: R51 - Chronic nonintractable headache, unspecified headache type (3) HTN (hypertension): Qualified Code: I10 - Essential hypertension (4) DM (diabetes mellitus): Qualified Code: E11.622 - Type 2 diabetes mellitus with other skin ulcer, without long-term current use of insulin Scott Berumen Dec 09, 2016 11:55
[2016-12-09 15:52] LABS: AUTOMATED NEUTROPHIL # 12.2 TH/MM3 (1.8-7.7); BASOPHIL % 0.3 % (0.0-2.0); EOSINOPHIL # 0.2 TH/MM3 (0-0.4); HEMATOCRIT 35.8 % (39.0-51.0); HEMO FLAGS DIFF FINAL; LYMPHOCYTE # 3.4 TH/MM3 (1.0-4.8); MEAN CELL VOLUME 85.5 FL (80.0-100.0); MEAN CORPUSCULAR HEMOGLOBIN 26.9 PG (27.0-34.0); MEAN CORPUSCULAR HGB CONC 31.4 % (32.0-36.0); NEUT % 72.7 % (16.0-70.0); PLATELET COUNT 421 TH/MM3 (150-450); RED BLOOD COUNT 4.19 MIL/MM3 (4.50-5.90); RED CELL DISTRIBUTION WIDTH 19.7 % (11.6-17.2); WHITE BLOOD COUNT 16.8 TH/MM3 (4.0-11.0)
[2016-12-09 16:11] LABS: BICARBONATE 27.5 MEQ/L (21.0-32.0); POTASSIUM 3.9 MEQ/L (3.5-5.1)
[2016-12-09] MEDS: ATORVASTATIN 20 MG TAB PO SCH (19:37)
[2016-12-09] MEDS: INSULIN DETEMIR 100 UNITS/ML VIAL SQ SCH (21:26)
[2016-12-10] VITALS: BP 116/75; PULSE 90; RESP 17; TEMP 98; O2SAT 97
[2016-12-10] MEDS: oxyCODONE/ACETAMINOPHEN 7.5 MG/325 MG TAB PO PRN ×4 (03:21→23:27)
[2016-12-10 06:11] LABS: AUTOMATED NEUTROPHIL # 11.3 TH/MM3 (1.8-7.7); BASOPHIL # 0.1 TH/MM3 (0-0.2); BASOPHIL % 0.5 % (0.0-2.0); EOSINOPHIL # 0.2 TH/MM3 (0-0.4); EOSINOPHIL % 1.3 % (0.0-4.0); HEMATOCRIT 33.2 % (39.0-51.0); HEMO FLAGS DIFF FINAL; LYMPH % 20.7 % (9.0-44.0); LYMPHOCYTE # 3.3 TH/MM3 (1.0-4.8); MEAN CELL VOLUME 83.3 FL (80.0-100.0); MEAN CORPUSCULAR HEMOGLOBIN 26.6 PG (27.0-34.0); MEAN CORPUSCULAR HGB CONC 31.9 % (32.0-36.0); MONO % 7.5 % (0.0-8.0); PLATELET COUNT 378 TH/MM3 (150-450); RED BLOOD COUNT 3.98 MIL/MM3 (4.50-5.90); WHITE BLOOD COUNT 16.1 TH/MM3 (4.0-11.0)
[2016-12-10] MEDS: CYCLOBENZAPRINE HCL 10 MG TAB PO PRN ×2 (06:40→16:26)
[2016-12-10] MEDS: MORPHINE SULFATE 4 MG/ML INJ IV PUSH PRN ×2 (06:44→22:14)
[2016-12-10] MEDS: INSULIN ASPART SUPPLEMENTAL SCALE SQ SCH ×4 (06:44→21:00)
[2016-12-10 06:49] LABS: BICARBONATE 26.1 MEQ/L (21.0-32.0); POTASSIUM 3.7 MEQ/L (3.5-5.1)
[2016-12-10 08:43] VITALS: BP 117/76; PULSE 86; RESP 20; TEMP 97.6; O2SAT 96
[2016-12-10] MEDS: ASPIRIN EC 81 MG TABEC PO SCH (09:13)
[2016-12-10] MEDS: CLINDAMYCIN INJ 900 MG in SODIUM CHLORIDE 0.9% INJ 100 ML IV SCH (09:14)
[2016-12-10] MEDS: METOPROLOL TARTRATE 25 MG TAB PO SCH ×2 (09:14→22:13)
--- NOTE | 2016-12-10 10:09 | HHI.PR ---
Subjective Remarks Follow up for neck pain likely due to cervical stenosis, diffuse hydradenitis suppurativa and skin abscess. Patient reports neck pain. No fever, chills. He has not been able to see a plastic surgeon in the outpatient setting due to lack of insurance. Objective Vitals Vital Signs Date Time Temp Pulse Resp B/P Pulse Ox O2 Delivery O2 Flow Rate FiO2 12/10/16 08:43 97.6 86 20 117/76 96 12/10/16 00:00 98.0 90 17 116/75 97 12/09/16 20:00 99.6 101 17 127/78 99 12/09/16 15:58 97.8 62 20 128/60 95 12/09/16 12:44 98.2 62 18 122/60 95 I/O 12/09/16 12/09/16 12/09/16 12/10/16 12/10/16 12/10/16 07:00 15:00 23:00 07:00 15:00 23:00 Intake Total 240 ml 440 ml Output Total 500 ml 1950 ml 1300 ml Balance -500 ml -1710 ml -860 ml Intake Oral 240 ml 240 ml IV Total 200 ml Output Urine Total 500 ml 1950 ml 1300 ml Result Diagram: 12/10/16 0548 12/10/16 0548 Imaging Last Impressions Pelvis CT 12/08/16 0000 Signed Impressions: Service Date/Time: Friday, December 09, 2016 00:49 - CONCLUSION: 1. Extensive skin thickening of the lower buttock and perineum bilaterally consistent with cellulitis. 2. Tiny abscess along the right upper inner thigh measuring 1.9 cm. Adolfo Flores MD Objective Remarks GENERAL: AOX3, NAD. SKIN: Warm and dry. Diffuse skin lesions kathi groins, buttocks, thighs, perineal areas. HEAD: Normocephalic. EYES: No scleral icterus. No injection or drainage. NECK: Supple, trachea midline. No JVD or lymphadenopathy. CARDIOVASCULAR: Regular rate and rhythm without murmurs, gallops, or rubs. RESPIRATORY: Breath sounds equal bilaterally. No accessory muscle use. GASTROINTESTINAL: Abdomen soft, non-tender, nondistended. MUSCULOSKELETAL: No cyanosis, or edema. BACK: Nontender without obvious deformity. No CVA tenderness. Procedures None. A/P Problem List: (1) Cellulitis ICD Code: L03.90 Status: Chronic (2) Abscess of groin, right ICD Code: L02.214 Status: Acute (3) Cephalgia ICD Code: R51 Status: Chronic (4) Dehydration ICD Code: E86.0 Status: Acute (5) HTN (hypertension) ICD Code: I10 Status: Chronic (6) DM (diabetes mellitus) ICD Code: E11.9 Status: Chronic Assessment and Plan 46-year-old male with a PMH of HTN, Hyperlipidemia, Hidradenitis Suppurativa, Rheumatoid Arthritis, A. fib, CAD, DM, Chronic Cephalgia, Cervical Stenosis and Tobacco Abuse who had recent admission for cervical stenosis and buttocks/groin infection, presents again with headache/neck pain and buttock/groin infection Right groin/buttock cellulitis with hidradenitis: Recent admission for the same , discharged on clindamycin. Symptoms worsened on clindamycin. Review: CT Pelvis w/ skin thickening of buttock and perineum bilaterally consistent w/ cellulitis, tiny abscess. WBC 18.4, previously 13.8 on 11/22/16. -Consulted general surgery for abscess, no drainable abscess, needs plastic surgery for definitive treatment as outpatient -On IV clindamycin and cefepime. ID consulted - recommends PO Clindamycin and Rifampin. -farmer and grazier consulted - Unfortunately, we do not have plastic surgery coverage. I have discussed at length with fund development manager as well as SHON RN. - We need to either arrange outpatient plastic surgery follow up OR transfer patient to another facility with in-house plastic surgery. - Once plastic surgery evaluates and possibly provide intervention and once there are no active infection, Neurosurgery will proceed with cervical stenosis surgery. Cephalgia: Chronic head and neck pain, no acute changes in symptoms and neurologically intact on exam. Recent admission for the same, evaluated by Dr. Denis, symptoms seem secondary to moderate cervical stenosis seen on cervical MRI. The plan was for likely require ACDF after resolution of active infection. Continue analgesics, muscle relaxants. Continue clinical to follow- up with neurosurgery after infection is resolved unless new neurologic symptoms occur. HTN: Chronic, controlled. Continue home medications. DM: Sliding scale w/ Accu-Cheks. Continue home Insulin. GABRIELA: Mild. Likely secondary to infection. Creatinine 1.1, improved to 0.82. DVT Prophylaxis: SCD/Teds. Problem Qualifiers (1) Cellulitis: Qualified Code: L03.317 - Cellulitis of buttock (2) Cephalgia: Qualified Code: R51 - Chronic nonintractable headache, unspecified headache type (3) HTN (hypertension): Qualified Code: I10 - Essential hypertension (4) DM (diabetes mellitus): Qualified Code: E11.622 - Type 2 diabetes mellitus with other skin ulcer, without long-term current use of insulin Kerri Parnell DO Dec 10, 2016 10:09
--- NOTE | 2016-12-10 11:09 | PD.ID.CON ---
History of Present Illness Service ID Consult Requested By Scott Berumen Reason for Consult hydradentiis suppurativaaskin benjamincesse, leukocytos Primary Care Physician No Primary Care Physician Diagnoses: History of Present Illness Pt is very well know tome I fact I saw him 3 weeks ago for the same problem 46 yo male with h/o hydradenitis suppurativa (HS) admitted to the hospital 3rd time i a matter of 6 weeks 3 weeks ago with severe HS He also has C spine stenosis and he came this time 2/2 severe neck pain He was noted to have leukocytosis and draining leiosn involcing buttocks, groins and L underarm He is on clindamycin, cefepime Pt remains afbrile and WBC are going down He was seen by general surgeon who agin refered him to plastic surgeon Review of Systems Musculoskeletal: COMPLAINS OF: Neck pain Integumentary: COMPLAINS OF: Abnormal pigmentation, Pruritus, Rash Except as stated in HPI: all other systems reviewed are Neg Past Family Social History Allergies: Coded Allergies: No Known Allergies (Verified Allergy, Unknown, 01/10/17) Past Medical History Hypertension Diabetes Atrial fibrillation Hydradenitis Rheumatoid arthritis History of MRSA infection Hyperlipidemia COPD Past Surgical History skin surgery for his hidradenitis skin grafting Active Ordered Medications Medications where reviewed in EMR Antibiotics Include: cefepime clindamycin Family History History of CAD and hypertension Social History Patient smokes one pack per day of cigarettes, reportedly quit about 6 months ago Occasional alcohol, usually beer Occasional marijuana, denies IV drug use Physical Exam Vital Signs Vital Signs Date Time Temp Pulse Resp B/P Pulse Ox O2 Delivery O2 Flow Rate FiO2 12/10/16 08:43 97.6 86 20 117/76 96 12/10/16 00:00 98.0 90 17 116/75 97 12/09/16 20:00 99.6 101 17 127/78 99 12/09/16 15:58 97.8 62 20 128/60 95 12/09/16 12:44 98.2 62 18 122/60 95 Physical Exam CONSTITUTIONAL/GENERAL: This is an adequately nourished patient, in no apparent distress. TUBES/LINES/DRAINS: SKIN: No jaundice, + Papular rash involving BLE and BUE - looks better today severe and confluent cystic lesions onvolving groins, buttocks, thighs, perineal area and to less extend L underarm The lesions look better then last time and draining odorless serous dc L buttock with induration 2/2 confluent lesions Skin temperature appropriate. Not diaphoretic. HEAD: Atraumatic. Normocephalic. EYES: Pupils equal and round and reactive. Extraocular motions intact. No scleral icterus. No injection or drainage. Fundi not examined. ENT: Hearing grossly normal. Nose without bleeding or purulent drainage. Oral mucosae without visible erythema, exudates, masses, or lesions. NECK: Trachea midline. Supple, + tender to palpation on the back CARDIOVASCULAR: Regular rate and rhythm without murmurs, gallops, or rubs. No JVD. Peripheral pulses symmetric. RESPIRATORY/CHEST: Symmetric, unlabored respirations. Clear to auscultation. Breath sounds equal bilaterally. No wheezes, rales, or rhonchi. GASTROINTESTINAL: Abdomen soft, non-tender, nondistended. No hepato-splenomegaly , or palpable masses. No guarding. Bowel sounds present. GENITOURINARY: Without palpable bladder distension. MUSCULOSKELETAL: Extremities without clubbing, cyanosis, or edema. No joint tenderness or effusion noted. No calf tenderness. No mottling or clubbing. LYMPHATICS: No palpable cervical or supraclavicular adenopathy. NEUROLOGICAL: Awake and alert. Motor and sensory grossly within normal limits. Follows commands. Clear speech Moves all extremities. PSYCHIATRIC: No obvious anxiety/depression. no apparent hallucinations or other psychotic thought process. Laboratory Laboratory Tests Test 12/09/16 12/10/16 14:10 05:48 White Blood Count 16.8 16.1 Red Blood Count 4.19 3.98 Hemoglobin 11.3 10.6 Hematocrit 35.8 33.2 Mean Corpuscular Volume 85.5 83.3 Mean Corpuscular Hemoglobin 26.9 26.6 Mean Corpuscular Hemoglobin 31.4 31.9 Concent Red Cell Distribution Width 19.7 20.0 Platelet Count 421 378 Mean Platelet Volume 8.7 7.7 Neutrophils (%) (Auto) 72.7 70.0 Lymphocytes (%) (Auto) 20.0 20.7 Monocytes (%) (Auto) 6.0 7.5 Eosinophils (%) (Auto) 1.0 1.3 Basophils (%) (Auto) 0.3 0.5 Neutrophils # (Auto) 12.2 11.3 Lymphocytes # (Auto) 3.4 3.3 Monocytes # (Auto) 1.0 1.2 Eosinophils # (Auto) 0.2 0.2 Basophils # (Auto) 0.0 0.1 CBC Comment DIFF FINAL DIFF FINAL Differential Comment Sodium Level 132 132 Potassium Level 3.9 3.7 Chloride Level 98 99 Carbon Dioxide Level 27.5 26.1 Anion Gap 7 7 Blood Urea Nitrogen 15 11 Creatinine 0.81 0.82 Estimat Glomerular Filtration 123 122 Rate Random Glucose 249 119 Calcium Level 8.8 8.9 Date/Time Procedure Status Source Growth 12/09/16 14:25 Aerobic Blood Culture Received Blood Peripheral Pending 12/09/16 14:25 Anaerobic Blood Culture Received Blood Peripheral Pending Result Diagram: 12/10/16 0548 12/10/16 0548 Imaging Last Impressions Pelvis CT 12/08/16 0000 Signed Impressions: Service Date/Time: Friday, December 09, 2016 00:49 - CONCLUSION: 1. Extensive skin thickening of the lower buttock and perineum bilaterally consistent with cellulitis. 2. Tiny abscess along the right upper inner thigh measuring 1.9 cm. Adolfo Flores MD Assessment and Plan Assessment and Plan Hydradenitis suppurativa groins, buttocks, on clindamycin, failed Pt was multiple times referred to plastic surgeon, but he is non comliant with that recommendation2/2 financial barrier At this point there is not much else to offer for his pt to alleviate his symptoms Chronic neck pain 2/2 cervical spine stenosis Leukocutsosi REC's: cont abx for now, after completion we can switch back to clinda or doxy though I dont think it will substantially help the pt He needs to go to pl;[facility] and undergo excision of affected skin with flaps change abx clinda 300 bid po and rirampin 300 bid po fu WBC Discussed Condition With Sneha Donis MD Dec 10, 2016 11:09
[2016-12-10 13:04] VITALS: BP 104/70; PULSE 82; RESP 19; TEMP 98.6; O2SAT 96
[2016-12-10] MEDS: CLINDAMYCIN 150 MG CAP PO SCH ×3 (13:15→23:27)
[2016-12-10 16:00] VITALS: BP 112/72; PULSE 83; RESP 17; TEMP 98.8; O2SAT 97
[2016-12-10 20:00] VITALS: BP 122/78; PULSE 99; RESP 20; TEMP 97.6; O2SAT 99
[2016-12-10] MEDS: INSULIN DETEMIR 100 UNITS/ML VIAL SQ SCH (21:00)
[2016-12-10] MEDS: RIFAMPIN 150 MG CAP PO SCH (22:13)
[2016-12-10] MEDS: ATORVASTATIN 20 MG TAB PO SCH (22:13)
[2016-12-11] VITALS: BP 111/76; PULSE 100; RESP 20; TEMP 98.7; O2SAT 96
[2016-12-11] MEDS: MORPHINE SULFATE 4 MG/ML INJ IV PUSH PRN ×5 (03:58→22:17)
[2016-12-11] MEDS: CLINDAMYCIN 150 MG CAP PO SCH ×4 (04:01→23:51)
[2016-12-11] MEDS: oxyCODONE/ACETAMINOPHEN 7.5 MG/325 MG TAB PO PRN ×4 (05:43→23:51)
[2016-12-11] MEDS: INSULIN ASPART SUPPLEMENTAL SCALE SQ SCH ×4 (06:06→22:20)
[2016-12-11 08:00] VITALS: BP 120/83; PULSE 90; RESP 16; TEMP 96.6; O2SAT 98
[2016-12-11] MEDS: RIFAMPIN 150 MG CAP PO SCH ×2 (08:29→22:10)
[2016-12-11] MEDS: ASPIRIN EC 81 MG TABEC PO SCH (08:30)
[2016-12-11] MEDS: METOPROLOL TARTRATE 25 MG TAB PO SCH ×2 (08:30→22:09)
--- NOTE | 2016-12-11 10:55 | HHI.PR ---
Subjective Remarks Follow up for neck pain likely due to cervical stenosis, diffuse hydradenitis suppurativa and skin abscess. Patient is doing well. No fever, chills. He complains of right thigh area pain. Objective Vitals Vital Signs Date Time Temp Pulse Resp B/P Pulse Ox O2 Delivery O2 Flow Rate FiO2 12/11/16 08:00 96.6 90 16 120/83 98 12/11/16 00:27 18 12/11/16 00:00 98.7 100 20 111/76 96 12/10/16 22:19 18 12/10/16 20:00 97.6 99 20 122/78 99 12/10/16 16:00 98.8 83 17 112/72 97 12/10/16 13:04 98.6 82 19 104/70 96 I/O 12/10/16 12/10/16 12/10/16 12/11/16 12/11/16 12/11/16 07:00 15:00 23:00 07:00 15:00 23:00 Intake Total 440 ml 720 ml 480 ml 480 ml Output Total 1300 ml 800 ml 500 ml 800 ml Balance -860 ml -80 ml -20 ml -320 ml Intake Oral 240 ml 720 ml 480 ml 480 ml IV Total 200 ml Output Urine Total 1300 ml 800 ml 500 ml 800 ml # Bowel Movements 0 0 0 Result Diagram: 12/10/16 0548 12/10/16 0548 Imaging Last Impressions Pelvis CT 12/08/16 0000 Signed Impressions: Service Date/Time: Friday, December 09, 2016 00:49 - CONCLUSION: 1. Extensive skin thickening of the lower buttock and perineum bilaterally consistent with cellulitis. 2. Tiny abscess along the right upper inner thigh measuring 1.9 cm. Adolfo Flores MD Objective Remarks GENERAL: AOX3, NAD. SKIN: Warm and dry. Diffuse skin lesions kathi groins, buttocks, thighs, perineal areas. HEAD: Normocephalic. EYES: No scleral icterus. No injection or drainage. NECK: Supple, trachea midline. No JVD or lymphadenopathy. CARDIOVASCULAR: Regular rate and rhythm without murmurs, gallops, or rubs. RESPIRATORY: Breath sounds equal bilaterally. No accessory muscle use. GASTROINTESTINAL: Abdomen soft, non-tender, nondistended. MUSCULOSKELETAL: No cyanosis, or edema. BACK: Nontender without obvious deformity. No CVA tenderness. Procedures None. A/P Problem List: (1) Cellulitis ICD Code: L03.90 Status: Chronic (2) Abscess of groin, right ICD Code: L02.214 Status: Acute (3) Cephalgia ICD Code: R51 Status: Chronic (4) Dehydration ICD Code: E86.0 Status: Acute (5) HTN (hypertension) ICD Code: I10 Status: Chronic (6) DM (diabetes mellitus) ICD Code: E11.9 Status: Chronic Assessment and Plan 46-year-old male with a PMH of HTN, Hyperlipidemia, Hidradenitis Suppurativa, Rheumatoid Arthritis, A. fib, CAD, DM, Chronic Cephalgia, Cervical Stenosis and Tobacco Abuse who had recent admission for cervical stenosis and buttocks/groin infection, presents again with headache/neck pain and buttock/groin infection Right groin/buttock cellulitis with hidradenitis: Recent admission for the same , discharged on clindamycin. Symptoms worsened on clindamycin. Review: CT Pelvis w/ skin thickening of buttock and perineum bilaterally consistent w/ cellulitis, tiny abscess. WBC 18.4, previously 13.8 on 11/22/16. -Consulted general surgery for abscess, no drainable abscess, needs plastic surgery for definitive treatment as outpatient -ID consulted - recommends PO Clindamycin and Rifampin. -sales consulting director consulted - Unfortunately, we do not have plastic surgery coverage. I have discussed at length with assistant nurse manager as well as SHON RN. - We need to either arrange outpatient plastic surgery follow up OR transfer patient to another facility with in-house plastic surgery. - Once plastic surgery evaluates and possibly provide intervention and once there are no active infection, Neurosurgery will proceed with cervical stenosis surgery. Cephalgia: Chronic head and neck pain, no acute changes in symptoms and neurologically intact on exam. Recent admission for the same, evaluated by Dr. Denis, symptoms seem secondary to moderate cervical stenosis seen on cervical MRI. The plan was for likely require ACDF after resolution of active infection. Continue analgesics, muscle relaxants. Continue clinical to follow- up with neurosurgery after infection is resolved unless new neurologic symptoms occur. HTN: Chronic, controlled. Continue home medications. DM: Sliding scale w/ Accu-Cheks. Continue home Insulin. GABRIELA: Mild. Likely secondary to infection. Creatinine 1.1, improved to 0.82. DVT Prophylaxis: SCD/Teds. Discussed with CM who continues to work with senior case management officials with regards to Plastic surgery evaluation. Problem Qualifiers (1) Cellulitis: Qualified Code: L03.317 - Cellulitis of buttock (2) Cephalgia: Qualified Code: R51 - Chronic nonintractable headache, unspecified headache type (3) HTN (hypertension): Qualified Code: I10 - Essential hypertension (4) DM (diabetes mellitus): Qualified Code: E11.622 - Type 2 diabetes mellitus with other skin ulcer, without long-term current use of insulin Kerri Parnell DO Dec 11, 2016 10:55
[2016-12-11] MEDS ORDERED: predniSONE 20 MG TAB PO ONE (11:00)
[2016-12-11 12:00] VITALS: BP 137/91; PULSE 100; RESP 18; TEMP 98.1; O2SAT 100
[2016-12-11 16:00] VITALS: BP 113/70; PULSE 80; RESP 17; TEMP 98.8; O2SAT 97
[2016-12-11 20:00] VITALS: BP 121/75; PULSE 89; RESP 20; TEMP 98.4; O2SAT 95
[2016-12-11] MEDS: ATORVASTATIN 20 MG TAB PO SCH (22:09)
[2016-12-11] MEDS: predniSONE 20 MG TAB PO SCH (22:11)
[2016-12-11] MEDS: INSULIN DETEMIR 100 UNITS/ML VIAL SQ SCH (22:19)
[2016-12-12] VITALS: BP 117/75; PULSE 75; RESP 20; TEMP 97.5; O2SAT 95
[2016-12-12] MEDS: MORPHINE SULFATE 4 MG/ML INJ IV PUSH PRN ×4 (01:33→22:44)
[2016-12-12] MEDS: CLINDAMYCIN 150 MG CAP PO SCH ×3 (05:38→20:18)
[2016-12-12] MEDS: oxyCODONE/ACETAMINOPHEN 7.5 MG/325 MG TAB PO PRN (05:38)
[2016-12-12] MEDS: INSULIN ASPART SUPPLEMENTAL SCALE SQ SCH ×4 (05:46→21:00)
[2016-12-12 08:00] VITALS: BP 115/76; PULSE 66; RESP 18; TEMP 96.8; O2SAT 97
[2016-12-12] MEDS: RIFAMPIN 150 MG CAP PO SCH ×2 (10:18→20:18)
[2016-12-12] MEDS: predniSONE 20 MG TAB PO SCH ×2 (10:18→20:18)
[2016-12-12] MEDS: METOPROLOL TARTRATE 25 MG TAB PO SCH ×2 (10:18→20:18)
[2016-12-12] MEDS: ASPIRIN EC 81 MG TABEC PO SCH (10:18)
--- NOTE | 2016-12-12 11:09 | HHI.PR ---
Subjective Remarks Follow up for neck pain likely due to cervical stenosis, diffuse hydradenitis suppurativa and skin abscess. No fever, chills. Tolerating diet well. Reports less than optimum pain control. Objective Vitals Vital Signs Date Time Temp Pulse Resp B/P Pulse Ox O2 Delivery O2 Flow Rate FiO2 12/12/16 08:00 96.8 66 18 115/76 97 12/12/16 00:00 97.5 75 20 117/75 95 12/11/16 20:00 98.4 89 20 121/75 95 12/11/16 16:00 98.8 80 17 113/70 97 12/11/16 12:00 98.1 100 18 137/91 100 I/O 12/11/16 12/11/16 12/11/16 12/12/16 12/12/16 12/12/16 07:00 15:00 23:00 07:00 15:00 23:00 Intake Total 480 ml 1320 ml 480 ml 480 ml Output Total 800 ml 1200 ml Balance -320 ml 120 ml 480 ml 480 ml Intake Oral 480 ml 1320 ml 480 ml 480 ml Output Urine Total 800 ml 1200 ml # Voids 2 2 # Bowel Movements 0 0 0 0 Result Diagram: 12/10/16 0548 12/10/16 0548 Imaging Last Impressions Pelvis CT 12/08/16 0000 Signed Impressions: Service Date/Time: Friday, December 09, 2016 00:49 - CONCLUSION: 1. Extensive skin thickening of the lower buttock and perineum bilaterally consistent with cellulitis. 2. Tiny abscess along the right upper inner thigh measuring 1.9 cm. Adolfo Flores MD Objective Remarks GENERAL: AOX3, NAD. SKIN: Warm and dry. Diffuse skin lesions kathi groins, buttocks, thighs, perineal areas. HEAD: Normocephalic. EYES: No scleral icterus. No injection or drainage. NECK: Supple, trachea midline. No JVD or lymphadenopathy. CARDIOVASCULAR: Regular rate and rhythm without murmurs, gallops, or rubs. RESPIRATORY: Breath sounds equal bilaterally. No accessory muscle use. GASTROINTESTINAL: Abdomen soft, non-tender, nondistended. MUSCULOSKELETAL: No cyanosis, or edema. BACK: Nontender without obvious deformity. No CVA tenderness. Procedures None. A/P Problem List: (1) Cellulitis ICD Code: L03.90 Status: Chronic (2) Abscess of groin, right ICD Code: L02.214 Status: Acute (3) Cephalgia ICD Code: R51 Status: Chronic (4) Dehydration ICD Code: E86.0 Status: Acute (5) HTN (hypertension) ICD Code: I10 Status: Chronic (6) DM (diabetes mellitus) ICD Code: E11.9 Status: Chronic Assessment and Plan 46-year-old male with a PMH of HTN, Hyperlipidemia, Hidradenitis Suppurativa, Rheumatoid Arthritis, A. fib, CAD, DM, Chronic Cephalgia, Cervical Stenosis and Tobacco Abuse who had recent admission for cervical stenosis and buttocks/groin infection, presents again with headache/neck pain and buttock/groin infection Right groin/buttock cellulitis with hidradenitis: Recent admission for the same , discharged on clindamycin. Symptoms worsened on clindamycin. Review: CT Pelvis w/ skin thickening of buttock and perineum bilaterally consistent w/ cellulitis, tiny abscess. WBC 18.4, previously 13.8 on 11/22/16. -Consulted general surgery for abscess, no drainable abscess, needs plastic surgery for definitive treatment as outpatient -ID consulted - recommends PO Clindamycin and Rifampin. -bible reader consulted - Plastic surgery evaluation cannot be done at this point. There is no emergent need to transfer either. -Will consider discharging patient home on PO abx. - If his neck pain or skin infection worsens, patient will be advised to return to the hospital. Cephalgia: Chronic head and neck pain, no acute changes in symptoms and neurologically intact on exam. Recent admission for the same, evaluated by Dr. Denis, symptoms seem secondary to moderate cervical stenosis seen on cervical MRI. The plan was for likely require ACDF after resolution of active infection. Continue analgesics, muscle relaxants. Continue clinical to follow- up with neurosurgery after infection is resolved unless new neurologic symptoms occur. HTN: Chronic, controlled. Continue home medications. DM: Sliding scale w/ Accu-Cheks. Continue home Insulin. GABRIELA: Mild. Likely secondary to infection. Creatinine 1.1, improved to 0.82. DVT Prophylaxis: SCD/Teds. Problem Qualifiers (1) Cellulitis: Qualified Code: L03.317 - Cellulitis of buttock (2) Cephalgia: Qualified Code: R51 - Chronic nonintractable headache, unspecified headache type (3) HTN (hypertension): Qualified Code: I10 - Essential hypertension (4) DM (diabetes mellitus): Qualified Code: E11.622 - Type 2 diabetes mellitus with other skin ulcer, without long-term current use of insulin Kerri Parnell DO Dec 12, 2016 11:09
[2016-12-12] MEDS ORDERED: ACETAMINOPHEN 500 MG CPLT PO PRN (11:45)
[2016-12-12 12:00] VITALS: BP 117/75; PULSE 68; RESP 18; TEMP 96.6; O2SAT 100
[2016-12-12] MEDS: oxyCODONE/ACETAMINOPHEN 10 MG/325 MG TAB PO PRN ×2 (13:00→20:19)
[2016-12-12 20:00] VITALS: BP 126/73; PULSE 72; RESP 19; TEMP 96.5; O2SAT 96
[2016-12-12] MEDS: ATORVASTATIN 20 MG TAB PO SCH (20:18)
[2016-12-12] MEDS: INSULIN DETEMIR 100 UNITS/ML VIAL SQ SCH (21:00)
[2016-12-13] VITALS: BP 118/80; PULSE 78; RESP 20; TEMP 96.5; O2SAT 98
[2016-12-13] MEDS: CLINDAMYCIN 150 MG CAP PO SCH ×3 (01:52→11:36)
[2016-12-13] MEDS: oxyCODONE/ACETAMINOPHEN 10 MG/325 MG TAB PO PRN ×3 (01:54→15:51)
[2016-12-13] MEDS: MORPHINE SULFATE 4 MG/ML INJ IV PUSH PRN ×2 (03:27→09:50)
[2016-12-13] MEDS: INSULIN ASPART SUPPLEMENTAL SCALE SQ SCH ×2 (06:38→11:35)
[2016-12-13 08:00] VITALS: BP 123/73; PULSE 58; RESP 17; TEMP 96.4; O2SAT 99
[2016-12-13] MEDS: predniSONE 20 MG TAB PO SCH (08:40)
[2016-12-13] MEDS: METOPROLOL TARTRATE 25 MG TAB PO SCH ×2 (08:40→09:00)
[2016-12-13] MEDS: ASPIRIN EC 81 MG TABEC PO SCH (08:40)
[2016-12-13] MEDS: RIFAMPIN 150 MG CAP PO SCH (08:40)
[2016-12-13 12:00] VITALS: BP 122/73; PULSE 59; RESP 17; TEMP 96.9; O2SAT 98
[2016-12-13] MEDS ORDERED: PRED20 PO (13:04)
[2016-12-13] MEDS ORDERED: RIFA150C2 PO ×2 (13:04→14:07)
[2016-12-13] MEDS ORDERED: PERC7.5T13 PO (13:04)
[2016-12-13] MEDS ORDERED: CLIN150 PO ×2 (13:04→14:07)
--- NOTE | 2016-12-13 23:32 | HHI.DS ---
Discharge Summary Admission Date Dec 09, 2016 at 02:10 Discharge Date: Dec 13, 2016 Admitting Diagnosis Cellulitis (1) Cellulitis ICD Code: L03.90 - Cellulitis, unspecified Diagnosis: Principal (2) Abscess of groin, right ICD Code: L02.214 - Cutaneous abscess of groin Diagnosis: Principal (3) Cephalgia ICD Code: R51 - Headache (4) Dehydration ICD Code: E86.0 - Dehydration (5) HTN (hypertension) ICD Code: I10 - Essential (primary) hypertension (6) DM (diabetes mellitus) ICD Code: E11.9 - Type 2 diabetes mellitus without complications Procedures None. Brief History - From Admission This is a 46-year-old male with a PMH of HTN, Hyperlipidemia, Hidradenitis Suppurativa, Rheumatoid Arthritis, A. fib, CAD, DM, Chronic Cephalgia, Cervical Stenosis and Tobacco Abuse who presented to the ER with complaints of headache/ neck ache in addition to infection of the buttocks and groin. Recent admit 11/21 -11/27/16 for similar presentation, s/p MRI C-Spine 11/23/16 w/ significant thecal sac stenosis C5-6, C6-7 and neuroforaminal stenosis, referred to Dr. Denis as outpatient for likely ACDF, pending appt. Also w/ Hidradenitis, failed outpatient tx on Doxycycline, s/p eval by ID, s/p IV Abx, and d/c'd on Clinda x2 wks w/ plans for outpatient follow up w/ Plastic Surgery. Returns now w/ ongoing infection. Denies fever/chills. On arrival, BP 129/82, HR 126, O2 sat 98% on RA, Afebrile. WBC 18.4. GFR 87, BUN 27. CT Pelvis with extensive skin thickening of lower buttock and perineum bilaterally consistent with cellulitis and tiny abscess along right upper inner thigh measuring 1.9 cm. S/p Clinda in ER. CBC/BMP: 12/10/16 0548 12/10/16 0548 Imaging Last Impressions Pelvis CT 12/08/16 0000 Signed Impressions: Service Date/Time: Friday, December 09, 2016 00:49 - CONCLUSION: 1. Extensive skin thickening of the lower buttock and perineum bilaterally consistent with cellulitis. 2. Tiny abscess along the right upper inner thigh measuring 1.9 cm. Adolfo Flores MD PE at Discharge GENERAL: AOX3, NAD. SKIN: Warm and dry. Diffuse skin lesions kathi groins, buttocks, thighs, perineal areas. HEAD: Normocephalic. EYES: No scleral icterus. No injection or drainage. NECK: Supple, trachea midline. No JVD or lymphadenopathy. CARDIOVASCULAR: Regular rate and rhythm without murmurs, gallops, or rubs. RESPIRATORY: Breath sounds equal bilaterally. No accessory muscle use. GASTROINTESTINAL: Abdomen soft, non-tender, nondistended. MUSCULOSKELETAL: No cyanosis, or edema. BACK: Nontender without obvious deformity. No CVA tenderness. Pt update on day of discharge Patient is doing well. No fever, chills. He is going to stay with his sister's house. Hospital Course 46-year-old male with a PMH of HTN, Hyperlipidemia, Hidradenitis Suppurativa, Rheumatoid Arthritis, A. fib, CAD, DM, Chronic Cephalgia, Cervical Stenosis and Tobacco Abuse who had recent admission for cervical stenosis and buttocks/groin infection, presents again with headache/neck pain and buttock/groin infection Right groin/buttock cellulitis with hidradenitis: Recent admission for the same , discharged on clindamycin. Symptoms worsened on clindamycin. Review: CT Pelvis w/ skin thickening of buttock and perineum bilaterally consistent w/ cellulitis, tiny abscess. WBC 18.4, previously 13.8 on 11/22/16. -Consulted general surgery for abscess, no drainable abscess, needs plastic surgery for definitive treatment as outpatient -ID consulted - recommends PO Clindamycin and Rifampin. -gravity prospecting supervisor consulted - Plastic surgery evaluation cannot be done at this point. There is no emergent need to transfer either. -Continue PO abx upon discharge. Discussed with ID on the day of discharge. - If his neck pain or skin infection worsens, patient will be advised to return to the hospital. Cephalgia: Chronic head and neck pain, no acute changes in symptoms and neurologically intact on exam. Recent admission for the same, evaluated by Dr. Denis, symptoms seem secondary to moderate cervical stenosis seen on cervical MRI. The plan was for likely require ACDF after resolution of active infection. Continue analgesics, muscle relaxants. Continue clinical to follow- up with neurosurgery after infection is resolved unless new neurologic symptoms occur. HTN: Chronic, controlled. Continue home medications. DM: Sliding scale w/ Accu-Cheks. Continue home Insulin. GABRIELA: Mild. Likely secondary to infection. Creatinine 1.1, improved to 0.82. DVT Prophylaxis: SCD/Teds. Pt Condition on Discharge: Good Discharge Disposition: Discharge Home Discharge Instructions DIET: Follow Instructions for: As Tolerated, No Restrictions Activities you can perform: Regular-No Restrictions Follow up Referrals: PCP Follow-up - 1 Week Plastic Surgery - 2 Weeks New Medications: Clindamycin (Cleocin) 150 Mg Cap 300 MG PO Q6H for Infection, #56 CAP 1 Refill Prednisone (Prednisone) 20 Mg Tab 20 MG PO BID for Inflammation, #10 TAB Rifampin (Rifampin) 150 Mg Cap 300 MG PO Q12HR for Infection, #28 CAP 1 Refill Continued Medications: Aspirin DR (Adult Aspirin EC Low Strength) 81 Mg Tabec 81 MG PO DAILY for Blood Clot Prevention, #90 TAB Atorvastatin (Atorvastatin) 20 Mg Tab 20 MG PO HS for Cholesterol Management, #90 TAB 3 Refills Cyclobenzaprine (Flexeril) 10 Mg Tab 10 MG PO Q8H PRN for muscle spasms, #30 TAB 3 Refills Insulin Aspart Inj (Novolog Inj) 1,000 Unit/10 Ml Vial 1-9 UNITS SQ ACHS for Blood Sugar Management, #10 ML 3 Refills Max dose at bedtime:( )units; sugars less than 70,(0)units; sugars 150-199,(1) unit; sugars 200-249,(3) units; sugars 250-299,(5) units; sugars 300-349,(7) units; sugars greater than 349,(9) units Insulin Detemir Inj (Levemir Inj) 1,000 unit/ 10 ML Vial 32 UNITS SQ HS for Blood Sugar Management, #30 INJECTION 3 Refills Metoprolol Tartrate (Metoprolol Tartrate) 25 Mg Tab 12.5 MG PO Q12HR for Heart, #60 TAB 3 Refills Oxycodone-Acetaminophen (Percocet) 7.5-325 mg Tab 1 TAB PO Q6H PRN for PAIN, #20 TAB 0 Refills (This prescription has been renewed ) Discontinued Medications: Clindamycin (Clindamycin) 300 Mg Cap 300 MG PO TID for Infection, #42 CAP 0 Refills Methylprednisolone Dosepak (Medrol Dosepak) 4 Mg Dspk 4 MG PO DIRECTED, #1 DSPK 0 Refills Per Pharmacist direction Prednisone (Prednisone) 10 Mg Tab 10 MG PO DAILY, #30 TAB 0 Refills Kerri Parnell DO Dec 13, 2016 23:31
[2017-01-29] MEDS ORDERED: AUGM875T3 PO (18:14)
== END 2016-12-13 16:20 | disposition home or self-care (01) | DRG 603 ==
LOC: NEPE 19:26 → NEDA 12-09 02:10 → NEPGCP 12-09 03:41 → N07B 12-09 19:21
PROVIDERS: ADMIT Hospitalist; ATTEND Hospitalist
DX: L03.317 Cellulitis of buttock (principal); N17.9 Acute kidney failure, unspecified; L73.2 Hidradenitis suppurativa; I48.91 Unspecified atrial fibrillation; L02.214 Cutaneous abscess of groin; L02.415 Cutaneous abscess of right lower limb; I10 Essential (primary) hypertension; E86.0 Dehydration; F32.9 Major depressive disorder, single episode, unspecified; M48.02 Spinal stenosis, cervical region; M06.9 Rheumatoid arthritis, unspecified; J44.9 Chronic obstructive pulmonary disease, unspecified; E78.5 Hyperlipidemia, unspecified; I25.10 Atherosclerotic heart disease of native coronary artery without angina pectoris; K21.9 Gastro-esophageal reflux disease without esophagitis; Z95.2 Presence of prosthetic heart valve; Z79.4 Long term (current) use of insulin; Z79.82 Long term (current) use of aspirin; Z86.14 Personal history of Methicillin resistant Staphylococcus aureus infection; Z87.891 Personal history of nicotine dependence
CPT/HCPCS: 72193; 80048; 80053; 82948; 85025; 87040; 96361; 96365; 96366; 96375; J0692; J1815; J1885; J2270; J7040; J7512; Q9967

== ENCOUNTER 2016-12-21 15:50 | Emergency (ER) | payer SELFPAY ==
[~2016-12-21] VITALS: Ht 182.9 cm; Wt 90.0 kg
[~2016-12-21 15:50] MED LIST changes: +CLIN150 PO; -CLIN1CAP6 PO; -MEDR4PAK PO; -PRED10 PO; +PRED20 PO; +RIFA150C2 PO
[2016-12-21 17:39] VITALS: BP 142/67; PULSE 84; RESP 15; TEMP 98.4; O2SAT 98
--- NOTE | 2016-12-21 19:56 | PD ---
HPI Chief Complaint: Back/ Neck Pain or Injury Time Seen by Provider: 19:46 Travel History International Travel<30 days: No Contact w/Intl Traveler<30days: No Traveled to known affect area: No History of Present Illness HPI 46-year-old black male presents to emergency Department with complaints of worsening chronic neck pain over the past week. Patient has a history of insulin-dependent diabetes, A. fib, hypertension, hypercholesterolemia and rheumatoid arthritis. Patient has no local doctor. He moved to the area approximately over a year ago but has not established himself yet. He typically gets medications through the ER or the Hospital. Patient denies any IV drug abuse. He states that there is no recent trauma. He's been having pain from the base of his head down into his neck and upper shoulders. Similar nature to what he said in the past. Pain is moderate but can be more severe with certain movements. He denies any fever or chills. No nausea vomiting. He does state that he feels he's had some decreased hearing and has somewhat off balance. His blood sugar this morning was over 400. PFSH Past Medical History Hx Anticoagulant Therapy: Yes Arthritis: Yes Atrial Fibrillation: Yes Autoimmune Disease: Yes (Rheumatoid Arthritis) Blood Disorders: No Anxiety: No Depression: Yes Heart Rhythm Problems: Yes Cancer: No Cardiac Catheterization: No Cardiovascular Problems: Yes (A-fib, HTN) High Cholesterol: Yes Chemotherapy: No Chest Pain: Yes Congestive Heart Failure: No Cerebrovascular Accident: No Coronary Artery Disease: Yes Diabetes: Yes Diminished Hearing: No Endocrine: Yes Gastrointestinal Disorders: No GERD: Yes Genitourinary: Yes (TANK) Hiatal Hernia: No Heparin Induced Thrombocytopen: No Hypertension: Yes Immune Disorder: Yes Implanted Vascular Access Dvce: No Kidney Stones: No Musculoskeletal: Yes Neurologic: Yes Psychiatric: Yes Reproductive: No Respiratory: No Immunizations Current: Yes Radiation Therapy: No Thyroid Disease: No Ulcer: No Past Surgical History Abdominal Surgery: No Body Medical Devices: PIG VALVE Cardiac Surgery: Yes (CATH 2015, 2014, 2013 PIG VALVE 2015) Coronary Artery Bypass Graft: No Ear Surgery: No Endocrine Surgery: No Eye Surgery: No Genitourinary Surgery: No Gynecologic Surgery: No Neurologic Surgery: No Oral Surgery: Yes (TEETH REMOVED 2014) Thoracic Surgery: No Other Surgery: Yes (Nikos under arm r/t Boils ) Social History Alcohol Use: Yes (rarely) Tobacco Use: No Substance Use: No Allergies-Medications (Allergen,Severity, Reaction): Coded Allergies: *MDRO Multi-Drug Resistant Organism (Verified Adverse Reaction, Unknown, ) 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/2015 Reported Meds & Prescriptions Reported Meds & Active Scripts Active Flexeril (Cyclobenzaprine HCl) 10 Mg Tab 10 Mg PO TID Diclofenac Sodium DR (Diclofenac Sodium) 75 Mg Tabdr 75 Mg PO BID Rifampin 150 Mg Cap 300 Mg PO Q12HR Novolog Inj (Insulin Aspart) 1,000 Unit/10 Ml Vial 1-9 Units SQ ACHS Max dose at bedtime:( )units; sugars less than 70,(0)units; sugars 150-199,(1) unit; sugars 200-249,(3) units; sugars 250-299,(5) units; sugars 300-349,(7) units; sugars greater than 349,(9) units Metoprolol Tartrate 25 Mg Tab 12.5 Mg PO Q12HR Levemir Inj (Insulin Detemir) 1,000 unit/ 10 ML Vial 32 Units SQ HS Atorvastatin (Atorvastatin Calcium) 20 Mg Tab 20 Mg PO HS Adult Aspirin EC Low Strength (Aspirin) 81 Mg Tabec 81 Mg PO DAILY Review of Systems Except as stated in HPI: all other systems reviewed are Neg Physical Exam Narrative GENERAL: Well-developed, well-nourished in no apparent distress. Nontoxic appearing. HEAD: Normocephalic, atraumatic. EYES: Pupils equal round and reactive. Extraocular motions intact. No scleral icterus. No injection or drainage. ENT: Nose clear. Throat without erythema, tonsillar hypertrophy or exudate. Uvula midline. Airway patent. NECK: Trachea midline. Complains of bilateral paraspinal tenderness, moves head freely. No central bony tenderness. Mild spasm. CARDIOVASCULAR: Regular rate and rhythm without murmurs, gallops, or rubs. RESPIRATORY: Clear to auscultation. Breath sounds equal bilaterally. No wheezes , rales, or rhonchi. GASTROINTESTINAL: Abdomen soft, non-tender, nondistended. No hepato-splenomegaly , or palpable masses. No guarding. EXTREMITIES: No clubbing, cyanosis, or edema. No joint tenderness. BACK: Nontender without deformity. No flank tenderness. NEUROLOGICAL: Awake, alert and oriented x 3 .Cranial nerves grossly intact. Motor and sensory grossly within normal limits. Normal speech. Data Data Last Documented VS Vital Signs Date Time Temp Pulse Resp B/P (MAP) Pulse Ox O2 Delivery O2 Flow Rate FiO2 12/21/16 17:39 98.4 84 15 142/67 (92) 98 Orders Orders Blood Glucose (12/21/16 19:52) Cyclobenzaprine (Flexeril) (12/21/16 20:15) Naproxen (Naprosyn) (12/21/16 20:15) MDM Medical Decision Making Medical Screen Exam Complete: Yes Emergency Medical Condition: Yes Medical Record Reviewed: Yes Interpretation(s) BGL 241 Differential Diagnosis MDM: High Differential diagnoses: Fracture, sprain, strain, HNP, nerve or vascular injury , epidural abscess, hyperglycemia Narrative Course Patient's symptoms are consistent with acute exacerbation of chronic neck pain. Patient will be given a prescription for diclofenac, Flexeril and he is advised to follow-up with a primary care doctor Patient's given Naprosyn 500 mg and Flexeril 10 mg by mouth for pain. This is acute exacerbation of chronic neck pain Diagnosis Primary Impression: acute exacerbation of chronic neck pain Patient Instructions: General Instructions Additional Instructions: Rest. Ice for the next 3 days followed by heat . Flexeril and Voltaren. Follow-up with a primary care doctor in one week. Return to the ER for emergencies. Med/Other Pt SpecificInfo: Prescription(s) given Scripts Cyclobenzaprine (Flexeril) 10 Mg Tab 10 MG PO TID for Muscle Spasm, #30 TAB 0 Refills Prov: Gonzalo Evans MD 12/21/[address] (Diclofenac Sodium DR) 75 Mg Tabdr 75 MG PO BID, #20 TAB 0 Refills Prov: Gonzalo Evans MD 12/21/16 Disposition: 01 DISCHARGE HOME Condition: Stable Giuliano Basurto Dec 21, 2016 19:56
[2016-12-21] MEDS ORDERED: CYCL1TAB29 PO (20:11)
[2016-12-21] MEDS ORDERED: DICL75TA PO (20:11)
[2016-12-21] MEDS ORDERED: CYCLOBENZAPRINE HCL 10 MG TAB PO ONE (20:15)
[2016-12-21] MEDS ORDERED: NAPROXEN 500 MG TAB PO ONE (20:15)
[2017-01-29] MEDS ORDERED: AUGM875T3 PO (18:14)
== END 2016-12-21 20:41 | disposition home or self-care (01) ==
LOC: NEPD 15:50
DX: M54.2 Cervicalgia (principal); G89.4 Chronic pain syndrome; M06.9 Rheumatoid arthritis, unspecified; I10 Essential (primary) hypertension; I48.91 Unspecified atrial fibrillation; Z79.01 Long term (current) use of anticoagulants; Z95.3 Presence of xenogenic heart valve; E11.9 Type 2 diabetes mellitus without complications; Z79.4 Long term (current) use of insulin
CPT/HCPCS: 99284

== ENCOUNTER 2017-01-09 03:19 | Inpatient (IN) | payer SELFPAY ==
[2017-01-09] VITALS (9 sets, daily range): BP systolic 124–136; BP diastolic 73–91; PULSE 96–112; RESP 16–20; TEMP 96.6–99.5; O2SAT 94–100
[~2017-01-09 03:19] MED LIST changes: -CLIN150 PO; +DICL75TA PO; -PERC7.5T13 PO; -PRED20 PO
[2017-01-09] MEDS ORDERED: CYCLOBENZAPRINE HCL 10 MG TAB PO ONE (04:30)
[2017-01-09] MEDS ORDERED: SODIUM CHLOR 0.9% 1000 ML INJ 1,000 ML IV ONE (04:30)
[2017-01-09] MEDS ORDERED: ACETAMINOPHEN/HYDROcodone 325 MG/5 MG TAB PO ONE (04:30)
[2017-01-09] MEDS ORDERED: KETOROLAC TROMETHAMINE 30 MG/ML (IVP) VIAL IV PUSH ONE (04:30)
[2017-01-09] MEDS ORDERED: ONDANSETRON HCL 4 MG/2 ML VIAL IV PUSH ONE (04:30)
[2017-01-09 04:53] LABS: AUTOMATED NEUTROPHIL # 18.5 TH/MM3 (1.8-7.7); BASOPHIL # 0.2 TH/MM3 (0-0.2); BASOPHIL % 0.7 % (0.0-2.0); EOSINOPHIL # 0.1 TH/MM3 (0-0.4); EOSINOPHIL % 0.3 % (0.0-4.0); HEMATOCRIT 31.2 % (39.0-51.0); HEMO FLAGS DIFF FINAL; LYMPH % 14.9 % (9.0-44.0); LYMPHOCYTE # 3.5 TH/MM3 (1.0-4.8); MEAN CELL VOLUME 82.5 FL (80.0-100.0); MEAN CORPUSCULAR HEMOGLOBIN 26.9 PG (27.0-34.0); MEAN CORPUSCULAR HGB CONC 32.6 % (32.0-36.0); MONO % 5.2 % (0.0-8.0); NEUT % 78.9 % (16.0-70.0); PLATELET COUNT 514 TH/MM3 (150-450); RED BLOOD COUNT 3.78 MIL/MM3 (4.50-5.90); RED CELL DISTRIBUTION WIDTH 17.8 % (11.6-17.2); WHITE BLOOD COUNT 23.5 TH/MM3 (4.0-11.0)
[2017-01-09 05:19] LABS: ALT (GPT) 11 U/L (12-78); ANION GAP 9 MEQ/L (5-15); AST (GOT) 9 U/L (15-37); BICARBONATE 23.8 MEQ/L (21.0-32.0); BLOOD UREA NITROGEN 17 MG/DL (7-18); CHLORIDE 100 MEQ/L (98-107); GLOMERULAR FILTRATION RATE 108 ML/MIN (>89); POTASSIUM 3.8 MEQ/L (3.5-5.1); SODIUM (NA) 133 MEQ/L (136-145)
[2017-01-09 05:22] LABS: ALKALINE PHOSPHATASE 96 U/L (45-117); TOTAL BILIRUBIN ADULT 0.2 MG/DL (0.2-1.0)
[2017-01-09] MEDS ORDERED: VANCOMYCIN INJ 1,000 MG in SODIUM CHLOR 0.9% 250 ML INJ 250 ML IV ONE (07:45)
--- NOTE | 2017-01-09 08:28 | PD ---
HPI Chief Complaint: Back/ Neck Pain or Injury Time Seen by Provider: 04:20 Travel History International Travel<30 days: No Contact w/Intl Traveler<30days: No Traveled to known affect area: No History of Present Illness HPI Patient is a 46-year-old male with history of diabetes, recurrent hidradenitis, and chronic neck pain, who comes in complaining of neck pain as well as issues with his hidradenitis. Patient has been here multiple times and gets admitted each time. He is supposed to follow-up with Dr. Denis of neurosurgery and follow -up with plastic surgery. Denies fever or chills. He says he did have an episode of vomiting today. He says his neck pain is similar, but worse than usual. He does report finishing his antibiotics when he was discharged previously. PFSH Past Medical History Hx Anticoagulant Therapy: Yes Arthritis: Yes Atrial Fibrillation: Yes Autoimmune Disease: Yes (Rheumatoid Arthritis) Blood Disorders: No Anxiety: No Depression: Yes Heart Rhythm Problems: Yes Cancer: No Cardiac Catheterization: No Cardiovascular Problems: Yes (A-fib, HTN) High Cholesterol: Yes Chemotherapy: No Chest Pain: Yes Congestive Heart Failure: No Cerebrovascular Accident: No Coronary Artery Disease: Yes Diabetes: Yes Patient Takes Glucophage: No Diminished Hearing: No Endocrine: Yes Gastrointestinal Disorders: No GERD: Yes Genitourinary: Yes (TANK) Hiatal Hernia: No Heparin Induced Thrombocytopen: No Hypertension: Yes Immune Disorder: Yes Implanted Vascular Access Dvce: No Kidney Stones: No Musculoskeletal: Yes Neurologic: Yes Psychiatric: Yes Reproductive: No Respiratory: No Immunizations Current: Yes Radiation Therapy: No Thyroid Disease: No Ulcer: No Past Surgical History Abdominal Surgery: No Body Medical Devices: PIG VALVE Cardiac Surgery: Yes (CATH 2015, 2014, 2013 PIG VALVE 2015) Coronary Artery Bypass Graft: No Ear Surgery: No Endocrine Surgery: No Eye Surgery: No Genitourinary Surgery: No Gynecologic Surgery: No Neurologic Surgery: No Oral Surgery: Yes (TEETH REMOVED 2014) Thoracic Surgery: No Other Surgery: Yes (Nikos under arm r/t Boils ) Family History Family Myocardial Infarction: Yes (BROTHER) Social History Alcohol Use: Yes (rarely) Tobacco Use: No Substance Use: No Allergies-Medications (Allergen,Severity, Reaction): Coded Allergies: *MDRO Multi-Drug Resistant Organism (Verified Adverse Reaction, Unknown, ) 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/2015 Reported Meds & Prescriptions Reported Meds & Active Scripts Active Flexeril (Cyclobenzaprine HCl) 10 Mg Tab 10 Mg PO TID Diclofenac Sodium DR (Diclofenac Sodium) 75 Mg Tabdr 75 Mg PO BID Rifampin 150 Mg Cap 300 Mg PO Q12HR Novolog Inj (Insulin Aspart) 1,000 Unit/10 Ml Vial 1-9 Units SQ ACHS Max dose at bedtime:( )units; sugars less than 70,(0)units; sugars 150-199,(1) unit; sugars 200-249,(3) units; sugars 250-299,(5) units; sugars 300-349,(7) units; sugars greater than 349,(9) units Metoprolol Tartrate 25 Mg Tab 12.5 Mg PO Q12HR Levemir Inj (Insulin Detemir) 1,000 unit/ 10 ML Vial 32 Units SQ HS Atorvastatin (Atorvastatin Calcium) 20 Mg Tab 20 Mg PO HS Adult Aspirin EC Low Strength (Aspirin) 81 Mg Tabec 81 Mg PO DAILY Review of Systems Except as stated in HPI: all other systems reviewed are Neg General / Constitutional: No: Fever, Chills HENT: No: Headaches, Lightheadedness Cardiovascular: No: Chest Pain or Discomfort Respiratory: No: Shortness of Breath Gastrointestinal: Positive: Nausea, Vomiting, No: Abdominal Pain Musculoskeletal: Positive: Pain Skin: Positive Lesions Neurologic: No: Weakness, Dizziness Physical Exam Narrative GENERAL: Awake and alert, in no acute distress. SKIN: Large areas of induration as well as areas that are oozing of pus around his buttocks. HEAD: Atraumatic. Normocephalic. EYES: Pupils equal and round. No scleral icterus. ENT: Mucous membranes pink and moist. NECK: Trachea midline. No JVD. CARDIOVASCULAR: Regular rate and rhythm. No murmur appreciated. RESPIRATORY: No accessory muscle use. Clear to auscultation. Breath sounds equal bilaterally. GASTROINTESTINAL: Abdomen soft, non-tender, nondistended. MUSCULOSKELETAL: No obvious deformities. No clubbing. No cyanosis. No edema. NEUROLOGICAL: Awake and alert. No obvious cranial nerve deficits. Motor grossly within normal limits. Normal speech. PSYCHIATRIC: Appropriate mood and affect; insight and judgment normal. Data Data Last Documented VS Vital Signs Date Time Temp Pulse Resp B/P (MAP) Pulse Ox O2 Delivery O2 Flow Rate FiO2 01/09/17 06:35 97 16 131/82 (98) 98 Orders Orders Iv Access Insert/Monitor (01/09/17 04:25) Complete Blood Count With Diff (01/09/17 04:25) Comprehensive Metabolic Panel (01/09/17 04:25) Sodium Chlor 0.9% 1000 Ml Inj (Ns 1000 M (01/09/17 04:30) Ondansetron Inj (Zofran Inj) (01/09/17 04:30) Ketorolac Inj (Toradol Inj) (01/09/17 04:30) Cyclobenzaprine (Flexeril) (01/09/17 04:30) Acetamin-Hydrocod 325-5 Mg ([place] 5-325 (01/09/17 04:30) Vancomycin Inj (Vancomycin Inj) (01/09/17 07:45) Labs Laboratory Tests Test 01/09/17 04:31 White Blood Count 23.5 TH/MM3 Red Blood Count 3.78 MIL/MM3 Hemoglobin 10.2 GM/DL Hematocrit 31.2 % Mean Corpuscular Volume 82.5 FL Mean Corpuscular Hemoglobin 26.9 PG Mean Corpuscular Hemoglobin Concent 32.6 % Red Cell Distribution Width 17.8 % Platelet Count 514 TH/MM3 Mean Platelet Volume 8.9 FL Neutrophils (%) (Auto) 78.9 % Lymphocytes (%) (Auto) 14.9 % Monocytes (%) (Auto) 5.2 % Eosinophils (%) (Auto) 0.3 % Basophils (%) (Auto) 0.7 % Neutrophils # (Auto) 18.5 TH/MM3 Lymphocytes # (Auto) 3.5 TH/MM3 Monocytes # (Auto) 1.2 TH/MM3 Eosinophils # (Auto) 0.1 TH/MM3 Basophils # (Auto) 0.2 TH/MM3 CBC Comment DIFF FINAL Differential Comment Blood Urea Nitrogen 17 MG/DL Creatinine 0.91 MG/DL Random Glucose 356 MG/DL Total Protein 10.0 GM/DL Albumin 2.3 GM/DL Calcium Level 9.3 MG/DL Alkaline Phosphatase 96 U/L Aspartate Amino Transf (AST/SGOT) 9 U/L Alanine Aminotransferase (ALT/SGPT) 11 U/L Total Bilirubin 0.2 MG/DL Sodium Level 133 MEQ/L Potassium Level 3.8 MEQ/L Chloride Level 100 MEQ/L Carbon Dioxide Level 23.8 MEQ/L Anion Gap 9 MEQ/L Estimat Glomerular Filtration Rate 108 ML/MIN MDM Medical Decision Making Medical Screen Exam Complete: Yes Emergency Medical Condition: Yes Medical Record Reviewed: Yes Differential Diagnosis Chronic neck pain versus cellulitis versus abscess Narrative Course Patient is a 46-year-old male who is here repeatedly for neck pain and hidradenitis. Exam shows multiple oozing areas and areas of induration. IV established, labs sent. Labs show a white blood cell count of 23.5. Patient given IV fluids, vancomycin, pain medicine, Zofran. He'll be admitted for further management. Diagnosis Primary Impression: Hidradenitis suppurativa Additional Impressions: Cellulitis Qualified Codes: L03.317 - Cellulitis of buttock Neck pain Admitting Information Admitting Physician Requests: Admit Pratima Dorman MD Jan 09, 2017 08:28
[2017-01-09] MEDS ORDERED: BISACODYL 10 MG SUPP RECTAL PRN (09:00)
[2017-01-09] MEDS ORDERED: NALOXONE HCL 0.4 MG/ML AMP IV PRN (09:00)
[2017-01-09] MEDS ORDERED: SENNOSIDES 8.6 MG TAB PO PRN (09:00)
[2017-01-09] MEDS ORDERED: ACETAMINOPHEN/HYDROcodone 325 MG/5 MG TAB PO PRN (09:00)
[2017-01-09] MEDS ORDERED: MAGNESIUM HYDROXIDE SUSP 30 ML CUP PO PRN (09:00)
[2017-01-09] MEDS ORDERED: SODIUM CHLORIDE 0.9% FLUSH 10 ML FLUSH IV FLUSH PRN (09:00)
[2017-01-09] MEDS ORDERED: ONDANSETRON HCL 4 MG/2 ML VIAL IVP PRN (09:00)
[2017-01-09] MEDS ORDERED: RIFAMPIN 150 MG CAP PO SCH (09:00)
--- NOTE | 2017-01-09 09:28 | HHI.HP ---
H[facility] Primary Care Physician No Primary Care Physician Admission Diagnosis cellulitis/abscess Diagnoses: (1) Leukocytosis (2) Hyperlipidemia (3) Diabetes mellitus with hyperglycemia (4) Hidradenitis suppurativa (5) Neck pain (6) HTN (hypertension) (7) Rheumatoid arthritis Travel History International Travel<30 Days: No Contact w/Intl Traveler <30 Da: No Traveled to Known Affected Are: No Sepsis Criteria SIRS Criteria (2 or more): Heart rate over 90, WBC > 08338, < 4000 or > 10% bands History of Present Illness Written by Pratima Arias, acting as scribe for Dr. Andres on 01/09/17 at 09:27. Mr. Clay is a 46-year-old male patient with a known medical history of hidradenitis, uncontrolled diabetes, HTN, atrial fibrillation and RA who presented to the ED with worsening neck and back pain. Per medical record patient has had multiple hospitalizations for hidradenitis suppurativa. Patient states he has been in pain and wanted to get evaluated. Pain is continuous, located in his neck, 10/10 on pain scale, some radiation to arms, does not recognize any alleviating or relieving factors. Denies any recent illness including fever, chills, cough, shortness of breath, headache, abdominal pain, nausea, vomiting, diarrhea or dysuria. Does state he has noticed a generalized rash on his bilateral upper extremities and scattered on his back, does admit to occasional urticaria. Also complaint of pain in his suprapubic/groin area and positive drainage from hidradenitis areas. Review of Systems Constitutional: DENIES: Fever, Chills Respiratory: DENIES: Cough, Shortness of breath Cardiovascular: DENIES: Chest pain Gastrointestinal: COMPLAINS OF: Abdominal pain (suprapubic), DENIES: Diarrhea, Nausea, Vomiting Integumentary: COMPLAINS OF: Rash (bilateral arms and back) Except as stated in HPI: all other systems reviewed are Neg Past Family Social History Past Medical History Atrial fibrillation Arthritis Rheumatoid arthritis Depression Hypertension Hypercholesteremia CAD Uncontrolled diabetes mellitus Past Surgical History Multiple cardiac catheterizations with pig valve replacements 2015. Reported Medications Reported Meds & Active Scripts Active Flexeril (Cyclobenzaprine HCl) 10 Mg Tab 10 Mg PO TID Diclofenac Sodium DR (Diclofenac Sodium) 75 Mg Tabdr 75 Mg PO BID Rifampin 150 Mg Cap 300 Mg PO Q12HR Novolog Inj (Insulin Aspart) 1,000 Unit/10 Ml Vial 1-9 Units SQ ACHS Max dose at bedtime:( )units; sugars less than 70,(0)units; sugars 150-199,(1) unit; sugars 200-249,(3) units; sugars 250-299,(5) units; sugars 300-349,(7) units; sugars greater than 349,(9) units Metoprolol Tartrate 25 Mg Tab 12.5 Mg PO Q12HR Levemir Inj (Insulin Detemir) 1,000 unit/ 10 ML Vial 32 Units SQ HS Atorvastatin (Atorvastatin Calcium) 20 Mg Tab 20 Mg PO HS Adult Aspirin EC Low Strength (Aspirin) 81 Mg Tabec 81 Mg PO DAILY 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 Ordered Medications Current Medications Medications (Trade) Dose Ordered Sig/Mitzi Route Start Time Stop Time Status Last Admin Sodium Chloride 1,000 ml @ 100 mls/hr Q10H IV 01/09/17 08:55 (NS Flush) 2 ml UNSCH PRN IV FLUSH 01/09/17 09:00 (NS Flush) 2 ml BID IV FLUSH 01/09/17 09:00 (Zofran Inj) 4 mg Q6H PRN IVP 01/09/17 09:00 (Heparin Inj) 5,000 units Q8H SQ 01/09/17 10:00 (Draper 5-325 Mg) 1 tab Q4H PRN PO 01/09/17 09:00 ([place]ra[place] 10-325 Mg) 1 tab Q4H PRN PO 01/09/17 09:00 (Morphine Inj) 4 mg Q3H PRN IV 01/09/17 09:00 (Narcan Inj) 0.4 mg UNSCH PRN IV 01/09/17 09:00 (Michelle-Colace) 1 tab BID PO 01/09/17 09:00 (Milk Of Magnesia Liq) 30 ml Q12H PRN PO 01/09/17 09:00 (Senokot) 17.2 mg Q12H PRN PO 01/09/17 09:00 (Dulcolax Supp) 10 mg DAILY PRN RECTAL 01/09/17 09:00 Clindamycin Phosphate 900 mg/ Sodium Chloride 106 ml @ 212 mls/hr Q8H IV 01/09/17 11:00 (Rifampin) 300 mg Q12HR PO 01/09/17 09:00 (Ecotrin Ec) 81 mg DAILY PO 01/10/17 09:00 (Lipitor) 20 mg HS PO 01/09/17 21:00 (Flexeril) 10 mg TID PO 01/09/17 13:00 (Voltaren Dr) 75 mg BID PO 01/09/17 21:00 (Levemir Inj) 32 units HS SQ 01/09/17 21:00 (Lopressor) 12.5 mg Q12HR PO 01/09/17 21:00 (Pill Splitter) 1 ea UNSCH PRN OTHER 01/09/17 09:30 (D50w (Vial) Inj) 50 ml UNSCH PRN IV 01/09/17 09:30 (Glucagon Inj) 1 mg UNSCH PRN OTHER 01/09/17 09:30 (NovoLOG SUPPLEMENTAL SCALE) 1 ACHS SLIDING SCALE SQ 01/09/17 12:00 Family History Patient's brother has a significant medical history of cardiovascular disease. Social History Denies any current tobacco use. Admits to occasional alcohol use. Denies any illicit drug use. Physical Exam Vital Signs Vital Signs Date Time Temp Pulse Resp B/P (MAP) Pulse Ox O2 Delivery O2 Flow Rate FiO2 01/09/17 09:03 98.5 98 18 129/91 (104) 100 Room Air 01/09/17 06:35 97 16 131/82 (98) 98 01/09/17 06:08 16 01/09/17 06:08 16 01/09/17 04:00 19 01/09/17 03:35 108 20 136/79 (98) 98 Physical Exam GENERAL: This is a well-nourished, well-developed male patient, in no apparent distress. SKIN: Widespread follicular rash on bilateral upper extremities and back. Bilateral axilla with multiple scarring, dry with no drainage. Groin and buttock with hidradenitis and scarring, lesions draining. Suprapubic lymph nodes x 2 3mm in size, nontender, rubbery consistency. HEAD: Atraumatic. Normocephalic. Pupils equal round and reactive. Extraocular motions intact. No scleral icterus. No injection or drainage. Nose without bleeding. Airway patent. NECK: Trachea midline. No JVD. Supple. CARDIOVASCULAR: Sinus tachycardia. No murmur appreciated. gallops, or rubs. S1 and S2 present RESPIRATORY: Clear to auscultation. Breath sounds equal bilaterally. No wheezes , rales, or rhonchi. GASTROINTESTINAL: Abdomen soft, non-tender, nondistended. No guarding. MUSCULOSKELETAL: Extremities without clubbing, cyanosis, or edema. No joint tenderness, effusion, or edema noted. NEUROLOGICAL: Awake and alert. Cranial nerves II through XII intact. Motor and sensory grossly within normal limits. Five out of 5 muscle strength in all muscle groups. Normal speech. Laboratory Laboratory Tests Test 01/09/17 04:31 White Blood Count 23.5 Red Blood Count 3.78 Hemoglobin 10.2 Hematocrit 31.2 Mean Corpuscular Volume 82.5 Mean Corpuscular Hemoglobin 26.9 Mean Corpuscular Hemoglobin Concent 32.6 Red Cell Distribution Width 17.8 Platelet Count 514 Mean Platelet Volume 8.9 Neutrophils (%) (Auto) 78.9 Lymphocytes (%) (Auto) 14.9 Monocytes (%) (Auto) 5.2 Eosinophils (%) (Auto) 0.3 Basophils (%) (Auto) 0.7 Neutrophils # (Auto) 18.5 Lymphocytes # (Auto) 3.5 Monocytes # (Auto) 1.2 Eosinophils # (Auto) 0.1 Basophils # (Auto) 0.2 CBC Comment DIFF FINAL Differential Comment Blood Urea Nitrogen 17 Creatinine 0.91 Random Glucose 356 Total Protein 10.0 Albumin 2.3 Calcium Level 9.3 Alkaline Phosphatase 96 Aspartate Amino Transf (AST/SGOT) 9 Alanine Aminotransferase (ALT/SGPT) 11 Total Bilirubin 0.2 Sodium Level 133 Potassium Level 3.8 Chloride Level 100 Carbon Dioxide Level 23.8 Anion Gap 9 Estimat Glomerular Filtration Rate 108 Result Diagram: 01/09/1743001/09/17430 Septic Shock Reassessment Heart: Other (sinus tachycardia) Lungs: Clear Skin: Warm Peripheral Pulses: Bounding Right Radial Bounding Left Radial Capillary Refill: Brisk Caprini VTE Risk Assessment Caprini VTE Risk Assessment: No/Low Risk (score <= 1) Caprini Risk Assessment Model Point Value = 1 Point Value = 2 Point Value = 3 Point Value = 5 Age 41-60 Minor surgery BMI > 25 kg/m2 Swollen legs Varicose veins or History of unexplained or recurrent spontaneous Oral contraceptives or hormone replacement Sepsis (< 1 month) Serious lung disease, including pneumonia (< 1 month) Abnormal pulmonary function Acute myocardial infarction Congestive heart failure (< 1 month) History of inflammatory bowel disease Medical patient at bed rest Age 61-74 Arthroscopic surgery Major open surgery (> 45 min) Laparoscopic surgery (> 45 min) Malignancy Confined to bed (> 72 hours) Immobilizing plaster cast Central venous access Age >= 75 History of VTE Family history of VTE Factor V Leiden Prothrombin [id number] Lupus anticoagulant Anticardiolipin antibodies Elevated serum homocysteine Heparin-induced thrombocytopenia Other congenital or acquired thrombophilia Stroke (< 1 month) Elective arthroplasty Hip, pelvis, or leg fracture Acute spinal cord injury (< 1 month) Prophylaxis Regimen Total Risk Factor Score Risk Level Prophylaxis Regimen 0-1 Low Early ambulation 2 Moderate Order ONE of the following: *Sequential Compression Device (SCD) *Heparin 5000 units SQ BID 3-4 Higher Order ONE of the following medications: *Heparin 5000 units SQ TID *Enoxaparin/Lovenox 40 mg SQ daily (WT < 150 kg, CrCl > 30 mL/min) *Enoxaparin/Lovenox 30 mg SQ daily (WT < 150 kg, CrCl > 10-29 mL/min) *Enoxaparin/Lovenox 30 mg SQ BID (WT < 150 kg, CrCl > 30 mL/min) AND/OR *Sequential Compression Device (SCD) 5 or more Highest Order ONE of the following medications: *Heparin 5000 units SQ TID (Preferred with Epidurals) *Enoxaparin/Lovenox 40 mg SQ daily (WT < 150 kg, CrCl > 30 mL/min) *Enoxaparin/Lovenox 30 mg SQ daily (WT < 150 kg, CrCl > 10-29 mL/min) *Enoxaparin/Lovenox 30 mg SQ BID (WT < 150 kg, CrCl > 30 mL/min) AND *Sequential Compression Device (SCD) Assessment and Plan Assessment and Plan Mr. Clay is a 46-year-old male patient with a known medical history of hidradenitis, uncontrolled diabetes, hypertension, atrial fibrillation and RA who presented to the ED with worsening neck and back pain. Sirs criteria rule out sepsis (Leukocytosis with mild bandemia, tachycardia, lactic acid 1.1) - WBC 23.5 on presentation. Lactic acid 1.1. Afebrile. Continue to monitor. Follow CBC in am. - Given Vancomycin x 1 in ED. Patient placed on Clindamycin. - Wound culture of groin ordered, sent and pending. Follow. - Status post 1 L NS bolus in ED. Ensure hydration, NS @ 100 ml/hr. Hidradenitis suppurativa, acute on chronic - Start on Clindamycin and Rifampin - Consult placed to ID, appreciate input and recommendations. - Elevated ESR 138. - Continue home Diclofenac. Uncontrolled type 2 diabetes mellitus, chronic - Random glucose 356 on presentation. - ACCU checks ACHS, sliding scale insulin, cover as needed. - Check hemoglobin A1c. Follow. - Continue home Levemir 32 units sq qHS. Chronic neck and back pain - Continue home Flexeril. - Control pain, [place] PO PRN per pain scale. Morphine IV PRN per pain scale. Hypertension: Controlled at this time. Continue to monitor. Hyperlipidemia: Continue home Atorvastatin. DVT Prophylaxis: SCDs/Heparin. This note was transcribed by aparna [Kayla]. I, Dr. Sanjeev Andres personally performed the history, physical exam, and medical decision making; and confirmed the accuracy of the information in the transcribed note. Authenticated by Dr. Sanjeev Andres on 01/09/17 at 09:31. Pratima Arias Jan 09, 2017 09:28 Sanjeev Andres MD Jan 09, 2017 09:31
[2017-01-09] MEDS ORDERED: PILL SPLITTER OTHER PRN (09:30)
[2017-01-09] MEDS ORDERED: GLUCAGON 1 MG/ML VIAL OTHER PRN ×2 (09:30→17:45)
[2017-01-09] MEDS ORDERED: DEXTROSE 50% IN WATER 50 ML VIAL(D50) IV PRN (09:30)
[2017-01-09] MEDS: HEPARIN SODIUM - SQ 10,000 UNITS/ML VIAL SQ SCH ×2 (10:04→16:22)
[2017-01-09] MEDS: SODIUM CHLORIDE 0.9% FLUSH 10 ML FLUSH IV FLUSH SCH ×2 (10:59→21:09)
[2017-01-09] MEDS: DOCUSATE SODIUM 50 MG/SENNA 8.6 MG TAB PO SCH ×2 (11:00→21:16)
[2017-01-09] MEDS ORDERED: CLINDAMYCIN INJ 900 MG in SODIUM CHLORIDE 0.9% INJ 100 ML IV SCH (11:00)
[2017-01-09] MEDS: SODIUM CHLOR 0.9% 1000 ML INJ 1,000 ML IV SCH ×3 (11:07→21:18)
[2017-01-09] MEDS: MORPHINE SULFATE 4 MG/ML INJ IV PRN ×3 (12:06→21:07)
[2017-01-09] MEDS: CYCLOBENZAPRINE HCL 10 MG TAB PO SCH ×2 (12:06→16:21)
[2017-01-09] MEDS: INSULIN ASPART SUPPLEMENTAL SCALE SQ SCH ×2 (12:07→17:05)
[2017-01-09] MEDS: ACETAMINOPHEN/HYDROcodone 325 MG/10 MG TAB PO PRN (13:42)
[2017-01-09 13:54] LABS: HEMOGLOBIN A1a 1.3 %; HEMOGLOBIN A1b 0.9 %; HEMOGLOBIN F 1.8 %; HEMOGLOBIN LA1C 3.8 %
[2017-01-09] MEDS: CHLORHEXIDINE GLUCONATE 4% SOLN 120 ML BTL TOPICAL SCH (14:45)
--- NOTE | 2017-01-09 14:53 | PD.CONS ---
History of Present Illness Service Infectious disease Consult Requested By Dr Andres Reason for Consult Evaluate patient with recurrent hydradenitis, possible sepsis Primary Care Physician No Primary Care Physician Diagnoses: History of Present Illness Patient seen and examined. Records reviewed. Patient is a 46-year-old male, with known history of hidradenitis suppurativa, has had recurrent admissions for this problem, presented today with complaints of neck pain and back pain, as well as increasing pain in his buttocks. He has chronic back pain and he gets exacerbation of this. He has had recurrent infections in his groin and buttock region as well as the thigh from his recurrent hidradenitis. It has been suggested in the past that he be evaluated by a plastic surgeon, but patient has no insurance coverage, and has not had any evaluation. There has been no plastic surgery coverage in the hospital. His last hospitalization was back in November, and patient stated he finished the antibiotic that was prescribed to him. He has not had any fever or chills or sweats. On presentation he is afebrile. His WBC is up to 23,000. He has evidence of infection in his left buttock from his hidradenitis. Infectious disease consultation has been requested to evaluate the patient. Review of Systems Constitutional: DENIES: Fever, Chills Eyes: DENIES: Eye pain Ears, nose, mouth, throat: DENIES: Nasal discharge, Oral lesions, Throat pain, Sinus Pain Respiratory: DENIES: Cough, Shortness of breath Cardiovascular: DENIES: Chest pain, Palpitations Gastrointestinal: DENIES: Abdominal pain, Diarrhea, Nausea, Vomiting Genitourinary: DENIES: Dysuria Musculoskeletal: COMPLAINS OF: Joint pain, Back pain, Neck pain Integumentary: COMPLAINS OF: Rash Neurologic: DENIES: Headache Psychiatric: DENIES: Hallucinations Past Family Social History 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 Past Medical History Hypertension Diabetes Atrial fibrillation Hydradenitis Rheumatoid arthritis History of MRSA infection Hyperlipidemia COPD Past Surgical History Multiple surgery for his hydradenitis Skin grafting Active Ordered Medications Aspirin Lipitor Voltaren Insulin Lopressor Flexeril Insulin Clindamycin Zofran [place] Morphine Michelle-Colace MOM Senokot Dulcolax Rifampin Family History Family history of CAD and hypertension Social History Patient smokes one pack per day of cigarettes, reportedly quit about 6 months ago Occasional alcohol, usually beer Occasional marijuana, denies IV drug use Physical Exam Vital Signs Vital Signs Date Time Temp Pulse Resp B/P (MAP) Pulse Ox O2 Delivery O2 Flow Rate FiO2 01/09/17 12:00 96.6 96 18 124/73 (90) 99 01/09/17 11:15 87 18 135/84 (101) 99 01/09/17 11:07 18 01/09/17 10:36 98 21 01/09/17 09:03 98.5 98 18 129/91 (104) 100 Room Air 01/09/17 06:35 97 16 131/82 (98) 98 01/09/17 06:08 16 01/09/17 06:08 16 01/09/17 04:00 19 01/09/17 03:35 108 20 136/79 (98) 98 Physical Exam GENERAL: Patient is a well-nourished, well-developed BM, awake and alert, not in respiratory distress. SKIN: Warm and dry. Has scars in both axilla, groin, medial thigh and buttocks C/W hidradenitis, mostly inactive except the one in the L buttock close to midline HEAD: Atraumatic. Normocephalic. No temporal wasting, or tenderness. EYES: [place] conjunctiva. No petechia or hemorrhage. Pupils equal, round and reactive to light. Extraocular movements full and intact. No scleral icterus. No injection or drainage. EARS, NOSE AND THROAT: Nose without bleeding or purulent nasal discharge. No sinus tenderness. Mucous membranes pink and moist. No oral lesions noted. No exudate. No oral thrush. NECK: Trachea midline. Supple and not tender, no meningeal signs CARDIOVASCULAR: Regular rate and rhythm. No murmurs, rubs or gallops heard RESPIRATORY: Clear to auscultation. Breath sounds equal bilaterally. No rales , wheezing or rhonchi ABDOMEN: Soft, non-tender, nondistended. Bowel sounds present and normoactive. No guarding. No rebound. No organomegaly. EXTREMITIES: No clubbing, cyanosis, or edema. No joint effusion, has good ROM. No calf tenderness. Well perfused and warm. BACK: In L buttock close to mudline, he has indurated area, tender with multiple draining sinus tracts, (+) odor and purulence NEUROLOGICAL: Awake and alert. Cranial nerves grossly intact. Motor grossly within normal limits. PSYCHIATRIC: Normal affect, calm and cooperative. LINE: No evidence of infection Laboratory Laboratory Tests Test 01/09/17 04:31 01/09/17 08:20 White Blood Count 23.5 Red Blood Count 3.78 Hemoglobin 10.2 Hematocrit 31.2 Mean Corpuscular Volume 82.5 Mean Corpuscular Hemoglobin 26.9 Mean Corpuscular Hemoglobin Concent 32.6 Red Cell Distribution Width 17.8 Platelet Count 514 Mean Platelet Volume 8.9 Neutrophils (%) (Auto) 78.9 Lymphocytes (%) (Auto) 14.9 Monocytes (%) (Auto) 5.2 Eosinophils (%) (Auto) 0.3 Basophils (%) (Auto) 0.7 Neutrophils # (Auto) 18.5 Lymphocytes # (Auto) 3.5 Monocytes # (Auto) 1.2 Eosinophils # (Auto) 0.1 Basophils # (Auto) 0.2 CBC Comment DIFF FINAL Differential Comment Erythrocyte Sedimentation Rate 138 Blood Urea Nitrogen 17 Creatinine 0.91 Random Glucose 356 Total Protein 10.0 Albumin 2.3 Calcium Level 9.3 Alkaline Phosphatase 96 Aspartate Amino Transf (AST/SGOT) 9 Alanine Aminotransferase (ALT/SGPT) 11 Total Bilirubin 0.2 Sodium Level 133 Potassium Level 3.8 Chloride Level 100 Carbon Dioxide Level 23.8 Anion Gap 9 Estimat Glomerular Filtration Rate 108 Hemoglobin A1c 10.2 Lactic Acid Level 1.1 Date/Time Source Procedure Growth Status 01/09/17 12:35 Wound Buttock Gram Stain Pending Received 01/09/17 12:35 Wound Buttock Wound Culture Pending Received Result Diagram: 01/09/17 0431 01/09/17 0431 Assessment and Plan Assessment and Plan IMPRESSION Recurrent hidradenitis suppurative, active in L buttock Possible sepsis due to hidradenitis RECOMMENDATION Change to IV Unasyn Monitor response to Rx Will order shower using hibiclens to decrease bacterial load Can be switched to oral Augmentin when he shows improvement and give 14 days Abx I will follow along with you Thank you for this consultation Discussed Condition With Explained plan to the patient Ericka Nichols MD Jan 09, 2017 14:53
[2017-01-09] MEDS: AMPICILLIN-SULBACTAM INJ 3 GM in SODIUM CHLORIDE 0.9% INJ 100 ML IV SCH ×2 (16:22→21:14)
[2017-01-09] MEDS ORDERED: DEXTROSE 50% IN WATER 50 ML VIAL(D50) IV PUSH PRN (17:45)
[2017-01-09] MEDS ORDERED: PLEASE DISCONTINUE PREVIOUS SUPPLEMENTAL SCALE INSULIN ORDERS ONE (17:45)
[2017-01-09] MEDS ORDERED: INSULIN DETEMIR 100 UNITS/ML VIAL SQ SCH (21:00)
[2017-01-09] MEDS: MEDIUM DOSE INSULIN NOVOLOG SUPPLEMENTAL SCALE SQ SCH (21:12)
[2017-01-09] MEDS: METOPROLOL TARTRATE 25 MG TAB PO SCH (21:16)
[2017-01-09] MEDS: ATORVASTATIN 20 MG TAB PO SCH (21:16)
[2017-01-09] MEDS: DICLOFENAC SODIUM 75 MG DELAYED RELEASE TAB PO SCH (21:42)
[2017-01-10] VITALS: BP 141/81; PULSE 108; RESP 18; TEMP 100.6; O2SAT 96
[2017-01-10] MEDS: ACETAMINOPHEN/HYDROcodone 325 MG/10 MG TAB PO PRN ×5 (00:24→20:14)
[2017-01-10] MEDS: HEPARIN SODIUM - SQ 10,000 UNITS/ML VIAL SQ SCH ×3 (00:31→17:08)
[2017-01-10] MEDS: MEDIUM DOSE INSULIN NOVOLOG SUPPLEMENTAL SCALE SQ SCH ×5 (00:35→17:08)
[2017-01-10 04:00] VITALS: TEMP 98.4
[2017-01-10] MEDS: MORPHINE SULFATE 4 MG/ML INJ IV PRN ×5 (04:36→21:31)
[2017-01-10] MEDS: AMPICILLIN-SULBACTAM INJ 3 GM in SODIUM CHLORIDE 0.9% INJ 100 ML IV SCH ×4 (04:42→20:09)
[2017-01-10] MEDS: DICLOFENAC SODIUM 75 MG DELAYED RELEASE TAB PO SCH ×2 (07:48→20:16)
[2017-01-10] MEDS: ASPIRIN EC 81 MG TABEC PO SCH (07:48)
[2017-01-10] MEDS: CYCLOBENZAPRINE HCL 10 MG TAB PO SCH ×3 (07:48→17:08)
[2017-01-10] MEDS: METOPROLOL TARTRATE 25 MG TAB PO SCH ×2 (07:48→20:13)
[2017-01-10] MEDS: SODIUM CHLORIDE 0.9% FLUSH 10 ML FLUSH IV FLUSH SCH ×2 (07:50→20:13)
[2017-01-10] MEDS: DOCUSATE SODIUM 50 MG/SENNA 8.6 MG TAB PO SCH ×2 (07:50→20:11)
[2017-01-10 08:00] VITALS: BP 123/85; PULSE 92; RESP 16; TEMP 97.7; O2SAT 99
[2017-01-10 08:14] LABS: AUTOMATED NEUTROPHIL # 13.6 TH/MM3 (1.8-7.7); BASOPHIL # 0.1 TH/MM3 (0-0.2); BASOPHIL % 0.4 % (0.0-2.0); EOSINOPHIL # 0.2 TH/MM3 (0-0.4); EOSINOPHIL % 1.1 % (0.0-4.0); HEMATOCRIT 26.7 % (39.0-51.0); HEMO FLAGS DIFF FINAL; LYMPH % 17.7 % (9.0-44.0); LYMPHOCYTE # 3.3 TH/MM3 (1.0-4.8); MEAN CORPUSCULAR HEMOGLOBIN 27.9 PG (27.0-34.0); MONO % 7.5 % (0.0-8.0); NEUT % 73.3 % (16.0-70.0); PLATELET COUNT 462 TH/MM3 (150-450); RED BLOOD COUNT 3.26 MIL/MM3 (4.50-5.90); RED CELL DISTRIBUTION WIDTH 17.3 % (11.6-17.2); WHITE BLOOD COUNT 18.5 TH/MM3 (4.0-11.0)
[2017-01-10 08:41] LABS: BICARBONATE 27.6 MEQ/L (21.0-32.0)
[2017-01-10 08:55] VITALS: O2SAT 96
[2017-01-10] MEDS: CHLORHEXIDINE GLUCONATE 4% SOLN 120 ML BTL TOPICAL SCH (11:23)
[2017-01-10 14:24] LABS: BLOOD, URINE NEG (NEG); COMMENT (UR) CULT NOT INDICATED; CULTURE IF INDICATED CULT NOT INDICATED; GLUCOSE,URINE 300 mg/dL (NEG); HYALINE CAST, URINE 6 /lpf (RARE); KETONE, URINE NEG (NEG); MUCUS URINE FEW /lpf (OCC); NITRITE,URINE NEG (NEG); PH, URINE 6.5 (5.0-8.5); SQUAMOUS EPITHELIAL CELL URINE <1 /hpf (0-5); URINE COLOR YELLOW (YELLW/STRAW)
[2017-01-10] MEDS: SODIUM CHLOR 0.9% 1000 ML INJ 1,000 ML IV SCH ×2 (15:05→20:08)
[2017-01-10 16:00] VITALS: BP 127/79; PULSE 80; RESP 16; TEMP 97.7; O2SAT 99
[2017-01-10] MEDS ORDERED: POTASSIUM CHLORIDE 10 MEQ CONTROLLED RELEASE TAB PO ONE ×2 (18:00→22:00)
--- NOTE | 2017-01-10 18:09 | HHI.PR ---
Subjective Remarks Written by Pratima Arias, acting as scribe for Dr. Andres on 01/10/17 at 17:59. Follow up uncontrolled DM, leukocytosis, and hidradenitis. Patient seen and examined. Lying in bed comfortably. Complaints of neck pain due to bed discomfort and history of arthritis. Denies any new acute complaints overnight. Eating well, denies any ab pain, nausea or vomiting. TMAX 100.6 overnight. Denies any chills, cough, shortness of breath. Objective Vitals Vital Signs Date Time Temp Pulse Resp B/P (MAP) Pulse Ox O2 Delivery O2 Flow Rate FiO2 01/10/17 16:00 97.7 80 16 127/79 (95) 99 01/10/17 08:55 96 21 01/10/17 08:00 97.7 92 16 123/85 (98) 99 01/10/17 04:00 98.4 01/10/17 00:00 100.6 108 18 141/81 (101) 96 01/09/17 22:24 96 01/09/17 20:00 99.5 112 20 136/81 (99) 94 I/O 01/09/17 01/09/17 01/09/17 01/10/17 01/10/17 01/10/17 07:00 15:00 23:00 07:00 15:00 23:00 Intake Total 1000 ml 920 ml 580 ml 360 ml 100 ml Output Total 1850 ml 400 ml Balance 1000 ml 920 ml -1270 ml -40 ml 100 ml Intake Oral 480 ml 360 ml IV Total 1000 ml 920 ml 100 ml 100 ml Output Urine Total 1850 ml 400 ml # Bowel Movements 0 0 Result Diagram: 01/10/17 0548 01/10/17 0548 Objective Remarks GENERAL: This is a well-nourished, well-developed male patient, in no apparent distress. SKIN: Widespread follicular rash on bilateral upper extremities and back. Bilateral axilla with multiple scarring, dry with no drainage. Groin and buttock with hidradenitis and scarring, lesions draining. Suprapubic lymph nodes x 2 3mm in size, nontender, rubbery consistency. HEAD: Atraumatic. Normocephalic. Pupils equal round and reactive. Extraocular motions intact. No scleral icterus. No injection or drainage. Nose without bleeding. Airway patent. NECK: Trachea midline. No JVD. Supple. CARDIOVASCULAR: Sinus tachycardia. No murmur appreciated. gallops, or rubs. S1 and S2 present RESPIRATORY: Clear to auscultation. Breath sounds equal bilaterally. No wheezes , rales, or rhonchi. GASTROINTESTINAL: Abdomen soft, non-tender, nondistended. No guarding. MUSCULOSKELETAL: Extremities without clubbing, cyanosis, or edema. No joint tenderness, effusion, or edema noted. NEUROLOGICAL: Awake and alert. Cranial nerves II through XII intact. Motor and sensory grossly within normal limits. Five out of 5 muscle strength in all muscle groups. Normal speech. A/P Problem List: (1) Leukocytosis ICD Code: D72.829 - Elevated white blood cell count, unspecified Status: Acute (2) Hyperlipidemia ICD Code: E78.5 - Hyperlipidemia, unspecified Status: Acute (3) Diabetes mellitus with hyperglycemia ICD Code: E11.65 - Type 2 diabetes mellitus with hyperglycemia Status: Acute (4) Hidradenitis suppurativa ICD Code: L73.2 - Hidradenitis suppurativa Status: Chronic (5) Neck pain ICD Code: M54.2 - Cervicalgia Status: Acute (6) HTN (hypertension) ICD Code: I10 - Essential (primary) hypertension Status: Chronic (7) Rheumatoid arthritis ICD Code: M06.9 - Rheumatoid arthritis, unspecified Status: Chronic Assessment and Plan Mr. Clay is a 46-year-old male patient with a known medical history of hidradenitis, uncontrolled diabetes, hypertension, atrial fibrillation and RA who presented to the ED with worsening neck and back pain. 01/10: Patient hypokalemic today, 3.0. Replacement ordered, follow BMP in am. Diabetes still uncontrolled, blood sugar trends reviewed. Adjusted insulin regimen, change Levemir 30 units sq HS to Levemir 15 units sq BID, increased sliding scale to high scale and will monitor trends overnight. Adjust as needed. Hemoglobin a1C resulted to 10.2. TMAX 100.6 overnight. Order placed for blood culture draw PRN if temp is >101. ID is following patient, started on Unasyn IV. ID ordered for hibiclens overnight to decrease bacterial load. Plan to switch to oral Augmentin when showing improvement. Follow. UA was ordered and reviewed, not significant for infection. Sirs criteria rule out sepsis (Leukocytosis with mild bandemia, tachycardia, lactic acid 1.1) - WBC 23.5 on presentation. WBC now 18.5. TMAX 100.6 overnight. Continue to monitor. Follow CBC in am. - Given Vancomycin x 1 in ED. Clindamycin dc'd. - Wound culture of groin ordered, growing strep. - Status post 1 L NS bolus in ED. Ensure hydration, NS @ 100 ml/hr. - ID following, started on Unasyn 3 g q6hr. Hidradenitis suppurativa, acute on chronic - Continue Clindamycin and Rifampin - ID following patient, appreciate input and recommendations. - Elevated ESR 138. - Continue home Diclofenac. - Control pain, [place] PO PRN per pain scale. Morphine IV PRN breakthrough pain. Uncontrolled type 2 diabetes mellitus, chronic - Random glucose 356 on presentation. - ACCU checks ACHS, sliding scale insulin, cover as needed. - hemoglobin A1c 10.2. - Change Levemir 30 units sq HS to Levemir 15 units sq BID, increased sliding scale to high scale and will monitor trends overnight. Hypokalemia: K 3.0 today. Replacement ordered. Follow BMP in am. Chronic neck and back pain - Continue home Flexeril. - Control pain, [place] PO PRN per pain scale. Morphine IV PRN per pain scale. Hypertension: Controlled at this time. Continue to monitor. Hyperlipidemia: Continue home Atorvastatin. DVT Prophylaxis: SCDs/Heparin. Attending Statement This note was transcribed by aparna [Kayla]. I, Dr. Sanjeev Andres personally performed the history, physical exam, and medical decision making; and confirmed the accuracy of the information in the transcribed note. Authenticated by Dr. Sanjeev Andres on 01/10/17 at 18:39. Pratima Arias Jan 10, 2017 18:09 Sanjeev Andres MD Jan 10, 2017 18:41
[2017-01-10 20:00] VITALS: BP 136/87; PULSE 87; RESP 17; TEMP 97.7; O2SAT 98
[2017-01-10] MEDS: ATORVASTATIN 20 MG TAB PO SCH (20:12)
[2017-01-10] MEDS: INSULIN DETEMIR 100 UNITS/ML VIAL SQ SCH (20:20)
[2017-01-10] MEDS: INSULIN ASPART SUPPLEMENTAL SCALE SQ SCH (21:31)
[2017-01-11] VITALS: BP 148/83; PULSE 86; RESP 17; TEMP 97; O2SAT 99
[2017-01-11] MEDS: ACETAMINOPHEN/HYDROcodone 325 MG/10 MG TAB PO PRN ×5 (02:32→20:58)
[2017-01-11] MEDS: HEPARIN SODIUM - SQ 10,000 UNITS/ML VIAL SQ SCH ×3 (04:46→17:14)
[2017-01-11] MEDS: AMPICILLIN-SULBACTAM INJ 3 GM in SODIUM CHLORIDE 0.9% INJ 100 ML IV SCH ×4 (04:46→20:59)
[2017-01-11] MEDS: MORPHINE SULFATE 4 MG/ML INJ IV PRN ×5 (05:30→23:07)
[2017-01-11] MEDS ORDERED: PRED20 PO (05:34)
[2017-01-11 08:00] VITALS: BP 152/91; PULSE 86; RESP 16; TEMP 97.5; O2SAT 98
[2017-01-11 08:28] LABS: BASOPHIL # 0.1 TH/MM3 (0-0.2); BASOPHIL % 0.8 % (0.0-2.0); EOSINOPHIL # 0.2 TH/MM3 (0-0.4); EOSINOPHIL % 1.3 % (0.0-4.0); HEMATOCRIT 27.2 % (39.0-51.0); HEMO FLAGS DIFF FINAL; LYMPH % 19.8 % (9.0-44.0); LYMPHOCYTE # 2.8 TH/MM3 (1.0-4.8); MEAN CELL VOLUME 82.1 FL (80.0-100.0); MEAN CORPUSCULAR HEMOGLOBIN 26.3 PG (27.0-34.0); MEAN CORPUSCULAR HGB CONC 32.1 % (32.0-36.0); MONO % 6.6 % (0.0-8.0); NEUT % 71.5 % (16.0-70.0); PLATELET COUNT 502 TH/MM3 (150-450); RED BLOOD COUNT 3.31 MIL/MM3 (4.50-5.90)
[2017-01-11] MEDS: DOCUSATE SODIUM 50 MG/SENNA 8.6 MG TAB PO SCH ×2 (08:49→21:01)
[2017-01-11] MEDS: METOPROLOL TARTRATE 25 MG TAB PO SCH ×2 (08:49→21:01)
[2017-01-11] MEDS: CYCLOBENZAPRINE HCL 10 MG TAB PO SCH ×3 (08:49→17:14)
[2017-01-11] MEDS: ASPIRIN EC 81 MG TABEC PO SCH (08:49)
[2017-01-11] MEDS: DICLOFENAC SODIUM 75 MG DELAYED RELEASE TAB PO SCH ×2 (08:49→21:08)
[2017-01-11] MEDS: INSULIN ASPART SUPPLEMENTAL SCALE SQ SCH ×4 (08:53→21:00)
[2017-01-11] MEDS: SODIUM CHLORIDE 0.9% FLUSH 10 ML FLUSH IV FLUSH SCH ×2 (08:53→21:00)
[2017-01-11] MEDS: INSULIN DETEMIR 100 UNITS/ML VIAL SQ SCH ×2 (08:53→21:00)
[2017-01-11] MEDS: SODIUM CHLOR 0.9% 1000 ML INJ 1,000 ML IV SCH ×2 (08:54→20:59)
[2017-01-11 09:05] LABS: POTASSIUM 3.9 MEQ/L (3.5-5.1)
[2017-01-11 12:00] VITALS: BP 136/87; PULSE 87; RESP 16; TEMP 97.6; O2SAT 98
--- NOTE | 2017-01-11 12:30 | HHI.PR ---
Subjective Remarks Patient doing okay, no event overnight WBC decreased to 14 K, hemoglobin dropped from 10.2-8.7, his blood glucose still uncontrolled will add NovoLog 4 units 3 times a day with meals Objective Vitals Vital Signs Date Time Temp Pulse Resp B/P (MAP) Pulse Ox O2 Delivery O2 Flow Rate FiO2 01/11/17 08:00 97.5 86 16 152/91 (111) 98 01/11/17 00:00 97.0 86 17 148/83 (104) 99 01/10/17 20:00 97.7 87 17 136/87 (103) 98 01/10/17 16:00 97.7 80 16 127/79 (95) 99 I/O 01/10/17 01/10/17 01/10/17 01/11/17 01/11/17 01/11/17 07:00 15:00 23:00 07:00 15:00 23:00 Intake Total 360 ml 100 ml 620 ml 2618 ml Output Total 400 ml 1600 ml Balance -40 ml 100 ml 620 ml 1018 ml Intake Oral 360 ml 620 ml 240 ml IV Total 100 ml 2378 ml Output Urine Total 400 ml 1600 ml # Voids 3 # Bowel Movements 0 0 Result Diagram: 01/11/17 0738 01/11/17 0742 Objective Remarks GENERAL: This is a well-nourished, well-developed male patient, in no apparent distress. SKIN: Widespread follicular rash on bilateral upper extremities and back. Bilateral axilla with multiple scarring, dry with no drainage. Groin and buttock with hidradenitis and scarring, lesions draining. Suprapubic lymph nodes x 2 3mm in size, nontender, rubbery consistency. HEAD: Atraumatic. Normocephalic. Pupils equal round and reactive. Extraocular motions intact. No scleral icterus. No injection or drainage. Nose without bleeding. Airway patent. NECK: Trachea midline. No JVD. Supple. CARDIOVASCULAR: Sinus tachycardia. No murmur appreciated. gallops, or rubs. S1 and S2 present RESPIRATORY: Clear to auscultation. Breath sounds equal bilaterally. No wheezes , rales, or rhonchi. GASTROINTESTINAL: Abdomen soft, non-tender, nondistended. No guarding. MUSCULOSKELETAL: Extremities without clubbing, cyanosis, or edema. No joint tenderness, effusion, or edema noted. NEUROLOGICAL: Awake and alert. Cranial nerves II through XII intact. Motor and sensory grossly within normal limits. Five out of 5 muscle strength in all muscle groups. Normal speech. A/P Problem List: (1) Leukocytosis ICD Code: D72.829 - Elevated white blood cell count, unspecified Status: Acute (2) Hyperlipidemia ICD Code: E78.5 - Hyperlipidemia, unspecified Status: Acute (3) Diabetes mellitus with hyperglycemia ICD Code: E11.65 - Type 2 diabetes mellitus with hyperglycemia Status: Acute (4) Hidradenitis suppurativa ICD Code: L73.2 - Hidradenitis suppurativa Status: Chronic (5) Neck pain ICD Code: M54.2 - Cervicalgia Status: Acute (6) HTN (hypertension) ICD Code: I10 - Essential (primary) hypertension Status: Chronic (7) Rheumatoid arthritis ICD Code: M06.9 - Rheumatoid arthritis, unspecified Status: Chronic Assessment and Plan Mr. Clay is a 46-year-old male patient with a known medical history of hidradenitis, uncontrolled diabetes, hypertension, atrial fibrillation and RA who presented to the ED with worsening neck and back pain. Sirs criteria rule out sepsis (Leukocytosis with mild bandemia, tachycardia, lactic acid 1.1) - WBC 23.5 on presentation. WBC now 18.5. TMAX 100.6 overnight. Continue to monitor. Follow CBC in am. - Given Vancomycin x 1 in ED. Clindamycin dc'd. - Wound culture of groin growing strep non-ABD, with mixed anaerobes - Status post 1 L NS bolus in ED. Ensure hydration, NS @ 100 ml/hr. - ID following, started on Unasyn 3 g q6hr.> Can switch to Augmentin for 14 days when improved as per ID Hidradenitis suppurativa, acute on chronic -Started on Clindamycin and Rifampin and switched to Unasyn - ID following patient, appreciate input and recommendations. - Elevated ESR 138. - Continue home Diclofenac. - Control pain, [place] PO PRN per pain scale. Morphine IV PRN breakthrough pain. Uncontrolled type 2 diabetes mellitus, chronic - Random glucose 356 on presentation. - ACCU checks ACHS, sliding scale insulin, cover as needed. - hemoglobin A1c 10.2.>> 8.7 - Change Levemir 30 units sq HS to Levemir 15 units sq BID, increased sliding scale to high scale and will monitor trends overnight. Blood glucose this morning 157 Hypokalemia: Replacement as needed. Follow BMP Chronic neck and back pain - Continue home Flexeril. - Control pain, [place] PO PRN per pain scale. Morphine IV PRN per pain scale. Hypertension: Controlled at this time. Continue to monitor. Hyperlipidemia: Continue home Atorvastatin. DVT Prophylaxis: SCDs/Heparin. Sanjeev Andres MD Jan 11, 2017 12:30
--- NOTE | 2017-01-11 13:04 | HHI.IDPN ---
Subjective Subjective Remarks Patient is a 46-year-old male, with known history of hidradenitis suppurativa, has had recurrent admissions for this problem, presented today with complaints of neck pain and back pain, as well as increasing pain in his buttocks. He has chronic back pain and he gets exacerbation of this. He has had recurrent infections in his groin and buttock region as well as the thigh from his recurrent hidradenitis. It has been suggested in the past that he be evaluated by a plastic surgeon, but patient has no insurance coverage, and has not had any evaluation. There has been no plastic surgery coverage in the hospital. His last hospitalization was back in November, and patient stated he finished the antibiotic that was prescribed to him. He has not had any fever or chills or sweats. Notes reviewed Had fevers 2 days ago, better C/S with Strep and mixed anaerobes WBC better Antibiotics Unasyn Lines PIV Past Medical History Hypertension Diabetes Atrial fibrillation Hydradenitis Rheumatoid arthritis History of MRSA infection Hyperlipidemia COPD Past Surgical History Multiple surgery for his hydradenitis Skin grafting Allergies: Coded Allergies: No Known Allergies (Verified Allergy, Unknown, 01/10/17) Objective . Vital Signs Date Time Temp Pulse Resp B/P (MAP) Pulse Ox O2 Delivery O2 Flow Rate FiO2 01/11/17 08:00 97.5 86 16 152/91 (111) 98 01/11/17 00:00 97.0 86 17 148/83 (104) 99 01/10/17 20:00 97.7 87 17 136/87 (103) 98 01/10/17 16:00 97.7 80 16 127/79 (95) 99 . Laboratory Tests Test 01/10/17 05:48 01/11/17 07:38 White Blood Count 18.5 TH/MM3 14.0 TH/MM3 Red Blood Count 3.26 MIL/MM3 3.31 MIL/MM3 Hemoglobin 9.1 GM/DL 8.7 GM/DL Hematocrit 26.7 % 27.2 % Mean Corpuscular Volume 82.0 FL 82.1 FL Mean Corpuscular Hemoglobin 27.9 PG 26.3 PG Mean Corpuscular Hemoglobin Concent 34.0 % 32.1 % Red Cell Distribution Width 17.3 % 17.0 % Platelet Count 462 TH/MM3 502 TH/MM3 Mean Platelet Volume 8.5 FL 7.8 FL Neutrophils (%) (Auto) 73.3 % 71.5 % Lymphocytes (%) (Auto) 17.7 % 19.8 % Monocytes (%) (Auto) 7.5 % 6.6 % Eosinophils (%) (Auto) 1.1 % 1.3 % Basophils (%) (Auto) 0.4 % 0.8 % Neutrophils # (Auto) 13.6 TH/MM3 10.0 TH/MM3 Lymphocytes # (Auto) 3.3 TH/MM3 2.8 TH/MM3 Monocytes # (Auto) 1.4 TH/MM3 0.9 TH/MM3 Eosinophils # (Auto) 0.2 TH/MM3 0.2 TH/MM3 Basophils # (Auto) 0.1 TH/MM3 0.1 TH/MM3 CBC Comment DIFF FINAL DIFF FINAL Differential Comment Laboratory Tests Test 01/10/17 05:48 01/11/17 07:42 Blood Urea Nitrogen 8 MG/DL 5 MG/DL Creatinine 0.64 MG/DL 0.59 MG/DL Random Glucose 133 MG/DL 135 MG/DL Calcium Level 9.4 MG/DL 8.9 MG/DL Sodium Level 133 MEQ/L 134 MEQ/L Potassium Level 3.0 MEQ/L 3.9 MEQ/L Chloride Level 97 MEQ/L 102 MEQ/L Carbon Dioxide Level 27.6 MEQ/L 25.0 MEQ/L Anion Gap 8 MEQ/L 7 MEQ/L Estimat Glomerular Filtration Rate 162 ML/MIN 178 ML/MIN Microbiology Date/Time Source Procedure Growth Status 01/09/17 12:35 Wound Buttock Gram Stain - Final Complete 01/09/17 12:35 Wound Culture - Final Strep Not A,B D Mixed Anaerobes Complete 01/09/17 10:00 Wound Groin Gram Stain - Final Complete 01/09/17 10:00 Wound Culture - Final Strep Not A,B D Mixed Anaerobes Complete Physical Exam GENERAL: awake and alert, not in respiratory distress. SKIN: Warm and dry. Has scars in both axilla, groin, medial thigh and buttocks C/W hidradenitis, mostly inactive except the one in the L buttock close to midline HEAD: Atraumatic. Normocephalic. No temporal wasting, or tenderness. EYES: [place] conjunctiva. No petechia or hemorrhage. No scleral icterus. No injection or drainage. EARS, NOSE AND THROAT: Nose without bleeding or purulent nasal discharge. No sinus tenderness. Mucous membranes pink and moist. No oral lesions noted. No exudate. No oral thrush. NECK: Trachea midline. Supple and not tender, no meningeal signs CARDIOVASCULAR: Regular rate and rhythm. No murmurs, rubs or gallops heard RESPIRATORY: Clear to auscultation. Breath sounds equal bilaterally. No rales , wheezing or rhonchi ABDOMEN: Soft, non-tender, nondistended. Bowel sounds present and normoactive. No guarding. No rebound. No organomegaly. EXTREMITIES: No clubbing, cyanosis, or edema. No joint effusion, has good ROM. No calf tenderness. Well perfused and warm. BACK: In L buttock close to mudline, he has indurated area, tender with multiple draining sinus tracts, (+) odor and purulence NEUROLOGICAL: Awake and alert. Cranial nerves grossly intact. Motor grossly within normal limits. PSYCHIATRIC: Normal affect, calm and cooperative. LINE: No evidence of infection Assessment & Plan Remarks IMPRESSION Recurrent hidradenitis suppurative, active in L buttock Possible sepsis due to hidradenitis, better RECOMMENDATION Continue IV Unasyn Monitor response to Rx If stays afebrile and pain under control, can be D/C this weekend and give 14 days Augmentin 500 TID I will sign off Please call if with any new ID issue or question Ericka Nichols MD Jan 11, 2017 13:03
[2017-01-11 16:00] VITALS: BP 122/77; PULSE 83; RESP 16; TEMP 97.9; O2SAT 99
[2017-01-11] MEDS ORDERED: INSULIN ASPART 1,000 UNITS/10 ML VIAL SQ SCH (17:00)
[2017-01-11] MEDS: INSULIN ASPART 1,000 UNITS/10 ML VIAL SQ SCH (17:14)
[2017-01-11 20:00] VITALS: BP 130/81; PULSE 91; RESP 16; TEMP 97.8; O2SAT 97
[2017-01-11] MEDS: predniSONE 20 MG TAB PO SCH (21:01)
[2017-01-11] MEDS: ATORVASTATIN 20 MG TAB PO SCH (21:01)
[2017-01-12] VITALS: BP 116/74; PULSE 76; RESP 18; TEMP 96; O2SAT 100
[2017-01-12] MEDS: HEPARIN SODIUM - SQ 10,000 UNITS/ML VIAL SQ SCH ×3 (01:00→17:35)
[2017-01-12] MEDS: ACETAMINOPHEN/HYDROcodone 325 MG/10 MG TAB PO PRN ×6 (01:01→22:35)
[2017-01-12] MEDS: AMPICILLIN-SULBACTAM INJ 3 GM in SODIUM CHLORIDE 0.9% INJ 100 ML IV SCH ×4 (04:14→20:31)
[2017-01-12] MEDS: MORPHINE SULFATE 4 MG/ML INJ IV PRN ×5 (04:14→20:44)
[2017-01-12] MEDS: SODIUM CHLOR 0.9% 1000 ML INJ 1,000 ML IV SCH ×2 (06:55→18:36)
[2017-01-12 08:00] VITALS: BP 122/77; PULSE 75; RESP 17; TEMP 97.7; O2SAT 95
[2017-01-12] MEDS: INSULIN ASPART 1,000 UNITS/10 ML VIAL SQ SCH ×3 (08:38→17:33)
[2017-01-12] MEDS: INSULIN ASPART SUPPLEMENTAL SCALE SQ SCH ×4 (08:39→20:43)
[2017-01-12] MEDS: METOPROLOL TARTRATE 25 MG TAB PO SCH ×2 (08:39→20:30)
[2017-01-12] MEDS: predniSONE 20 MG TAB PO SCH ×2 (08:40→20:30)
[2017-01-12] MEDS: DOCUSATE SODIUM 50 MG/SENNA 8.6 MG TAB PO SCH ×2 (08:40→20:31)
[2017-01-12] MEDS: ASPIRIN EC 81 MG TABEC PO SCH (08:40)
[2017-01-12] MEDS: CYCLOBENZAPRINE HCL 10 MG TAB PO SCH ×3 (08:40→17:35)
[2017-01-12] MEDS: DICLOFENAC SODIUM 75 MG DELAYED RELEASE TAB PO SCH ×2 (08:40→20:30)
[2017-01-12] MEDS: INSULIN DETEMIR 100 UNITS/ML VIAL SQ SCH ×2 (08:41→20:43)
[2017-01-12] MEDS: SODIUM CHLORIDE 0.9% FLUSH 10 ML FLUSH IV FLUSH SCH ×2 (09:00→20:31)
--- NOTE | 2017-01-12 11:32 | HHI.PR ---
Subjective Remarks in no distress, has some pain. remains afebrile. Objective Vitals Vital Signs Date Time Temp Pulse Resp B/P (MAP) Pulse Ox O2 Delivery O2 Flow Rate FiO2 01/12/17 08:55 18 01/12/17 08:00 97.7 75 17 122/77 (92) 95 01/12/17 07:37 18 01/12/17 00:00 96.0 76 18 116/74 (88) 100 01/11/17 20:00 97.8 91 16 130/81 (97) 97 01/11/17 16:00 97.9 83 16 122/77 (92) 99 01/11/17 12:00 97.6 87 16 136/87 (103) 98 I/O 01/11/17 01/11/17 01/11/17 01/12/17 01/12/17 01/12/17 07:00 15:00 23:00 07:00 15:00 23:00 Intake Total 2618 ml 100 ml 2060 ml 1194 ml Output Total 1600 ml 700 ml Balance 1018 ml 100 ml 2060 ml 494 ml Intake Oral 240 ml 960 ml 480 ml IV Total 2378 ml 100 ml 1100 ml 714 ml Output Urine Total 1600 ml 700 ml # Voids 4 # Bowel Movements 0 Result Diagram: 01/11/17 0738 01/11/17 0742 Objective Remarks GENERAL: This is a well-nourished, well-developed patient, in no apparent distress. CARDIOVASCULAR: Regular rate and regular rhythm without murmurs, gallops, or rubs. RESPIRATORY: Clear to auscultation. Breath sounds equal bilaterally. No wheezes , rales, or rhonchi. GASTROINTESTINAL: Abdomen soft, non-tender, nondistended. Normal, active bowel sounds MUSCULOSKELETAL: Extremities without clubbing, cyanosis, or edema. NEURO: Alert & Oriented x4 to person, place, time, situation. Moves all ext x4 Medications and IVs Current Medications Sodium Chloride 1,000 ml @ 999 mls/hr BOLUS ONCE IV Last administered on 01/09 04:59; Start 01/09/17 at 04:30; Stop 01/09/17 at 05:30; Status DC Ondansetron HCl (Zofran Inj) 4 mg ONCE ONCE IV PUSH Last administered on 05:00; Start 01/09/17 at 04:30; Stop 01/09/17 at 04:31; Status DC Ketorolac Tromethamine (Toradol Inj) 30 mg ONCE ONCE IV PUSH Last administered on 01/09/17 04:59; Start 01/09/17 at 04:30; Stop 01/09/17 at 04:31 ; Status DC Cyclobenzaprine HCl (Flexeril) 10 mg ONCE ONCE PO Last administered on 05:00; Start 01/09/17 at 04:30; Stop 01/09/17 at 04:31; Status DC Acetaminophen/ Hydrocodone Bitart (Mad[place] 5-325 Mg) 1 tab ONCE ONCE PO Last administered on 01/09/17 05:01; Start 01/09/17 at 04:30; Stop 01/09/17 at 04:31 ; Status DC Vancomycin HCl 1000 mg/Sodium Chloride 250 ml @ 250 mls/hr ONCE ONCE IV Last administered on 01/09/17 09:05; Start 01/09/17 at 07:45; Stop 01/09/17 at 08:44 ; Status DC Sodium Chloride 1,000 ml @ 100 mls/hr Q10H IV Last administered on 01/12/17 06:55; Start 01/09/17 at 08:55 Sodium Chloride (NS Flush) 2 ml UNSCH PRN IV FLUSH FLUSH AFTER USING IV ACCESS ; Start 01/09/17 at 09:00 Sodium Chloride (NS Flush) 2 ml BID IV FLUSH Last administered on 01/09/17 21: 09; Start 01/09/17 at 09:00 Ondansetron HCl (Zofran Inj) 4 mg Q6H PRN IVP NAUSEA OR VOMITING; Start at 09:00 Heparin Sodium (Porcine) (Heparin Inj) 5,000 units Q8H SQ Last administered on 01/12/17 10:19; Start 01/09/17 at 10:00 Acetaminophen/ Hydrocodone Bitart ([place] 5-325 Mg) 1 tab Q4H PRN PO PAIN SCALE 3 TO 5 Last administered on 01/09/17 10:05; Start 01/09/17 at 09:00 Acetaminophen/ Hydrocodone Bitart ([place] 10-325 Mg) 1 tab Q4H PRN PO PAIN SCALE 6 TO 10 Last administered on 01/12/17 10:22; Start 01/09/17 at 09:00 Morphine Sulfate (Morphine Inj) 4 mg Q3H PRN IV BREAKTHROUGH PAIN Last administered on 01/12/17 08:50; Start 01/09/17 at 09:00 Naloxone HCl (Narcan Inj) 0.4 mg UNSCH PRN IV SEE LABEL COMMENTS; Start at 09:00 Senna/Docusate Sodium (Michelle-Colace) 1 tab BID PO Last administered on 08:40; Start 01/09/17 at 09:00 Magnesium Hydroxide (Milk Of Magnesia Liq) 30 ml Q12H PRN PO MILD - MODERATE CONSTIPATION; Start 01/09/17 at 09:00 Sennosides (Senokot) 17.2 mg Q12H PRN PO MODERATE - SEVERE CONSTIPATION; Start 01/09/17 at 09:00 Bisacodyl (Dulcolax Supp) 10 mg DAILY PRN RECTAL SEVERE CONSITIPATION; Start at 09:00 Clindamycin Phosphate 900 mg/ Sodium Chloride 106 ml @ 212 mls/hr Q8H IV Last administered on 01/09/17 12:12; Start 01/09/17 at 11:00; Stop 01/09/17 at 14:35 ; Status DC Rifampin (Rifampin) 300 mg Q12HR PO Last administered on 01/09/17 11:01; Start 01/09/17 at 09:00; Stop 01/09/17 at 14:35; Status DC Aspirin (Ecotrin Ec) 81 mg DAILY PO Last administered on 01/12/17 08:40; Start 01/10/17 at 09:00 Atorvastatin Calcium (Lipitor) 20 mg HS PO Last administered on 01/11/17 21:01 ; Start 01/09/17 at 21:00 Cyclobenzaprine HCl (Flexeril) 10 mg TID PO Last administered on 01/12/17 08: 40; Start 01/09/17 at 13:00 Diclofenac Sodium (Voltaren Dr) 75 mg BID PO Last administered on 01/12/17 08: 40; Start 01/09/17 at 21:00 Insulin Detemir (Levemir Inj) 32 units HS SQ Last administered on 01/09/17 21: 12; Start 01/09/17 at 21:00; Stop 01/10/17 at 17:56; Status DC Metoprolol Tartrate (Lopressor) 12.5 mg Q12HR PO Last administered on 08:39; Start 01/09/17 at 21:00 Miscellaneous (Pill Splitter) 1 ea UNSCH PRN OTHER SEE LABEL COMMENTS; Start at 09:30 Dextrose (D50w (Vial) Inj) 50 ml UNSCH PRN IV HYPOGLYCEMIA-SEE COMMENTS; Start 01/09/17 at 09:30; Stop 01/09/17 at 17:41; Status DC Glucagon (Glucagon Inj) 1 mg UNSCH PRN OTHER HYPOGLYCEMIA-SEE COMMENTS; Start 01/09/17 at 09:30; Stop 01/09/17 at 17:41; Status DC Insulin Aspart (NovoLOG SUPPLEMENTAL SCALE) 1 ACHS SLIDING SCALE SQ Last administered on 01/09/17 17:05; Start 01/09/17 at 12:00; Stop 01/09/17 at 17:40 ; Status DC Ampicillin Sodium/ Sulbactam Sodium 3 gm/Sodium Chloride 100 ml @ 200 mls/hr Q6H IV Last administered on 01/12/17 10:17; Start 01/09/17 at 16:00 Chlorhexidine Gluconate (Hibiclens 4% Top Soln) 1 applic DAILY TOPICAL Last administered on 01/10/17 11:23; Start 01/09/17 at 14:45; Stop 01/10/17 at 09:01 ; Status DC Miscellaneous Medication ([facility]) Please discontinue previ... ONCE ONCE .XX ; Start 01/09/17 at 17:45; Stop 01/09/17 at 17:46; Status DC Dextrose (D50w (Vial) Inj) 50 ml UNSCH PRN IV PUSH HYPOGLYCEMIA - SEE COMMENTS ; Start 01/09/17 at 17:45 Glucagon (Glucagon Inj) 1 mg UNSCH PRN OTHER HYPOGLYCEMIA-SEE COMMENTS; Start 01/09/17 at 17:45 Insulin Aspart (NovoLOG SUPPLEMENTAL SCALE) 1 Q4HR SQ Last administered on 01/10 17:08; Start 01/09/17 at 21:00; Stop 01/10/17 at 17:57; Status DC Insulin Detemir (Levemir Inj) 17 units BID SQ Last administered on 01/12/17 08 :41; Start 01/10/17 at 21:00 Insulin Aspart (NovoLOG SUPPLEMENTAL SCALE) 1 ACHS SLIDING SCALE SQ Last administered on 01/12/17 08:39; Start 01/10/17 at 21:00 Potassium Chloride (KCl) 40 meq ONCE ONCE PO Last administered on 01/10/17 18 :45; Start 01/10/17 at 18:00; Stop 01/10/17 at 18:20; Status DC Potassium Chloride (KCl) 40 meq ONCE ONCE PO Last administered on 01/10/17 20 :12; Start 01/10/17 at 22:00; Stop 01/10/17 at 22:01; Status DC Insulin Aspart (NovoLOG INJ) 5 units TIDAC SQ Last administered on 01/12/17 08 :38; Start 01/11/17 at 17:00 Prednisone (Deltasone) 20 mg BID PO Last administered on 01/12/17 08:40; Start 01/11/17 at 21:00 Insulin Aspart (NovoLOG INJ) 4 units TIDAC SQ ; Start 01/11/17 at 17:00; Stop at 17:00; Status DC A/P Assessment and Plan Sirs criteria rule out sepsis (Leukocytosis with mild bandemia, tachycardia, lactic acid 1.1) - WBC 23.5 on presentation. WBC now 18.5. TMAX 100.6 overnight. Continue to monitor. Follow CBC in am. - Given Vancomycin x 1 in ED. Clindamycin dc'd. - Wound culture of groin growing strep non-ABD, with mixed anaerobes - ID following, started on Unasyn 3 g q6hr.> will switch to Augmentin for 14 days upon discharge. Hidradenitis suppurativa, acute on chronic -Started on Clindamycin and Rifampin and switched to Unasyn - evaluated by ID. - Elevated ESR 138. - Continue home Diclofenac. - Control pain, [place] PO PRN per pain scale. Morphine IV PRN breakthrough pain. Uncontrolled type 2 diabetes mellitus, chronic - Random glucose 356 on presentation. - ACCU checks ACHS, sliding scale insulin, cover as needed. - hemoglobin A1c 10.2.>> 8.7 - continue levemir with accu-check and SSI. Hypokalemia: replaced. Chronic neck and back pain - Continue home Flexeril. - Control pain, [place] PO PRN per pain scale. Morphine IV PRN per pain scale. Hypertension: Controlled at this time. Continue to monitor. Hyperlipidemia: Continue home Atorvastatin. DVT Prophylaxis: SCDs/Heparin. Discharge Planning dc home tomorrow if stable. Shy Flores MD Jan 12, 2017 11:32
[2017-01-12 12:00] VITALS: BP 107/62; PULSE 78; RESP 18; TEMP 97.9; O2SAT 95
[2017-01-12 16:00] VITALS: BP 131/71; PULSE 74; RESP 18; TEMP 96.6; O2SAT 96
[2017-01-12 20:00] VITALS: BP 115/80; PULSE 86; RESP 20; TEMP 96.1; O2SAT 99
[2017-01-12] MEDS: ATORVASTATIN 20 MG TAB PO SCH (20:30)
[2017-01-13] VITALS: BP 117/73; PULSE 75; RESP 18; TEMP 98; O2SAT 100
[2017-01-13] MEDS: MORPHINE SULFATE 4 MG/ML INJ IV PRN ×3 (00:17→08:12)
[2017-01-13] MEDS: ACETAMINOPHEN/HYDROcodone 325 MG/10 MG TAB PO PRN ×3 (02:42→10:26)
[2017-01-13] MEDS: HEPARIN SODIUM - SQ 10,000 UNITS/ML VIAL SQ SCH ×2 (02:42→10:06)
[2017-01-13] MEDS: SODIUM CHLOR 0.9% 1000 ML INJ 1,000 ML IV SCH ×2 (02:45→12:55)
[2017-01-13] MEDS: AMPICILLIN-SULBACTAM INJ 3 GM in SODIUM CHLORIDE 0.9% INJ 100 ML IV SCH ×2 (03:48→10:06)
[2017-01-13 08:00] VITALS: BP 112/69; PULSE 72; RESP 18; TEMP 97.6; O2SAT 98
[2017-01-13] MEDS: SODIUM CHLORIDE 0.9% FLUSH 10 ML FLUSH IV FLUSH SCH (08:13)
[2017-01-13] MEDS: INSULIN ASPART 1,000 UNITS/10 ML VIAL SQ SCH ×2 (08:14→11:39)
[2017-01-13] MEDS: INSULIN DETEMIR 100 UNITS/ML VIAL SQ SCH (08:15)
[2017-01-13] MEDS: INSULIN ASPART SUPPLEMENTAL SCALE SQ SCH ×2 (08:15→11:38)
[2017-01-13] MEDS: DOCUSATE SODIUM 50 MG/SENNA 8.6 MG TAB PO SCH (08:16)
[2017-01-13] MEDS: CYCLOBENZAPRINE HCL 10 MG TAB PO SCH ×2 (08:16→13:00)
[2017-01-13] MEDS: METOPROLOL TARTRATE 25 MG TAB PO SCH (08:16)
[2017-01-13] MEDS: ASPIRIN EC 81 MG TABEC PO SCH (08:16)
[2017-01-13] MEDS: DICLOFENAC SODIUM 75 MG DELAYED RELEASE TAB PO SCH (08:16)
[2017-01-13] MEDS: predniSONE 20 MG TAB PO SCH (08:17)
--- NOTE | 2017-01-13 10:24 | HHI.PR ---
Subjective Remarks in no acute distress. no fever. no new complaints. d/w the RN. Objective Vitals Vital Signs Date Time Temp Pulse Resp B/P (MAP) Pulse Ox O2 Delivery O2 Flow Rate FiO2 01/13/17 08:17 18 01/13/17 08:00 97.6 72 18 112/69 (83) 98 01/13/17 07:16 18 01/13/17 00:00 98.0 75 18 117/73 (88) 100 01/12/17 20:00 96.1 86 20 115/80 (92) 99 01/12/17 16:00 96.6 74 18 131/71 (91) 96 01/12/17 12:00 97.9 78 18 107/62 (77) 95 I/O 01/12/17 01/12/17 01/12/17 01/13/17 01/13/17 01/13/17 07:00 15:00 23:00 07:00 15:00 23:00 Intake Total 1194 ml 480 ml Output Total 700 ml Balance 494 ml 480 ml Intake Oral 480 ml 480 ml IV Total 714 ml Output Urine Total 700 ml # Voids 2 # Bowel Movements 1 Result Diagram: 01/11/17 0738 01/11/17 0742 Objective Remarks GENERAL: This is a well-nourished, well-developed patient, in no apparent distress. CARDIOVASCULAR: Regular rate and regular rhythm without murmurs, gallops, or rubs. RESPIRATORY: Clear to auscultation. Breath sounds equal bilaterally. No wheezes , rales, or rhonchi. GASTROINTESTINAL: Abdomen soft, non-tender, nondistended. Normal, active bowel sounds MUSCULOSKELETAL: Extremities without clubbing, cyanosis, or edema. NEURO: Alert & Oriented x4 to person, place, time, situation. Moves all ext x4 Medications and IVs Current Medications Sodium Chloride 1,000 ml @ 999 mls/hr BOLUS ONCE IV Last administered on 01/09 04:59; Start 01/09/17 at 04:30; Stop 01/09/17 at 05:30; Status DC Ondansetron HCl (Zofran Inj) 4 mg ONCE ONCE IV PUSH Last administered on 05:00; Start 01/09/17 at 04:30; Stop 01/09/17 at 04:31; Status DC Ketorolac Tromethamine (Toradol Inj) 30 mg ONCE ONCE IV PUSH Last administered on 01/09/17 04:59; Start 01/09/17 at 04:30; Stop 01/09/17 at 04:31 ; Status DC Cyclobenzaprine HCl (Flexeril) 10 mg ONCE ONCE PO Last administered on 05:00; Start 01/09/17 at 04:30; Stop 01/09/17 at 04:31; Status DC Acetaminophen/ Hydrocodone Bitart ([place] 5-325 Mg) 1 tab ONCE ONCE PO Last administered on 01/09/17 05:01; Start 01/09/17 at 04:30; Stop 01/09/17 at 04:31 ; Status DC Vancomycin HCl 1000 mg/Sodium Chloride 250 ml @ 250 mls/hr ONCE ONCE IV Last administered on 01/09/17 09:05; Start 01/09/17 at 07:45; Stop 01/09/17 at 08:44 ; Status DC Sodium Chloride 1,000 ml @ 100 mls/hr Q10H IV Last administered on 01/13/17 02:45; Start 01/09/17 at 08:55 Sodium Chloride (NS Flush) 2 ml UNSCH PRN IV FLUSH FLUSH AFTER USING IV ACCESS ; Start 01/09/17 at 09:00 Sodium Chloride (NS Flush) 2 ml BID IV FLUSH Last administered on 01/13/17 08: 13; Start 01/09/17 at 09:00 Ondansetron HCl (Zofran Inj) 4 mg Q6H PRN IVP NAUSEA OR VOMITING; Start at 09:00 Heparin Sodium (Porcine) (Heparin Inj) 5,000 units Q8H SQ Last administered on 01/13/17 10:06; Start 01/09/17 at 10:00 Acetaminophen/ Hydrocodone Bitart ([place] 5-325 Mg) 1 tab Q4H PRN PO PAIN SCALE 3 TO 5 Last administered on 01/09/17 10:05; Start 01/09/17 at 09:00 Acetaminophen/ Hydrocodone Bitart ([place] 10-325 Mg) 1 tab Q4H PRN PO PAIN SCALE 6 TO 10 Last administered on 01/13/17 06:33; Start 01/09/17 at 09:00 Morphine Sulfate (Morphine Inj) 4 mg Q3H PRN IV BREAKTHROUGH PAIN Last administered on 01/13/17 08:12; Start 01/09/17 at 09:00 Naloxone HCl (Narcan Inj) 0.4 mg UNSCH PRN IV SEE LABEL COMMENTS; Start at 09:00 Senna/Docusate Sodium (Michelle-Colace) 1 tab BID PO Last administered on 08:16; Start 01/09/17 at 09:00 Magnesium Hydroxide (Milk Of Magnesia Liq) 30 ml Q12H PRN PO MILD - MODERATE CONSTIPATION; Start 01/09/17 at 09:00 Sennosides (Senokot) 17.2 mg Q12H PRN PO MODERATE - SEVERE CONSTIPATION; Start 01/09/17 at 09:00 Bisacodyl (Dulcolax Supp) 10 mg DAILY PRN RECTAL SEVERE CONSITIPATION; Start at 09:00 Clindamycin Phosphate 900 mg/ Sodium Chloride 106 ml @ 212 mls/hr Q8H IV Last administered on 01/09/17 12:12; Start 01/09/17 at 11:00; Stop 01/09/17 at 14:35 ; Status DC Rifampin (Rifampin) 300 mg Q12HR PO Last administered on 01/09/17 11:01; Start 01/09/17 at 09:00; Stop 01/09/17 at 14:35; Status DC Aspirin (Ecotrin Ec) 81 mg DAILY PO Last administered on 01/13/17 08:16; Start 01/10/17 at 09:00 Atorvastatin Calcium (Lipitor) 20 mg HS PO Last administered on 01/12/17 20:30 ; Start 01/09/17 at 21:00 Cyclobenzaprine HCl (Flexeril) 10 mg TID PO Last administered on 01/13/17 08: 16; Start 01/09/17 at 13:00 Diclofenac Sodium (Voltaren Dr) 75 mg BID PO Last administered on 01/13/17 08: 16; Start 01/09/17 at 21:00 Insulin Detemir (Levemir Inj) 32 units HS SQ Last administered on 01/09/17 21: 12; Start 01/09/17 at 21:00; Stop 01/10/17 at 17:56; Status DC Metoprolol Tartrate (Lopressor) 12.5 mg Q12HR PO Last administered on 08:16; Start 01/09/17 at 21:00 Miscellaneous (Pill Splitter) 1 ea UNSCH PRN OTHER SEE LABEL COMMENTS; Start at 09:30 Dextrose (D50w (Vial) Inj) 50 ml UNSCH PRN IV HYPOGLYCEMIA-SEE COMMENTS; Start 01/09/17 at 09:30; Stop 01/09/17 at 17:41; Status DC Glucagon (Glucagon Inj) 1 mg UNSCH PRN OTHER HYPOGLYCEMIA-SEE COMMENTS; Start 01/09/17 at 09:30; Stop 01/09/17 at 17:41; Status DC Insulin Aspart (NovoLOG SUPPLEMENTAL SCALE) 1 ACHS SLIDING SCALE SQ Last administered on 01/09/17 17:05; Start 01/09/17 at 12:00; Stop 01/09/17 at 17:40 ; Status DC Ampicillin Sodium/ Sulbactam Sodium 3 gm/Sodium Chloride 100 ml @ 200 mls/hr Q6H IV Last administered on 01/13/17 10:06; Start 01/09/17 at 16:00 Chlorhexidine Gluconate (Hibiclens 4% Top Soln) 1 applic DAILY TOPICAL Last administered on 01/10/17 11:23; Start 01/09/17 at 14:45; Stop 01/10/17 at 09:01 ; Status DC Miscellaneous Medication ([facility]) Please discontinue previ... ONCE ONCE .XX ; Start 01/09/17 at 17:45; Stop 01/09/17 at 17:46; Status DC Dextrose (D50w (Vial) Inj) 50 ml UNSCH PRN IV PUSH HYPOGLYCEMIA - SEE COMMENTS ; Start 01/09/17 at 17:45 Glucagon (Glucagon Inj) 1 mg UNSCH PRN OTHER HYPOGLYCEMIA-SEE COMMENTS; Start 01/09/17 at 17:45 Insulin Aspart (NovoLOG SUPPLEMENTAL SCALE) 1 Q4HR SQ Last administered on 01/10 17:08; Start 01/09/17 at 21:00; Stop 01/10/17 at 17:57; Status DC Insulin Detemir (Levemir Inj) 17 units BID SQ Last administered on 9/17/17at 08 :15; Start 01/10/17 at 21:00 Insulin Aspart (NovoLOG SUPPLEMENTAL SCALE) 1 ACHS SLIDING SCALE SQ Last administered on 01/13/17 08:15; Start 01/10/17 at 21:00 Potassium Chloride (KCl) 40 meq ONCE ONCE PO Last administered on 01/10/17 18 :45; Start 01/10/17 at 18:00; Stop 01/10/17 at 18:20; Status DC Potassium Chloride (KCl) 40 meq ONCE ONCE PO Last administered on 01/10/17 20 :12; Start 01/10/17 at 22:00; Stop 01/10/17 at 22:01; Status DC Insulin Aspart (NovoLOG INJ) 5 units TIDAC SQ Last administered on 01/13/17 08 :14; Start 01/11/17 at 17:00 Prednisone (Deltasone) 20 mg BID PO Last administered on 01/13/17 08:17; Start 01/11/17 at 21:00 Insulin Aspart (NovoLOG INJ) 4 units TIDAC SQ ; Start 01/11/17 at 17:00; Stop at 17:00; Status DC A/P Assessment and Plan Sirs criteria rule out sepsis (Leukocytosis with mild bandemia, tachycardia, lactic acid 1.1) - Wound culture of groin growing strep non-ABD, with mixed anaerobes - ID following, started on Unasyn 3 g q6hr.> will switch to Augmentin for 14 days upon discharge. Hidradenitis suppurativa, acute on chronic -Started on Clindamycin and Rifampin and switched to Unasyn - evaluated by ID. - Elevated ESR 138. - Continue home Diclofenac. - Control pain, [place] PO PRN per pain scale. Uncontrolled type 2 diabetes mellitus, chronic - Random glucose 356 on presentation. - ACCU checks ACHS, sliding scale insulin, cover as needed. - hemoglobin A1c 10.2.>> 8.7 - continue levemir with accu-check and SSI. Hypokalemia: replaced. Chronic neck and back pain - Continue home Flexeril. - Control pain, [place] PO PRN per pain scale. Hypertension: Controlled at this time. Continue to monitor. Hyperlipidemia: Continue home Atorvastatin. DVT Prophylaxis: SCDs/Heparin. Discharge Planning dc home today. see med list. f/u ; pcp. d/w the patient and RN. Shy Flores MD Jan 13, 2017 10:24
[2017-01-13] MEDS ORDERED: AUGM500T7 PO (10:27)
[2017-01-13] MEDS ORDERED: HYDR-3516 PO (10:27)
--- NOTE | 2017-01-13 10:28 | HHI.DCPOC ---
Discharge Care Plan Diagnosis: (1) Hidradenitis suppurativa Your Health Problems Are: Inflammation Goals to Promote Your Health * To prevent worsening of your condition and complications * To maintain your health at the optimal level Directions to Meet Your Goals Take your medications as prescribed Follow your dietary instruction Follow activity as directed Keep your appointments as scheduled Take your immunizations and boosters as scheduled If your symptoms worsen call your PCP, if no PCP go to Urgent Care Center or Emergency Room Smoking is Dangerous to Your Health. Avoid second hand smoke Call the 24-hour hour crisis hotline for domestic abuse at Shy Flores MD Jan 13, 2017 10:28
--- NOTE | 2017-01-13 10:29 | HHI.DS ---
Discharge Summary Admission Date Jan 10, 2017 at 14:57 Discharge Date: Jan 13, 2017 Admitting Diagnosis cellulitis/abscess (1) Leukocytosis ICD Code: D72.829 - Elevated white blood cell count, unspecified Diagnosis: Principal Status: Acute (2) Hyperlipidemia ICD Code: E78.5 - Hyperlipidemia, unspecified Diagnosis: Secondary Status: Acute (3) Diabetes mellitus with hyperglycemia ICD Code: E11.65 - Type 2 diabetes mellitus with hyperglycemia Diagnosis: Secondary Status: Acute (4) Hidradenitis suppurativa ICD Code: L73.2 - Hidradenitis suppurativa Diagnosis: Principal Status: Chronic (5) Neck pain ICD Code: M54.2 - Cervicalgia Diagnosis: Secondary Status: Acute (6) HTN (hypertension) ICD Code: I10 - Essential (primary) hypertension Diagnosis: Secondary Status: Chronic (7) Rheumatoid arthritis ICD Code: M06.9 - Rheumatoid arthritis, unspecified Diagnosis: Secondary Status: Chronic Procedures none Brief History - From Admission Written by Pratima Arias, acting as scribe for Dr. Andres on 01/09/17 at 09:27. Mr. Clay is a 46-year-old male patient with a known medical history of hidradenitis, uncontrolled diabetes, HTN, atrial fibrillation and RA who presented to the ED with worsening neck and back pain. Per medical record patient has had multiple hospitalizations for hidradenitis suppurativa. Patient states he has been in pain and wanted to get evaluated. Pain is continuous, located in his neck, 10/10 on pain scale, some radiation to arms, does not recognize any alleviating or relieving factors. Denies any recent illness including fever, chills, cough, shortness of breath, headache, abdominal pain, nausea, vomiting, diarrhea or dysuria. Does state he has noticed a generalized rash on his bilateral upper extremities and scattered on his back, does admit to occasional urticaria. Also complaint of pain in his suprapubic/groin area and positive drainage from hidradenitis areas. CBC/BMP: 01/11/17 0738 01/11/17 0742 Significant Findings Laboratory Tests Test 01/10/17 13:56 01/11/17 07:38 01/11/17 07:42 Urine Protein 30 mg/dL (NEG-TRACE) Urine Glucose (UA) 300 mg/dL (NEG) Urine Mucus FEW /lpf (OCC) White Blood Count 14.0 TH/MM3 (4.0-11.0) Red Blood Count 3.31 MIL/MM3 (4.50-5.90) Hemoglobin 8.7 GM/DL (13.0-17.0) Hematocrit 27.2 % (39.0-51.0) Mean Corpuscular Hemoglobin 26.3 PG (27.0-34.0) Platelet Count 502 TH/MM3 (150-450) Neutrophils (%) (Auto) 71.5 % (16.0-70.0) Neutrophils # (Auto) 10.0 TH/MM3 (1.8-7.7) Blood Urea Nitrogen 5 MG/DL (7-18) Creatinine 0.59 MG/DL (0.60-1.30) Random Glucose 135 MG/DL (74-106) Sodium Level 134 MEQ/L (136-145) PE at Discharge GENERAL: This is a well-nourished, well-developed patient, in no apparent distress. CARDIOVASCULAR: Regular rate and regular rhythm without murmurs, gallops, or rubs. RESPIRATORY: Clear to auscultation. Breath sounds equal bilaterally. No wheezes , rales, or rhonchi. GASTROINTESTINAL: Abdomen soft, non-tender, nondistended. Normal, active bowel sounds MUSCULOSKELETAL: Extremities without clubbing, cyanosis, or edema. NEURO: Alert & Oriented x4 to person, place, time, situation. Moves all ext x4 Hospital Course Sirs criteria rule out sepsis (Leukocytosis with mild bandemia, tachycardia, lactic acid 1.1) - Wound culture of groin growing strep non-ABD, with mixed anaerobes - ID following, started on Unasyn 3 g q6hr.> will switch to Augmentin for 14 days upon discharge. Hidradenitis suppurativa, acute on chronic -Started on Clindamycin and Rifampin and switched to Unasyn - evaluated by ID. - Elevated ESR 138. - Continue home Diclofenac. - Control pain, [place] PO PRN per pain scale. Uncontrolled type 2 diabetes mellitus, chronic - Random glucose 356 on presentation. - ACCU checks ACHS, sliding scale insulin, cover as needed. - hemoglobin A1c 10.2.>> 8.7 - continue levemir with accu-check and SSI. Hypokalemia: replaced. Chronic neck and back pain - Continue home Flexeril. - Control pain, [place] PO PRN per pain scale. Hypertension: Controlled at this time. Continue to monitor. Hyperlipidemia: Continue home Atorvastatin. DVT Prophylaxis: SCDs/Heparin. Pt Condition on Discharge: Stable Discharge Disposition: Discharge Home Discharge Time: <= 30 minutes Discharge Instructions DIET: Follow Instructions for: Heart Healthy Diet, Diabetic Diet Activities you can perform: Regular-No Restrictions Follow up Referrals: PCP Follow-up New Medications: Amoxicillin-Clavulanate (Augmentin) 500-125 mg Tab 500 MG PO Q8H for Infection for 14 Days, TAB 0 Refills Hydrocodone-Acetaminophen (Hydrocodone-Acetaminophen) 5-325 mg Tab 1 TAB PO Q6HR PRN for pain 6-10, #10 TAB 0 Refills Continued Medications: Aspirin DR (Adult Aspirin EC Low Strength) 81 Mg Tabec 81 MG PO DAILY for Blood Clot Prevention, #90 TAB Atorvastatin (Atorvastatin) 20 Mg Tab 20 MG PO HS for Cholesterol Management, #90 TAB 3 Refills Cyclobenzaprine (Flexeril) 10 Mg Tab 10 MG PO TID for Muscle Spasm, #30 TAB 0 Refills Insulin Aspart Inj (Novolog Inj) 1,000 Unit/10 Ml Vial 1-9 UNITS SQ ACHS for Blood Sugar Management, #10 ML 3 Refills Max dose at bedtime:( )units; sugars less than 70,(0)units; sugars 150-199,(1) unit; sugars 200-249,(3) units; sugars 250-299,(5) units; sugars 300-349,(7) units; sugars greater than 349,(9) units Insulin Detemir Inj (Levemir Inj) 1,000 unit/ 10 ML Vial 32 UNITS SQ HS for Blood Sugar Management, #30 INJECTION 3 Refills Metoprolol Tartrate (Metoprolol Tartrate) 25 Mg Tab 12.5 MG PO Q12HR for Heart, #60 TAB 3 Refills Prednisone (Prednisone) 20 Mg Tab 20 MG PO BID, TAB 0 Refills Discontinued Medications: Rifampin (Rifampin) 150 Mg Cap 300 MG PO Q12HR for Infection, #28 CAP 1 Refill Minouei,Mohammadreza MD Jan 13, 2017 10:29
[2017-01-13 12:00] VITALS: BP 117/73; PULSE 76; RESP 18; TEMP 96.8; O2SAT 98
[2017-01-29] MEDS ORDERED: AUGM875T3 PO (18:14)
== END 2017-01-13 13:31 | disposition home or self-care (01) | DRG 607 ==
LOC: NEPE 03:19 → NEDA 08:52 → INTOOBSV 08:52 → N07B 11:27 → OBSVTOIN 01-10 14:57
PROVIDERS: ADMIT Internal Medicine; ATTEND Internal Medicine
DX: L73.2 Hidradenitis suppurativa (principal); E11.65 Type 2 diabetes mellitus with hyperglycemia; I10 Essential (primary) hypertension; I48.91 Unspecified atrial fibrillation; F32.9 Major depressive disorder, single episode, unspecified; M54.2 Cervicalgia; M06.9 Rheumatoid arthritis, unspecified; Z79.01 Long term (current) use of anticoagulants; E78.00 Pure hypercholesterolemia, unspecified; I25.10 Atherosclerotic heart disease of native coronary artery without angina pectoris; K21.9 Gastro-esophageal reflux disease without esophagitis; Z95.3 Presence of xenogenic heart valve; Z82.49 Family history of ischemic heart disease and other diseases of the circulatory system; E78.5 Hyperlipidemia, unspecified; G89.29 Other chronic pain; M54.9 Dorsalgia, unspecified; Z86.14 Personal history of Methicillin resistant Staphylococcus aureus infection; J44.9 Chronic obstructive pulmonary disease, unspecified; F12.90 Cannabis use, unspecified, uncomplicated; Z87.891 Personal history of nicotine dependence; E87.6 Hypokalemia
CPT/HCPCS: 80048; 80053; 81001; 82948; 83036; 83605; 85025; 85652; 86403; 87070; 87185; 87205; 96361; 96365; 96366; 96367; 96372; 96374; 96375; 96376; G0378; J0295; J1644; J1815; J1885; J2270; J2405; J3370; J7030; J7050; J7512

== ENCOUNTER 2017-01-25 14:28 | Inpatient (IN) | payer SELFPAY ==
[~2017-01-25] VITALS: Ht 182.9 cm; Wt 91.0 kg
[~2017-01-25 14:28] MED LIST changes: +AUGM500T7 PO; -DICL75TA PO; +HYDR-3516 PO; +PRED20 PO; -RIFA150C2 PO
[2017-01-25 15:43] VITALS: BP 137/95; PULSE 115; RESP 16; TEMP 98.3; O2SAT 98
[2017-01-25] MEDS ORDERED: SODIUM CHLOR 0.9% 1000 ML INJ 1,000 ML IV ONE (15:45)
[2017-01-25 15:50] VITALS: O2SAT 98
--- NOTE | 2017-01-25 16:07 | PD ---
HPI Chief Complaint: Skin Problem Time Seen by Provider: 15:45 Travel History International Travel<30 days: No Contact w/Intl Traveler<30days: No Traveled to known affect area: No History of Present Illness HPI 46 y/o male presents generalized weakness and pain to his buttocks area for which she recently was in treatment for an infection. He states he is not actively on antibiotics. He denies any other concurrent complaints. He presents by ambulance. His vitals were stable in route. Quality is generally ill feeling. Location is all over. Severity is progressive per patient. PFSH Past Medical History Hx Anticoagulant Therapy: Yes Arthritis: Yes Atrial Fibrillation: Yes Autoimmune Disease: Yes (Rheumatoid Arthritis) Blood Disorders: No Anxiety: No Depression: Yes Heart Rhythm Problems: Yes Cancer: No Cardiac Catheterization: No Cardiovascular Problems: Yes High Cholesterol: Yes Chemotherapy: No Chest Pain: Yes Congestive Heart Failure: No Cerebrovascular Accident: No Coronary Artery Disease: Yes Diabetes: Yes Diminished Hearing: No Endocrine: Yes Gastrointestinal Disorders: No GERD: Yes Genitourinary: Yes (moraima) Hiatal Hernia: No Heparin Induced Thrombocytopen: No Hypertension: Yes Immune Disorder: Yes Implanted Vascular Access Dvce: No Kidney Stones: No Musculoskeletal: Yes Neurologic: Yes (c5-c6 stenosis, syncope) Psychiatric: Yes Reproductive: No Respiratory: No Immunizations Current: Yes Radiation Therapy: No Thyroid Disease: No Ulcer: No Past Surgical History Abdominal Surgery: No Body Medical Devices: PIG VALVE Cardiac Surgery: Yes (CATH 2015, 2014, 2013 PIG VALVE 2015) Coronary Artery Bypass Graft: No Ear Surgery: No Endocrine Surgery: No Eye Surgery: No Genitourinary Surgery: No Gynecologic Surgery: No Neurologic Surgery: No Oral Surgery: Yes (TEETH REMOVED 2014) Thoracic Surgery: No Other Surgery: Yes (Nikos under arm r/t Boils ) Social History Alcohol Use: No Tobacco Use: No Substance Use: No Allergies-Medications (Allergen,Severity, Reaction): Coded Allergies: No Known Allergies (Verified Allergy, Unknown, 01/10/17) Reported Meds & Prescriptions Reported Meds & Active Scripts Active Augmentin (Amoxicillin-Clavulanate) 500-125 mg Tab 500 Mg PO Q8H 14 Days Hydrocodone-Acetaminophen 5-325 mg Tab 1 Tab PO Q6HR PRN Flexeril (Cyclobenzaprine HCl) 10 Mg Tab 10 Mg PO TID Novolog Inj (Insulin Aspart) 1,000 Unit/10 Ml Vial 1-9 Units SQ ACHS Max dose at bedtime:( )units; sugars less than 70,(0)units; sugars 150-199,(1) unit; sugars 200-249,(3) units; sugars 250-299,(5) units; sugars 300-349,(7) units; sugars greater than 349,(9) units Metoprolol Tartrate 25 Mg Tab 12.5 Mg PO Q12HR Levemir Inj (Insulin Detemir) 1,000 unit/ 10 ML Vial 32 Units SQ HS Atorvastatin (Atorvastatin Calcium) 20 Mg Tab 20 Mg PO HS Adult Aspirin EC Low Strength (Aspirin) 81 Mg Tabec 81 Mg PO DAILY Reported Prednisone 20 Mg Tab 20 Mg PO BID Review of Systems Except as stated in HPI: all other systems reviewed are Neg Physical Exam Narrative GENERAL: Well-nourished, well-developed patient. SKIN: induration noted to buttock near gluteal cleft with active drainage with overlying cellulitis HEAD: Normocephalic and atraumatic. EYES: No injection or drainage. ENT: No nasal drainage noted. NECK: Supple, trachea midline. CARDIOVASCULAR: Regular rate and rhythm RESPIRATORY: Breath sounds equal bilaterally. No accessory muscle use. GASTROINTESTINAL: Abdomen soft, non-tender, nondistended. NEUROLOGICAL: Awake and alert.Normal speech. Data Data Last Documented VS Vital Signs Date Time Temp Pulse Resp B/P (MAP) Pulse Ox O2 Delivery O2 Flow Rate FiO2 01/25/17 15:50 98 01/25/17 15:43 98.3 115 16 137/95 (109) Orders Orders Complete Blood Count With Diff (01/25/17 15:45) Comprehensive Metabolic Panel (01/25/17 15:45) Prothrombin Time / Inr (Pt) (01/25/17 15:45) Act Partial Throm Time (Ptt) (01/25/17 15:45) Lactic Acid Sepsis Protocol (01/25/17 15:45) Magnesium (Mg) (01/25/17 15:45) Phosphorus (Po4) (01/25/17 15:45) Urinalysis - C+S If Indicated (01/25/17 15:45) Blood Culture (01/25/17 15:45) Chest, Single Ap (01/25/17 15:45) Blood Glucose (01/25/17 15:45) Ecg Monitoring (01/25/17 15:45) Iv Access Insert/Monitor (01/25/17 15:45) Oximetry (01/25/17 15:45) Ct Abd/Pel W Iv Contrast(Rout) (01/25/17 15:45) Sodium Chlor 0.9% 1000 Ml Inj (Ns 1000 M (01/25/17 15:45) Piperacil-Tazo 4.5 Gm Premix (Zosyn 4.5 (01/25/17 16:29) Vancomycin Inj (Vancomycin Inj) (01/25/17 16:29) Acetamin-Hydrocod 325-5 Mg ([place] 5-325 (01/25/17 16:45) Iohexol 350 Inj (Omnipaque 350 Inj) (01/25/17 17:19) Admit Order (Ed Use Only) (01/25/17 18:05) Labs Laboratory Tests Test 01/25/17 15:50 01/25/17 18:00 White Blood Count 21.8 TH/MM3 Red Blood Count 3.99 MIL/MM3 Hemoglobin 10.5 GM/DL Hematocrit 32.6 % Mean Corpuscular Volume 81.7 FL Mean Corpuscular Hemoglobin 26.4 PG Mean Corpuscular Hemoglobin Concent 32.3 % Red Cell Distribution Width 17.1 % Platelet Count 546 TH/MM3 Mean Platelet Volume 8.4 FL Neutrophils (%) (Auto) 77.2 % Lymphocytes (%) (Auto) 14.7 % Monocytes (%) (Auto) 7.1 % Eosinophils (%) (Auto) 0.4 % Basophils (%) (Auto) 0.6 % Neutrophils # (Auto) 16.9 TH/MM3 Lymphocytes # (Auto) 3.2 TH/MM3 Monocytes # (Auto) 1.5 TH/MM3 Eosinophils # (Auto) 0.1 TH/MM3 Basophils # (Auto) 0.1 TH/MM3 CBC Comment DIFF FINAL Differential Comment Prothrombin Time 12.0 SEC Prothromb Time International Ratio 1.1 RATIO Activated Partial Thromboplast Time 24.7 SEC Blood Urea Nitrogen 21 MG/DL Creatinine 1.08 MG/DL Random Glucose 213 MG/DL Total Protein 10.1 GM/DL Albumin 2.4 GM/DL Calcium Level 9.2 MG/DL Phosphorus Level 2.7 MG/DL Magnesium Level 2.0 MG/DL Alkaline Phosphatase 103 U/L Aspartate Amino Transf (AST/SGOT) 15 U/L Alanine Aminotransferase (ALT/SGPT) 12 U/L Total Bilirubin 0.4 MG/DL Sodium Level 135 MEQ/L Potassium Level 4.2 MEQ/L Chloride Level 105 MEQ/L Carbon Dioxide Level 27.0 MEQ/L Anion Gap 3 MEQ/L Estimat Glomerular Filtration Rate 88 ML/MIN Lactic Acid Level 1.3 mmol/L Urine Color YELLOW Urine Turbidity CLEAR Urine pH 6.5 Urine Specific [place] 1.043 Urine Protein 100 mg/dL Urine Glucose (UA) 1000 mg/dL Urine Ketones TRACE mg/dL Urine Occult Blood NEG Urine Nitrite NEG Urine Bilirubin NEG Urine Urobilinogen 2.0 MG/DL Urine Leukocyte Esterase NEG Urine WBC 1 /hpf Urine Squamous Epithelial Cells 1 /hpf Urine Hyaline Casts 3 /lpf Urine Granular Casts 3 /lpf Urine Mucus FEW /lpf Microscopic Urinalysis Comment CATH-CULT NOT IND MDM Medical Decision Making Medical Screen Exam Complete: Yes Emergency Medical Condition: Yes Medical Record Reviewed: Yes (pmh confirmed) Interpretation(s) CBC & BMP Diagram 01/25/17 15:50 Total Protein 10.1 H, Albumin 2.4 L, Calcium Level 9.2, Phosphorus Level 2.7, Magnesium Level 2.0, Alkaline Phosphatase 103, Aspartate Amino Transf (AST/SGOT ) 15, Alanine Aminotransferase (ALT/SGPT) 12, Total Bilirubin 0.4 Last 24 hours Impressions Chest X-Ray 01/25/17 1545 Signed Impressions: Service Date/Time: Wednesday, January 25, 2017 15:52 - CONCLUSION: 1. No acute cardiopulmonary disease. Jose Maria Pardo MD Abdomen/Pelvis CT 01/25/17 1545 Signed Impressions: Service Date/Time: Wednesday, January 25, 2017 17:09 - CONCLUSION: 1. There is soft tissue thickening along the gluteal crease and left buttock. No focal drainable abscess is identified. Vijay Valentino MD Differential Diagnosis Abscess, cellulitis, renal failure, anemia Narrative Course Will check blood work, CT abdomen and reevaluate Given leukocytosis will dose with Zosyn and vancomycin and follow CT without free air or abscess, will admit to the hospital for IV antibiotic therapy Sepsis Criteria SIRS Criteria (2 or more): Heart rate over 90, WBC > 02520, < 4000 or > 10% bands Sepsis Criteria (SIRS+source): Infect source susp/known Criteria Outcome: Meets sepsis criteria Physician Communication Physician Communication dr hayden agrees to admit Diagnosis Primary Impression: Cellulitis Additional Impressions: Leukocytosis Sepsis Admitting Information Admitting Physician Requests: Admit Krissy Villanueva MD Jan 25, 2017 16:07
--- NOTE | 2017-01-25 16:16 | RADRPT ---
EXAM DATE/TIME: 01/25/2017 15:52 [facility] COMPARISON: CHEST SINGLE AP, November 19, 2016, 21:22. INDICATIONS : Short of breath. MEDICAL HISTORY : A-Fib. SURGICAL HISTORY : None. ENCOUNTER: Initial ACUITY: 1 day PAIN SCORE: 0/10 LOCATION: Bilateral chest FINDINGS: A single view of the chest demonstrates the lungs to be symmetrically aerated without evidence of mas s, infiltrate or effusion. The cardiomediastinal contours are unremarkable. Osseous structures are intact. CONCLUSION: 1. No acute cardiopulmonary disease. Jose Maria Pardo MD on January 25, 2017 at 16:11 Board Certified Radiologist. This report was verified electronically.
[2017-01-25 16:19] LABS: AUTOMATED NEUTROPHIL # 16.9 TH/MM3 (1.8-7.7); BASOPHIL # 0.1 TH/MM3 (0-0.2); BASOPHIL % 0.6 % (0.0-2.0); EOSINOPHIL # 0.1 TH/MM3 (0-0.4); EOSINOPHIL % 0.4 % (0.0-4.0); HEMATOCRIT 32.6 % (39.0-51.0); HEMO FLAGS DIFF FINAL; LYMPH % 14.7 % (9.0-44.0); LYMPHOCYTE # 3.2 TH/MM3 (1.0-4.8); MEAN CELL VOLUME 81.7 FL (80.0-100.0); MEAN CORPUSCULAR HEMOGLOBIN 26.4 PG (27.0-34.0); MEAN CORPUSCULAR HGB CONC 32.3 % (32.0-36.0); MONO % 7.1 % (0.0-8.0); NEUT % 77.2 % (16.0-70.0); PLATELET COUNT 546 TH/MM3 (150-450); RED BLOOD COUNT 3.99 MIL/MM3 (4.50-5.90); RED CELL DISTRIBUTION WIDTH 17.1 % (11.6-17.2); WHITE BLOOD COUNT 21.8 TH/MM3 (4.0-11.0)
[2017-01-25] MEDS ORDERED: VANCOMYCIN INJ 1,000 MG in SODIUM CHLOR 0.9% 250 ML INJ 250 ML IV STA (16:29)
[2017-01-25] MEDS ORDERED: PIPERACIL-TAZO 4.5 GM PREMIX 100 ML IV STA (16:29)
[2017-01-25 16:32] LABS: APTT (PATIENT) 24.7 SEC (24.3-30.1); INTERNATIONAL NORMALIZED RATIO 1.1 RATIO
[2017-01-25 16:42] LABS: ALKALINE PHOSPHATASE 103 U/L (45-117); TOTAL BILIRUBIN ADULT 0.4 MG/DL (0.2-1.0)
[2017-01-25 16:43] LABS: ALT (GPT) 12 U/L (12-78); ANION GAP 3 MEQ/L (5-15); AST (GOT) 15 U/L (15-37); BLOOD UREA NITROGEN 21 MG/DL (7-18); CHLORIDE 105 MEQ/L (98-107); GLOMERULAR FILTRATION RATE 88 ML/MIN (>89); POTASSIUM 4.2 MEQ/L (3.5-5.1); SODIUM (NA) 135 MEQ/L (136-145)
[2017-01-25] MEDS ORDERED: ACETAMINOPHEN/HYDROcodone 325 MG/5 MG TAB PO ONE (16:45)
[2017-01-25] MEDS ORDERED: IOHEXOL 350 MG/ML 10 ML VIAL (for RAD DIAG) IVCONTRAST ONE (17:19)
--- NOTE | 2017-01-25 17:55 | RADRPT ---
EXAM DATE/TIME: 01/25/2017 17:09 [place] COMPARISON: CT PELVIS W CONTRAST, December 09, 2016, 0:49. INDICATIONS : Pain and swelling around buttocks. Evaluate for abscess. IV CONTRAST: 100 cc Omnipaque 350 (iohexol) IV ORAL CONTRAST: No oral contrast ingested. RADIATION DOSE: 9.96 CTDIvol (mGy) MEDICAL HISTORY : Hypertension. Rheumatoid arthritis. Gastroesophageal reflux disease.A-Fib. Coronary artery disease. SURGICAL HISTORY : None. ENCOUNTER: Initial ACUITY: 3 days PAIN SCALE: 10/10 LOCATION: Bilateral buttock TECHNIQUE: Volumetric scanning of the abdomen and pelvis was performed. Using automated exposure control and ad justment of the mA and/or kV according to patient size, radiation dose was kept as low as reasonably achievable to obtain optimal diagnostic quality images. DICOM format image data is available electro nically for review and comparison. FINDINGS: The limited portion of the lung base visualized is clear. The appearance of the liver, spleen, pancreas, adrenal glands and kidneys is within normal limits. The abdominal aorta is normal in caliber. There is no retroperitoneal lymphadenopathy. Visualized loops of small and large bowel the upper abdomen are unremarkable. There is no free air or free fluid. There is no free fluid within the pelvis. No iliac adenopathy is identified. There are some mild, sca ttered nodes within the inguinal regions bilaterally. The examination demonstrates thickening of the soft tissues in the gluteal crease and along the left buttock. No definite drainable abscess is seen. The visualized bony structures demonstrate mild degenerative changes what are otherwise intact. CONCLUSION: 1. There is soft tissue thickening along the gluteal crease and left buttock. No focal drainable absc ess is identified. Vijay Valentino MD on January 25, 2017 at 17:51 Board Certified Radiologist. This report was verified electronically.
[2017-01-25 18:30] LABS: BLOOD, URINE NEG (NEG); GLUCOSE,URINE 1000 mg/dL (NEG); GRANULAR CAST, URINE 3 /lpf; HYALINE CAST, URINE 3 /lpf (RARE); KETONE, URINE TRACE mg/dL (NEG); MUCUS URINE FEW /lpf (OCC); NITRITE,URINE NEG (NEG); PH, URINE 6.5 (5.0-8.5); SQUAMOUS EPITHELIAL CELL URINE 1 /hpf (0-5); URINE COLOR YELLOW (YELLW/STRAW)
[2017-01-25 18:33] LABS: COMMENT (UR) CATH-CULT NOT IND; CULTURE IF INDICATED CATH CULTURE NOT IND
[2017-01-25 18:36] VITALS: BP 127/80; PULSE 97; RESP 16; O2SAT 99
[2017-01-25] MEDS ORDERED: DEXTROSE 50% IN WATER 50 ML VIAL(D50) IV PUSH PRN (19:15)
[2017-01-25] MEDS ORDERED: GLUCAGON 1 MG/ML VIAL OTHER PRN (19:15)
[2017-01-25] MEDS ORDERED: SODIUM CHLORIDE 0.9% FLUSH 10 ML FLUSH IV FLUSH PRN (19:15)
--- NOTE | 2017-01-25 19:21 | HHI.HP ---
HPI Service [facility] Primary Care Physician No Primary Care Physician Admission Diagnosis cellulitis Diagnoses: (1) Sepsis Diagnosis: Principal (2) Cellulitis Diagnosis: Principal (3) Hidradenitis suppurativa Diagnosis: Principal (4) HTN (hypertension) Diagnosis: Principal (5) DM (diabetes mellitus) Diagnosis: Principal Travel History International Travel<30 Days: No Contact w/Intl Traveler <30 Da: No Traveled to Known Affected Are: No History of Present Illness This is a 46-year-old male with a PMH of A. fib, Depression, HTN, Hyperlipidemia , Rheumatoid Arthritis, DM and Hidradenitis Suppurativa w/ Recurrent Cellulitis who presented to the ER w/ complaints of pain to his buttocks x2 days. Recent admit 01/09-01/13/17 for SIRS/Hidradenitis, s/p Unasyn and d/c'd on Augmentin, states he completed antibiotics as directed. Denies fever or chills. On arrival, BP 137/95, HR 1:15, O2 sat 98% on RA, Afebrile. W WBC 21.8. Chemistry unremarkable except for BUN 21. GFR 88. Lactic acid normal at 1.3. INR 1.1. UA negative. CXR with no acute findings. CT Abd/Pelvis w/ soft tissue thickening along gluteal crease and left buttock. S/p Blood Cultures, Vanc/Zosyn in ER. Review of Systems Except as stated in HPI: all other systems reviewed are Neg ROS: 14 point review of systems otherwise negative. Past Family Social History Past Medical History PMH: A. fib, Depression, HTN, Hyperlipidemia, Rheumatoid Arthritis, DM and Hidradenitis Suppurativa w/ Recurrent Cellulitis Past Surgical History PAST SURGICAL HISTORY: Cardiac Catheter, Porcine Valve, Dental Extraction Allergies: Coded Allergies: No Known Allergies (Verified Allergy, Unknown, 01/10/17) Family History PAST FAMILY HISTORY: Reviewed, positive for DM. Social History PAST SOCIAL HISTORY: Negative for alcohol, tobacco or drugs. Physical Exam Vital Signs Vital Signs Date Time Temp Pulse Resp B/P (MAP) Pulse Ox O2 Delivery O2 Flow Rate FiO2 01/25/17 18:36 97 16 127/80 (96) 99 Room Air 01/25/17 15:50 98 01/25/17 15:43 98.3 115 16 137/95 (109) 98 Physical Exam PE: GENERAL: Pleasant middle-aged black male in no acute distress. HEENT: PERRLA, EOMI. No scleral icterus or conjunctival pallor. No lid lag or facial droop. CARDIOVASCULAR: Regular rate and rhythm. No obvious murmurs to auscultation. No chest tenderness to palpation. RESPIRATORY: No obvious rhonchi or wheezing. Clear to auscultation. Breath sounds equal bilaterally. GASTROINTESTINAL: Abdomen soft, non-tender, nondistended. BS normal. MUSCULOSKELETAL: Extremities without clubbing, cyanosis, or edema. No obvious deformities. +gluteal cellulitis w/ area of drainage noted. NEUROLOGICAL: Awake, alert and oriented x4. No focal neurologic deficits. Moving both upper and lower extremities spontaneously. Laboratory Laboratory Tests Test 01/25/17 15:50 01/25/17 18:00 White Blood Count 21.8 Red Blood Count 3.99 Hemoglobin 10.5 Hematocrit 32.6 Mean Corpuscular Volume 81.7 Mean Corpuscular Hemoglobin 26.4 Mean Corpuscular Hemoglobin Concent 32.3 Red Cell Distribution Width 17.1 Platelet Count 546 Mean Platelet Volume 8.4 Neutrophils (%) (Auto) 77.2 Lymphocytes (%) (Auto) 14.7 Monocytes (%) (Auto) 7.1 Eosinophils (%) (Auto) 0.4 Basophils (%) (Auto) 0.6 Neutrophils # (Auto) 16.9 Lymphocytes # (Auto) 3.2 Monocytes # (Auto) 1.5 Eosinophils # (Auto) 0.1 Basophils # (Auto) 0.1 CBC Comment DIFF FINAL Differential Comment Prothrombin Time 12.0 Prothromb Time International Ratio 1.1 Activated Partial Thromboplast Time 24.7 Blood Urea Nitrogen 21 Creatinine 1.08 Random Glucose 213 Total Protein 10.1 Albumin 2.4 Calcium Level 9.2 Phosphorus Level 2.7 Magnesium Level 2.0 Alkaline Phosphatase 103 Aspartate Amino Transf (AST/SGOT) 15 Alanine Aminotransferase (ALT/SGPT) 12 Total Bilirubin 0.4 Sodium Level 135 Potassium Level 4.2 Chloride Level 105 Carbon Dioxide Level 27.0 Anion Gap 3 Estimat Glomerular Filtration Rate 88 Lactic Acid Level 1.3 Urine Color YELLOW Urine Turbidity CLEAR Urine pH 6.5 Urine Specific [place] 1.043 Urine Protein 100 Urine Glucose (UA) 1000 Urine Ketones TRACE Urine Occult Blood NEG Urine Nitrite NEG Urine Bilirubin NEG Urine Urobilinogen 2.0 Urine Leukocyte Esterase NEG Urine WBC 1 Urine Squamous Epithelial Cells 1 Urine Hyaline Casts 3 Urine Granular Casts 3 Urine Mucus FEW Microscopic Urinalysis Comment CATH-CULT NOT IND Date/Time Source Procedure Growth Status 01/25/17 16:55 Blood Peripheral Aerobic Blood Culture Pending Received 01/25/17 16:55 Blood Peripheral Anaerobic Blood Culture Pending Received Result Diagram: 01/25/17 1550 01/25/17 1550 Caprini VTE Risk Assessment Caprini VTE Risk Assessment: No/Low Risk (score <= 1) Caprini Risk Assessment Model Point Value = 1 Point Value = 2 Point Value = 3 Point Value = 5 Age 41-60 Minor surgery BMI > 25 kg/m2 Swollen legs Varicose veins or History of unexplained or recurrent spontaneous Oral contraceptives or hormone replacement Sepsis (< 1 month) Serious lung disease, including pneumonia (< 1 month) Abnormal pulmonary function Acute myocardial infarction Congestive heart failure (< 1 month) History of inflammatory bowel disease Medical patient at bed rest Age 61-74 Arthroscopic surgery Major open surgery (> 45 min) Laparoscopic surgery (> 45 min) Malignancy Confined to bed (> 72 hours) Immobilizing plaster cast Central venous access Age >= 75 History of VTE Family history of VTE Factor V Leiden Prothrombin [id number] Lupus anticoagulant Anticardiolipin antibodies Elevated serum homocysteine Heparin-induced thrombocytopenia Other congenital or acquired thrombophilia Stroke (< 1 month) Elective arthroplasty Hip, pelvis, or leg fracture Acute spinal cord injury (< 1 month) Prophylaxis Regimen Total Risk Factor Score Risk Level Prophylaxis Regimen 0-1 Low Early ambulation 2 Moderate Order ONE of the following: *Sequential Compression Device (SCD) *Heparin 5000 units SQ BID 3-4 Higher Order ONE of the following medications: *Heparin 5000 units SQ TID *Enoxaparin/Lovenox 40 mg SQ daily (WT < 150 kg, CrCl > 30 mL/min) *Enoxaparin/Lovenox 30 mg SQ daily (WT < 150 kg, CrCl > 10-29 mL/min) *Enoxaparin/Lovenox 30 mg SQ BID (WT < 150 kg, CrCl > 30 mL/min) AND/OR *Sequential Compression Device (SCD) 5 or more Highest Order ONE of the following medications: *Heparin 5000 units SQ TID (Preferred with Epidurals) *Enoxaparin/Lovenox 40 mg SQ daily (WT < 150 kg, CrCl > 30 mL/min) *Enoxaparin/Lovenox 30 mg SQ daily (WT < 150 kg, CrCl > 10-29 mL/min) *Enoxaparin/Lovenox 30 mg SQ BID (WT < 150 kg, CrCl > 30 mL/min) AND *Sequential Compression Device (SCD) Assessment and Plan Problem List: (1) Sepsis ICD Code: A41.9 - Sepsis Status: Acute (2) Cellulitis ICD Code: L03.90 - Cellulitis, unspecified Status: Chronic (3) Hidradenitis suppurativa ICD Code: L73.2 - Hidradenitis suppurativa Status: Chronic (4) HTN (hypertension) ICD Code: I10 - Essential (primary) hypertension Status: Chronic (5) DM (diabetes mellitus) ICD Code: E11.9 - Type 2 diabetes mellitus without complications Status: Chronic Assessment and Plan A/P: 1. Sepsis: HR 115, WBC 21.8, Source-Gluteal Cellulitis/Abscess. S/p Blood Cultures, Vanc/Zosyn in ER. Follow up cultures, continue IV Abx. 2. Cellulitis/Abscess: Gluteal cellulitis w/ area of drainage. CT Abd/Pelvis w/ soft tissue thickening along gluteal crease and left buttock, images reviewed by me. Follow up cultures as above, continue IV Abx. 3. Hidradenitis Suppurativa: Multiple admissions for same, recent admit 01/09- s/p Unasyn and eval by ID, d/c'd on Augmentin which he completed, now w/ recurrent infection. Consult ID for recommendations regarding antibiotic regimen in light of recurrent infections. 4. HTN: Controlled. Resume home medications. Monitor BP 5. DM: Sliding scale w/ Accu-Cheks. Resume home Insulin 6. DVT Prophylaxis: Heparin sq 7. Social work for d/c planning as needed. 8. Case discussed w/ ER physician at length. Physician Certification 2 Midnight Certification Type: Admission for Inpatient Services Order for Inpatient Services The services are ordered in accordance with Medicare regulations or non- Medicare payer requirements, as applicable. In the case of services not specified as inpatient-only, they are appropriately provided as inpatient services in accordance with the 2-midnight benchmark. Estimated LOS (days): 2 days is the estimated time the patient will need to remain in the hospital, assuming treatment plan goals are met and no additional complications. Post-Hospital Plan: Not yet determined Rachael Allison MD Jan 25, 2017 19:21
[2017-01-25 19:24] VITALS: BP 120/82; PULSE 98; RESP 18; TEMP 98.3; O2SAT 100
[2017-01-25] MEDS ORDERED: Vancomycin Consult Pharmacy 1 EA OTHER SCH (19:30)
[2017-01-25 19:50] VITALS: BP 134/74; PULSE 92; RESP 20; TEMP 97.9; O2SAT 100
[2017-01-25] MEDS: SODIUM CHLOR 0.9% 1000 ML INJ 1,000 ML IV SCH (20:56)
[2017-01-25] MEDS: INSULIN ASPART SUPPLEMENTAL SCALE SQ SCH (20:58)
[2017-01-25] MEDS: MORPHINE SULFATE 4 MG/ML INJ IV PUSH PRN (20:58)
[2017-01-25] MEDS: INSULIN DETEMIR 100 UNITS/ML VIAL SQ SCH (20:58)
[2017-01-25] MEDS: DOCUSATE SODIUM 50 MG/SENNA 8.6 MG TAB PO SCH (20:58)
[2017-01-25] MEDS: METOPROLOL TARTRATE 25 MG TAB PO SCH (20:58)
[2017-01-25] MEDS: ATORVASTATIN 20 MG TAB PO SCH (20:58)
[2017-01-25] MEDS ORDERED: LACTULOSE SYRUP 20 GM/30 ML CUP PO PRN (21:00)
[2017-01-25] MEDS ORDERED: BISACODYL 10 MG SUPP RECTAL PRN (21:00)
[2017-01-25] MEDS ORDERED: ACETAMINOPHEN 325 MG TAB PO PRN (21:00)
[2017-01-25] MEDS ORDERED: SENNOSIDES 8.6 MG TAB PO PRN (21:00)
[2017-01-25] MEDS ORDERED: ONDANSETRON HCL 4 MG/2 ML VIAL IVP PRN (21:00)
[2017-01-25] MEDS: SODIUM CHLORIDE 0.9% FLUSH 10 ML FLUSH IV FLUSH SCH (21:00)
[2017-01-25] MEDS ORDERED: MAGNESIUM HYDROXIDE SUSP 30 ML CUP PO PRN (21:00)
[2017-01-26] VITALS (8 sets, daily range): BP systolic 120–138; BP diastolic 65–89; PULSE 85–111; RESP 17–20; TEMP 97.6–99.8; O2SAT 96–100
[2017-01-26] MEDS: MORPHINE SULFATE 4 MG/ML INJ IV PUSH PRN ×8 (00:27→21:51)
[2017-01-26 06:28] LABS: AUTOMATED NEUTROPHIL # 14.3 TH/MM3 (1.8-7.7); BASOPHIL # 0.1 TH/MM3 (0-0.2); BASOPHIL % 0.4 % (0.0-2.0); EOSINOPHIL # 0.2 TH/MM3 (0-0.4); EOSINOPHIL % 0.9 % (0.0-4.0); HEMATOCRIT 27.6 % (39.0-51.0); HEMO FLAGS DIFF FINAL; LYMPHOCYTE # 2.8 TH/MM3 (1.0-4.8); MEAN CELL VOLUME 81.6 FL (80.0-100.0); MEAN CORPUSCULAR HEMOGLOBIN 26.4 PG (27.0-34.0); MEAN CORPUSCULAR HGB CONC 32.3 % (32.0-36.0); MONO % 6.4 % (0.0-8.0); NEUT % 77.3 % (16.0-70.0); PLATELET COUNT 498 TH/MM3 (150-450); RED BLOOD COUNT 3.37 MIL/MM3 (4.50-5.90); RED CELL DISTRIBUTION WIDTH 17.2 % (11.6-17.2); WHITE BLOOD COUNT 18.5 TH/MM3 (4.0-11.0)
[2017-01-26 06:53] LABS: ANION GAP 8 MEQ/L (5-15); AST (GOT) 7 U/L (15-37); BICARBONATE 23.7 MEQ/L (21.0-32.0); BLOOD UREA NITROGEN 11 MG/DL (7-18); CHLORIDE 100 MEQ/L (98-107); GLOMERULAR FILTRATION RATE 148 ML/MIN (>89); POTASSIUM 3.6 MEQ/L (3.5-5.1); SODIUM (NA) 132 MEQ/L (136-145)
[2017-01-26 06:54] LABS: ALT (GPT) 9 U/L (12-78)
[2017-01-26 06:57] LABS: ALKALINE PHOSPHATASE 89 U/L (45-117); TOTAL BILIRUBIN ADULT 0.4 MG/DL (0.2-1.0)
[2017-01-26] MEDS: SODIUM CHLORIDE 0.9% FLUSH 10 ML FLUSH IV FLUSH SCH ×2 (09:00→20:26)
[2017-01-26] MEDS ORDERED: CEFEPIME INJ 1,000 MG in SODIUM CHLORIDE 0.9% INJ 100 ML IV SCH (09:00)
[2017-01-26] MEDS: INSULIN ASPART SUPPLEMENTAL SCALE SQ SCH ×4 (09:04→20:27)
[2017-01-26] MEDS: HEPARIN SODIUM - SQ 10,000 UNITS/ML VIAL SQ SCH ×2 (09:06→20:25)
[2017-01-26] MEDS: METOPROLOL TARTRATE 25 MG TAB PO SCH ×2 (09:08→20:25)
[2017-01-26] MEDS: CYCLOBENZAPRINE HCL 10 MG TAB PO SCH ×3 (09:09→17:27)
[2017-01-26] MEDS: ASPIRIN EC 81 MG TABEC PO SCH (09:09)
[2017-01-26] MEDS: DOCUSATE SODIUM 50 MG/SENNA 8.6 MG TAB PO SCH ×2 (09:10→20:25)
[2017-01-26] MEDS: SODIUM CHLOR 0.9% 1000 ML INJ 1,000 ML IV SCH ×2 (09:11→17:00)
--- NOTE | 2017-01-26 10:00 | PD.ID.CON ---
History of Present Illness Service ID Consult Requested By Dr Allison Reason for Consult HS Primary Care Physician No Primary Care Physician Diagnoses: History of Present Illness Pt known to me from multiple prior admissions for the same issue Pt is not very cooperative on interview and not answering most of the questions He is a 46 y.o. male with stage III hydradenitis suppurative (HS) who is non compliant with the recommendation to be evaluated and treated by plastic surgeon for his HS since he exhausted his conservative treatment options Patient seen and examined. Records reviewed. He presented to the ER yday w/ complaints of pain to his buttocks x2 days. He completed Augmentin as directed. Denies fever or chills. On admission afebrile , but WBC up to 18K He also complaints of neck pain and back pain whick is chronic in nature He was diagnosed with spinal stenosis and was supposed to have neurosurgical procedures after his HS is surgically treated Review of Systems Musculoskeletal: COMPLAINS OF: Neck pain Integumentary: COMPLAINS OF: Rash Except as stated in HPI: all other systems reviewed are Neg Past Family Social History Allergies: Coded Allergies: No Known Allergies (Verified Allergy, Unknown, 01/10/17) Past Medical History Hypertension Diabetes Atrial fibrillation Hydradenitis Rheumatoid arthritis History of MRSA infection Hyperlipidemia COPD Past Surgical History Multiple surgery for his hydradenitis Skin grafting Active Ordered Medications Medications where reviewed in EMR Antibiotics Include: zosyn x 1 now on cefepime vancomycin Family History Family history of CAD and hypertension Social History Patient smokes one pack per day of cigarettes, reportedly quit about 6+ months ago denies alcohol abuse Occasional marijuana, denies IV drug use Physical Exam Vital Signs Vital Signs Date Time Temp Pulse Resp B/P (MAP) Pulse Ox O2 Delivery O2 Flow Rate FiO2 01/26/17 08:09 99.0 99 20 138/89 (105) 01/26/17 06:18 18 01/26/17 04:36 97.6 98 17 121/72 (88) 100 01/26/17 01:08 97.6 98 17 122/68 (86) 100 01/25/17 19:50 97.9 92 20 134/74 (94) 100 01/25/17 19:35 01/25/17 19:24 98.3 98 18 120/82 (95) 100 Room Air 01/25/17 18:36 97 16 127/80 (96) 99 Room Air 01/25/17 15:50 98 01/25/17 15:43 98.3 115 16 137/95 (203) 98 Physical Exam GENERAL: Patient is a well-nourished, well-developed BM, awake and alert, not in respiratory distress. SKIN: Warm and dry. Has well healed scars in both axilla, Skin in groin, b/l medial thighs and buttocks with active hidradenitis, most prominent in R buttock which is indurated + purulent drainage from multiple skin lesions with strong anaerobic smell HEAD: Atraumatic. Normocephalic. EYES: [place] conjunctiva. No petechia or hemorrhage. Pupils equal, round and reactive to light. Extraocular movements full and intact. No scleral icterus. No injection or drainage. EARS, NOSE AND THROAT: Nose without bleeding or purulent nasal discharge. No sinus tenderness. Mucous membranes pink and moist. No oral lesions noted. No exudate. No oral thrush. NECK: Trachea midline. + tender (chronic) , no meningeal signs CARDIOVASCULAR: Regular rate and rhythm. No murmurs, rubs or gallops heard RESPIRATORY: Clear to auscultation. Breath sounds equal bilaterally. No rales , wheezing or rhonchi ABDOMEN: Soft, non-tender, nondistended. Bowel sounds present and normoactive. No guarding. No rebound. No organomegaly. EXTREMITIES: No clubbing, cyanosis, or edema. No joint effusion, has good ROM. No calf tenderness. Well perfused and warm. BACK: In L buttock close to mudline, he has indurated area, tender with multiple draining sinus tracts, (+) odor and purulence NEUROLOGICAL: Awake and alert. Cranial nerves grossly intact. Motor grossly within normal limits. Normal speech PSYCHIATRIC: Normal affect, calm , not very cooperative, flat affect Laboratory Laboratory Tests Test 01/25/17 15:50 01/25/17 18:00 01/26/17 06:13 White Blood Count 21.8 18.5 Red Blood Count 3.99 3.37 Hemoglobin 10.5 8.9 Hematocrit 32.6 27.6 Mean Corpuscular Volume 81.7 81.6 Mean Corpuscular Hemoglobin 26.4 26.4 Mean Corpuscular Hemoglobin Concent 32.3 32.3 Red Cell Distribution Width 17.1 17.2 Platelet Count 546 498 Mean Platelet Volume 8.4 7.8 Neutrophils (%) (Auto) 77.2 77.3 Lymphocytes (%) (Auto) 14.7 15.0 Monocytes (%) (Auto) 7.1 6.4 Eosinophils (%) (Auto) 0.4 0.9 Basophils (%) (Auto) 0.6 0.4 Neutrophils # (Auto) 16.9 14.3 Lymphocytes # (Auto) 3.2 2.8 Monocytes # (Auto) 1.5 1.2 Eosinophils # (Auto) 0.1 0.2 Basophils # (Auto) 0.1 0.1 CBC Comment DIFF FINAL DIFF FINAL Differential Comment Prothrombin Time 12.0 Prothromb Time International Ratio 1.1 Activated Partial Thromboplast Time 24.7 Blood Urea Nitrogen 21 11 Creatinine 1.08 0.69 Random Glucose 213 262 Total Protein 10.1 8.7 Albumin 2.4 2.1 Calcium Level 9.2 8.9 Phosphorus Level 2.7 Magnesium Level 2.0 Alkaline Phosphatase 103 89 Aspartate Amino Transf (AST/SGOT) 15 7 Alanine Aminotransferase (ALT/SGPT) 12 9 Total Bilirubin 0.4 0.4 Sodium Level 135 132 Potassium Level 4.2 3.6 Chloride Level 105 100 Carbon Dioxide Level 27.0 23.7 Anion Gap 3 8 Estimat Glomerular Filtration Rate 88 148 Lactic Acid Level 1.3 Urine Color YELLOW Urine Turbidity CLEAR Urine pH 6.5 Urine Specific [place] 1.043 Urine Protein 100 Urine Glucose (UA) 1000 Urine Ketones TRACE Urine Occult Blood NEG Urine Nitrite NEG Urine Bilirubin NEG Urine Urobilinogen 2.0 Urine Leukocyte Esterase NEG Urine WBC 1 Urine Squamous Epithelial Cells 1 Urine Hyaline Casts 3 Urine Granular Casts 3 Urine Mucus FEW Microscopic Urinalysis Comment CATH-CULT NOT IND Date/Time Source Procedure Growth Status 01/25/17 16:55 Blood Peripheral Aerobic Blood Culture Pending Received 01/25/17 16:55 Blood Peripheral Anaerobic Blood Culture Pending Received Result Diagram: 01/26/17 0613 01/26/17 0613 Imaging Last Impressions Chest X-Ray 01/25/171544 Signed Impressions: Service Date/Time: Wednesday, January 25, 2017 15:52 - CONCLUSION: 1. No acute cardiopulmonary disease. Jose Maria Pardo MD Abdomen/Pelvis CT 01/25/171544 Signed Impressions: Service Date/Time: Wednesday, January 25, 2017 17:09 - CONCLUSION: 1. There is soft tissue thickening along the gluteal crease and left buttock. No focal drainable abscess is identified. Vijay Valentino MD Assessment and Plan Assessment and Plan IMPRESSION Recurrent hidradenitis suppurative, b/l buttock, scrotum and perineum flare up - previously strep, anaerobs no h/o MRSA Leukocytosis - 2/2 HS RECOMMENDATION Change cefepime to IV Unasyn dc vancomycin chk clx Monitor response to Rx Will order shower using hibiclens to decrease bacterial load I do not expect anyu sustained clinical improvement in this case without excision all sweat bearing skin areas with subsequnent flap. This needs to be addressed thru the plastic surgeon Continuing conservative tx (abx and dressing changes) will be aw with persistent disease. Sneha Mendoza MD Jan 26, 2017 10:00
--- NOTE | 2017-01-26 10:27 | HHI.PR ---
Subjective Remarks Discussed with nursing, no acute setback since admission. Patient himself says he is in worsening pain from not being on his steroids for his rheumatoid arthritis. When asked if a surgeon look at him in the past, he says yes but they did not want to do surgery due to his neck issues. Objective Vital Signs Date Time Temp Pulse Resp B/P (MAP) Pulse Ox O2 Delivery O2 Flow Rate FiO2 01/26/17 08:09 99.0 99 20 138/89 (105) 01/26/17 06:18 18 01/26/17 04:36 97.6 98 17 121/72 (88) 100 01/26/17 01:08 97.6 98 17 122/68 (86) 100 01/25/17 19:50 97.9 92 20 134/74 (94) 100 01/25/17 19:35 01/25/17 19:24 98.3 98 18 120/82 (95) 100 Room Air 01/25/17 18:36 97 16 127/80 (96) 99 Room Air 01/25/17 15:50 98 01/25/17 15:43 98.3 115 16 137/95 (109) 98 I/O 01/25/17 01/25/17 01/25/17 01/26/17 01/26/17 01/26/17 07:00 15:00 23:00 07:00 15:00 23:00 Intake Total 240 ml 100 ml Output Total 1200 ml Balance -960 ml 100 ml Intake Oral 240 ml IV Total 100 ml Output Urine Total 1200 ml Result Diagram: 01/26/1761201/26/17612 Objective Remarks NAD unlabored breathing roughly 3 x 3 areas of induration that are TTP on bilateral buttocks, as well as associated suppurative hydradenitis w/ some bloody and purulent drainage A/P Assessment and Plan 1. Sepsis: improving slightly, wbc 21 -> 18k. Source-Gluteal Cellulitis/ Abscess. S/p Blood Cultures pending, Vanc/Zosyn in ER. Follow up cultures, continue IV Abx. 2. Cellulitis/Abscess: Gluteal cellulitis w/ area of drainage. CT Abd/Pelvis w/ soft tissue thickening along gluteal crease and left buttock. Follow up cultures as above, continue IV Abx. 3. Hidradenitis Suppurativa: Multiple admissions for same, recent admit 01/09- s/p Unasyn and eval by ID, d/c'd on Augmentin which he completed, now w/ recurrent infection. Consult ID for recommendations regarding antibiotic regimen in light of recurrent infections and if they feel surgical intervention would be beneficial. 4. HTN: Controlled. contiue home medications. Monitor BP 5. rh arthritis - will restart steroids at lower dose 6. DM: Sliding scale w/ Accu-Cheks. home Insulin 7. DVT Prophylaxis: Heparin sq Maurisio Lazo MD Jan 26, 2017 10:27
[2017-01-26] MEDS: predniSONE 10 MG TAB PO SCH (12:07)
[2017-01-26] MEDS ORDERED: VANCOMYCIN INJ 1,600 MG in SODIUM CHLORID 0.9% 500 ML INJ 500 ML IV SCH (13:00)
--- NOTE | 2017-01-26 13:11 | HHI.PR ---
Addendum to Inpatient Note Additional Information Pt ween around 1100 Full note to follow Recurrent stage 3 HS cont vanco start sera arndt cefepime Sneha Mendoza MD Jan 26, 2017 13:11
[2017-01-26] MEDS: AMPICILLIN-SULBACTAM INJ 3 GM in SODIUM CHLORIDE 0.9% INJ 100 ML IV SCH ×2 (15:21→20:26)
[2017-01-26] MEDS: ATORVASTATIN 20 MG TAB PO SCH (20:25)
[2017-01-26] MEDS: INSULIN DETEMIR 100 UNITS/ML VIAL SQ SCH (20:27)
[2017-01-27] VITALS (8 sets, daily range): BP systolic 109–130; BP diastolic 68–91; PULSE 89–100; RESP 17–20; TEMP 97.9–99.9; O2SAT 97–99
[2017-01-27] MEDS: MORPHINE SULFATE 4 MG/ML INJ IV PUSH PRN ×6 (00:50→20:49)
[2017-01-27] MEDS: AMPICILLIN-SULBACTAM INJ 3 GM in SODIUM CHLORIDE 0.9% INJ 100 ML IV SCH ×4 (01:00→20:44)
[2017-01-27] MEDS: SODIUM CHLOR 0.9% 1000 ML INJ 1,000 ML IV SCH ×3 (03:00→21:46)
[2017-01-27] MEDS: INSULIN ASPART SUPPLEMENTAL SCALE SQ SCH ×4 (08:00→20:46)
[2017-01-27] MEDS: SODIUM CHLORIDE 0.9% FLUSH 10 ML FLUSH IV FLUSH SCH ×2 (08:18→20:50)
[2017-01-27] MEDS: ASPIRIN EC 81 MG TABEC PO SCH (08:22)
[2017-01-27] MEDS: predniSONE 10 MG TAB PO SCH (08:22)
[2017-01-27] MEDS: METOPROLOL TARTRATE 25 MG TAB PO SCH ×2 (08:22→20:47)
[2017-01-27] MEDS: DOCUSATE SODIUM 50 MG/SENNA 8.6 MG TAB PO SCH ×2 (08:22→20:47)
[2017-01-27] MEDS: CYCLOBENZAPRINE HCL 10 MG TAB PO SCH ×3 (08:22→16:38)
[2017-01-27] MEDS: HEPARIN SODIUM - SQ 10,000 UNITS/ML VIAL SQ SCH ×2 (08:23→20:46)
[2017-01-27 09:55] LABS: AUTOMATED NEUTROPHIL # 8.9 TH/MM3 (1.8-7.7); BASOPHIL # 0.1 TH/MM3 (0-0.2); BASOPHIL % 0.9 % (0.0-2.0); EOSINOPHIL # 0.3 TH/MM3 (0-0.4); EOSINOPHIL % 1.9 % (0.0-4.0); HEMATOCRIT 28.4 % (39.0-51.0); HEMO FLAGS DIFF FINAL; LYMPH % 21.1 % (9.0-44.0); LYMPHOCYTE # 2.8 TH/MM3 (1.0-4.8); MEAN CELL VOLUME 81.6 FL (80.0-100.0); MEAN CORPUSCULAR HEMOGLOBIN 26.3 PG (27.0-34.0); MEAN CORPUSCULAR HGB CONC 32.2 % (32.0-36.0); MONO % 9.1 % (0.0-8.0); PLATELET COUNT 524 TH/MM3 (150-450); RED BLOOD COUNT 3.48 MIL/MM3 (4.50-5.90); RED CELL DISTRIBUTION WIDTH 17.4 % (11.6-17.2); WHITE BLOOD COUNT 13.3 TH/MM3 (4.0-11.0)
--- NOTE | 2017-01-27 11:21 | HHI.PR ---
Subjective Remarks Discussed with nursing, no acute setback since admission. Patient himself says that his pain is about the same as yesterday. Tolerating by mouth intake otherwise. I confirmed with call center that there is no plastic surgery coverage for the next month unfortunately. Objective Vital Signs Date Time Temp Pulse Resp B/P (MAP) Pulse Ox O2 Delivery O2 Flow Rate FiO2 01/27/17 08:36 18 01/27/17 08:00 96 01/27/17 07:44 98.0 90 20 130/90 (103) 98 01/27/17 04:02 99.4 94 20 122/80 (94) 99 01/27/17 01:11 99.9 100 20 129/68 (88) 99 01/26/17 20:43 99.8 111 20 132/87 (102) 96 01/26/17 20:38 97 01/26/17 16:00 97.7 96 20 120/69 (86) 96 01/26/17 11:51 99.5 85 20 136/65 (88) 99 I/O 01/26/17 01/26/17 01/26/17 01/27/17 01/27/17 01/27/17 07:00 15:00 23:00 07:00 15:00 23:00 Intake Total 240 ml 1060 ml 1288 ml 1158 ml 240 ml Output Total 1200 ml 950 ml 2400 ml 800 ml 600 ml Balance -960 ml 110 ml -1112 ml 358 ml -360 ml Intake Oral 240 ml 960 ml 240 ml IV Total 100 ml 1288 ml 1158 ml Output Urine Total 1200 ml 950 ml 2400 ml 800 ml 600 ml # Bowel Movements 0 Result Diagram: 01/27/17 0806 01/27/17 0806 Objective Remarks NAD unlabored breathing Multiple roughly 3 x 3 areas of induration that are TTP on bilateral buttocks, as well as associated suppurative hydradenitis w/ some bloody and purulent drainage A/P Assessment and Plan 1. Sepsis: clinically improving, white ct expected to stay elevated 2/2 steroids. Source-Gluteal Cellulitis/Abscess. S/p Blood Cultures pending, on abx. 2. Cellulitis/Abscess: Gluteal cellulitis w/ area of drainage. CT Abd/Pelvis w/ soft tissue thickening along gluteal crease and left buttock. Wonder if gen surgery can be assistance since there is no plastics coverage in the near foreseeable future. On ampicillin/sulbactam per ID 3. Hidradenitis Suppurativa: Multiple admissions for same, recent admit 01/09- s/p Unasyn and eval by ID, d/c'd on Augmentin which he completed, now w/ recurrent infection. 4. HTN: Controlled. contiue home medications. Monitor BP 5. rh arthritis - steroids at lower dose, PT for mobilizatin 6. DM: Sliding scale w/ Accu-Cheks. home Insulin 7. DVT Prophylaxis: Heparin sq Maurisio Lazo MD Jan 27, 2017 11:21
[2017-01-27] MEDS: INSULIN DETEMIR 100 UNITS/ML VIAL SQ SCH (20:46)
[2017-01-27] MEDS: ATORVASTATIN 20 MG TAB PO SCH (20:47)
[2017-01-28] MEDS ORDERED: PHARMACY ORDERED LAB ONE (00:45)
[2017-01-28] MEDS: MORPHINE SULFATE 4 MG/ML INJ IV PUSH PRN ×5 (00:56→16:05)
[2017-01-28] MEDS: AMPICILLIN-SULBACTAM INJ 3 GM in SODIUM CHLORIDE 0.9% INJ 100 ML IV SCH ×3 (01:00→14:19)
[2017-01-28 01:05] VITALS: BP 122/82; PULSE 91; RESP 17; TEMP 98.9; O2SAT 99
[2017-01-28 05:27] VITALS: BP 142/80; PULSE 87; RESP 17; TEMP 98.9; O2SAT 99
[2017-01-28 08:00] VITALS: BP 140/82; PULSE 80; RESP 19; TEMP 98.2; O2SAT 97
[2017-01-28] MEDS: INSULIN ASPART SUPPLEMENTAL SCALE SQ SCH ×2 (08:00→12:00)
[2017-01-28] MEDS: HEPARIN SODIUM - SQ 10,000 UNITS/ML VIAL SQ SCH (08:37)
[2017-01-28] MEDS: predniSONE 10 MG TAB PO SCH (08:37)
[2017-01-28] MEDS: ASPIRIN EC 81 MG TABEC PO SCH (08:38)
[2017-01-28] MEDS: CYCLOBENZAPRINE HCL 10 MG TAB PO SCH ×2 (08:38→12:09)
[2017-01-28] MEDS: DOCUSATE SODIUM 50 MG/SENNA 8.6 MG TAB PO SCH (08:38)
[2017-01-28] MEDS: SODIUM CHLOR 0.9% 1000 ML INJ 1,000 ML IV SCH (08:56)
[2017-01-28] MEDS: SODIUM CHLORIDE 0.9% FLUSH 10 ML FLUSH IV FLUSH SCH (08:57)
[2017-01-28] MEDS: METOPROLOL TARTRATE 25 MG TAB PO SCH (08:57)
--- NOTE | 2017-01-28 10:24 | HHI.PR ---
Subjective Remarks Discussed with nursing, reports further bloody drainage, pt admits this himself. infectious disease has recommended plastics evaluation, however there is no plastics or wound care physician coverage in the near foreseeable future. Objective Vital Signs Date Time Temp Pulse Resp B/P (MAP) Pulse Ox O2 Delivery O2 Flow Rate FiO2 01/28/17 08:00 98.2 80 19 140/82 (101) 97 01/28/17 05:27 98.9 87 17 142/80 (100) 99 01/28/17 01:05 98.9 91 17 122/82 (95) 99 01/27/17 20:06 98.5 98 17 109/70 (83) 99 01/27/17 18:20 96 01/27/17 16:52 16 01/27/17 15:22 97.9 89 18 124/75 (91) 97 01/27/17 11:53 98.4 90 20 119/91 (100) 97 I/O 01/27/17 01/27/17 01/27/17 01/28/17 01/28/17 01/28/17 07:00 15:00 23:00 07:00 15:00 23:00 Intake Total 1158 ml 1200 ml 1460 ml 1299 ml Output Total 800 ml 1950 ml 1050 ml 2200 ml Balance 358 ml -750 ml 410 ml -901 ml Intake Oral 1200 ml 360 ml 480 ml IV Total 1158 ml 1100 ml 819 ml Output Urine Total 800 ml 1950 ml 1050 ml 2200 ml # Bowel Movements 0 Result Diagram: 01/27/17 0806 01/27/17 0806 Objective Remarks NAD unlabored breathing draining, TTP suppurative lesions over BL buttocks with induration, some intermittent bloody drainage A/P Assessment and Plan 1. Sepsis: sepsis component near resolution, white ct expected to stay elevated 2/2 steroids. Source-Gluteal Cellulitis/Abscess. Blood Cultures NGTD. 2. Cellulitis/Abscess: Gluteal cellulitis w/ area of drainage. CT Abd/Pelvis w/ soft tissue thickening along gluteal crease and left buttock. Consulting gen surgery can be assistance since there is no plastics nor wound care physician coverage in the near foreseeable future. On ampicillin/sulbactam per ID 3. Hidradenitis Suppurativa: Multiple admissions for same, recent admit 01/09- s/p Unasyn and eval by ID, d/c'd on Augmentin which he completed, now w/ recurrent infection. 4. HTN: Controlled. contiue home medications. Monitor BP 5. Rh arthritis - steroids at lower dose, PT for mobilization 6. DM: Sliding scale w/ Accu-Cheks. home Insulin 7. DVT Prophylaxis: Heparin sq Maurisio Lazo MD Jan 28, 2017 10:24
[2017-01-28 12:00] VITALS: BP 141/84; PULSE 83; RESP 19; TEMP 98.6; O2SAT 97
[2017-01-28] MEDS ORDERED: HYDR-3288 PO (13:30)
[2017-01-28] MEDS ORDERED: PRED20 PO (15:07)
--- NOTE | 2017-01-28 15:07 | HHI.DCPOC ---
Discharge Care Plan Diagnosis: (1) Hidradenitis suppurativa (2) Rheumatoid arthritis Goals to Promote Your Health * To prevent worsening of your condition and complications * To maintain your health at the optimal level Directions to Meet Your Goals Take your medications as prescribed Follow your dietary instruction Follow activity as directed Keep your appointments as scheduled Take your immunizations and boosters as scheduled If your symptoms worsen call your PCP, if no PCP go to Urgent Care Center or Emergency Room Smoking is Dangerous to Your Health. Avoid second hand smoke Call the 24-hour hour crisis hotline for domestic abuse at Maurisio Lazo MD Jan 28, 2017 15:07
--- NOTE | 2017-01-28 15:32 | HHI.DS ---
Discharge Summary Admission Date Jan 25, 2017 at 18:07 Discharge Date: Jan 28, 2017 Admitting Diagnosis cellulitis (1) Hidradenitis suppurativa ICD Code: L73.2 - Hidradenitis suppurativa Diagnosis: Principal Status: Acute (2) HTN (hypertension) ICD Code: I10 - Essential (primary) hypertension Status: Chronic (3) DM (diabetes mellitus) ICD Code: E11.9 - Type 2 diabetes mellitus without complications Status: Chronic Procedures None Brief History - From Admission This is a 46-year-old male with a PMH of A. fib, Depression, HTN, Hyperlipidemia , Rheumatoid Arthritis, DM and Hidradenitis Suppurativa w/ Recurrent Cellulitis who presented to the ER w/ complaints of pain to his buttocks x2 days. Recent admit 01/09-01/13/17 for SIRS/Hidradenitis, s/p Unasyn and d/c'd on Augmentin, states he completed antibiotics as directed. Denies fever or chills. On arrival, BP 137/95, HR 1:15, O2 sat 98% on RA, Afebrile. W WBC 21.8. Chemistry unremarkable except for BUN 21. GFR 88. Lactic acid normal at 1.3. INR 1.1. UA negative. CXR with no acute findings. CT Abd/Pelvis w/ soft tissue thickening along gluteal crease and left buttock. S/p Blood Cultures, Vanc/Zosyn in ER. CBC/BMP: 01/27/17 0806 01/27/17 0806 Significant Findings Laboratory Tests Test 01/25/17 15:50 01/25/17 18:00 01/26/17 06:13 01/27/17 08:06 White Blood Count 21.8 TH/MM3 (4.0-11.0) 18.5 TH/MM3 (4.0-11.0) 13.3 TH/MM3 (4.0-11.0) Red Blood Count 3.99 MIL/MM3 (4.50-5.90) 3.37 MIL/MM3 (4.50-5.90) 3.48 MIL/MM3 (4.50-5.90) Hemoglobin 10.5 GM/DL (13.0-17.0) 8.9 GM/DL (13.0-17.0) 9.2 GM/DL (13.0-17.0) Hematocrit 32.6 % (39.0-51.0) 27.6 % (39.0-51.0) 28.4 % (39.0-51.0) Mean Corpuscular Hemoglobin 26.4 PG (27.0-34.0) 26.4 PG (27.0-34.0) 26.3 PG (27.0-34.0) Platelet Count 546 TH/MM3 (150-450) 498 TH/MM3 (150-450) 524 TH/MM3 (150-450) Neutrophils (%) (Auto) 77.2 % (16.0-70.0) 77.3 % (16.0-70.0) Neutrophils # (Auto) 16.9 TH/MM3 (1.8-7.7) 14.3 TH/MM3 (1.8-7.7) 8.9 TH/MM3 (1.8-7.7) Monocytes # (Auto) 1.5 TH/MM3 (0-0.9) 1.2 TH/MM3 (0-0.9) 1.2 TH/MM3 (0-0.9) Prothrombin Time 12.0 SEC (9.8-11.6) Blood Urea Nitrogen 21 MG/DL (7-18) Random Glucose 213 MG/DL (74-106) 262 MG/DL (74-106) Total Protein 10.1 GM/DL (6.4-8.2) 8.7 GM/DL (6.4-8.2) Albumin 2.4 GM/DL (3.4-5.0) 2.1 GM/DL (3.4-5.0) Sodium Level 135 MEQ/L (136-145) 132 MEQ/L (136-145) Anion Gap 3 MEQ/L (5-15) Estimat Glomerular Filtration Rate 88 ML/MIN (>89) Urine Specific [place] 1.043 (1.002-1.035) Urine Protein 100 mg/dL (NEG-TRACE) Urine Glucose (UA) 1000 mg/dL (NEG) Urine Ketones TRACE mg/dL (NEG) Urine Mucus FEW /lpf (OCC) Aspartate Amino Transf (AST/SGOT) 7 U/L (15-37) Alanine Aminotransferase (ALT/SGPT) 9 U/L (12-78) Red Cell Distribution Width 17.4 % (11.6-17.2) Monocytes (%) (Auto) 9.1 % (0.0-8.0) Imaging Last Impressions Chest X-Ray 01/25/17 1545 Signed Impressions: Service Date/Time: Wednesday, January 25, 2017 15:52 - CONCLUSION: 1. No acute cardiopulmonary disease. Jose Maria Pardo MD Abdomen/Pelvis CT 01/25/17 1545 Signed Impressions: Service Date/Time: Wednesday, January 25, 2017 17:09 - CONCLUSION: 1. There is soft tissue thickening along the gluteal crease and left buttock. No focal drainable abscess is identified. Vijay Valentino MD PE at Discharge Mildly tender non-erythematous draining lesions consistent with hidradenitis suppurative on BL buttocks. Hospital Course Patient was started on IV antibiotics. Infectious diseases consultation concluded that this was a recurrent issue that would not resolve permanently with antibiotics. He was conveyed to the patient that he would need a plastic surgery evaluation as an outpatient, there was no plastic surgery wound care physician coverage while in-house. Blood cultures were negative. Infectious disease concluded that the patient had a concluded sweat glands that would constantly become infected and that a plastic surgery evaluation would ultimately be beneficial as an outpatient. The patient was prescribed a regimen of Augmentin for suppressive reasons to help cover the anaerobic organisms. Patient was notified of his scripts being called in. Patient has met maximum benefit from hospitalization and is clinically stable for discharge. Pt Condition on Discharge: Stable Discharge Disposition: Discharge Home Discharge Time: > 30 minutes Discharge Instructions DIET: Follow Instructions for: As Tolerated, No Restrictions Other Activity Instructions: perform moist, hot compresses at least 2-3x per day. Get into see the community clinic so that he may receive referral for both rheumatology and plastic surgery. Follow up Referrals: PCP Follow-up - 3-5 Days Plastic Surgery - 1 Week New Medications: Hydrocodone-Acetaminophen ([place]) 7.5-325 mg Tab 1 TAB PO Q6H PRN for PAIN, #60 TAB 0 Refills Continued Medications: Aspirin DR (Adult Aspirin EC Low Strength) 81 Mg Tabec 81 MG PO DAILY for Blood Clot Prevention, #90 TAB Atorvastatin (Atorvastatin) 20 Mg Tab 20 MG PO HS for Cholesterol Management, #90 TAB 3 Refills Cyclobenzaprine (Flexeril) 10 Mg Tab 10 MG PO TID for Muscle Spasm, #30 TAB 0 Refills Insulin Aspart Inj (Novolog Inj) 1,000 Unit/10 Ml Vial 1-9 UNITS SQ ACHS for Blood Sugar Management, #10 ML 3 Refills Max dose at bedtime:( )units; sugars less than 70,(0)units; sugars 150-199,(1) unit; sugars 200-249,(3) units; sugars 250-299,(5) units; sugars 300-349,(7) units; sugars greater than 349,(9) units Insulin Detemir Inj (Levemir Inj) 1,000 unit/ 10 ML Vial 32 UNITS SQ HS for Blood Sugar Management, #30 INJECTION 3 Refills Metoprolol Tartrate (Metoprolol Tartrate) 25 Mg Tab 12.5 MG PO Q12HR for Heart, #60 TAB 3 Refills Prednisone (Prednisone) 20 Mg Tab 20 MG PO BID for rheumatoid arthritis, #60 TAB 0 Refills (This prescription has been renewed) Discontinued Medications: Amoxicillin-Clavulanate (Augmentin) 500-125 mg Tab 500 MG PO Q8H for Infection for 14 Days, TAB 0 Refills Hydrocodone-Acetaminophen (Hydrocodone-Acetaminophen) 5-325 mg Tab 1 TAB PO Q6HR PRN for pain 6-10, #10 TAB 0 Refills Maurisio Lazo MD Jan 28, 2017 15:32
[2017-01-28 16:00] VITALS: BP 121/80; PULSE 82; RESP 19; TEMP 98.3; O2SAT 99
[2017-01-29] MEDS ORDERED: AUGM875T3 PO (18:14)
== END 2017-01-28 19:03 | disposition home or self-care (01) | DRG 872 ==
LOC: NEPE 14:28 → NEDA 18:07 → N05B 19:51
PROVIDERS: ADMIT Hospitalist; ATTEND Hospitalist
DX: A41.9 Sepsis, unspecified organism (principal); I48.91 Unspecified atrial fibrillation; I10 Essential (primary) hypertension; L73.2 Hidradenitis suppurativa; M48.02 Spinal stenosis, cervical region; Z95.3 Presence of xenogenic heart valve; E11.9 Type 2 diabetes mellitus without complications; J44.9 Chronic obstructive pulmonary disease, unspecified; E78.5 Hyperlipidemia, unspecified; I25.10 Atherosclerotic heart disease of native coronary artery without angina pectoris; K21.9 Gastro-esophageal reflux disease without esophagitis; M06.9 Rheumatoid arthritis, unspecified; F32.9 Major depressive disorder, single episode, unspecified; Z87.891 Personal history of nicotine dependence; Z79.4 Long term (current) use of insulin
CPT/HCPCS: 71010; 74177; 80053; 81001; 82565; 82948; 83605; 83735; 84100; 85025; 85610; 85730; 86403; 87040; 87070; 87205; 96374; 96375; J0295; J0692; J1644; J1815; J2270; J2543; J3370; J7030; J7040; J7050; J7512; Q9967